=== PATIENT | male | born 1945 | race Caucasian/White ===

== ENCOUNTER 2023-07-22 11:58 | Inpatient (IN) | payer MEDICARE, OTHER, SELFPAY ==
[2023-07-22] VITALS (21 sets, daily range): BP systolic 99–136; BP diastolic 52–75; PULSE 57–118; RESP 18–38; TEMP 36.8–37.8; O2SAT 83–100; BMI 24.8
--- NOTE | ~2023-07-22 | CT_ITS ---
EXAMINATION:CT diagnostic chest wo con DATE: 07/29/2023 18:09 INDICATION: Hemoptysis. TECHNIQUE: Computed tomography (CT) of the chest was performed without intravenous contrast. Automate d exposure control and iterative reconstruction technique were employed. The dose-length product (DLP ) was 237.56 mGy-cm. COMPARISON: Chest CT 07/22/2023 FINDINGS: There is mild emphysema. There is mild atelectasis bilaterally. There are airspace and grou ndglass opacities in right lower lobe, consistent with pneumonia. There is a small right pleural effu randy. Cardiomegaly is noted. There are coronary artery calcifications. No pericardial effusion. There are likely changes of graft replacement of ascending aorta. There is a 5.7 cm fusiform aneurysm of a scending aorta distal to the graft. There is a stent graft in descending thoracic aorta, which measur es 4.7 cm. There are gallstones in the gallbladder, which is contracted. Partially visualized is a 7. 0 cm cyst in right kidney. There are old healed rib fractures. There is mild thoracic spondylosis. IMPRESSION: 1. Persistent right lower lobe pneumonia. 2. Worsened small right pleural effusion. 3. Mild emphysema. 4. 5.7 cm fusiform aneurysm of ascending aorta distal to the graft. Stent graft of descending thoraci c aorta. Reviewed, dictated and finalized at location E. RITY PUBLIC SAFETY OFFICER IMPRESSION: 1. Persistent right lower lobe pneumonia. 2. Worsened small right pleural effusion. 3. Mild emphysema. 4. 5.7 cm fusiform aneurysm of ascending aorta distal to the graft. Stent graft of descending thoracic aorta.
--- NOTE | ~2023-07-22 | XR_ITS ---
Portable chest x-ray Comparison: 07/27/2023 Clinical History: Pneumonia Findings: There is probable mild bibasilar pulmonary edema pattern. Questionable minimal pleural eff usions. Cardiomediastinal silhouette is stable correlate with descending thoracic aortic stent graft . Bones and soft tissues are unremarkable. Impression: Mild bibasilar pulmonary edema and questionable minimal pleural effusions. Descending thoracic aortic stent graft is unchanged. Reviewed, dictated and finalized at location . NG UP SUPERVISOR Impression: Mild bibasilar pulmonary edema and questionable minimal pleural effusions. Descending thoracic aortic stent graft is unchanged.
--- NOTE | ~2023-07-22 | US_ITS ---
EXAMINATION: US renal BI DATE: 07/24/2023 11:49 INDICATION: Hematuria. TECHNIQUE: Multiple ultrasound grayscale images of the kidneys were obtained. COMPARISON: CT abdomen and pelvis 07/22/2023 FINDINGS: The right kidney measures 12.0 x 6.3 x 5.2 cm. The left kidney measures 10.7 x 5.5 x 4.7 cm. The kidn eys demonstrate normal parenchymal echogenicity. There is cortical thinning of the kidneys. There are cysts in the kidneys measuring up to 6.0 cm on the right. There is no hydronephrosis. The bladder is normal. IMPRESSION: 1. Mild atrophy of the kidneys. No hydronephrosis. Reviewed, dictated and finalized at location E. TENDER
--- NOTE | ~2023-07-22 | CT_ITS ---
EXAMINATION: CTA chest PE abdomen pel DATE: 07/22/2023 13:12 INDICATION: Hemoptysis. History of aortic graft. Left upper quadrant abdominal pain. TECHNIQUE: Computed tomography angiography (CTA) of the chest, abdomen and pelvis was performed with 100 mL Omnipaque-350 intravenous contrast timed to evaluate the pulmonary arteries. Coronal maximum i ntensity projection 3D-reconstructions were created by the technologist. Automated exposure control a nd iterative reconstruction technique were employed. Exam dose: 788.76 mGy-cm total exam DLP. COMPARISON: 07/22/2023 2 view chest 08/04/2012 CTA chest abdomen FINDINGS: Status post sternotomy. There is a thoracic aortic graft stent extending from the posterior thoracic aortic arch into the dis cheli descending thoracic aorta. Stable aneurysm of the distal ascending aorta and aortic arch, measuring up to 5.6 cm diameter, uncha nged since 08/04/2012. There is diagnostic contrast enhancement of the pulmonary arteries and no evidence of pulmonary embol ism. Mild prominence of right hilar and mediastinal lymph nodes, likely reactive. There is patchy groundglass infiltrate in the right upper lobe and superior segment right lower lobe, with prominent consolidating infiltrate with air bronchograms in the dependent basilar right lower l obe, suggesting pneumonia or aspiration pneumonitis. There is mild discoid atelectasis in the left lower lung but no left pulmonary consolidation. No pleural effusion. Cardiomegaly. No pericardial effusion. There are multiple stones in the dependent aspect of the gallbladder. No gallbladder wall thickening or pericholecystic fluid or fat stranding. No bile duct dilatation. Approximately 1.8 x 3 cm hypoattenuating lesion of the anterior aspect of the lateral segment of the left hepatic lobe with some peripheral puddling of contrast material, possibly a hemangioma. Indeterminate approximately 8.8 x 14 mm hypoattenuating lesion of the right hepatic lobe (series 5 im age 28) Up to approximately 2.5 x 4.1 cm cystic lesion of the pancreatic tail. There are numerous pancreatic calcifications consistent with chronic pancreatitis. No pancreatic duct dilatation. Splenic size is within normal range. Normal morphology of the adrenal glands. Bilateral chronic pyelonephritis with volume loss of the left kidney compared to the right. There are multiple bilateral renal cysts., Measuring up to 2.1 cm on the left, 7.4 cm on the right. 5.7 mm lower pole nonobstructing right renal calculus. Pinpoint nonobstructing mid right renal calcul us. Pinpoint and up to 7.8 mm nonobstructing lower pole left renal calculi. No ureteral calculus or hydroureteronephrosis of either kidney. There is moderately prominent prostatomegaly and mild prostate calcification. There is moderate diffu se thickening of bladder wall likely due to urinary bladder outlet obstruction as result of prostate enlargement. Normal appendix. There are innumerable diverticula of the sigmoid and descending colon and a solitary diverticulum of the ascending colon. No CT evidence of diverticulitis. No bowel obstruction, pneumatosis, portal veno us gas or intraperitoneal free air. There is a stent at the proximal celiac artery with diminished kinking since 08/04/2012. The suprarenal abdominal aortic aneurysm, measuring up to 5 cm diameter. There is extensive calcifica tion of the abdominal aorta, iliac and femoral arteries. No intraperitoneal or retroperitoneal or pelvic mass lesion or adenopathy or ascites is noted. Approximately 1.8 x 2.7 cm fat-containing umbilical hernia. Bilateral small fat-containing inguinal hernias. Degenerative changes of the thoracic and lumbar spine, including moderate degenerative disc disease a nd grade 1 anterolisthesis at L5-S1 due to degenerative change at the apophyseal joints No suspicious osteolytic or osteoblastic lesions are noted. IMPRESSION: Prominent consolidating depen
--- NOTE | ~2023-07-22 | XR_ITS ---
Portable chest x-ray Comparison: 07/25/2023 Clinical History: Pneumonia Findings: Lungs are clear, without focal consolidation or pleural effusion. Cardiomediastinal silho uette is stable, with descending thoracic aortic stent graft present. Bones and soft tissues are unre markable. Impression: Clear lungs. Stable descending thoracic aortic stent graft. Reviewed, dictated and finalized at [facility]. N SERVICE COORDINATOR Impression: Clear lungs. Stable descending thoracic aortic stent graft.
--- NOTE | ~2023-07-22 | XR_ITS ---
EXAMINATION: XR chest 1V DATE: 07/22/2023 13:12 INDICATION: Cough and hemoptysis TECHNIQUE: frontal view of the chest was obtained. COMPARISON: Chest radiograph dated 07/22/2023 FINDINGS: Again seen are airspace opacities in the bilateral lower lungs and in the inferior right upper lobe. No pulmonary edema, pleural effusion or pneumothorax. Cardiomegaly with prominent left paracardial fa t pad. Endoluminal stenting of the aneurysmal descending thoracic aorta. IMPRESSION: 1. Opacities in the right upper lobe and bilateral lower lung zones which could represent atelectasis and/or pneumonia. 2. Cardiomegaly. 3. Stented aneurysmal descending thoracic aorta. Reviewed, dictated and finalized at location A. ROCK DRILL OPERATOR
--- NOTE | ~2023-07-22 | CT_ITS ---
EXAMINATION: CT brain wo con DATE: 07/25/2023 10:49 INDICATION: Frontal headache, right greater than left TECHNIQUE: Computed tomography (CT) of the head was performed without intravenous contrast. The mA wa s adjusted according to patient size. Iterative reconstruction technique was employed. Exam dose: 60 5.33 mGy-cm total exam DLP. COMPARISON: None FINDINGS: Old left temporal occipital infarct, left middle cerebral artery territory. Small posterior left cerebellar hemispheric chronic infarct. Prominent bilateral carotid siphon internal carotid artery calcifications and bilateral vertebral art pascale and basilar artery calcification. There is nonspecific diminished attenuation of the cerebral whi te matter, likely due to chronic small vessel ischemic changes. There has been a prominent bilateral cerebral cortical atrophy. No intracranial mass lesion or hemorrhage, midline shift or mass effect is noted. No subdural or epid ural hematoma. Mild mucoperiosteal thickening of the right maxillary sinus. The paranasal sinuses are otherwise unre markable. Normal development and aeration of the left mastoid air cells. There is limited development of the right mastoid air cells. No skull fracture or bone destruction. IMPRESSION: Old left temporal occipital and posterior left cerebellar hemispheric infarcts Cerebral atherosclerosis and chronic small vessel ischemic changes of the cerebral white matter No acute intracranial finding Reviewed, dictated and finalized at Location A. Reviewed, dictated and finalized at location A. IT COLLECTIONS REP IMPRESSION: Old left temporal occipital and posterior left cerebellar hemisphe layo infarcts Cerebral atherosclerosis and chronic small vessel ischemic changes of the cereb ral white matter No acute intracranial finding
--- NOTE | ~2023-07-22 | XR_ITS ---
EXAMINATION: XR chest 1V portable DATE: 07/24/2023 11:08 INDICATION: Pneumonia. TECHNIQUE: A single frontal view of the chest was obtained. COMPARISON: Chest CT 07/22/2023, chest single view 07/22/2023 FINDINGS: There are airspace and interstitial opacities in the mid and lower lung zones. There is a s mall right pleural effusion. No pneumothorax. Cardiomegaly is noted. Median sternotomy wires are note d. There is a stent graft in descending thoracic aorta. IMPRESSION: 1. Worsened airspace and interstitial opacities in the mid and lower lung zones, likely a combination of pneumonia and pulmonary edema. 2. Small right pleural effusion. 3. Cardiomegaly. Reviewed, dictated and finalized at location E. EAR INSTRUCTOR IMPRESSION: 1. Worsened airspace and interstitial opacities in the mid and lower lung zones , likely a combination of pneumonia and pulmonary edema. 2. Small right pleural effusion. 3. Cardiomegaly.
--- NOTE | ~2023-07-22 | XR_ITS ---
XR chest 1V portable DATE: 07/25/2023 04:29 INDICATION: Pneumonia TECHNIQUE: Portable AP chest on 07/25/2023 at 0425 hours COMPARISON: 07/24/2023 portable AP chest at 1102 hours FINDINGS: Cardiomegaly. Thoracic aortic endovascular stent centimeter from the arch into the descendi ng thoracic aorta. Status post sternotomy. Bilateral predominantly mid and lower lung zone infiltrates, right greater than left, which may be du e to pulmonary edema. Pneumonia is not excluded. Slight right pleural effusion is suggested. IMPRESSION: Persistent bilateral pulmonary infiltrates suggesting pulmonary edema; pneumonia is not e xcluded Reviewed, dictated and finalized at location A. OR PROGRAM ANALYST IMPRESSION: Persistent bilateral pulmonary infiltrates suggesting pulmonary aguilar ma; pneumonia is not excluded
--- NOTE | 2023-07-22 12:08 | ECG_ITS ---
Measurements Intervals [place] Rate: 116 P: AK: 0 QRS: 18 QRSD: 95 T: 31 QT: 300 QTc: 417 Interpretive Statements ATRIAL FIBRILLATION WITH RAPID VENTRICULAR RESPONSE LOW QRS VOLTAGE IN LIMB LEADS CONSIDER ANTEROSEPTAL INFARCT, AGE INDETERMINATE BASELINE ARTIFACT- I, II, III, AVR, AVL, AVF ABNORMAL ECG NO PREVIOUS ECG AVAILABLE FOR COMPARISON Electronically Signed On 07-22-2023 12:22:23 TOOLER by Vega Taylor D.O.
[2023-07-22 12:31] LABS: Hemoglobin 11.7 g/dL (14.0-18.0); Mean Corpuscular HGB Conc 30.8 g/dl (32-36); Mean Corpuscular Hemoglobin 29.3 pg (26-34); Mean Platelet Volume 9.9 fl (7.4-10.4); Platelet Count Result 158 k/mm3 (150-375); Red Cell Distribution Width 15.2 % (11.5-14.5); White Blood Count 9.9 K/mm3 (4.5-10.0)
[2023-07-22] MEDS: SODIUM CHLORIDE 0.9% IV 1,000 ML 999 ML IV CONT ×2 (12:41→13:18)
[2023-07-22 12:43] LABS: Lactic Acid Reflex 3.4 mmol/L (0.7-2.0)
--- NOTE | 2023-07-22 12:46 | ED.SOB ---
HPI - SOB/Dyspnea General Chief Complaint: Shortness of Breath/Dyspnea Stated Complaint: cough, chills, fever, SOB Time Seen by Provider: 07/22/23 12:11 History of Present Illness HPI Narrative: patient is a 78-year-old male with a history of AFib on Xarelto, diabetes, hypertension, hyperlipidemia presenting with cough and fatigue. Patient's family is at bedside and helps with the history. He has been sick for the last 5 days. His main complaints are body aches and severe fatigue. He has also had a productive cough with blood-tinged sputum for the last day or 2. He went to his PCP today who advised that he come to the ER as he was hypoxic. He complains of chronic left upper quadrant pain but otherwise denies any chest or abdominal pain. Family states he has had a very poor appetite and is not drinking enough fluids. No numbness or weakness, dysuria, leg swelling, back or flank pain. Related Data Home Medications Medication Instructions Recorded Confirmed mecobalamin (vitamin B12) 1,000 1,000 mcg sublingual DAILY 01/12/23 07/22/23 mcg disintegrating tablet,sublingual acetaminophen 650 mg 650 mg PO Q8H PRN pain or sleep 07/22/23 07/22/23 tablet,extended release lisinopril 5 mg tablet 5 mg PO QPM 07/22/23 07/22/23 pantoprazole 40 mg tablet,delayed 40 mg PO DAILY 07/22/23 07/22/23 release rivaroxaban 20 mg tablet (Xarelto) 20 mg PO QPM 07/22/23 07/22/23 Allergies Allergy/AdvReac Type Severity Reaction Status Date / Time clindamycin AdvReac GI upset Verified 07/22/23 10:34 Review of Systems Review of Systems: All systems reviewed & are unremarkable except as noted in HPI and below PMFSH Past Medical History Medical History Cancer screening Diverticulosis large intestine w/o perforation or abscess w/bleeding Dyspnea Emphysema, unspecified Gout Other fpc (current) drug therapy Persistent atrial fibrillation Personal history of other diseases of the circulatory system Positive colorectal cancer screening using Cologuard test Psychosexual dysfunction with inhibited sexual excitement Stroke 2020 Thoracic aortic aneurysm, without rupture Surgical History Surgical History Aneurysm 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 [phone] with surgical repair of the aortic root 2003 and thoracic aneurysm graft/repair around 2009 History of blood clot in brain 03/2021 History of repair of thoracic aortic aneurysm S/P ear surgery 8- at [facility] Family History Family History Mother Diabetes mellitus Depression Cerebrovascular accident Father Hypertension Family history of elevated blood lipids Family history of lung cancer Social History Social History Smoking status: Former smoker Second hand tobacco smoke exposure: No Alcohol intake: current Substance use: never Substance use type: does not use Do You Feel Safe in your Home?: Yes Lack of Transportation: YES Lack of Food: Never True Current Housing: I Have Housing Concerned About Future Housing: No Difficulty Paying Gas/Electric Bills: No Difficulty Paying for Meds: No Currently Unemployed: No Education: Decline to Answer Difficulty w/ Childcare or Family Care: No Living arrangements: with family Occupation/Education: retired Gender identity (if verbalized by the patient): Male Sexual Orientation (if Verbalized by the Patient): Straight or Heterosexual Spiritual care concerns: No Exam Narrative: GENERAL: Ill-appearing, in no acute distress, pleasant cooperative HEAD: Normocephalic, atraumatic. EYES: PERRLA and EOMI. ENT: Mucous membranes tacky NECK: Supple. CHEST: coarse breath sounds in bases, no wheezing, saturating well on 2L NC HEART: tachycardic
[2023-07-22 12:51] LABS: Band Neutrophils Percent 7 % (0-6); Lymphocytes Absolute Manual 0.19 K/mm3 (1.1-4.5); Monocytes Absolute Manual 0.09 K/mm3 (0.1-0.90); Monocytes Percent Manual 1 % (3-9); Neutrophils Percent Manual 90 % (46-73); Platelet Estimate Adequate (Adequate); Total Cells Counted 100
[2023-07-22 12:52] LABS: Schistocytes None Seen (NORMAL)
[2023-07-22 12:53] LABS: Alanine Aminotransferase 34 U/L (6-50); Albumin Level 3.6 g/dL (3.5-5.1); Alkaline Phosphatase 191 U/L (38-126); Anion Gap 11 mmol/L (8-16); Aspartate Amino Transferase 32 U/L (17-59); Bilirubin,Total 1.5 mg/dL (0.2-1.3); Blood Urea Nitrogen 27 mg/dL (9-20); Calcium 9.6 mg/dL (8.4-10.2); Carbon Dioxide 24 mmol/L (22-30); Chloride 101 mmol/L (98-107); Estimated CRCL calculation 48 ml/min; Estimated Glomerular Filt Rate > 60; Glucose 135 mg/dL (65-110); Potassium 4.5 mmol/L (3.4-5.0); Sodium 136 mmol/L (137-145)
[2023-07-22 12:58] LABS: Lipase 55 U/L (23-300)
--- NOTE | 2023-07-22 13:12 | PC.NURSE ---
Pt returned from radiology
[2023-07-22 13:16] LABS: Influenza A QL RT-PCR Negative (Negative); Influenza B QL RT-PCR Negative (Negative); RSV RNA, RT-PCR Negative (Negative); SARS-CoV-2 RNA PCR Negative (Negative)
[2023-07-22 13:16] LABS: NT Pro B Type Natriuretic Pept 5430 pg/mL (19.9-100); Troponin I 0.063 ng/mL (0.000-0.034)
[2023-07-22 13:32] LABS: INR 2.5; Partial Thromboplastin Time 42.3 SECONDS (22.3-36.8); Prothrombin Time 28.6 Seconds (11.1-14.7)
[2023-07-22] MEDS: PIPERACILLN/TAZ 3.375GM/NS50ML 3.375 GM/50 ML BAG IVPB (14:21)
[2023-07-22 14:54] LABS: Appearance Urine Clear (Clear); Bacteria Urine None Seen /hpf; Bilirubin Urine 1+ (Negative); Blood Urine Negative (Negative); Color Urine Dark Yellow (Yellow); Glucose Urine UA Negative (Negative); Hyaline Casts Urine Present /lpf; Ketones Urine Negative (Negative); Leukocyte Esterase Ur Trace LEU/UL (Negative); Nitrate Urine Negative (Negative); Non Pathogenic Casts 0-2; Protein Urine 1+ mg/dL (Negative); Squamous Epithelial Cell Urine None seen /hpf (Few)
[2023-07-22 14:56] LABS: Specific Grav Ur 1.078 (1.001-1.035)
[2023-07-22 14:57] LABS: Add Urine Microscopic? YES
[2023-07-22 15:26] LABS: Reflex Lactic Acid Yes or No Add Lactic
--- NOTE | 2023-07-22 15:39 | PC.NURSE ---
This patient, Ambrose Leonardo, was admitted to IMU status, and placed in Intensive Care Unit-8. Patient/family oriented to hospital policies and general routines including ID bracelet, bed and alarms, visiting hours, pain management, procedures, bathroom and other care routines, personal items, smoking policy, room service/diet, and visiting hours. Valuables list has been completed. Information on how to activate the Rapid Response Team has been discussed. Patient/Family are encouraged to report perceived risks to care and to ask questions if they do not understand what they are told or what they should do.
[2023-07-22] MEDS: VANCOMYCIN 2,000 MG/NS 500 ML 2,000 MG/500 ML BAG 250 MG IVPB (15:40)
[2023-07-22 15:55] LABS: Glucose Point of Care 98 mg/dl (65-105)
--- NOTE | 2023-07-22 15:59 | PM.IMHP ---
H&P: HPI History of Present Illness Date/Time: 07/22/23 15:59 Chief Complaint: SOB, Cough Narrative: 78 y/o M presents here with SOB, cough and body aches with PMH of emphysema, gout, persistent AFib, CVA, and thoracic aortic aneurysm s/p graft and repair. Patient presented here from his PCP office, [facility], for evaluation. Patient reports SOB and body aches that started on Sat (07/18). Developed productive cough on Thu/ that was blood streaked and noted blood streaks when he would blow his nose. Currently experiencing body aches that have primarily effected his hips and knees. Reports reduced appetite and reduced PO intake. Tried OTC aspirin and a nasal decongestant at home with minimal relief. States his neighbor had similar symptoms 3 days before onset of his own symptoms. During evaluation at his PCP, found to have adventitious lung sounds and tachypneic with O2 sat at 92% on RA. He was promptly sent to the ED where ED workup revealed a normal WBC, stable anemia with hgb at 11.7, BS of 135, lactic acid 1.1, and an elevated BNP at 5430. UA suggestive of UTI. CTA had multiple findings with most prominent being a RLL infiltrate and patchy groundglass infiltrates of the RUL and super segment of the RLL. Currently denying any urinary frequency, burning with urination, or hematuria. No chest pain or palpitations. Denies any current chills or fever, however endorsed fever previously to PCP and has current temp of 100F. Review of Systems Review of Systems: All systems reviewed & are unremarkable except as noted in HPI and below [facility] Past Medical History Medical History (Updated 07/22/23 @ 16:59 by Tammie Thao APRN) Cancer screening Diverticulosis large intestine w/o perforation or abscess w/bleeding Dyspnea Emphysema, unspecified Gout Other long-term (current) drug therapy Persistent atrial fibrillation Personal history of other diseases of the circulatory system Positive colorectal cancer screening using Cologuard test Psychosexual dysfunction with inhibited sexual excitement Stroke 2020 Thoracic aortic aneurysm, without rupture Surgical History Surgical History Aneurysm 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 [phone] with surgical repair of the aortic root 2003 and thoracic aneurysm graft/repair around 2009 History of blood clot in brain 03/2021 History of repair of thoracic aortic aneurysm S/P ear surgery 8-21 at [facility] Family History Family History Mother Diabetes mellitus Depression Cerebrovascular accident Father Hypertension Family history of elevated blood lipids Family history of lung cancer Social History Social History Smoking status: Former smoker Second hand tobacco smoke exposure: No Alcohol intake: current Substance use: never Substance use type: does not use Do You Feel Safe in your Home?: Yes Lack of Transportation: YES Lack of Food: Never True Current Housing: I Have Housing Concerned About Future Housing: No Difficulty Paying Gas/Electric Bills: No Difficulty Paying for Meds: No Currently Unemployed: No Education: Decline to Answer Difficulty w/ Childcare or Family Care: No Living arrangements: with family Occupation/Education: retired Gender identity (if verbalized by the patient): Male Sexual Orientation (if Verbalized by the Patient): Straight or Heterosexual Spiritual care concerns: No Meds Home Medications and Allergies Home Medications Medication Instructions Recorded Confirmed Type blood-glucose meter #1 ea 05/13/21 07/22/23 Rx blood sugar diagnostic (Blood #50 ea 02/24/22 07/22/23 Rx Glucose Test strips) lancets 30 gauge and blood glucose #60 kiara 02/24/22 07/22/23 Rx strips combo pack blood sugar diagn
[2023-07-22 16:00] LABS: MRSA (PCR) NOT DETECTED (NOT DETECTE)
--- NOTE | 2023-07-22 16:01 | ECG_ITS ---
Measurements Intervals [place] Rate: 100 P: TN: 0 QRS: 74 QRSD: 100 T: 29 QT: 344 QTc: 445 Interpretive Statements ATRIAL FIBRILLATION WITH RAPID VENTRICULAR RESPONSE LOW QRS VOLTAGE IN LIMB LEADS CANNOT RULE OUT SEPTAL INFARCT, AGE INDETERMINATE BASELINE ARTIFACT- AVL ABNORMAL ECG COMPARED TO ECG 07/22/2023 12:12:40 HEART RATE HAS DECREASED Electronically Signed On 07-22-2023 16:12:30 SURVEY TECHNICIAN by Vega Taylor D.O.
[2023-07-22 16:09] LABS: Lactic Acid 1.1 mmol/L (0.7-2.0)
[2023-07-22 16:30] LABS: Troponin I 0.084 ng/mL (0.000-0.034)
[2023-07-22] MEDS: ALBUTEROL SULFATE NEB 2.5 MG/3 ML INH INHALATION (16:45)
[2023-07-22] MEDS: IPRATROPIUM BR 0.02% INH SOLN 0.5 MG/2.5 ML VIAL INHALATION (16:51)
[2023-07-22] MEDS: dilTIAZem HCL 30 MG TABLET PO (17:25)
[2023-07-22] MEDS: RIVAROXABAN 20 MG TABLET PO (17:25)
--- NOTE | 2023-07-22 18:20 | ECG_ITS ---
Measurements Intervals [place] Rate: 89 P: AK: 0 QRS: 66 QRSD: 94 T: 29 QT: 344 QTc: 420 Interpretive Statements ATRIAL FIBRILLATION LOW QRS VOLTAGE IN LIMB LEADS CANNOT RULE OUT SEPTAL INFARCT, AGE INDETERMINATE BASELINE ARTIFACT- I, II, III, AVR, AVL ABNORMAL ECG COMPARED TO ECG 07/22/2023 16:07:28 HEART RATE HAS DECREASED Electronically Signed On 07-22-2023 19:10:58 CASE COORDINATOR by Vega Taylor D.O.
[2023-07-22 19:29] LABS: Troponin I 0.077 ng/mL (0.000-0.034)
[2023-07-22 20:05] LABS: Glucose Point of Care 151 mg/dl (65-105)
[2023-07-23] VITALS (18 sets, daily range): BP systolic 98–159; BP diastolic 46–77; PULSE 72–106; RESP 23–32; TEMP 36.3–36.9; O2SAT 96–100
--- NOTE | 2023-07-23 | ECHO_ITS ---
Patient Info Name: Ambrose Leonardo Age: 78 years : 1945 Gender: Male Ht: 68 in Wt: 163 lbs BSA: 1.89 m2 HR: 78 bpm BP: 98 / 56 mmHg Heart Rhythm: Sinus Rhythm Technical Quality: Good Exam Date: 07/23/2023 9:51 AM Exam Location: Echo Lab Patient Status: Inpatient Admit Date: 07/22/2023 Staff Ordering Physician: Tammie Thao APRN Retort Furnace Helper: Kirby Thorne RDCS Attending Provider: Kenneth Kaye MD Referring Physician: Master MCNEIL; Exam Type: CA echo doppler color flow Study Info Indications - elevated BNP, dyspnea Complete two-dimensional, color flow and Doppler transthoracic echocardiogram is performed. Summary 1. Complete two-dimensional, color flow and Doppler transthoracic echocardiogram is performed. 2. Normal left ventricular size with moderate concentric hypertrophy and some sigmoid hypertrophy. Good systolic function of all segments, ejection fraction 60-65%. Grade 2 diastolic dysfunction is present. 3. Left atrial chamber dimension is mildly enlarged. 4. The aortic valve is possibly bicuspid. There is mild aortic insufficiency present. 5. There is mild mitral valve regurgitation. 6. There is mild tricuspid valve regurgitation. 7. Mild pulmonary hypertension, estimated pulmonary arterial systolic pressure is 38 mmHg. 8. The aortic root size at the sinus of Valsalva is mildly dilated, at 4.3 cm. 9. The underlying rhythm appears to be atrial fibrillation. Left Ventricle Left ventricular chamber dimension is normal. Left ventricular systolic function is normal, estimated at 60-65%. There is moderately increased left ventricular wall thickness. Left ventricular septal wall motion is normal. The left ventricular diastolic function is grade II diastolic dysfunction. Right Ventricle Right ventricular chamber dimension is normal. Right ventricular systolic function is normal. Left Atria Left atrial chamber dimension is mildly enlarged. Right Atria Right atrial chamber dimension is normal. Aortic Valve The aortic valve is possibly bicuspid. There is mild aortic insufficiency present. There is no aortic valve sclerosis. There is no aortic valve stenosis. There is mild aortic valve regurgitation. Pulmonic Valve The pulmonic valve is normal. There is no pulmonic valve stenosis. There is no pulmonic regurgitation. Mitral Valve The mitral valve has normal leaflets. There is no mitral valve stenosis. There is mild mitral valve regurgitation. Tricuspid Valve The tricuspid valve leaflets are normal. There is no significant tricuspid valve stenosis. There is mild tricuspid valve regurgitation. Mild pulmonary hypertension, estimated pulmonary arterial systolic pressure is 38 mmHg. Pericardium/Pleural The pericardium appears normal. There is no pericardial effusion. Inferior Vena Cava Normal inferior vena cava with >50% collapse upon inspiration consistent with Empty right atrial pressure, 10 mmHg. Aorta The aortic root size at the sinus of Valsalva is mildly dilated, at 4.3 cm. The prox ascending aorta size is normal. Left Ventricular Outflow Tract Name Value Normal LVOT 2D LVOT Diameter 2.1 cm LVOT Doppler LVOT Peak Gradient 4 mmHg
[2023-07-23] MEDS: dilTIAZem HCL 30 MG TABLET PO ×4 (00:05→18:40)
[2023-07-23] MEDS: ACETAMINOPHEN 325 MG TABLET 650 MG PO ×2 (00:05→20:39)
[2023-07-23] MEDS: PIPERACILLN/TAZ 3.375GM/NS50ML 3.375 GM/50 ML BAG IVPB ×4 (00:06→18:41)
[2023-07-23 04:15] LABS: Hematocrit 31.8 % (42.0-52.0); Hemoglobin 9.8 g/dL (14.0-18.0); Mean Corpuscular HGB Conc 30.8 g/dl (32-36); Mean Corpuscular Hemoglobin 29.6 pg (26-34); Mean Corpuscular Volume 96.1 fl (80-100); Mean Platelet Volume 10.3 fl (7.4-10.4); Platelet Count Result 131 k/mm3 (150-375); Red Blood Count 3.31 M/mm3 (4.6-6.20); Red Cell Distribution Width 15.5 % (11.5-14.5); White Blood Count 8.7 K/mm3 (4.5-10.0)
[2023-07-23 04:50] LABS: Band Neutrophils Percent 7 % (0-6); Eosinophils Absolute Manual 0.08 K/mm3 (0.02-0.5); Eosinophils Percent Manual 1 % (0-4); Monocytes Absolute Manual 0.17 K/mm3 (0.1-0.90); Monocytes Percent Manual 2 % (3-9); Neutrophils Absolute Manual 7.83 K/mm3 (1.3-6.7); Neutrophils Percent Manual 83 % (46-73); Total Cells Counted 100
[2023-07-23 04:51] LABS: Platelet Estimate Adequate (Adequate); Schistocytes None Seen (NORMAL)
[2023-07-23 04:52] LABS: Acanthocytes 1+ (NORMAL); Ovalocytes 1+ (NORMAL)
[2023-07-23 05:32] LABS: Hemoglobin A1C 6.3 % (<5.7)
--- NOTE | 2023-07-23 06:25 | PC.NURSE ---
Pt's daughter, Jane ([phone]) called for pt update. Pt states Jane can receive information. Updated to current condition.
[2023-07-23 07:34] LABS: Alanine Aminotransferase 33 U/L (6-50); Albumin Level 3.2 g/dL (3.5-5.1); Alkaline Phosphatase 199 U/L (38-126); Anion Gap 8 mmol/L (8-16); Aspartate Amino Transferase 29 U/L (17-59); Bilirubin,Total 1.2 mg/dL (0.2-1.3); Blood Urea Nitrogen 18 mg/dL (9-20); Calcium 9.1 mg/dL (8.4-10.2); Carbon Dioxide 21 mmol/L (22-30); Chloride 105 mmol/L (98-107); Estimated CRCL calculation 48 ml/min; Estimated Glomerular Filt Rate > 60; Glucose 129 mg/dL (65-110); Magnesium 2.2 mg/dL (1.6-2.3); Sodium 134 mmol/L (137-145)
[2023-07-23 08:03] LABS: Glucose Point of Care 109 mg/dl (65-105)
[2023-07-23] MEDS: CYANOCOBALAMIN 1,000 MCG TABLET 1000 MCG PO (08:51)
[2023-07-23] MEDS: PANTOPRAZOLE 40 MG TABLET PO (08:51)
--- NOTE | 2023-07-23 10:38 | PM.IMPN ---
Progress Note: A&P Assessment and Plan (1) Persistent atrial fibrillation: Code(s): I48.19 - Other persistent atrial fibrillation Status: Acute (2) Elevated troponin: Code(s): R79.89 - Other specified abnormal findings of blood chemistry Status: Acute (3) Sepsis: Qualifiers: Acute respiratory failure type: with hypoxia Sepsis acute organ dysfunction status: with acute organ dysfunction Sepsis type: sepsis due to unspecified organism Severe sepsis shock status: without septic shock Code(s): A41.9 - Sepsis, unspecified organism Status: Acute (4) Pneumonia: Qualifiers: Laterality: right Lung location: lower lobe of lung Pneumonia type: due to unspecified organism Qualified Code(s): J18.9 - Pneumonia, unspecified organism Code(s): J18.9 - Pneumonia, unspecified organism Status: Acute (5) Chronic atrial fibrillation: Code(s): I48.20 - Chronic atrial fibrillation, unspecified Status: Acute (6) Thoracic aortic aneurysm, without rupture: Code(s): I71.2 - Thoracic aortic aneurysm, without rupture Status: Acute Plan 78 y/o M presents here with SOB, cough and body aches with PMH of emphysema, gout, persistent AFib, CVA, and thoracic aortic aneurysm s/p graft and repair. Patient presented here from his PCP office, [facility], for evaluation. Patient reports SOB and body aches that started on? Sat (07/18). Developed productive cough on Mon/Tues that was blood streaked and noted blood streaks when he would blow his nose. Currently experiencing body aches that have primarily effected his hips and knees. Reports reduced appetite and reduced PO intake. Tried OTC aspirin and a nasal decongestant at home with minimal relief. . During evaluation at his PCP, found to have adventitious lung sounds and tachypneic with O2 sat at 92% on RA. He was promptly sent to the ED where ED workup revealed a normal WBC, stable anemia with hgb at 11.7,? BS of 135, lactic acid 1.1, and an elevated BNP at 5430. UA suggestive of UTI. CTA had multiple findings with most prominent being a RLL infiltrate and patchy groundglass infiltrates of the RUL and super segment of the RLL.? (1) Sepsis: ?Qualifiers: ?Acute respiratory failure type:?with hypoxia??Sepsis acute organ dysfunction status:?with acute organ dysfunction??Sepsis type:?sepsis due to unspecified organism??Severe sepsis shock status:?without septic shock ?Code(s): A41.9 - Sepsis, unspecified organism ?Status:?Acute ?Assessment and Plan: Meets SIRS criteria: HR >100, RR >20. Lactic acid 3.4. No fever, elevated WBC, or lactic acidosis (1.1). Borderline hypotension and elevated troponins. Started on 30 mL/kg with 2L bolus of NS. Suspected source: right lower lobe and right upper lobe pna. Possible UTI. Repeat lactic post-fluids was 1.1. Blood cultures, UC, and MRSA ordered/pending. Adding sputum culture. Started on Vanc and Zosyn on 07/22/22. (2) Pneumonia and hemoptysis ?Laterality:?right??Lung location:?lower lobe of lung??Pneumonia type:?due to unspecified organism? Qualified Code(s):?J18.9 - Pneumonia, unspecified organism ?Code(s): J18.9 - Pneumonia, unspecified organism ?Status:?Acute ?Assessment and Plan: CTA of chest/abdomen/pelvis: Prominent consolidating dependent right lower lobe infiltrate,, patchy groundglass infiltrates of right upper lobe and super segment of right lower lobe, suggesting pneumonia CXR: 1. Opacities in the right upper lobe and bilateral lower lung zones which could represent atelectasis and/or pneumonia. 2. Cardiomegaly. 3. Stented aneurysmal descending thoracic aorta. started on vanc and Zosyn on 07/22. MRSA PCR and sputum culture ordered. Requiring 2L to maintain a saturation greater than 92%. Albuterol/Atrovent nebs Q6H prn ordered. consider steroids if lung exam does not improve. Patient still has active bleeding with the cough with
[2023-07-23 11:46] LABS: Glucose Point of Care 147 mg/dl (65-105)
[2023-07-23] MEDS: ALBUTEROL SULFATE NEB 2.5 MG/3 ML INH INHALATION ×2 (12:39→20:08)
[2023-07-23] MEDS: IPRATROPIUM BR 0.02% INH SOLN 0.5 MG/2.5 ML VIAL INHALATION ×2 (12:39→20:08)
[2023-07-23] MEDS: VANCOMYCIN 1,500 MG/NS 500 ML 1,500 MG/500 ML BAG 250 MG IVPB (14:49)
--- NOTE | 2023-07-23 14:57 | PM.CNPUL ---
Assessment and Plan Assessment and plan (1) Pneumonia: Qualifiers: Pneumonia type: due to unspecified organism Laterality: right Lung location: lower lobe of lung Qualified Code(s): J18.9 - Pneumonia, unspecified organism Code(s): J18.9 - Pneumonia, unspecified organism Status: Acute Assessment and Plan: A 78-year-old gentleman presented with symptoms of cough, malaise, and yellow-colored sputum production, which subsequently turned bloody; these symptoms are associated with right lower lobe pneumonia as indicated by a chest CT scan. The patient is currently on a suitable antibiotic regimen for community-acquired pneumonia. He continues to have bloody sputum, likely due to both the pneumonia and the anticoagulant medication he is taking. The patient and his expressed concerns about the risk of stroke if Xarelto is discontinued. Given his prolonged PT and PTT, it may be safe to temporarily discontinue the anticoagulant as his blood will remain thin due to the prolonged PT, minimizing the risk of stroke if he is off Xarelto for a short period. There is also a potential scenario where the patient's alveolar hemorrhage, possibly linked to Xarelto use, could deteriorate, necessitating endotracheal intubation and mechanical ventilation. This possibility was thoroughly discussed with both the patient and his spouse. Plan: Maintain the current antibiotic regimen for community-acquired pneumonia. Await the results of the sputum culture. Monitor PT and INR daily. Temporarily discontinue Xarelto. (2) Chronic atrial fibrillation: Code(s): I48.20 - Chronic atrial fibrillation, unspecified Status: Acute (3) Diabetes mellitus: Code(s): E11.9 - Type 2 diabetes mellitus without complications Status: Acute History of Present Illness History of Present Illness Consult date: 07/23/23 Chief complaint: pneumonia Narrative: A 78-year-old male with a past medical history of emphysema, gout, persistent atrial fibrillation, cerebrovascular accident, and thoracic aortic aneurysm post graft and repair, has been admitted with symptoms of shortness of breath, cough, and body aches. These symptoms began on Thursday (07/18), accompanied by a productive, yellow-colored cough. Approximately two days prior to admission, the patient started noticing bloody sputum and blood streaks when blowing his nose. Upon emergency room evaluation, a chest CT scan revealed consolidation in the right lower lobe with an air bronchogram, suggestive of pneumonia, and a ground-glass opacity in the right lung. The patient is currently being treated with antibiotics for community-acquired pneumonia in the intensive care unit, with sputum culture results pending. On admission, his prothrombin time (PT) and partial thromboplastin time (PTT) were prolonged. The patient continues to take oral Xarelto due to his history of atrial fibrillation and continues to have bloody sputum. He reports feeling slightly better in terms of reduced fatigue and improved mobility, being able to move from the bed to the chair. The patient expresses concerns about the risk of a potential stroke if Xarelto is discontinued. He denies experiencing shortness of breath, wheezing, chest pain, palpitations, or fever. Review of Systems Review of Systems: All systems reviewed & are unremarkable except as noted in HPI and below (HPI and below.) [facility] Past Medical History Medical History (Updated 07/22/23 @ 16:59 by Tammie Thao, STORE MANAGEMENT TRAINEE) Cancer screening Diverticulosis large intestine w/o perforation or abscess w/bleeding Dyspnea Emphysema, unspecified Gout Other halfway (current) drug therapy Persistent atrial fibrillation Personal history of other diseases of the circulatory system Positive colorectal cancer screening using Cologuard test Psychosexual dysfunction with inhibited sexual excitement Stroke 2020 Thoracic aortic aneurysm, without rupture Surgical Hi
[2023-07-23 15:54] LABS: Glucose Point of Care 194 mg/dl (65-105)
[2023-07-23] MEDS: RIVAROXABAN 20 MG TABLET PO (18:40)
--- NOTE | 2023-07-23 18:59 | PC.NURSE ---
when China Sher was here today he dc'd pt's xeralto, called him and told him thaat the family did not want it dc'd, he said to talk lk to Dr. Mathew about it, called him and got the order resumed, pt coughs up a scant amount of blood with his mucous
[2023-07-23 20:39] LABS: Glucose Point of Care 194 mg/dl (65-105)
[2023-07-24] VITALS (13 sets, daily range): BP systolic 115–147; BP diastolic 55–78; PULSE 70–94; RESP 13–34; TEMP 36.4–36.8; O2SAT 94–99
[2023-07-24] MEDS: dilTIAZem HCL 30 MG TABLET PO ×4 (00:14→18:02)
[2023-07-24] MEDS: PIPERACILLN/TAZ 3.375GM/NS50ML 3.375 GM/50 ML BAG IVPB ×2 (00:14→06:24)
[2023-07-24 07:14] LABS: Estimated CRCL calculation 52 ml/min; Estimated Glomerular Filt Rate > 60
[2023-07-24 08:00] LABS: INR 2.9; Prothrombin Time 32.4 Seconds (11.1-14.7)
[2023-07-24 08:02] LABS: Glucose Point of Care 127 mg/dl (65-105)
[2023-07-24] MEDS: PANTOPRAZOLE 40 MG TABLET PO (08:59)
[2023-07-24] MEDS: AZITHROMYCIN 250 MG TABLET 500 MG PO (08:59)
[2023-07-24] MEDS: CYANOCOBALAMIN 1,000 MCG TABLET 1000 MCG PO (08:59)
[2023-07-24] MEDS: AMPICILLIN SULB 3 GM/NS 100 ML 3 GM/100 ML VIAL IVPB ×3 (10:00→20:05)
[2023-07-24 11:23] LABS: Glucose Point of Care 174 mg/dl (65-105)
[2023-07-24 12:15] LABS: Glucose Point of Care 138 mg/dl (65-105)
[2023-07-24] MEDS: FUROSEMIDE INJ 40 MG/4 ML VIAL 20 MG IV PUSH (12:20)
--- NOTE | 2023-07-24 13:03 | WPDNEURCNPN ---
Assessment and Plan Assessment and plan (1) Pneumonia: Qualifiers: Pneumonia type: due to unspecified organism Laterality: right Lung location: lower lobe of lung Qualified Code(s): J18.9 - Pneumonia, unspecified organism Code(s): J18.9 - Pneumonia, unspecified organism Status: Acute (2) Persistent atrial fibrillation: Code(s): I48.19 - Other persistent atrial fibrillation Status: Acute (3) Stroke: Code(s): I63.9 - Cerebral infarction, unspecified Status: Acute (4) Bleeding: Code(s): R58 - Hemorrhage, not elsewhere classified Status: Acute Plan Mr. Leonardo is a 78 year old male with a history of atrial fibrillation and prior stroke presenting due to hypoxia in the setting of pneumonia, complicated by bleeding. Noted to have bloody sputum, epistaxis, and possibly blood in the urine as well. It was recommended that the anticoagulation be held given risk for major hemorrhage, espeically into the airway, but patient and his family were initially hesitant since he has previously had a stroke while temporarily coming of the Xarelto in preparation for surgery. However, by the time of my evaluation, patient was agreeable to hold the Xarelto temporarily, which I am in agreement with as well. We did discuss that patient is at risk for stroke being off anticoagulation even temporarily, but his current bleeding is more of a pressing concern that needs to be addressed. Patient and family verbalized understanding of plan. Consult date: 07/24/23 Reason for consult: Bleeding with anticoagulation HPI: Ambrose Leonardo is a 78 year old male with a history of atrial fibrillation, on Xarelto who initially presented with cough and fatigue for the past week. He was having body aches, fatigue, cough, and blood tinged sputum for about two days prior to admission. HE first went to his PCP who noted that he was tachypneic with oxygen saturations at 92% on RA. He was recommended to go to the ED. Patient then presented to [place] ED where he had a temperature of 100.0. His blood pressure was in the 90-110s systolic. Hgb on presentation was 11.7. His BNP was elevated. UA was concerning for UTI. CTA of best showed findings concerning for pneumonia. HE was started on antibiotics and admitted. Patient has been having bloody sputum, nose bleeds, and blood in his urine. He denies any recent dark or blood stools, although daughter reports that about a month ago his Cologuard was positive for blood, but patient also has a history of hemorrhoids. Patient has not had a colonoscopy since then due to his concern about coming off the anticoagulation for that. During the admission it was recommended by the cow washer and hospitalist to hold Xarelto given the active bleeding. However, patient and family initially were hesitant to hold it due to patient's risk of stroke while being off of it. In 2020, he did sustain a stroke while being off Xarelto in preparation for ear surgery. However, during my conversation with patient and family this morning, they are agreeable to hold the Xarelto temporarily. Patient had some slurring of the speech with the stroke in 2020, but denies any residual deficits. Review of Systems Review of Systems: All systems reviewed & are unremarkable except as noted in HPI and below PMFSH Past Medical History Medical History Cancer screening Diverticulosis large intestine w/o perforation or abscess w/bleeding Dyspnea Emphysema, unspecified Gout Other medical sales representative (current) drug therapy Persistent atrial fibrillation Personal history of other diseases of the circulatory system Positive colorectal cancer screening using Cologuard test Psychosexual dysfunction with inhibited sexual excitement Stroke 2020 Thoracic aortic aneurysm, without rupture Surgical History Surgical History Aneurysm Thor
--- NOTE | 2023-07-24 13:34 | PM.PNPUL ---
Progress Note: A&P Assessment and Plan (1) Pneumonia: Qualifiers: Laterality: right Lung location: lower lobe of lung Pneumonia type: due to unspecified organism Qualified Code(s): J18.9 - Pneumonia, unspecified organism Code(s): J18.9 - Pneumonia, unspecified organism Status: Acute Assessment and Plan: A 78-year-old man came in with symptoms of cough, malaise, and yellow sputum production, which eventually turned bloody. These symptoms are consistent with right lower lobe pneumonia, as shown by a chest CT scan. He continues to produce bloody sputum, likely due to both his pneumonia and the anticoagulant medication he is on. The patient and his are worried about the potential risk of stroke if Xarelto is stopped. Considering his extended PT and PTT, it might be safe to temporarily halt the anticoagulant, as his blood will remain thin due to the extended PT, reducing the risk of stroke if Xarelto is stopped for a brief period. There's also a chance that the patient's alveolar hemorrhage, potentially related to Xarelto usage, could worsen, necessitating endotracheal intubation and mechanical ventilation. This potential scenario was fully explained to both the patient and his . I stopped Xarelto yesterday, but at the request of the patient and his , Xarelto has been resumed. Earlier today, I had an extensive conversation with the patient about the risk of intracranial bleeding related to coagulopathy. PT/INR are more extended today and are likely due to Xarelto, as the patient has no signs of liver failure or any other condition that would extend the PT. A chest x-ray today showed increasing bilateral infiltrates, which could suggest possible congestive heart failure or bilateral alveolar hemorrhage. His hemoglobin is lower today. He shows no signs of an uncontrolled lower respiratory tract infection, as his white cell count is back to normal and he is feeling better clinically. His MRSA screen was negative. In collaboration with our Infectious Disease pharmacist, we switched him to a different antibiotic to cover both pneumonia and urinary tract infection. Lasix 20 mg was administered once. Xarelto has now been stopped. Plan: Continue to monitor respiratory status now that the patient is off Xarelto. Antifactor Xa activity sent out. Repeat chest x-ray in the morning and repeat PT INR. (2) Hemoptysis: Code(s): R04.2 - Hemoptysis Status: Acute (3) Dyspnea: Code(s): R06.00 - Dyspnea, unspecified Status: Acute (4) Thoracic aortic aneurysm, without rupture: Code(s): I71.2 - Thoracic aortic aneurysm, without rupture Status: Acute (5) Chronic atrial fibrillation: Code(s): I48.20 - Chronic atrial fibrillation, unspecified Status: Acute (6) Diabetes mellitus: Code(s): E11.9 - Type 2 diabetes mellitus without complications Status: Acute Subjective Date/time seen: 07/24/23 13:34 Interval history: Patient stated he is doing better. He has no new respiratory symptoms although he continues to have a bloody sputum epistaxis. According to the patient's RN there is new urethral bleeding. He remains on low-flow oxygen. He is afebrile. I discontinued Xarelto last p.m. because of prolonged PT INR and bleeding from 2 sites. The patient is still on Xarelto this a.m.. Review of Systems Review of Systems: All systems reviewed & are unremarkable except as noted in HPI and below (HPI and below) Exam Narrative: GENERAL APPEARANCE: Well developed, well nourished, alert and cooperative, and appears to be in no acute distress while on supplemental oxygen SKIN: Inspection of the skin reveals no rashes, ulcerations or petechiae. HEENT: Sclerae anicteric and conjunctivae pink and moist. Extraocular movements were intact and pupils were equal, round. Moist oral mucosa NECK: Supple. There was no thyroid enlargement, and no tenderness, or masses were felt. CHEST: No
--- NOTE | 2023-07-24 15:16 | PM.IMPN ---
Progress Note: A&P Assessment and Plan (1) Persistent atrial fibrillation: Code(s): I48.19 - Other persistent atrial fibrillation Status: Acute (2) Elevated troponin: Code(s): R79.89 - Other specified abnormal findings of blood chemistry Status: Acute (3) Sepsis: Qualifiers: Sepsis type: sepsis due to unspecified organism Sepsis acute organ dysfunction status: with acute organ dysfunction Acute respiratory failure type: with hypoxia Severe sepsis shock status: without septic shock Code(s): A41.9 - Sepsis, unspecified organism Status: Acute (4) Pneumonia: Qualifiers: Pneumonia type: due to unspecified organism Laterality: right Lung location: lower lobe of lung Qualified Code(s): J18.9 - Pneumonia, unspecified organism Code(s): J18.9 - Pneumonia, unspecified organism Status: Acute (5) Chronic atrial fibrillation: Code(s): I48.20 - Chronic atrial fibrillation, unspecified Status: Acute (6) Thoracic aortic aneurysm, without rupture: Code(s): I71.2 - Thoracic aortic aneurysm, without rupture Status: Acute Plan 78 y/o M presents here with SOB, cough and body aches with PMH of emphysema, gout, persistent AFib, CVA, and thoracic aortic aneurysm s/p graft and repair. Patient presented here from his PCP office, [facility], for evaluation. Patient reports SOB and body aches that started on? Sat (07/18). Developed productive cough on Mon/Tues that was blood streaked and noted blood streaks when he would blow his nose. Currently experiencing body aches that have primarily effected his hips and knees. Reports reduced appetite and reduced PO intake. Tried OTC aspirin and a nasal decongestant at home with minimal relief. . During evaluation at his PCP, found to have adventitious lung sounds and tachypneic with O2 sat at 92% on RA. He was promptly sent to the ED where ED workup revealed a normal WBC, stable anemia with hgb at 11.7,? BS of 135, lactic acid 1.1, and an elevated BNP at 5430. UA suggestive of UTI. CTA had multiple findings with most prominent being a RLL infiltrate and patchy groundglass infiltrates of the RUL and super segment of the RLL.? (1) Sepsis: ?Qualifiers: ?Acute respiratory failure type:?with hypoxia??Sepsis acute organ dysfunction status:?with acute organ dysfunction??Sepsis type:?sepsis due to unspecified organism??Severe sepsis shock status:?without septic shock ?Code(s): A41.9 - Sepsis, unspecified organism ?Status:?Acute ?Assessment and Plan: Meets SIRS criteria: HR >100, RR >20. Lactic acid 3.4. No fever, elevated WBC, or lactic acidosis (1.1). Borderline hypotension and elevated troponins. Started on 30 mL/kg with 2L bolus of NS. Suspected source: right lower lobe and right upper lobe pna. Possible UTI. Repeat lactic post-fluids was 1.1. Blood cultures, UC, and MRSA ordered/pending. Adding sputum culture. Started on Vanc and Zosyn on 07/22/22. 07/24 change to azithromycin and Unasyn per computer systems hardware analyst (2) Pneumonia and hemoptysis ?Laterality:?right??Lung location:?lower lobe of lung??Pneumonia type:?due to unspecified organism? Qualified Code(s):?J18.9 - Pneumonia, unspecified organism ?Code(s): J18.9 - Pneumonia, unspecified organism ?Status:?Acute ?Assessment and Plan: CTA of chest/abdomen/pelvis: Prominent consolidating dependent right lower lobe infiltrate,, patchy groundglass infiltrates of right upper lobe and super segment of right lower lobe, suggesting pneumonia CXR: 1. Opacities in the right upper lobe and bilateral lower lung zones which could represent atelectasis and/or pneumonia. 2. Cardiomegaly. 3. Stented aneurysmal descending thoracic aorta. started on vanc and Zosyn on 07/22. MRSA PCR and sputum culture ordered. Requiring 2L to maintain a saturation greater than 92%. Albuterol/Atrovent nebs Q6H prn ordered. consider steroids if lung exam does not impro
[2023-07-24 16:32] LABS: Glucose Point of Care 104 mg/dl (65-105)
--- NOTE | 2023-07-24 17:16 | PDONCCN ---
HPI - Date of Consult Date/Time: 07/24/23 17:16 Requesting Physician: Kenneth Kaye MD Primary Care Provider: Jane Underwood PA-C - Consult Narrative Reason for consult: Anemia and bleeding Narrative: Ambrose Leonardo is a 78 year old male with history of atrial fibrillation, CVA, COPD came into the hospital with shortness of breath and body aches started on July 18 along with productive cough with streaks of blood. He was also having some nose bleed with secretions when he blows his nose. 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 His labs showed platelet count of [id number] and hemoglobin now dropped to 9.8. According to the he was having some nosebleed as well as penile bleeding. Xarelto was put on hold. Since then he denies any further bleeding. Renal ultrasound was performed that showed no hydronephrosis but mild atrophy of the kidneys without any kidney masses. Patient was started treatment for pneumonia and sepsis. He denies any previous history of bleeding disorder. Review of Systems - Review of Systems All systems reviewed & are unremarkable except as noted in HPI and [facility] Medical History: Medical History (Last Reviewed 07/24/23 @ 13:11 by Almita Reece MD) Cancer screening Diverticulosis large intestine w/o perforation or abscess w/bleeding Dyspnea Emphysema, unspecified Gout Other care home (current) drug therapy Persistent atrial fibrillation Personal history of other diseases of the circulatory system Positive colorectal cancer screening using Cologuard test Psychosexual dysfunction with inhibited sexual excitement Stroke 2020 Thoracic aortic aneurysm, without rupture Surgical History: Surgical History (Last Reviewed 07/24/23 @ 13:11 by Almita Reece MD) Aneurysm 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 [phone] [id number] with surgical repair of the aortic root 2003 and thoracic aneurysm graft/repair around 2009 History of blood clot in brain 03/2021 History of repair of thoracic aortic aneurysm S/P ear surgery - at [facility] Family History: Family History (Last Reviewed 07/24/23 @ 13:11 by Almita Reece MD) Mother Diabetes mellitus Depression Cerebrovascular accident Father Hypertension Family history of elevated blood lipids Family history of lung cancer - Social History Social History: Social History (Last Reviewed 07/22/23 @ 16:21 by Tammie Thao APRN) Gender Identity: Gender identity (if verbalized by the patient): Male Sexual Orientation: Sexual Orientation (if Verbalized by the Patient): Straight or Heterosexual Alcohol Use: Alcohol intake: current Substance Use: Substance use: never Substance use type: does not use Others: Spiritual care concerns: No Living Arrangements: Living arrangements: with family Oppucation/Education: Occupation/Education: retired Smoking Status: Smoking status: Former smoker Second hand tobacco smoke exposure: No Social Determinants of Health: Do You Feel Safe in your Home?: Yes Has the Lack of Transportation Kept You From Medical Appointments or From Getting Medications?: Yes Within the Past 12 Months, Were You Worried Whether Your Food Would Run Out Before You Got Money to Buy More?: Never True What is Your Housing Situation Today?: I Have Housing Are You Worried That in the Next 2 Months, You May Not Have Your Own Housing to Live In?: No Do You Have Trouble Paying Your Heating Or Electricity Bill?: No Do You Have Trouble Paying For Medicines?: No Are You Currently Unemployed and Looking for Work?: No Highest Level of Education Completed: Decline to Answer Do You Have Trouble With Childcare or
--- NOTE | 2023-07-24 17:33 | PC.NURSE ---
This patient, Ambrose Leonardo, was transferred to [facility] on 07/24/23 at 1635. Personal belongings sent with patient. Report given to accepting RN. Appropriate documentation sent with patient.
[2023-07-24 18:09] LABS: Appearance Urine Clear (Clear); Bacteria Urine None Seen /hpf; Bilirubin Urine Negative (Negative); Blood Urine 2+ (Negative); Color Urine Yellow (Yellow); Glucose Urine UA Negative (Negative); Ketones Urine Negative (Negative); Leukocyte Esterase Ur Negative LEU/UL (NEGATIVE); Nitrate Urine Negative (Negative); Non Pathogenic Casts 0-2; Protein Urine Negative (Negative); Squamous Epithelial Cell Urine None seen /hpf (Few); Urobilinogen Urine 0.2 mg/dL (<2.0); WBC Urine 0-5 /hpf (0-3); pH Urine 5.5 (5.0-9.0)
[2023-07-24 18:10] LABS: Add Urine Microscopic? YES
[2023-07-24 18:56] LABS: Iron 30 ug/dL (49-181)
[2023-07-24 19:05] LABS: Percent Iron Saturation 16 % (20-50)
[2023-07-24 20:15] LABS: Folic Acid > 20.0 ng/mL (2.76->20); Vitamin B12 > 1000.0 pg/mL (239-931)
[2023-07-24 20:16] LABS: Glucose Point of Care 161 mg/dl (65-105)
[2023-07-25] VITALS (15 sets, daily range): BP systolic 109–146; BP diastolic 62–96; PULSE 71–90; RESP 16–28; TEMP 36.5–37.1; O2SAT 92–100
[2023-07-25] MEDS: dilTIAZem HCL 30 MG TABLET PO ×2 (00:29→05:23)
[2023-07-25] MEDS: AMPICILLIN SULB 3 GM/NS 100 ML 3 GM/100 ML VIAL IVPB ×4 (03:02→20:31)
[2023-07-25 05:43] LABS: INR 1.7; Prothrombin Time 20.8 Seconds (11.1-14.7)
[2023-07-25 08:05] LABS: Glucose Point of Care 116 mg/dl (65-105)
[2023-07-25] MEDS: CYANOCOBALAMIN 1,000 MCG TABLET 1000 MCG PO (08:25)
[2023-07-25] MEDS: PANTOPRAZOLE 40 MG TABLET PO (08:25)
[2023-07-25] MEDS: AZITHROMYCIN 250 MG TABLET 500 MG PO (08:25)
--- NOTE | 2023-07-25 09:19 | PM.IMPN ---
Progress Note: A&P Assessment and Plan (1) Persistent atrial fibrillation: Code(s): I48.19 - Other persistent atrial fibrillation Status: Acute (2) Elevated troponin: Code(s): R79.89 - Other specified abnormal findings of blood chemistry Status: Acute (3) Sepsis: Qualifiers: Acute respiratory failure type: with hypoxia Sepsis acute organ dysfunction status: with acute organ dysfunction Sepsis type: sepsis due to unspecified organism Severe sepsis shock status: without septic shock Code(s): A41.9 - Sepsis, unspecified organism Status: Acute (4) Pneumonia: Qualifiers: Laterality: right Lung location: lower lobe of lung Pneumonia type: due to unspecified organism Qualified Code(s): J18.9 - Pneumonia, unspecified organism Code(s): J18.9 - Pneumonia, unspecified organism Status: Acute (5) Chronic atrial fibrillation: Code(s): I48.20 - Chronic atrial fibrillation, unspecified Status: Acute (6) Thoracic aortic aneurysm, without rupture: Code(s): I71.2 - Thoracic aortic aneurysm, without rupture Status: Acute (7) Abnormal finding on CT scan: Code(s): R93.89 - Abnormal findings on diagnostic imaging of other specified body structures Status: Acute Plan 78 y/o M presents here with SOB, cough and body aches with PMH of emphysema, gout, persistent AFib, CVA, and thoracic aortic aneurysm s/p graft and repair. Patient presented here from his PCP office, [facility], for evaluation. Patient reports SOB and body aches that started on? Sat (07/18). Developed productive cough on Mon/Tu that was blood streaked and noted blood streaks when he would blow his nose. Currently experiencing body aches that have primarily effected his hips and knees. Reports reduced appetite and reduced PO intake. Tried OTC aspirin and a nasal decongestant at home with minimal relief. . During evaluation at his PCP, found to have adventitious lung sounds and tachypneic with O2 sat at 92% on RA. He was promptly sent to the ED where ED workup revealed a normal WBC, stable anemia with hgb at 11.7,? BS of 135, lactic acid 1.1, and an elevated BNP at 5430. UA suggestive of UTI. CTA had multiple findings with most prominent being a RLL infiltrate and patchy groundglass infiltrates of the RUL and super segment of the RLL.? (1) Sepsis: ?Qualifiers: ?Acute respiratory failure type:?with hypoxia??Sepsis acute organ dysfunction status:?with acute organ dysfunction??Sepsis type:?sepsis due to unspecified organism??Severe sepsis shock status:?without septic shock ?Code(s): A41.9 - Sepsis, unspecified organism ?Status:?Acute ?Assessment and Plan: Meets SIRS criteria: HR >100, RR >20. Lactic acid 3.4. No fever, elevated WBC, or lactic acidosis (1.1). Borderline hypotension and elevated troponins. Started on 30 mL/kg with 2L bolus of NS. Suspected source: right lower lobe and right upper lobe pna. Possible UTI. Repeat lactic post-fluids was 1.1. Blood cultures, UC, and MRSA ordered/pending. Adding sputum culture. Started on Vanc and Zosyn on 07/22/22. 07/24 change to azithromycin and Unasyn per hogshead press operator (2) Pneumonia and hemoptysis ?Laterality:?right??Lung location:?lower lobe of lung??Pneumonia type:?due to unspecified organism? Qualified Code(s):?J18.9 - Pneumonia, unspecified organism ?Code(s): J18.9 - Pneumonia, unspecified organism ?Status:?Acute ?Assessment and Plan: CTA of chest/abdomen/pelvis: Prominent consolidating dependent right lower lobe infiltrate,, patchy groundglass infiltrates of right upper lobe and super segment of right lower lobe, suggesting pneumonia CXR: 1. Opacities in the right upper lobe and bilateral lower lung zones which could represent atelectasis and/or pneumonia. 2. Cardiomegaly. 3. Stented aneurysmal descending thoracic aorta. started on vanc and Zosyn on 07/22. MRSA PCR and sputum cult
[2023-07-25 09:27] LABS: Basophils Percent Auto 0.2 % (0.2-1.2); Eosinophils Absolute Auto 0.1 K/mm3 (0-0.3); Eosinophils Percent Auto 1.1 % (0-4.4); Hematocrit 31.2 % (42.0-52.0); Hemoglobin 9.7 g/dL (14.0-18.0); Immature Granulocyte Absolute 0.05 K/mm3 (0.00-0.031); Immature Granulocyte Percent A 0.6 % (0-0.5); Lymphocytes Absolute Auto 0.62 K/mm3 (0.9-3.2); Lymphocytes Percent Auto 7.6 % (18.3-44.2); Mean Corpuscular HGB Conc 31.1 g/dl (32-36); Mean Corpuscular Hemoglobin 29.7 pg (26-34); Mean Corpuscular Volume 95.4 fl (80-100); Mean Platelet Volume 10.2 fl (7.4-10.4); Monocytes Absolute Auto 0.6 K/mm3 (0.1-0.6); Monocytes Percent Auto 7.3 % (2.6-8.5); Neutrophils Absolute Auto 6.8 K/mm3 (1.3-6.7); Neutrophils Percent Auto 83.2 % (45.5-73.1); Platelet Count Result 180 k/mm3 (150-375); Red Blood Count 3.27 M/mm3 (4.6-6.20); Red Cell Distribution Width 15.1 % (11.5-14.5); White Blood Count 8.1 K/mm3 (4.5-10.0)
[2023-07-25 09:33] LABS: Anion Gap 5 mmol/L (8-16); Blood Urea Nitrogen 15 mg/dL (9-20); Calcium 9.2 mg/dL (8.4-10.2); Carbon Dioxide 30 mmol/L (22-30); Chloride 102 mmol/L (98-107); Estimated CRCL calculation 57 ml/min; Estimated Glomerular Filt Rate > 60; Glucose 119 mg/dL (65-110); Potassium 4.3 mmol/L (3.4-5.0); Sodium 137 mmol/L (137-145)
--- NOTE | 2023-07-25 09:38 | WPDNEUROPN ---
Progress Note: A&P Assessment and Plan (1) Bleeding: Code(s): R58 - Hemorrhage, not elsewhere classified Status: Acute (2) Persistent atrial fibrillation: Code(s): I48.19 - Other persistent atrial fibrillation Status: Acute (3) Hemoptysis: Code(s): R04.2 - Hemoptysis Status: Acute (4) Chronic atrial fibrillation: Code(s): I48.20 - Chronic atrial fibrillation, unspecified Status: Acute (5) Stroke: Code(s): I63.9 - Cerebral infarction, unspecified Status: Acute Plan Mr. Leonardo is a 78 year old male with a history of atrial fibrillation and prior stroke presenting due to hypoxia in the setting of pneumonia, complicated by bleeding. Noted to have bloody sputum, epistaxis, and possibly blood in the urine as well. It was recommended that the anticoagulation be held given risk for major hemorrhage, especially into the airway, but patient and his family were initially hesitant since he has previously had a stroke while temporarily coming of the Xarelto in preparation for surgery. However, by the time of my evaluation, patient was agreeable to hold the Xarelto temporarily, which I am in agreement with as well. We did discuss that patient is at risk for stroke being off anticoagulation even temporarily, but his current bleeding is more of a pressing concern that needs to be addressed. Patient and family verbalized understanding of plan. Xarelto currently being held. Patient denies any active bleeding today. Hgb is stable compared to yesterday. Patient complaining of headache. Stat CT head obtained today which was negative for bleed. Subjective Date/time seen: 07/25/23 09:38 Interval history: Ambrose Leonardo is a 78 year old male with a history of atrial fibrillation, on Xarelto who initially presented with cough and fatigue for the past week. He was having body aches, fatigue, cough, and blood tinged sputum for about two days prior to admission. HE first went to his PCP who noted that he was tachypneic with oxygen saturations at 92% on RA. He was recommended to go to the ED. Patient then presented to [facility] where he had a temperature of 100.0. His blood pressure was in the 90-110s systolic. Hgb on presentation was 11.7. His BNP was elevated. UA was concerning for UTI. CTA of best showed findings concerning for pneumonia. HE was started on antibiotics and admitted. Patient has been having bloody sputum, nose bleeds, and blood in his urine. He denies any recent dark or blood stools, although daughter reports that about a month ago his Cologuard was positive for blood, but patient also has a history of hemorrhoids. Patient has not had a colonoscopy since then due to his concern about coming off the anticoagulation for that. During the admission it was recommended by the culinary art teacher and hospitalist to hold Xarelto given the active bleeding. However, patient and family initially were hesitant to hold it due to patient's risk of stroke while being off of it. In 2020, he did sustain a stroke while being off Xarelto in preparation for ear surgery. However, during my conversation with patient and family this morning, they are agreeable to hold the Xarelto temporarily. Patient had some slurring of the speech with the stroke in 2020, but denies any residual deficits. Xarelto being held since yesterday. Hematology consulted -- agree with holding Xarelto for 48 hours, and then resuming at lower dose of 10mg once bleeding stops. Hgb is 9.7 today, stable from yesterday. He denies any bleeding today. Patient complaining of headache this morning. Stat CT head ordered which was negative for bleed. Review of Systems Review of Systems: All systems reviewed & are unremarkable except as noted in HPI and below Exam Const: General: comfortable HENMT: Mouth: Yes moist mucous membranes Eyes: Pupils: Equal, round and reactive pupils present EOM: EOMs intact bilaterally Resp: Effort & Inspection:
--- NOTE | 2023-07-25 10:28 | PC.NURSE ---
Spouse to desk stated patient c/o right sided headache. Dr. Reece notified, Stat CT Head ordered.
--- NOTE | 2023-07-25 10:40 | PC.NURSE ---
Off floor to CT via wheelchair.
[2023-07-25] MEDS: ACETAMINOPHEN 325 MG TABLET 650 MG PO (10:54)
--- NOTE | 2023-07-25 11:07 | PM.PNPUL ---
Progress Note: A&P Assessment and Plan (1) Pneumonia: Qualifiers: Pneumonia type: due to unspecified organism Laterality: right Lung location: lower lobe of lung Qualified Code(s): J18.9 - Pneumonia, unspecified organism Code(s): J18.9 - Pneumonia, unspecified organism Status: Acute Assessment and Plan: A 78-year-old man came in with symptoms of cough, malaise, and yellow sputum production, which eventually turned bloody. These symptoms are consistent with right lower lobe pneumonia, as shown by a chest CT scan. He continues to produce bloody sputum, likely due to both his pneumonia and the anticoagulant medication he is on. The patient and his are worried about the potential risk of stroke if Xarelto is stopped. Considering his extended PT and PTT, it might be safe to temporarily halt the anticoagulant, as his blood will remain thin due to the extended PT, reducing the risk of stroke if Xarelto is stopped for a brief period. There's also a chance that the patient's alveolar hemorrhage, potentially related to Xarelto usage, could worsen, necessitating endotracheal intubation and mechanical ventilation. This potential scenario was fully explained to both the patient and his . I stopped Xarelto yesterday, but at the request of the patient and his , Xarelto has been resumed. Earlier today, I had an extensive conversation with the patient about the risk of intracranial bleeding related to coagulopathy. PT/INR are more extended today and are likely due to Xarelto, as the patient has no signs of liver failure or any other condition that would extend the PT. A chest x-ray today showed increasing bilateral infiltrates, which could suggest possible congestive heart failure or bilateral alveolar hemorrhage. His hemoglobin is lower today. He shows no signs of an uncontrolled lower respiratory tract infection, as his white cell count is back to normal and he is feeling better clinically. His MRSA screen was negative. In collaboration with our Infectious Disease pharmacist, we switched him to a different antibiotic to cover both pneumonia and urinary tract infection. Lasix 20 mg was administered once. Xarelto has now been stopped. Chest x-ray done earlier today showed partial clearing of bilateral lower lobe infiltrates. Patient currently on room air. Good urinary output following administration of Lasix. PT INR lower today. Plan: Continue to monitor respiratory status now that the patient is off Xarelto. Continue with same antibiotic. (2) Hemoptysis: Code(s): R04.2 - Hemoptysis Status: Acute (3) Dyspnea: Code(s): R06.00 - Dyspnea, unspecified Status: Acute (4) Thoracic aortic aneurysm, without rupture: Code(s): I71.2 - Thoracic aortic aneurysm, without rupture Status: Acute (5) Chronic atrial fibrillation: Code(s): I48.20 - Chronic atrial fibrillation, unspecified Status: Acute (6) Diabetes mellitus: Code(s): E11.9 - Type 2 diabetes mellitus without complications Status: Acute Subjective Date/time seen: 07/25/23 11:07 Interval history: Patient has had no new respiratory symptoms. Hemoptysis has significantly improved over the last 24 hours. Direct anticoagulant was discontinued yesterday. Patient currently on room air. He reports no shortness of breath. He has no fever or chills; on antibiotics for community-acquired pneumonia Review of Systems Review of Systems: All systems reviewed & are unremarkable except as noted in HPI and below (HPI and below) Exam Narrative: GENERAL APPEARANCE: Well developed, well nourished, alert and cooperative, and appears to be in no acute distress while on supplemental oxygen SKIN: Inspection of the skin reveals no rashes, ulcerations or petechiae. HEENT: Sclerae anicteric and conjunctivae pink and moist. Extraocular movements were intact and pupils were equal, round. Moist oral mucosa NECK: Supple. There
[2023-07-25 12:08] LABS: Glucose Point of Care 138 mg/dl (65-105)
[2023-07-25] MEDS: FUROSEMIDE INJ 40 MG/4 ML VIAL 20 MG IV PUSH (15:15)
[2023-07-25 15:56] LABS: Glucose Point of Care 166 mg/dl (65-105)
--- NOTE | 2023-07-25 17:53 | PC.NURSE ---
This patient, Ambrose Leonardo, was received from ICU8 on 07/25/23 at 1753. Patient/family oriented to unit policies and routines
--- NOTE | 2023-07-25 19:16 | PC.NURSE ---
This patient, Ambrose Leonardo, was transferred to [facility] via wheelchair without issue on 07/25/23 at 1752. Personal belongings sent with patient. Report given to VICENTE Leung. Appropriate documentation sent with patient.
[2023-07-25 21:03] LABS: Glucose Point of Care 177 mg/dl (65-105)
[2023-07-26] VITALS (14 sets, daily range): BP systolic 125–147; BP diastolic 60–74; PULSE 63–91; RESP 16–32; TEMP 36.3–37.1; O2SAT 92–98
[2023-07-26] MEDS: AMPICILLIN SULB 3 GM/NS 100 ML 3 GM/100 ML VIAL IVPB ×4 (02:53→23:04)
[2023-07-26 04:46] LABS: Basophils Percent Auto 0.3 % (0.2-1.2); Eosinophils Absolute Auto 0.1 K/mm3 (0-0.3); Eosinophils Percent Auto 1.6 % (0-4.4); Hemoglobin 9.7 g/dL (14.0-18.0); Immature Granulocyte Absolute 0.07 K/mm3 (0.00-0.031); Immature Granulocyte Percent A 0.9 % (0-0.5); Lymphocytes Absolute Auto 0.73 K/mm3 (0.9-3.2); Lymphocytes Percent Auto 9.8 % (18.3-44.2); Mean Corpuscular HGB Conc 31.3 g/dl (32-36); Mean Corpuscular Hemoglobin 29.7 pg (26-34); Mean Corpuscular Volume 94.8 fl (80-100); Mean Platelet Volume 10.1 fl (7.4-10.4); Monocytes Absolute Auto 0.6 K/mm3 (0.1-0.6); Monocytes Percent Auto 8.2 % (2.6-8.5); Neutrophils Absolute Auto 5.9 K/mm3 (1.3-6.7); Neutrophils Percent Auto 79.2 % (45.5-73.1); Platelet Count Result 179 k/mm3 (150-375); Red Blood Count 3.27 M/mm3 (4.6-6.20); Red Cell Distribution Width 14.8 % (11.5-14.5); White Blood Count 7.5 K/mm3 (4.5-10.0)
[2023-07-26 05:03] LABS: Anion Gap 6 mmol/L (8-16); Blood Urea Nitrogen 17 mg/dL (9-20); Calcium 9.1 mg/dL (8.4-10.2); Carbon Dioxide 31 mmol/L (22-30); Chloride 102 mmol/L (98-107); Estimated CRCL calculation 57 ml/min; Estimated Glomerular Filt Rate > 60; Glucose 145 mg/dL (65-110); Sodium 139 mmol/L (137-145)
[2023-07-26 09:41] LABS: Glucose Point of Care 189 mg/dl (65-105)
--- NOTE | 2023-07-26 09:42 | PM.IMPN ---
Progress Note: A&P Assessment and Plan (1) Persistent atrial fibrillation: Code(s): I48.19 - Other persistent atrial fibrillation Status: Acute (2) Elevated troponin: Code(s): R79.89 - Other specified abnormal findings of blood chemistry Status: Acute (3) Sepsis: Qualifiers: Acute respiratory failure type: with hypoxia Sepsis acute organ dysfunction status: with acute organ dysfunction Sepsis type: sepsis due to unspecified organism Severe sepsis shock status: without septic shock Code(s): A41.9 - Sepsis, unspecified organism Status: Acute (4) Pneumonia: Qualifiers: Laterality: right Lung location: lower lobe of lung Pneumonia type: due to unspecified organism Qualified Code(s): J18.9 - Pneumonia, unspecified organism Code(s): J18.9 - Pneumonia, unspecified organism Status: Acute (5) Chronic atrial fibrillation: Code(s): I48.20 - Chronic atrial fibrillation, unspecified Status: Acute (6) Thoracic aortic aneurysm, without rupture: Code(s): I71.2 - Thoracic aortic aneurysm, without rupture Status: Acute (7) Abnormal finding on CT scan: Code(s): R93.89 - Abnormal findings on diagnostic imaging of other specified body structures Status: Acute Plan 78 y/o M presents here with SOB, cough and body aches with PMH of emphysema, gout, persistent AFib, CVA, and thoracic aortic aneurysm s/p graft and repair. Patient presented here from his PCP office, [facility], for evaluation. Patient reports SOB and body aches that started on? Sat (07/18). Developed productive cough on Mon/Tu that was blood streaked and noted blood streaks when he would blow his nose. Currently experiencing body aches that have primarily effected his hips and knees. Reports reduced appetite and reduced PO intake. Tried OTC aspirin and a nasal decongestant at home with minimal relief. . During evaluation at his PCP, found to have adventitious lung sounds and tachypneic with O2 sat at 92% on RA. He was promptly sent to the ED where ED workup revealed a normal WBC, stable anemia with hgb at 11.7,? BS of 135, lactic acid 1.1, and an elevated BNP at 5430. UA suggestive of UTI. CTA had multiple findings with most prominent being a RLL infiltrate and patchy groundglass infiltrates of the RUL and super segment of the RLL.? (1) Sepsis: ?Qualifiers: ?Acute respiratory failure type:?with hypoxia??Sepsis acute organ dysfunction status:?with acute organ dysfunction??Sepsis type:?sepsis due to unspecified organism??Severe sepsis shock status:?without septic shock ?Code(s): A41.9 - Sepsis, unspecified organism ?Status:?Acute ?Assessment and Plan: Meets SIRS criteria: HR >100, RR >20. Lactic acid 3.4. No fever, elevated WBC, or lactic acidosis (1.1). Borderline hypotension and elevated troponins. Started on 30 mL/kg with 2L bolus of NS. Suspected source: right lower lobe and right upper lobe pna. Possible UTI. Repeat lactic post-fluids was 1.1. Blood cultures, UC, and MRSA ordered/pending. Adding sputum culture. Started on Vanc and Zosyn on 07/22/22. 07/24 change to azithromycin and Unasyn per long filler cigar roller machine 07/26: pt is afeb. White blood cell within normal limit, urine culture grows enterococci, susceptible to ampicillin, blood culture has no growth so far, sputum culture: Growth normal oropharyngeal cain (2) Pneumonia and hemoptysis ?Laterality:?right??Lung location:?lower lobe of lung??Pneumonia type:?due to unspecified organism? Qualified Code(s):?J18.9 - Pneumonia, unspecified organism ?Code(s): J18.9 - Pneumonia, unspecified organism ?Status:?Acute ?Assessment and Plan: CTA of chest/abdomen/pelvis: Prominent consolidating dependent right lower lobe infiltrate,, patchy groundglass infiltrates of right upper lobe and super segment of right lower lobe, suggesting pneumonia CXR: 1. Opacities in the right upper lobe and bi
--- NOTE | 2023-07-26 09:46 | WPDNEUROPN ---
Progress Note: A&P Assessment and Plan (1) Bleeding: Code(s): R58 - Hemorrhage, not elsewhere classified Status: Acute (2) Persistent atrial fibrillation: Code(s): I48.19 - Other persistent atrial fibrillation Status: Acute (3) Hemoptysis: Code(s): R04.2 - Hemoptysis Status: Acute (4) Chronic atrial fibrillation: Code(s): I48.20 - Chronic atrial fibrillation, unspecified Status: Acute (5) Stroke: Code(s): I63.9 - Cerebral infarction, unspecified Status: Acute Plan Mr. Leonardo is a 78 year old male with a history of atrial fibrillation and prior stroke presenting due to hypoxia in the setting of pneumonia, complicated by bleeding. Noted to have bloody sputum, epistaxis, and possibly blood in the urine as well. It was recommended that the anticoagulation be held given risk for major hemorrhage, especially into the airway, but patient and his family were initially hesitant since he has previously had a stroke while temporarily coming of the Xarelto in preparation for surgery. However, by the time of my evaluation, patient was agreeable to hold the Xarelto temporarily, which I am in agreement with as well. We did discuss that patient is at risk for stroke being off anticoagulation even temporarily, but his current bleeding is more of a pressing concern that needs to be addressed. Patient and family verbalized understanding of plan. Xarelto currently being held. Patient denies any active bleeding today. Hgb is stable compared to yesterday. Recommend resuming anticoagulation once deemed stable from primary service and pulmonology. Subjective Date/time seen: 07/26/23 09:46 Interval history: Ambrose Leonardo is a 78 year old male with a history of atrial fibrillation, on Xarelto who initially presented with cough and fatigue for the past week. He was having body aches, fatigue, cough, and blood tinged sputum for about two days prior to admission. HE first went to his PCP who noted that he was tachypneic with oxygen saturations at 92% on RA. He was recommended to go to the ED. Patient then presented to [facility] where he had a temperature of 100.0. His blood pressure was in the 90-110s systolic. Hgb on presentation was 11.7. His BNP was elevated. UA was concerning for UTI. CTA of best showed findings concerning for pneumonia. HE was started on antibiotics and admitted. Patient has been having bloody sputum, nose bleeds, and blood in his urine. He denies any recent dark or blood stools, although daughter reports that about a month ago his Cologuard was positive for blood, but patient also has a history of hemorrhoids. Patient has not had a colonoscopy since then due to his concern about coming off the anticoagulation for that. During the admission it was recommended by the tie up worker and hospitalist to hold Xarelto given the active bleeding. However, patient and family initially were hesitant to hold it due to patient's risk of stroke while being off of it. In 2020, he did sustain a stroke while being off Xarelto in preparation for ear surgery. However, during my conversation with patient and family this morning, they are agreeable to hold the Xarelto temporarily. Patient had some slurring of the speech with the stroke in 2020, but denies any residual deficits. Xarelto being held. Hematology consulted -- agree with holding Xarelto for 48 hours, and then resuming at lower dose of 10mg once bleeding stops. Hgb is 9.7 today, stable from yesterday. Patient complaining of headache on 07/25. Stat CT head ordered which was negative for bleed. Review of Systems Review of Systems: All systems reviewed & are unremarkable except as noted in HPI and below Exam Const: General: comfortable HENMT: Mouth: Yes moist mucous membranes Eyes: Pupils: Equal, round and reactive pupils present EOM: EOMs intact bilaterally Resp: Effort & Inspection: normal respiratory effort Skin: General skin exa
[2023-07-26] MEDS: METOPROLOL TARTRATE 25 MG TABLET PO ×2 (10:24→20:37)
[2023-07-26] MEDS: PANTOPRAZOLE 40 MG TABLET PO (10:27)
[2023-07-26] MEDS: AZITHROMYCIN 250 MG TABLET 500 MG PO (10:27)
--- NOTE | 2023-07-26 10:50 | PM.PNPUL ---
Progress Note: A&P Assessment and Plan (1) Pneumonia: Qualifiers: Pneumonia type: due to unspecified organism Laterality: right Lung location: lower lobe of lung Qualified Code(s): J18.9 - Pneumonia, unspecified organism Code(s): J18.9 - Pneumonia, unspecified organism Status: Acute Assessment and Plan: A 78-year-old man came in with symptoms of cough, malaise, and yellow sputum production, which eventually turned bloody. These symptoms are consistent with right lower lobe pneumonia, as shown by a chest CT scan. He continued to produce bloody sputum, likely due to both his pneumonia and the anticoagulant medication he was on. Eventually his direct anticoagulant was discontinued. The patient has had no hemoptysis over the last 2 days. Physical exam he continues to have some crackles at bases and decreased breath sounds especially right base posteriorly. He remains on room air. WBC back into the normal range. PT INR pending. The patient has been on antibiotics for community-acquired pneumonia and also urinary tract infection. Plan: Continue to monitor respiratory status now that the patient is off Xarelto. Continue with same antibiotics. Repeat chest x-ray in a.m. (2) Hemoptysis: Code(s): R04.2 - Hemoptysis Status: Acute (3) Dyspnea: Code(s): R06.00 - Dyspnea, unspecified Status: Acute (4) Thoracic aortic aneurysm, without rupture: Code(s): I71.2 - Thoracic aortic aneurysm, without rupture Status: Acute (5) Chronic atrial fibrillation: Code(s): I48.20 - Chronic atrial fibrillation, unspecified Status: Acute (6) Diabetes mellitus: Code(s): E11.9 - Type 2 diabetes mellitus without complications Status: Acute Subjective Date/time seen: 07/26/23 10:50 Interval history: Patient reports no hemoptysis. Has no new respiratory symptoms. Remains on room air, afebrile. No shortness of breath at rest. Review of Systems Review of Systems: All systems reviewed & are unremarkable except as noted in HPI and below Exam Narrative: GENERAL APPEARANCE: Well developed, well nourished, alert and cooperative, and appears to be in no acute distress while on supplemental oxygen SKIN: Inspection of the skin reveals no rashes, ulcerations or petechiae. HEENT: Sclerae anicteric and conjunctivae pink and moist. Extraocular movements were intact and pupils were equal, round. Moist oral mucosa NECK: Supple. There was no thyroid enlargement, and no tenderness, or masses were felt. CHEST: Normal AP diameter and normal contour without any kyphoscoliosis. LUNGS: Decreased breath sounds right base posteriorly clear lungs anteriorly no wheezing CARDIAC: There was an irregular rate and rhythm without any murmurs. ABDOMEN: Soft and nontender with normal bowel sounds. There was no organomegaly. LYMPH NODES: No lymphadenopathy was appreciated in the neck. EXTREMITIES: No cyanosis, clubbing or edema. NEUROLOGIC: Alert and oriented x 3. Normal affect. Objective Data Vital Signs Vital Signs: Vital Signs - 24 hr 07/25/23 12:00 07/25/23 12:00 07/25/23 12:00 Temperature 36.7 C Pulse Rate 85 78 Respiratory Rate 19 Blood Pressure 129/63 Pulse Oximetry 97 98 Oxygen Delivery Room Air 07/25/23 14:00 07/25/23 16:00 07/25/23 16:00 Temperature 36.6 C Pulse Rate 78 83 Respiratory Rate 20 Blood Pressure 119/79 Pulse Oximetry 98 97 Oxygen Delivery Room Air 07/25/23 16:00 07/25/23 18:03 07/25/23 18:00 Temperature 37.1 C Pulse Rate 85 85 89 Respiratory Rate 20 Blood Pressure 133/96 H Pulse Oximetry 93 Oxygen Delivery 07/25/23 20:00 07/25/23 23:54 07/25/23 20:00 Temperature 36.8 C 36.6 C Pulse Rate 82 86 85 Respiratory Rate 18 16 Blood Pressure 126/63 133/62 Pulse Oximetry 96 92 Oxygen Delivery 07/25/23 22:00 07/26/23 00:00 07/26/23 01:30 Temperature Pulse Rate 77 79 81 Respiratory Rate
[2023-07-26 10:52] LABS: INR 1.2; Prothrombin Time 15.2 Seconds (11.1-14.7)
[2023-07-26] MEDS: ACETAMINOPHEN 325 MG TABLET 650 MG PO ×2 (11:15→20:41)
--- NOTE | 2023-07-26 11:51 | PM.CNCAR ---
Assessment and Plan Assessment and plan (1) Persistent atrial fibrillation: Code(s): I48.19 - Other persistent atrial fibrillation Status: Acute Plan This is a 78-year-old man with a history of repair of thoracic aortic aneurysm previously he is known not to have any coronary artery disease by virtue of negative angiograms at the time of his aortic repair. He as stated above was in chronic atrial fibrillation and has AV node dysfunction to the point where he does not require rate control medication. Xarelto is appropriately been placed on hold because of the bleeding issues as described above. At this point there are no specific cardiac recommendations to make other than we should attempt to resume anticoagulation when his illness is resolved. Had a conversation with the patient in the today about the alternative option of left atrial appendage occlusion procedure. He and I had discussed in the past in previous office appointments as well. Ambrose Mccollum MD [facility] History of Present Illness History of Present Illness Consult date/time: 07/26/23 11:51 Reason For Visit: pneumonia Narrative: This is a 78-year-old man I am seeing at the request of the hospitalist, actually at his request because of a history of atrial fibrillation and recent bleeding necessitated holding his anticoagulation regimen. The patient is known to me for a number of years and has been followed in my office primarily with the history of thoracic aortic aneurysm. He has had a couple of procedures to repair thoracic aortic aneurysms in the past at [facility] [address] and was referred by our practice there for these procedures. He is not known to have coronary artery disease. He does have a history of atrial fibrillation which was initially intermittent and asymptomatic but it over the last several years has become chronic and remains asymptomatic. He does have AV node dysfunction and does not require any medication for heart rate control. In this setting I have represcribed systemic anticoagulation with Xarelto. He came into the hospital on Thursday of this past week after he was seen by his PCP was feeling unwell. He had generalized myalgias and a temperature of a 101? and was found to have a right lower lobe pneumonia. Along with that he was having some hemoptysis and also some penile bleeding which resulted in the appropriate decision to hold/discontinue his anticoagulation. His bleeding has improved he still has some blood tinged sputum. He is being managed by the hospitalist and the a pulmonology consultants for this. The patient states that he was concerned about the discontinuance of his anticoagulation and wanted to see me for consultation about this. He is enjoying his lunch and visiting his family when I entered the room to see him he does not have any cardiovascular complaints at this time. He has been on telemetry since he has been in the hospital as expected he has atrial fibrillation with controlled ventricular response. Review of Systems Constitutional: Constitutional: Reports body ache(s) and Reports fatigue Eyes: Eyes: Reports no additional eye complaints ENT: Reports system reviewed and no additional complaints, except as documented Cardiovascular: Cardiovascular: Reports no additional cardiovascular complaints Respiratory: Respiratory: Reports hemoptysis Gastrointestinal: Gastrointestinal: Reports no additional gastrointestinal complaints Genitourinary: Genitourinary: Reports no additional male genitourinary complaints Musculoskeletal: Musculoskeletal: Reports myalgias Integumentary/Breasts: Skin/Breast: Reports system reviewed and no additional complaints, except as docu Neurologic: Reports system reviewed and no additional complaints, except as documented Endocrine: Endocrine: Reports no additional endocrine complaints Hematologic/Lymphatic: Hematologic/Lymphatic: Reports no additional hematologic/lymphatic complaints A
--- NOTE | 2023-07-26 13:08 | PC.NURSE ---
B12 level >1000. Discussed with Dr. Mathew. Advised to d/c daily po B12.
[2023-07-26 13:25] LABS: Glucose Point of Care 170 mg/dl (65-105)
--- NOTE | 2023-07-26 13:27 | WPDGICN ---
Assessment and Plan Assessment and plan (1) Cyst of pancreas: Code(s): K86.2 - Cyst of pancreas Status: Acute Assessment and Plan: at this point he is not interested on further work up or referral to get EUS of cyst I recommend to repeat MRI or CT pancreatic protocol in 12 months call if more questions (2) Pneumonia: Qualifiers: Pneumonia type: due to unspecified organism Laterality: right Lung location: lower lobe of lung Qualified Code(s): J18.9 - Pneumonia, unspecified organism Code(s): J18.9 - Pneumonia, unspecified organism Status: Acute Assessment and Plan: treated with antibiotics (3) Abnormal finding on CT scan: Code(s): R93.89 - Abnormal findings on diagnostic imaging of other specified body structures Status: Acute Assessment and Plan: noted pancreatic cyst (4) Hemoptysis: Code(s): R04.2 - Hemoptysis Status: Acute Assessment and Plan: pulmonary on board patient does not want colonoscopy (5) Aneurysm: Code(s): I72.9 - Aneurysm of unspecified site Status: Acute Assessment and Plan: treated in the past (6) Chronic atrial fibrillation: Code(s): I48.20 - Chronic atrial fibrillation, unspecified Status: Acute Assessment and Plan: on hold for now in setting of hemoptysis (7) Diabetes mellitus: Code(s): E11.9 - Type 2 diabetes mellitus without complications Status: Acute GI Consult Note Consult date/time: 07/26/23 13:27 Reason for consult: pancreatic cyst HPI: Ambrose Leonardo is a 78 year old male with history of atrial fibrillation on xarelto, CVA, repair of thoracic aortic aneurysm,?COPD admitted to the hospital about 4 days ago with shortness of breath and body aches with productive cough with streaks of blood, diagnosed witi SIRS and pneumonia, started on abx. CT scan chest reviewed showed right lower lobe infiltrate consistent with pneumonia along with pancreatic tail cystic mass and probable hemangioma of the left hepatic segment and 8.8 x 14 mm right hepatic lobe lesion possibly focal fatty infiltration.? His labs showed platelet count of [id number] and hemoglobin now dropped to 9.8.?He has several specialist on board (hematology, pulmonary, cardiology). Patient is aware about pancreatic cyst and says that does not want to have any invasive procedure, this includes also colonoscopy- never had one. He has been feeling better from pneumonia. is at bedside and for now they are not interested on GI work up. Review of Systems Constitutional: Constitutional: Reports chills Eyes: Eyes: Denies blurry vision ENT: Comments: uses hearing aids Cardiovascular: Cardiovascular: Denies chest pain Respiratory: Respiratory: Reports chest congestion and Reports cough Gastrointestinal: Gastrointestinal: Denies abdominal pain Genitourinary: Genitourinary: Denies urinary frequency Musculoskeletal: Musculoskeletal: Reports myalgias Integumentary/Breasts: Skin/Breast: Denies dry skin Neurologic: Denies Abnormal speech present Psychiatric: Psychiatric: Denies behavioral changes [facility] Past Medical History Medical History Cancer screening Diverticulosis large intestine w/o perforation or abscess w/bleeding Dyspnea Emphysema, unspecified Gout Other long term care phlebotomist (current) drug therapy Persistent atrial fibrillation Personal history of other diseases of the circulatory system Positive colorectal cancer screening using Cologuard test Psychosexual dysfunction with inhibited sexual excitement Stroke 2020 Thoracic aortic aneurysm, without rupture Surgical History Surgical History Aneurysm 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
[2023-07-26 15:55] LABS: Glucose Point of Care 123 mg/dl (65-105)
[2023-07-26 18:24] LABS: Glucose Point of Care 256 mg/dl (65-105)
--- NOTE | 2023-07-26 18:44 | PC.NURSE ---
This patient, Ambrose Leonardo, was transferred to [facility] on 07/26/23 at 1844. Personal belongings sent with patient. Report given to 348. Appropriate documentation sent with patient.
--- NOTE | 2023-07-26 19:01 | PC.NURSE ---
Disregard 1800 BG of 256 - wrong pt.
[2023-07-26 20:56] LABS: Glucose Point of Care 195 mg/dl (65-105)
[2023-07-27] VITALS (11 sets, daily range): BP systolic 104–140; BP diastolic 59–65; PULSE 67–84; RESP 16–18; TEMP 36.4–37.1; O2SAT 95–98
[2023-07-27] MEDS: AMPICILLIN SULB 3 GM/NS 100 ML 3 GM/100 ML VIAL IVPB ×4 (05:14→23:32)
[2023-07-27] MEDS: PANTOPRAZOLE 40 MG TABLET PO (08:49)
[2023-07-27] MEDS: METOPROLOL TARTRATE 25 MG TABLET PO ×2 (08:49→20:25)
[2023-07-27] MEDS: AZITHROMYCIN 250 MG TABLET 500 MG PO (08:49)
--- NOTE | 2023-07-27 09:00 | P.PNIM_ITS ---
Progress Note: A&P Assessment and Plan (1) Persistent atrial fibrillation: Code(s): I48.19 - Other persistent atrial fibrillation Status: Acute (2) Elevated troponin: Code(s): R79.89 - Other specified abnormal findings of blood chemistry Status: Acute (3) Sepsis: Qualifiers: Acute respiratory failure type: with hypoxia Sepsis acute organ dysfunction status: with acute organ dysfunction Sepsis type: sepsis due to unspecified organism Severe sepsis shock status: without septic shock Code(s): A41.9 - Sepsis, unspecified organism Status: Acute (4) Pneumonia: Qualifiers: Laterality: right Lung location: lower lobe of lung Pneumonia type: due to unspecified organism Qualified Code(s): J18.9 - Pneumonia, unspecified organism Code(s): J18.9 - Pneumonia, unspecified organism Status: Acute (5) Chronic atrial fibrillation: Code(s): I48.20 - Chronic atrial fibrillation, unspecified Status: Acute (6) Thoracic aortic aneurysm, without rupture: Code(s): I71.2 - Thoracic aortic aneurysm, without rupture Status: Acute (7) Abnormal finding on CT scan: Code(s): R93.89 - Abnormal findings on diagnostic imaging of other specified body structures Status: Acute Plan 78 y/o M presents here with SOB, cough and body aches with PMH of emphysema, gout, persistent AFib, CVA, and thoracic aortic aneurysm s/p graft and repair. Patient presented here from his PCP office, [facility], for evaluation. Patient reports SOB and body aches that started on? Sat (07/18). Developed productive cough on Mon/Tu that was blood streaked and noted blood streaks when he would blow his nose. Currently experiencing body aches that have primarily effected his hips and knees. Reports reduced appetite and reduced PO intake. Tried OTC aspirin and a nasal decongestant at home with minimal relief. . During evaluation at his PCP, found to have adventitious lung sounds and tachypneic with O2 sat at 92% on RA. He was promptly sent to the ED where ED workup revealed a normal WBC, stable anemia with hgb at 11.7,? BS of 135, lactic acid 1.1, and an elevated BNP at 5430. UA suggestive of UTI. CTA had multiple findings with most prominent being a RLL infiltrate and patchy groundglass infiltrates of the RUL and super segment of the RLL.? (1) Sepsis: ?Qualifiers: ?Acute respiratory failure type:?with hypoxia??Sepsis acute organ dysfunction status:?with acute organ dysfunction??Sepsis type:?sepsis due to unspecified organism??Severe sepsis shock status:?without septic shock ?Code(s): A41.9 - Sepsis, unspecified organism ?Status:?Acute ?Assessment and Plan: Meets SIRS criteria: HR >100, RR >20. Lactic acid 3.4. No fever, elevated WBC, or lactic acidosis (1.1). Borderline hypotension and elevated troponins. Started on 30 mL/kg with 2L bolus of NS. Suspected source: right lower lobe and right upper lobe pna. Possible UTI. Repeat lactic post-fluids was 1.1. Blood cultures, UC, and MRSA ordered/pending. Adding sputum culture. Started on Vanc and Zosyn on 07/22/22. 07/24 change to azithromycin and Unasyn per oil pipe inspector 07/26: pt is afeb. White blood cell within normal limit, urine culture grows enterococci, susceptible to ampicillin, blood culture has no growth so far, sputum culture: Growth normal oropharyngeal cain (2) Pneumonia and hemoptysis ?Laterality:?right??Lung location:?lower lobe of lung??Pneumonia type:? due to unspecified organism? Qualified Code(s):?J18.9 - Pneumonia, unspecified organism ?Code(s): J18.9 - Pneumonia, un
[2023-07-27 09:09] LABS: Glucose Point of Care 107 mg/dl (65-105)
[2023-07-27 09:58] LABS: Basophils Percent Auto 0.4 % (0.2-1.2); Eosinophils Absolute Auto 0.1 K/mm3 (0-0.3); Eosinophils Percent Auto 1.3 % (0-4.4); Hematocrit 33.5 % (42.0-52.0); Hemoglobin 10.4 g/dL (14.0-18.0); Immature Granulocyte Absolute 0.06 K/mm3 (0.00-0.031); Immature Granulocyte Percent A 0.8 % (0-0.5); Lymphocytes Absolute Auto 0.59 K/mm3 (0.9-3.2); Lymphocytes Percent Auto 8.3 % (18.3-44.2); Mean Corpuscular Hemoglobin 30.1 pg (26-34); Mean Corpuscular Volume 97.1 fl (80-100); Monocytes Absolute Auto 0.5 K/mm3 (0.1-0.6); Monocytes Percent Auto 7.6 % (2.6-8.5); Neutrophils Absolute Auto 5.8 K/mm3 (1.3-6.7); Neutrophils Percent Auto 81.6 % (45.5-73.1); Platelet Count Result 195 k/mm3 (150-375); Red Blood Count 3.45 M/mm3 (4.6-6.20); Red Cell Distribution Width 14.7 % (11.5-14.5); White Blood Count 7.1 K/mm3 (4.5-10.0)
--- NOTE | 2023-07-27 10:00 | PC.NURSE ---
Patient off of unit to dialysis
--- NOTE | 2023-07-27 10:00 | PM.PNCARD ---
Progress Note: A&P Assessment and Plan (1) Persistent atrial fibrillation: Code(s): I48.19 - Other persistent atrial fibrillation Status: Acute Assessment and Plan: Recommend restarting Xarelto when okay with other services. Outpatient evaluation for left atrial appendage occluded device is recommended. Patient has a history of AV sisi dysfunction. Previously not on any rate controlling medications. I do not think that he needs diltiazem and metoprolol. Will discontinue the diltiazem for now and continue to monitor his heart rate (2) Hemoptysis: Code(s): R04.2 - Hemoptysis Status: Acute Assessment and Plan: Resolved. Resume anticoagulation when okay with other services (3) Aneurysm: Code(s): I72.9 - Aneurysm of unspecified site Status: Acute Assessment and Plan: Status post thoracic aortic aneurysm repair. Followed by Dr. Mccollum (4) intermediate (current) use of anticoagulants: Code(s): Z79.01 - intermodal truck driver (current) use of anticoagulants Status: Acute Assessment and Plan: Anticoagulation currently on hold but recommend resuming [email or web address] Subjective Date/time seen: 07/27/23 10:00 Interval history: This is a 78-year-old man I am seeing at the request of the hospitalist, actually at his request because of a history of atrial fibrillation and recent bleeding necessitated holding his anticoagulation regimen Date of service 07/27/2023: Bleeding has stopped. No chest pain. No shortness of breath. Review of Systems Constitutional: Constitutional: Reports body ache(s) and Reports fatigue Eyes: Eyes: Reports no additional eye complaints ENT: Reports system reviewed and no additional complaints, except as documented Cardiovascular: Cardiovascular: Reports no additional cardiovascular complaints Respiratory: Respiratory: Reports hemoptysis Gastrointestinal: Gastrointestinal: Reports no additional gastrointestinal complaints Genitourinary: Genitourinary: Reports no additional male genitourinary complaints Musculoskeletal: Musculoskeletal: Reports myalgias Integumentary/Breasts: Skin/Breast: Reports system reviewed and no additional complaints, except as docu Neurologic: Reports system reviewed and no additional complaints, except as documented Endocrine: Endocrine: Reports no additional endocrine complaints and Reports fatigue Hematologic/Lymphatic: Hematologic/Lymphatic: Reports no additional hematologic/lymphatic complaints Allergic/Immunologic: Allergic/Immunologic: Reports no additional allergic/immunologic complaints Exam Const: General: comfortable and no acute distress Other: Pleasant elderly white male appearing his stated age he is comfortable in no distress he is visiting his family and eating his lunch when I came in the room to see him HENMT: Mouth: Yes moist mucous membranes Eyes: Sclera: sclerae normal Neck: Neck: supple and no JVD Other: A normal carotid pulses bilaterally Resp: Effort & Inspection: normal respiratory effort Other: Right basilar rales are noted Cardio: Rate: regular rate Rhythm: abnormal rhythm irregularly irregular GI: Auscultation: normal bowel sounds Skin: General skin exam: normal color Neuro: Other: Alert and oriented x3 Extrem: Other: Good perfusion, no edema Objective Data Vital Signs Vital Signs: Vital Signs - 24 hr 07/26/23 10:24 07/26/23 12:00 07/26/23 16:00 Temperature 36.4 C 36.5 C Pulse Rate 91 73 77 Respiratory Rate 24 H 32 H Blood Pressure 125/62 147/65 H Pulse Oximetry 96 97 Oxygen Delivery 07/26/23 12:00 07/26/23 14:00 07/26/23 16:00 Temperature Pulse Rate 63 71 84 Respiratory Rate Blood Pressure Pulse Oximetry Oxygen Delivery 07/26/23 20:37 07/26/23 20:48 07/26/23 20:00 Temperature 36.8 C Pulse Rate 74 76 73 Respiratory Rate 18 Blood Pressure 136/60 Pulse Oximetry 98 Oxygen Deliver
[2023-07-27 10:08] LABS: Anion Gap 6 mmol/L (8-16); Blood Urea Nitrogen 14 mg/dL (9-20); Calcium 9.5 mg/dL (8.4-10.2); Carbon Dioxide 29 mmol/L (22-30); Chloride 103 mmol/L (98-107); Estimated CRCL calculation 57 ml/min; Estimated Glomerular Filt Rate > 60; Glucose 203 mg/dL (65-110); Potassium 4.4 mmol/L (3.4-5.0); Sodium 138 mmol/L (137-145)
[2023-07-27 10:09] LABS: INR 1.1
[2023-07-27 12:26] LABS: Glucose Point of Care 165 mg/dl (65-105)
--- NOTE | 2023-07-27 12:42 | PM.PNPUL ---
Progress Note: A&P Assessment and Plan (1) Pneumonia: Qualifiers: Pneumonia type: due to unspecified organism Laterality: right Lung location: lower lobe of lung Qualified Code(s): J18.9 - Pneumonia, unspecified organism Code(s): J18.9 - Pneumonia, unspecified organism Status: Acute Assessment and Plan: A 78-year-old man came in with symptoms of cough, malaise, and yellow sputum production, which eventually turned bloody. These symptoms are consistent with right lower lobe pneumonia, as shown by a chest CT scan. He continued to produce bloody sputum, likely due to both his pneumonia and the anticoagulant medication he was on. Eventually his direct anticoagulant was discontinued. The patient has had no hemoptysis over the last 2 days. Physical exam he continues to have some crackles at bases and decreased breath sounds especially right base posteriorly. He remains on room air. WBC back into the normal range. PT INR pending. The patient has been on antibiotics for community-acquired pneumonia and also urinary tract infection. 07/26/23: Plan: Continue to monitor respiratory status now that the patient is off Xarelto. Continue with same antibiotics. Repeat chest x-ray in a.m. 07/27/23: Patient states he is breathing normal. He tells me he has brown phlegm. When I am asked him to expectorate he did have clear phlegm with areas of bright red blood and dark brown red blood. He is on room air with saturations 97%. He is afebrile. chest x-ray today with clear lungs and improved bibasilar infiltrates since 07/25/2023. Last dose of Xarelto was 07/23/2023 at 6:40 p.m.. Sputum with growth of normal cain. Plan: Overall patient states he is clinically improved. He received vanc and Zosyn on 07/22 and has been on azithromycin and Unasyn since 07/24 (day 4) and a total of day 6 antibiotics. He remains with some hemoptysis and a chest x-ray that is improving. He is on room air. Plan will continue azithromycin and Unasyn at this time. Continue to hold Xarelto. Discussed with Dr. Mathew, will follow with you. Subjective Date/time seen: 07/27/23 12:42 Interval history: New Consult date: 07/23/23 Chief complaint: pneumonia Narrative: A 78-year-old male with a past medical history of emphysema, gout, persistent atrial fibrillation, cerebrovascular accident, and thoracic aortic aneurysm post graft and repair, has been admitted with symptoms of shortness of breath, cough, and body aches. These symptoms began on Thursday (07/18), accompanied by a productive, yellow-colored cough. Approximately two days prior to admission, the patient started noticing bloody sputum and blood streaks when blowing his nose. Upon emergency room evaluation, a chest CT scan revealed consolidation in the right lower lobe with an air bronchogram, suggestive of pneumonia, and a ground-glass opacity in the right lung. The patient is currently being treated with antibiotics for community-acquired pneumonia in the intensive care unit, with sputum culture results pending. On admission, his prothrombin time (PT) and partial thromboplastin time (PTT) were prolonged. The patient continues to take oral Xarelto due to his history of atrial fibrillation and continues to have bloody sputum. He reports feeling slightly better in terms of reduced fatigue and improved mobility, being able to move from the bed to the chair. The patient expresses concerns about the risk of a potential stroke if Xarelto is discontinued. He denies experiencing shortness of breath, wheezing, chest pain, palpitations, or fever. 07/26/23? 10:50 Interval history: Patient reports no hemoptysis.? Has no new respiratory symptoms.? Remains on room air, afebrile.? No shortness of breath at rest. 07/27/23: Patient states he is breathing normal. He tells me he has brown phlegm. When I am asked him to expectorate he did have clear phlegm with areas of bright red blood and dark brown red blood. He is
[2023-07-27 17:39] LABS: Glucose Point of Care 103 mg/dl (65-105)
[2023-07-27] MEDS: ACETAMINOPHEN 325 MG TABLET 650 MG PO (20:25)
[2023-07-28] VITALS (13 sets, daily range): BP systolic 111–132; BP diastolic 47–65; PULSE 64–88; RESP 14–18; TEMP 36.3–36.9; O2SAT 93–98
[2023-07-28] MEDS: AMPICILLIN SULB 3 GM/NS 100 ML 3 GM/100 ML VIAL IVPB ×4 (05:25→23:34)
[2023-07-28 05:48] LABS: Basophils Percent Auto 0.4 % (0.2-1.2); Eosinophils Absolute Auto 0.1 K/mm3 (0-0.3); Eosinophils Percent Auto 1.6 % (0-4.4); Hematocrit 32.4 % (42.0-52.0); Hemoglobin 9.8 g/dL (14.0-18.0); Immature Granulocyte Absolute 0.05 K/mm3 (0.00-0.031); Lymphocytes Percent Auto 12.4 % (18.3-44.2); Mean Corpuscular HGB Conc 30.2 g/dl (32-36); Mean Corpuscular Hemoglobin 29.5 pg (26-34); Mean Corpuscular Volume 97.6 fl (80-100); Monocytes Absolute Auto 0.6 K/mm3 (0.1-0.6); Monocytes Percent Auto 12.2 % (2.6-8.5); Neutrophils Absolute Auto 3.5 K/mm3 (1.3-6.7); Neutrophils Percent Auto 72.4 % (45.5-73.1); Platelet Count Result 191 k/mm3 (150-375); Red Blood Count 3.32 M/mm3 (4.6-6.20); Red Cell Distribution Width 14.7 % (11.5-14.5); White Blood Count 4.9 K/mm3 (4.5-10.0)
[2023-07-28 05:59] LABS: Anion Gap 8 mmol/L (8-16); Blood Urea Nitrogen 14 mg/dL (9-20); Calcium 9.1 mg/dL (8.4-10.2); Carbon Dioxide 27 mmol/L (22-30); Chloride 102 mmol/L (98-107); Estimated CRCL calculation 64 ml/min; Estimated Glomerular Filt Rate > 60; Glucose 125 mg/dL (65-110); Potassium 4.3 mmol/L (3.4-5.0); Sodium 137 mmol/L (137-145)
[2023-07-28 06:37] LABS: Glucose Point of Care 151 mg/dl (65-105)
[2023-07-28 07:40] LABS: Glucose Point of Care 123 mg/dl (65-105)
[2023-07-28] MEDS: AZITHROMYCIN 250 MG TABLET 500 MG PO (08:21)
[2023-07-28] MEDS: PANTOPRAZOLE 40 MG TABLET PO (08:21)
[2023-07-28] MEDS: ENOXAPARIN 80 MG/0.8 ML SYRINGE 75 MG SUB-Q ×2 (08:21→20:48)
[2023-07-28] MEDS: METOPROLOL TARTRATE 25 MG TABLET PO ×2 (08:21→20:48)
--- NOTE | 2023-07-28 08:59 | PM.PNPUL ---
Progress Note: A&P Assessment and Plan (1) Pneumonia: Qualifiers: Pneumonia type: due to unspecified organism Laterality: right Lung location: lower lobe of lung Qualified Code(s): J18.9 - Pneumonia, unspecified organism Code(s): J18.9 - Pneumonia, unspecified organism Status: Acute Assessment and Plan: A 78-year-old man came in with symptoms of cough, malaise, and yellow sputum production, which eventually turned bloody. These symptoms are consistent with right lower lobe pneumonia, as shown by a chest CT scan. He continued to produce bloody sputum, likely due to both his pneumonia and the anticoagulant medication he was on. Eventually his direct anticoagulant was discontinued. The patient has had no hemoptysis over the last 2 days. Physical exam he continues to have some crackles at bases and decreased breath sounds especially right base posteriorly. He remains on room air. WBC back into the normal range. PT INR pending. The patient has been on antibiotics for community-acquired pneumonia and also urinary tract infection. 07/26/23: Plan: Continue to monitor respiratory status now that the patient is off Xarelto. Continue with same antibiotics. Repeat chest x-ray in a.m. 07/27/23: Patient states he is breathing normal. He tells me he has brown phlegm. When I am asked him to expectorate he did have clear phlegm with areas of bright red blood and dark brown red blood. He is on room air with saturations 97%. He is afebrile. chest x-ray today with clear lungs and improved bibasilar infiltrates since 07/25/2023. Last dose of Xarelto was 07/23/2023 at 6:40 p.m.. Sputum with growth of normal cain. Plan: Overall patient states he is clinically improved. He received vanc and Zosyn on 07/22 and has been on azithromycin and Unasyn since 07/24 (day 4) and a total of day 6 antibiotics. He remains with some hemoptysis and a chest x-ray that is improving. He is on room air. Plan will continue azithromycin and Unasyn at this time. Continue to hold Xarelto. 07/28/23: Patient says he is breathing normally, he has been walking in the room. He denies any cough. Says he had no hemoptysis yesterday. The day nurse told me the shift engineer said he had 1 expectoration with blood-tinged sputum. He had 1 clear mucus with a streak of dark red blood at the bedside from earlier this morning and I asked him to expectorate and he again had clear mucus with a small amount of dark red blood. There was no bright red blood. White blood cell count 4.9, creatinine 0.8. Plan: Patient continues to improve on antibiotics total day 7, Unasyn and azithromycin day 5. Clinically improved, chest x-ray improved oxygenation has improved. He still has some dark red blood that may be old blood in his sputum but there appears to be no bright red blood. I will initiate Lovenox 1 milligram/kilos b.i.d. for his atrial fibrillation and follow him clinically overnight. I will check a chest x-ray in the morning. If he remains clinically stable will consider discharge on 07/29/2023 Will follow with you. Subjective Date/time seen: 07/28/23 08:59 Interval history: New Consult date: 07/23/23 Chief complaint: pneumonia Narrative: A 78-year-old male with a past medical history of emphysema, gout, persistent atrial fibrillation, cerebrovascular accident, and thoracic aortic aneurysm post graft and repair, has been admitted with symptoms of shortness of breath, cough, and body aches. These symptoms began on Thursday (07/18), accompanied by a productive, yellow-colored cough. Approximately two days prior to admission, the patient started noticing bloody sputum and blood streaks when blowing his nose. Upon emergency room evaluation, a chest CT scan revealed consolidation in the right lower lobe with an air bronchogram, suggestive of pneumonia, and a ground-glass opacity in the right lung. The patient is currently being treated with antibiotics for community-
--- NOTE | 2023-07-28 11:02 | PM.PNCARD ---
Progress Note: A&P Assessment and Plan (1) Persistent atrial fibrillation: Code(s): I48.19 - Other persistent atrial fibrillation Status: Acute Assessment and Plan: Recommend restarting Xarelto when okay with other services. Outpatient evaluation for left atrial appendage occluded device is recommended. Patient has a history of AV sisi dysfunction. Previously not on any rate controlling medications. I do not think that he needs both diltiazem and metoprolol. Discontinued the diltiazem. Tolerating the Metoprolol well thus far, can continue with low dose Metoprolol. Outpatient follow up with Dr. Nathan. (2) Hemoptysis: Code(s): R04.2 - Hemoptysis Status: Acute Assessment and Plan: Resolved. Resume anticoagulation when okay with other services (3) Aneurysm: Code(s): I72.9 - Aneurysm of unspecified site Status: Acute Assessment and Plan: Status post thoracic aortic aneurysm repair. Followed by Dr. 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 Plan Cardiology will follow as needed. Subjective Date/time seen: 07/28/23 11:02 Interval history: This is a 78-year-old man I am seeing at the request of the hospitalist, actually at his request because of a history of atrial fibrillation and recent bleeding necessitated holding his anticoagulation regimen Date of service 07/27/2023: Bleeding has stopped. No chest pain. No shortness of breath. Date of service 07/28: Doing well. Remains in rate controlled AFIB. Review of Systems Review of Systems: All systems reviewed & are unremarkable except as noted in HPI and below (HPI) Exam Const: General: comfortable and no acute distress HENMT: Mouth: Yes moist mucous membranes Eyes: General: appearance normal, both eyes and all related structures Sclera: sclerae normal Resp: Effort & Inspection: normal respiratory effort Cardio: Rhythm: abnormal rhythm irregularly irregular Skin: General skin exam: normal color Neuro: Speech: normal speech Psych: Mental Status: mental status grossly normal Affect: normal affect Objective Data Vital Signs Vital Signs: Vital Signs - 24 hr 07/27/23 12:00 07/27/23 14:55 07/27/23 16:00 Temperature 37.1 C Pulse Rate 67 72 71 Respiratory Rate 16 Blood Pressure 104/60 Pulse Oximetry 98 Oxygen Delivery 07/27/23 20:25 07/27/23 20:00 07/27/23 20:00 Temperature Pulse Rate 83 74 83 Respiratory Rate 16 Blood Pressure Pulse Oximetry 98 Oxygen Delivery Room Air 07/27/23 22:13 07/28/23 00:00 07/28/23 02:52 Temperature 36.4 C Pulse Rate 80 64 64 Respiratory Rate 18 18 Blood Pressure 135/65 Pulse Oximetry 95 95 Oxygen Delivery Room Air 07/28/23 04:00 07/28/23 06:00 07/28/23 08:21 Temperature 36.3 C L Pulse Rate 80 81 78 Respiratory Rate 18 Blood Pressure 111/64 Pulse Oximetry 96 Oxygen Delivery 07/28/23 08:19 Temperature 36.6 C Pulse Rate 75 Respiratory Rate 17 Blood Pressure 121/61 Pulse Oximetry 93 Oxygen Delivery Intake/Output Intake/Output: Intake & Output 07/25/23 07/26/23 07/27/23 07/28/23 23:59 23:59 23:59 23:59 Intake Total 1790 1330 2020 440 Output Total 1726 1250 2626 1350 Balance 64 61 -136 910 Meds/Results Medications: Active Medications Generic Name Dose Route Start Last Admin Trade Name Freq PRN Reason Stop Dose Admin Acetaminophen 650 mg 07/22/23 21:02 07/27/23 20:25 Acetaminophen 325 Mg Tablet PO 650 mg Q8H PRN Administration pain or sleep Albuterol 2.5 mg 07/22/23 16:32 07/23/23 20:08 Albuterol Sulfate Neb 2.5 Mg/3 Ml Inh INHALATION 2.5 mg Q6HRT PRN Administration Shortness Of Breath Dextrose 12.5 gm 07/22/23 16:56 Dextrose 50% 25 Gm/50 Ml Syringe IV PUSH PRN PRN
[2023-07-28 11:35] LABS: Glucose Point of Care 195 mg/dl (65-105)
--- NOTE | 2023-07-28 13:37 | PM.IMPN ---
Progress Note: A&P Assessment and Plan (1) Persistent atrial fibrillation: Code(s): I48.19 - Other persistent atrial fibrillation Status: Acute (2) Elevated troponin: Code(s): R79.89 - Other specified abnormal findings of blood chemistry Status: Acute (3) Sepsis: Qualifiers: Sepsis type: sepsis due to unspecified organism Sepsis acute organ dysfunction status: with acute organ dysfunction Acute respiratory failure type: with hypoxia Severe sepsis shock status: without septic shock Code(s): A41.9 - Sepsis, unspecified organism Status: Acute (4) Pneumonia: Qualifiers: Pneumonia type: due to unspecified organism Laterality: right Lung location: lower lobe of lung Qualified Code(s): J18.9 - Pneumonia, unspecified organism Code(s): J18.9 - Pneumonia, unspecified organism Status: Acute (5) Chronic atrial fibrillation: Code(s): I48.20 - Chronic atrial fibrillation, unspecified Status: Acute (6) Thoracic aortic aneurysm, without rupture: Code(s): I71.2 - Thoracic aortic aneurysm, without rupture Status: Acute (7) Abnormal finding on CT scan: Code(s): R93.89 - Abnormal findings on diagnostic imaging of other specified body structures Status: Acute Plan 78 y/o M presents here with SOB, cough and body aches with PMH of emphysema, gout, persistent AFib, CVA, and thoracic aortic aneurysm s/p graft and repair. Patient presented here from his PCP office, [facility], for evaluation. Patient reports SOB and body aches that started on? Sat (07/18). Developed productive cough on Mon/Tu that was blood streaked and noted blood streaks when he would blow his nose. Currently experiencing body aches that have primarily effected his hips and knees. Reports reduced appetite and reduced PO intake. Tried OTC aspirin and a nasal decongestant at home with minimal relief. . During evaluation at his PCP, found to have adventitious lung sounds and tachypneic with O2 sat at 92% on RA. He was promptly sent to the ED where ED workup revealed a normal WBC, stable anemia with hgb at 11.7,? BS of 135, lactic acid 1.1, and an elevated BNP at 5430. UA suggestive of UTI. CTA had multiple findings with most prominent being a RLL infiltrate and patchy groundglass infiltrates of the RUL and super segment of the RLL.? (1) Sepsis: ?Qualifiers: ?Acute respiratory failure type:?with hypoxia??Sepsis acute organ dysfunction status:?with acute organ dysfunction??Sepsis type:?sepsis due to unspecified organism??Severe sepsis shock status:?without septic shock ?Code(s): A41.9 - Sepsis, unspecified organism ?Status:?Acute ?Assessment and Plan: Meets SIRS criteria: HR >100, RR >20. Lactic acid 3.4. No fever, elevated WBC, or lactic acidosis (1.1). Borderline hypotension and elevated troponins. Started on 30 mL/kg with 2L bolus of NS. Suspected source: right lower lobe and right upper lobe pna. Possible UTI. Repeat lactic post-fluids was 1.1. Blood cultures, UC, and MRSA ordered/pending. Adding sputum culture. Started on Vanc and Zosyn on 07/22/22. 07/24 change to azithromycin and Unasyn per roof tiler 07/26: pt is afeb. White blood cell within normal limit, urine culture grows enterococci, susceptible to ampicillin, blood culture has no growth so far, sputum culture: Growth normal oropharyngeal cain 07/28: continue IV unasyn (2) Pneumonia and hemoptysis ?Laterality:?right??Lung location:?lower lobe of lung??Pneumonia type:?due to unspecified organism? Qualified Code(s):?J18.9 - Pneumonia, unspecified organism ?Code(s): J18.9 - Pneumonia, unspecified organism ?Status:?Acute ?Assessment and Plan: CTA of chest/abdomen/pelvis: Prominent consolidating dependent right lower lobe infiltrate,, patchy groundglass infiltrates of right upper lobe and super segment of right lower lobe, suggesting pneumonia CXR: 1. Opacities in
[2023-07-28 16:32] LABS: Glucose Point of Care 150 mg/dl (65-105)
[2023-07-28 22:05] LABS: Glucose Point of Care 184 mg/dl (65-105)
[2023-07-29] VITALS (10 sets, daily range): BP systolic 106–133; BP diastolic 48–72; PULSE 67–86; RESP 16–18; TEMP 36.6–37; O2SAT 97–99
[2023-07-29] MEDS: AMPICILLIN SULB 3 GM/NS 100 ML 3 GM/100 ML VIAL IVPB ×4 (05:42→23:52)
[2023-07-29 05:45] LABS: Hematocrit 30.8 % (42.0-52.0); Hemoglobin 9.5 g/dL (14.0-18.0); Mean Corpuscular HGB Conc 30.8 g/dl (32-36); Mean Corpuscular Hemoglobin 29.6 pg (26-34); Mean Platelet Volume 9.9 fl (7.4-10.4); Platelet Count Result 191 k/mm3 (150-375); Red Blood Count 3.21 M/mm3 (4.6-6.20); Red Cell Distribution Width 14.6 % (11.5-14.5); White Blood Count 5.6 K/mm3 (4.5-10.0)
[2023-07-29 06:03] LABS: Anion Gap 5 mmol/L (8-16); Blood Urea Nitrogen 14 mg/dL (9-20); Carbon Dioxide 28 mmol/L (22-30); Chloride 103 mmol/L (98-107); Estimated CRCL calculation 64 ml/min; Estimated Glomerular Filt Rate > 60; Glucose 134 mg/dL (65-110); Potassium 4.2 mmol/L (3.4-5.0); Sodium 136 mmol/L (137-145)
[2023-07-29 08:28] LABS: Glucose Point of Care 139 mg/dl (65-105)
--- NOTE | 2023-07-29 08:29 | PM.PNPUL ---
Progress Note: A&P Assessment and Plan (1) Pneumonia: Qualifiers: Pneumonia type: due to unspecified organism Laterality: right Lung location: lower lobe of lung Qualified Code(s): J18.9 - Pneumonia, unspecified organism Code(s): J18.9 - Pneumonia, unspecified organism Status: Acute Assessment and Plan: A 78-year-old man came in with symptoms of cough, malaise, and yellow sputum production, which eventually turned bloody. These symptoms are consistent with right lower lobe pneumonia, as shown by a chest CT scan. He continued to produce bloody sputum, likely due to both his pneumonia and the anticoagulant medication he was on. Eventually his direct anticoagulant was discontinued. The patient has had no hemoptysis over the last 2 days. Physical exam he continues to have some crackles at bases and decreased breath sounds especially right base posteriorly. He remains on room air. WBC back into the normal range. PT INR pending. The patient has been on antibiotics for community-acquired pneumonia and also urinary tract infection. 07/26/23: Plan: Continue to monitor respiratory status now that the patient is off Xarelto. Continue with same antibiotics. Repeat chest x-ray in a.m. 07/27/23: Patient states he is breathing normal. He tells me he has brown phlegm. When I am asked him to expectorate he did have clear phlegm with areas of bright red blood and dark brown red blood. He is on room air with saturations 97%. He is afebrile. chest x-ray today with clear lungs and improved bibasilar infiltrates since 07/25/2023. Last dose of Xarelto was 07/23/2023 at 6:40 p.m.. Sputum with growth of normal cain. Plan: Overall patient states he is clinically improved. He received vanc and Zosyn on 07/22 and has been on azithromycin and Unasyn since 07/24 (day 4) and a total of day 6 antibiotics. He remains with some hemoptysis and a chest x-ray that is improving. He is on room air. Plan will continue azithromycin and Unasyn at this time. Continue to hold Xarelto. 07/28/23: Patient says he is breathing normally, he has been walking in the room. He denies any cough. Says he had no hemoptysis yesterday. The day nurse told me the fishing instructor said he had 1 expectoration with blood-tinged sputum. He had 1 clear mucus with a streak of dark red blood at the bedside from earlier this morning and I asked him to expectorate and he again had clear mucus with a small amount of dark red blood. There was no bright red blood. White blood cell count 4.9, creatinine 0.8. Plan: Patient continues to improve on antibiotics total day 7, Unasyn and azithromycin day 5. Clinically improved, chest x-ray improved oxygenation has improved. He still has some dark red blood that may be old blood in his sputum but there appears to be no bright red blood. I will initiate Lovenox 1 milligram/kilos b.i.d. for his atrial fibrillation and follow him clinically overnight. I will check a chest x-ray in the morning. If he remains clinically stable will consider discharge on 07/29/2023 07/29/23: Patient states he is breathing normally. He has been out of bed and walking. Remains on room air with saturations 99%. Patient has had no further hemoptysis since yesterday morning while on full-dose Lovenox. Plan: Patient is ready to be discharged from a pulmonary perspective on these pulmonary medications Augmentin 875-125 at 1 tablet p.o. b.i.d. through 08/02/23. Resume anticoagulation for AFib per hospitalist and Cardiology teams. Follow-up with PCP. Consider repeat chest x-ray in 4-6 weeks to assess for resolution of infiltrates. No specific pulmonary clinic follow-up is required. Discussed with Dr. Reid, call with questions Subjective Date/time seen: 07/29/23 08:29 Interval history: New Consult date: 07/23/23 Chief complaint: pneumonia Narrative: A 78-year-old male with a past medical history of emphysema, gout, persistent atrial fibrillation
[2023-07-29] MEDS: ENOXAPARIN 80 MG/0.8 ML SYRINGE 75 MG SUB-Q (08:45)
[2023-07-29] MEDS: PANTOPRAZOLE 40 MG TABLET PO (08:45)
--- NOTE | 2023-07-29 10:51 | PM.PNCARD ---
Progress Note: A&P Assessment and Plan (1) Persistent atrial fibrillation: Code(s): I48.19 - Other persistent atrial fibrillation Status: Acute Assessment and Plan: Recommend restarting Xarelto when okay with other services. Outpatient evaluation for left atrial appendage occluded device is recommended. He is now receiving full-dose enoxaparin. Transition to Xarelto when okay with pulmonology. Patient has a history of AV sisi dysfunction. He is a little hypotensive today. Will reduce his metoprolol to 12.5 mg p.o. b.i.d.. Heart rate will remain controlled with this dose Outpatient follow up with Dr. Nathan. (2) Hemoptysis: Code(s): R04.2 - Hemoptysis Status: Acute Assessment and Plan: Resolved. Resume anticoagulation when okay with other services (3) Aneurysm: Code(s): I72.9 - Aneurysm of unspecified site Status: Acute Assessment and Plan: Status post thoracic aortic aneurysm repair. Followed by Dr. Mccollum (4) residential (current) use of anticoagulants: Code(s): Z79.01 - emt intermediate (current) use of anticoagulants Status: Acute Assessment and Plan: Resume anticoagulation. Subjective Date/time seen: 07/29/23 10:51 Interval history: This is a 78-year-old man I am seeing at the request of the hospitalist, actually at his request because of a history of atrial fibrillation and recent bleeding necessitated holding his anticoagulation regimen Date of service 07/27/2023: Bleeding has stopped. No chest pain. No shortness of breath. Date of service 07/28: Doing well. Remains in rate controlled AFIB. Date of service 07/29/2023: BP a bit low today. Metoprolol was held. No chest pain, shortness of breath Review of Systems Review of Systems: All systems reviewed & are unremarkable except as noted in HPI and below (HPI) Constitutional: Constitutional: Reports body ache(s) and Reports fatigue Eyes: Eyes: Reports no additional eye complaints ENT: Reports system reviewed and no additional complaints, except as documented Cardiovascular: Cardiovascular: Reports no additional cardiovascular complaints Respiratory: Respiratory: Reports hemoptysis Gastrointestinal: Gastrointestinal: Reports no additional gastrointestinal complaints Genitourinary: Genitourinary: Reports no additional male genitourinary complaints Musculoskeletal: Musculoskeletal: Reports myalgias Integumentary/Breasts: Skin/Breast: Reports system reviewed and no additional complaints, except as docu Neurologic: Reports system reviewed and no additional complaints, except as documented Endocrine: Endocrine: Reports no additional endocrine complaints and Reports fatigue Hematologic/Lymphatic: Hematologic/Lymphatic: Reports no additional hematologic/lymphatic complaints Allergic/Immunologic: Allergic/Immunologic: Reports no additional allergic/immunologic complaints Exam Const: General: comfortable and no acute distress HENMT: Face/Nose/Sinus: Normal nares present Mouth: Yes moist mucous membranes Eyes: General: appearance normal, both eyes and all related structures Sclera: sclerae normal Neck: Neck: supple and no JVD Other: A normal carotid pulses bilaterally Resp: Effort & Inspection: normal respiratory effort Other: Right basilar rales are noted Cardio: Rate: regular rate Rhythm: abnormal rhythm irregularly irregular GI: Auscultation: normal bowel sounds Skin: General skin exam: normal color Neuro: Speech: normal speech Other: Alert and oriented x3 Extrem: Other: Good perfusion, no edema Psych: Mental Status: mental status grossly normal Affect: normal affect Objective Data Vital Signs Vital Signs: Vital Signs - 24 hr 07/28/23 14:50 07/28/23 12:00 07/28/23 16:00 Temperature 36.9 C Pulse Rate 85 68 73 Respiratory Rate 14 Blood Pressure 116/47 L Pulse Oximetry 98 Oxygen Delivery 07/07
[2023-07-29 12:32] LABS: Glucose Point of Care 179 mg/dl (65-105)
--- NOTE | 2023-07-29 14:54 | PM.IMPN ---
Progress Note: A&P Assessment and Plan (1) Persistent atrial fibrillation: Code(s): I48.19 - Other persistent atrial fibrillation Status: Acute (2) Elevated troponin: Code(s): R79.89 - Other specified abnormal findings of blood chemistry Status: Acute (3) Sepsis: Qualifiers: Sepsis type: sepsis due to unspecified organism Sepsis acute organ dysfunction status: with acute organ dysfunction Acute respiratory failure type: with hypoxia Severe sepsis shock status: without septic shock Code(s): A41.9 - Sepsis, unspecified organism Status: Acute (4) Pneumonia: Qualifiers: Pneumonia type: due to unspecified organism Laterality: right Lung location: lower lobe of lung Qualified Code(s): J18.9 - Pneumonia, unspecified organism Code(s): J18.9 - Pneumonia, unspecified organism Status: Acute (5) Chronic atrial fibrillation: Code(s): I48.20 - Chronic atrial fibrillation, unspecified Status: Acute (6) Thoracic aortic aneurysm, without rupture: Code(s): I71.2 - Thoracic aortic aneurysm, without rupture Status: Acute (7) Abnormal finding on CT scan: Code(s): R93.89 - Abnormal findings on diagnostic imaging of other specified body structures Status: Acute Plan 78 y/o M presents here with SOB, cough and body aches with PMH of emphysema, gout, persistent AFib, CVA, and thoracic aortic aneurysm s/p graft and repair. Patient presented here from his PCP office, [facility], for evaluation. Patient reports SOB and body aches that started on? Sat (07/18). Developed productive cough on Mon/Tu that was blood streaked and noted blood streaks when he would blow his nose. Currently experiencing body aches that have primarily effected his hips and knees. Reports reduced appetite and reduced PO intake. Tried OTC aspirin and a nasal decongestant at home with minimal relief. . During evaluation at his PCP, found to have adventitious lung sounds and tachypneic with O2 sat at 92% on RA. He was promptly sent to the ED where ED workup revealed a normal WBC, stable anemia with hgb at 11.7,? BS of 135, lactic acid 1.1, and an elevated BNP at 5430. UA suggestive of UTI. CTA had multiple findings with most prominent being a RLL infiltrate and patchy groundglass infiltrates of the RUL and super segment of the RLL.? (1) Sepsis: ?Qualifiers: ?Acute respiratory failure type:?with hypoxia??Sepsis acute organ dysfunction status:?with acute organ dysfunction??Sepsis type:?sepsis due to unspecified organism??Severe sepsis shock status:?without septic shock ?Code(s): A41.9 - Sepsis, unspecified organism ?Status:?Acute ?Assessment and Plan: Meets SIRS criteria: HR >100, RR >20. Lactic acid 3.4. No fever, elevated WBC, or lactic acidosis (1.1). Borderline hypotension and elevated troponins. Started on 30 mL/kg with 2L bolus of NS. Suspected source: right lower lobe and right upper lobe pna. Possible UTI. Repeat lactic post-fluids was 1.1. Blood cultures, UC, and MRSA ordered/pending. Adding sputum culture. Started on Vanc and Zosyn on 07/22/22. 07/24 change to azithromycin and Unasyn per prototype machinist 07/26: pt is afeb. White blood cell within normal limit, urine culture grows enterococci, susceptible to ampicillin, blood culture has no growth so far, sputum culture: Growth normal oropharyngeal cain 07/28: continue IV unasyn 07/29: continue iv unasyn and xarelto oral dc miguel am (2) Pneumonia and hemoptysis ?Laterality:?right??Lung location:?lower lobe of lung??Pneumonia type:?due to unspecified organism? Qualified Code(s):?J18.9 - Pneumonia, unspecified organism ?Code(s): J18.9 - Pneumonia, unspecified organism ?Status:?Acute ?Assessment and Plan: CTA of chest/abdomen/pelvis: Prominent consolidating dependent right lower lobe infiltrate,, patchy groundglass infiltrates of right upper lobe and super segment of right l
[2023-07-29 17:41] LABS: Glucose Point of Care 132 mg/dl (65-105)
[2023-07-29] MEDS: RIVAROXABAN 20 MG TABLET PO (17:59)
[2023-07-29] MEDS: INSULIN ASPART (*BKC) 100 UNITS/ML SUB-Q (20:17)
[2023-07-29] MEDS: METOPROLOL TARTRATE 12.5 MG TABLET PO (20:18)
[2023-07-29 21:17] LABS: Glucose Point of Care 213 mg/dl (65-105)
[2023-07-30 04:14] VITALS: BP 103/46; PULSE 89; RESP 18; TEMP 36.4; O2SAT 96
[2023-07-30] MEDS: AMPICILLIN SULB 3 GM/NS 100 ML 3 GM/100 ML VIAL IVPB (05:08)
[2023-07-30 08:28] VITALS: PULSE 92
[2023-07-30] MEDS: PANTOPRAZOLE 40 MG TABLET PO (08:28)
[2023-07-30] MEDS: METOPROLOL TARTRATE 12.5 MG TABLET PO (08:28)
[2023-07-30 08:49] LABS: Glucose Point of Care 107 mg/dl (65-105)
[2023-07-30 08:55] VITALS: O2SAT 95
--- NOTE | 2023-07-30 08:56 | PM.PNPUL ---
Progress Note: A&P Assessment and Plan (1) Pneumonia: Qualifiers: Pneumonia type: due to unspecified organism Laterality: right Lung location: lower lobe of lung Qualified Code(s): J18.9 - Pneumonia, unspecified organism Code(s): J18.9 - Pneumonia, unspecified organism Status: Acute Assessment and Plan: A 78-year-old man came in with symptoms of cough, malaise, and yellow sputum production, which eventually turned bloody. These symptoms are consistent with right lower lobe pneumonia, as shown by a chest CT scan. He continued to produce bloody sputum, likely due to both his pneumonia and the anticoagulant medication he was on. Eventually his direct anticoagulant was discontinued. The patient has had no hemoptysis over the last 2 days. Physical exam he continues to have some crackles at bases and decreased breath sounds especially right base posteriorly. He remains on room air. WBC back into the normal range. PT INR pending. The patient has been on antibiotics for community-acquired pneumonia and also urinary tract infection. 07/26/23: Plan: Continue to monitor respiratory status now that the patient is off Xarelto. Continue with same antibiotics. Repeat chest x-ray in a.m. 07/27/23: Patient states he is breathing normal. He tells me he has brown phlegm. When I am asked him to expectorate he did have clear phlegm with areas of bright red blood and dark brown red blood. He is on room air with saturations 97%. He is afebrile. chest x-ray today with clear lungs and improved bibasilar infiltrates since 07/25/2023. Last dose of Xarelto was 07/23/2023 at 6:40 p.m.. Sputum with growth of normal cain. Plan: Overall patient states he is clinically improved. He received vanc and Zosyn on 07/22 and has been on azithromycin and Unasyn since 07/24 (day 4) and a total of day 6 antibiotics. He remains with some hemoptysis and a chest x-ray that is improving. He is on room air. Plan will continue azithromycin and Unasyn at this time. Continue to hold Xarelto. 07/28/23: Patient says he is breathing normally, he has been walking in the room. He denies any cough. Says he had no hemoptysis yesterday. 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 He had 1 clear mucus with a streak of dark red blood at the bedside from earlier this morning and I asked him to expectorate and he again had clear mucus with a small amount of dark red blood. There was no bright red blood. White blood cell count 4.9, creatinine 0.8. Plan: Patient continues to improve on antibiotics total day 7, Unasyn and azithromycin day 5. Clinically improved, chest x-ray improved oxygenation has improved. He still has some dark red blood that may be old blood in his sputum but there appears to be no bright red blood. I will initiate Lovenox 1 milligram/kilos b.i.d. for his atrial fibrillation and follow him clinically overnight. I will check a chest x-ray in the morning. If he remains clinically stable will consider discharge on 07/29/2023 07/29/23: Patient states he is breathing normally. He has been out of bed and walking. Remains on room air with saturations 99%. Patient has had no further hemoptysis since yesterday morning while on full-dose Lovenox. Later in the day had blood streaks phlegm. CT scan of the chest compared with 07/22/2023 showed mild apical predominant centrilobular and paraseptal emphysema, right upper lobe infiltrate 95% right lower lobe infiltrate with consolidation and air bronchograms about 20% improved small right pleural effusion. No evidence of cavitation, no evidence of lobar collapse. 07/30/2023: Patient continued with some blood streaked phlegm overnight. This was intermittently. When I asked him to expectorate this morning he had clear phlegm with no blood. Patient states he is breathing normal. Room air saturations are 100%. Patient continues to improve in his CT scan jameson
--- NOTE | 2023-07-30 09:26 | PCNWS ---
Weekly nutritional screen. Patient is tolerating current diabetic diet with Glucerna shakes, with adequate intake at 100% most meals. No weight loss reported. No nutritional needs at this time.
--- NOTE | 2023-07-30 09:41 | PM.DS ---
DS: Admitting Diagnosis Discharge Date 07/30/2023 Admitting Diagnosis SOB, Cough DS: Discharge Diagnosis Discharge Diagnosis (1) Persistent atrial fibrillation: Code(s): I48.19 - Other persistent atrial fibrillation Status: Acute (2) Elevated troponin: Code(s): R79.89 - Other specified abnormal findings of blood chemistry Status: Acute (3) Sepsis: Qualifiers: Acute respiratory failure type: with hypoxia Sepsis acute organ dysfunction status: with acute organ dysfunction Sepsis type: sepsis due to unspecified organism Severe sepsis shock status: without septic shock Code(s): A41.9 - Sepsis, unspecified organism Status: Acute (4) Pneumonia: Qualifiers: Laterality: right Lung location: lower lobe of lung Pneumonia type: due to unspecified organism Qualified Code(s): J18.9 - Pneumonia, unspecified organism Code(s): J18.9 - Pneumonia, unspecified organism Status: Acute (5) Chronic atrial fibrillation: Code(s): I48.20 - Chronic atrial fibrillation, unspecified Status: Acute (6) Thoracic aortic aneurysm, without rupture: Code(s): I71.2 - Thoracic aortic aneurysm, without rupture Status: Acute (7) Abnormal finding on CT scan: Code(s): R93.89 - Abnormal findings on diagnostic imaging of other specified body structures Status: Acute Plan 78 y/o M presents here with SOB, cough and body aches with PMH of emphysema, gout, persistent AFib, CVA, and thoracic aortic aneurysm s/p graft and repair. Patient presented here from his PCP office, [facility], for evaluation. Patient reports SOB and body aches that started on? Sat (07/18). Developed productive cough on Mon/Tu that was blood streaked and noted blood streaks when he would blow his nose. Currently experiencing body aches that have primarily effected his hips and knees. Reports reduced appetite and reduced PO intake. Tried OTC aspirin and a nasal decongestant at home with minimal relief. . During evaluation at his PCP, found to have adventitious lung sounds and tachypneic with O2 sat at 92% on RA. He was promptly sent to the ED where ED workup revealed a normal WBC, stable anemia with hgb at 11.7,? BS of 135, lactic acid 1.1, and an elevated BNP at 5430. UA suggestive of UTI. CTA had multiple findings with most prominent being a RLL infiltrate and patchy groundglass infiltrates of the RUL and super segment of the RLL.? (1) Sepsis: ?Qualifiers: ?Acute respiratory failure type:?with hypoxia??Sepsis acute organ dysfunction status:?with acute organ dysfunction??Sepsis type:?sepsis due to unspecified organism??Severe sepsis shock status:?without septic shock ?Code(s): A41.9 - Sepsis, unspecified organism ?Status:?Acute ?Assessment and Plan: Meets SIRS criteria: HR >100, RR >20. Lactic acid 3.4. No fever, elevated WBC, or lactic acidosis (1.1). Borderline hypotension and elevated troponins. Started on 30 mL/kg with 2L bolus of NS. Suspected source: right lower lobe and right upper lobe pna. Possible UTI. Repeat lactic post-fluids was 1.1. Blood cultures, UC, and MRSA ordered/pending. Adding sputum culture. Started on Vanc and Zosyn on 07/22/22. 07/24 change to azithromycin and Unasyn per escalator attendant 07/26: pt is afeb. White blood cell within normal limit, urine culture grows enterococci, susceptible to ampicillin, blood culture has no growth so far, sputum culture: Growth normal oropharyngeal cain 07/28: continue IV unasyn 07/29: continue iv unasyn and xarelto oral dc miguel am 07/30: D/W pulmology ok to dc on xarelto and augmentin with follow up in 1-2 weeks time (2) Pneumonia and hemoptysis ?Laterality:?right??Lung location:?lower lobe of lung??Pneumonia type:?due to unspecified organism? Qualified Code(s):?J18.9 - Pneumonia, unspecified organism ?Code(s): J18.9 - Pneumonia, unspecified organism ?Status:?Acute ?Assessment and
--- NOTE | 2023-07-30 10:36 | PM.PNCARD ---
Progress Note: A&P Assessment and Plan (1) Persistent atrial fibrillation: Code(s): I48.19 - Other persistent atrial fibrillation Status: Acute Assessment and Plan: Outpatient evaluation for left atrial appendage occluded device is recommended. Now on Xarelto. Okay for discharge from cardiology perspective. Outpatient follow up with Dr. Nathan. (2) Hemoptysis: Code(s): R04.2 - Hemoptysis Status: Acute Assessment and Plan: Back on anticoagulation (3) Aneurysm: Code(s): I72.9 - Aneurysm of unspecified site Status: Acute Assessment and Plan: Status post thoracic aortic aneurysm repair. Followed by Dr. Mccollum (4) parts counterman (current) use of anticoagulants: Code(s): Z79.01 - parts counterman (current) use of anticoagulants Status: Acute Subjective Date/time seen: 07/30/23 10:36 Interval history: This is a 78-year-old man I am seeing at the request of the hospitalist, actually at his request because of a history of atrial fibrillation and recent bleeding necessitated holding his anticoagulation regimen Date of service 07/27/2023: Bleeding has stopped. No chest pain. No shortness of breath. Date of service 07/28: Doing well. Remains in rate controlled AFIB. Date of service 07/29/2023: BP a bit low today. Metoprolol was held. No chest pain, shortness of breath Date of service 07/30/2023: Continue low-dose metoprolol. No significant hemoptysis. No other bleeding. No chest pain or shortness breath. Review of Systems Review of Systems: All systems reviewed & are unremarkable except as noted in HPI and below (HPI) Constitutional: Constitutional: Reports body ache(s) and Reports fatigue Eyes: Eyes: Reports no additional eye complaints ENT: Reports system reviewed and no additional complaints, except as documented Cardiovascular: Cardiovascular: Reports no additional cardiovascular complaints Respiratory: Respiratory: Reports hemoptysis Gastrointestinal: Gastrointestinal: Reports no additional gastrointestinal complaints Genitourinary: Genitourinary: Reports no additional male genitourinary complaints Musculoskeletal: Musculoskeletal: Reports myalgias Integumentary/Breasts: Skin/Breast: Reports system reviewed and no additional complaints, except as docu Neurologic: Reports system reviewed and no additional complaints, except as documented Endocrine: Endocrine: Reports no additional endocrine complaints and Reports fatigue Hematologic/Lymphatic: Hematologic/Lymphatic: Reports no additional hematologic/lymphatic complaints Allergic/Immunologic: Allergic/Immunologic: Reports no additional allergic/immunologic complaints Exam Const: General: comfortable and no acute distress Other: Pleasant elderly white male appearing his stated age he is comfortable in no distress he is visiting his family and eating his lunch when I came in the room to see him HENMT: Face/Nose/Sinus: Normal nares present Mouth: Yes moist mucous membranes Eyes: General: appearance normal, both eyes and all related structures Sclera: sclerae normal Neck: Neck: supple and no JVD Other: A normal carotid pulses bilaterally Resp: Effort & Inspection: normal respiratory effort Other: Right basilar rales are noted Cardio: Rate: regular rate Rhythm: abnormal rhythm irregularly irregular GI: Auscultation: normal bowel sounds Skin: General skin exam: normal color Neuro: Speech: normal speech Other: Alert and oriented x3 Extrem: Other: Good perfusion, no edema Psych: Mental Status: mental status grossly normal Affect: normal affect Objective Data Vital Signs Vital Signs: Vital Signs - 24 hr 07/29/23 12:00 07/29/23 17:57 07/29/23 19:16 Temperature 36.7 C 37.0 C Pulse Rate 76 73 86 Respiratory Rate 16 16 Blood Pressure 128/72 133/52 L Pulse Oximetry 97 99 Oxygen Delivery 07/29/23 20:18 07/29/23
[2023-08-03 15:12] LABS: Reference Lab Test Result 82%
== END 2023-07-30 11:16 | disposition home or self-care (01) | DRG 871 ==
LOC: ANHED 12:53 → ANHICU 15:10 → ANHIMU 07-25 17:45 → ANH3MED 07-26 19:06
PROVIDERS: Emergency Medicine; Hospitalist; Internal Medicine Hematology & Oncology; Internal Medicine Pulmonary Disease; Student in an Organized Health Care Education/Training Program; Admitting Provider Internal Medicine; Emergency Provider Emergency Medicine; PCP Physician Assistant Medical; Visit Provider Family Medicine
DX: A41.9 Sepsis, unspecified organism (principal); J18.9 Pneumonia, unspecified organism; I48.19 Other persistent atrial fibrillation; I24.89 Other forms of acute ischemic heart disease; R04.2 Hemoptysis; D62 Acute posthemorrhagic anemia; N39.0 Urinary tract infection, site not specified; K86.2 Cyst of pancreas; R04.0 Epistaxis; B95.2 Enterococcus as the cause of diseases classified elsewhere; R09.02 Hypoxemia; I71.20 Thoracic aortic aneurysm, without rupture, unspecified; I10 Essential (primary) hypertension; E11.9 Type 2 diabetes mellitus without complications; Z66 Do not resuscitate; K57.30 Diverticulosis of large intestine without perforation or abscess without bleeding; J43.9 Emphysema, unspecified; Z20.822 Contact with and (suspected) exposure to COVID-19; Z86.73 Personal history of transient ischemic attack (TIA), and cerebral infarction without residual deficits; Z87.891 Personal history of nicotine dependence; Z79.01 Long term (current) use of anticoagulants
CPT/HCPCS: 36415; 70450; 71045; 71250; 71275; 74177; 76775; 80048; 80053; 81001; 82565; 82607; 82728; 82746; 82948; 83036; 83540; 83550; 83605; 83690; 83735; 83880; 84443; 84484; 85025; 85027; 85260; 85610; 85730; 87040; 87070; 87077; 87086; 87088; 87186; 87205; 87637; 87641; 93005; 93306; 94640; 96360; 96361; 97161; 97165; 97530; 97535; 99285; A9270; J0295; J0696; J1650; J1815; J1940; J2543; J3370; J7030; Q9967

== ENCOUNTER 2024-08-04 14:29 | Inpatient (IN) | payer MEDICARE, OTHER, SELFPAY ==
[2024-08-04] VITALS (10 sets, daily range): BP systolic 100–141; BP diastolic 49–72; PULSE 74–94; RESP 6–37; TEMP 36.4–36.5; O2SAT 94–99; BMI 24.0
--- NOTE | ~2024-08-04 | XR_ITS ---
EXAMINATION: XR chest 1V portable Exam Date/Time: 08/04/2024 14:58 EVENT MARKETING REPRESENTATIVE HISTORY: weakness Comparison: 07/29/2023. RESULT: Lines, tubes, and devices: Aortic stent graft. Median sternotomy wires, the 2 superior wires are fra ctured but remain in stable position. Right upper quadrant suture wire, in stable position.. Lungs and pleura: Stable senescent change. Streaky bibasilar scar/atelectasis No focal consolidation , pleural effusion, or pneumothorax.. Cardiomediastinal silhouette: Stable. Other: No acute osseous or upper abdominal finding. IMPRESSION: No acute cardiopulmonary process. Reviewed, dictated and finalized at location K. T MARKETING REPRESENTATIVE
--- NOTE | ~2024-08-04 | CT_ITS ---
EXAMINATION: CT brain wo con DATE: 08/04/2024 18:10 INDICATION: AMS . TECHNIQUE: Computed tomography (CT) of the head was performed without intravenous contrast. The mA wa s adjusted according to patient size. Iterative reconstruction technique was employed. The dose-lengt h product was 605.33 mGy-cm. COMPARISON: 07/25/2023. FINDINGS: No acute intracranial hemorrhage or extra-axial fluid collection. No hydrocephalus, mass, or herniation. No acute ischemic infarct. Unremarkable dural venous sinus attenuation. No acute osseous abnormality. Trace right mastoid fluid, the remaining aerated spaces are clear. Moderate atrophy and chronic white matter change. Atherosclerotic intracranial calcification. Bilater al lens replacements. Left temporal encephalomalacia. 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 IMPRESSION: No acute intracranial process. Reviewed, dictated and finalized at location K. UET STEWARDESS
--- NOTE | 2024-08-04 14:38 | ECG_ITS ---
Test Date: 2024-08-04 14:41:45 Measurements Intervals Morton Rate: 83 P: 0 MI: 0 QRS: -43 QRSD: 133 T: 98 QT: 390 QTc: 459 Interpretive Statements ATRIAL FIBRILLATION MARKED LEFT AXIS DEVIATION [QRS AXIS < -30] INTRAVENTRICULAR CONDUCTION DELAY [130+ ms QRS DURATION] ST DEPRESSION, CONSIDER ISCHEMIA, LAT LEADS No previous ECG available for comparison Electronically Signed On 08-04-2024 14:49:19 [employer]OUNTAIN WORKER by Jose Miguel Harper M.D.
[2024-08-04 15:04] LABS: Eosinophils Percent Auto 1.3 % (0-4.4); Hematocrit 23.3 % (42.0-52.0); Hemoglobin 7.7 g/dL (14.0-18.0); Immature Granulocyte Absolute 0.01 K/mm3 (0.00-0.031); Immature Granulocyte Percent A 0.7 % (0-0.5); Immature Platelet Fraction Pct 3.7 % (0.9-11.2); Lymphocytes Absolute Auto 0.13 K/mm3 (0.9-3.2); Lymphocytes Percent Auto 8.6 % (18.3-44.2); Mean Corpuscular Hemoglobin 37.7 pg (26-34); Mean Corpuscular Volume 114.2 fl (80-100); Monocytes Absolute Auto 0.3 K/mm3 (0.1-0.6); Monocytes Percent Auto 19.7 % (2.6-8.5); Neutrophils Absolute Auto 1.1 K/mm3 (1.3-6.7); Neutrophils Percent Auto 69.7 % (45.5-73.1); Nucleated Red Blood Cells Perc 1.3 % (0.0-0.2); Red Blood Count 2.04 M/mm3 (4.6-6.20); Red Cell Distribution Width 17.2 % (11.5-14.5)
[2024-08-04 15:15] LABS: Alanine Aminotransferase 16 U/L (6-50); Albumin Level 3.2 g/dL (3.5-5.1); Alkaline Phosphatase 112 U/L (38-126); Anion Gap 7 mmol/L (4-12); Aspartate Amino Transferase 19 U/L (17-59); Bilirubin,Total 0.6 mg/dL (0.2-1.3); Blood Urea Nitrogen 18 mg/dL (9-20); Calcium 9.1 mg/dL (8.4-10.2); Carbon Dioxide 27 mmol/L (22-30); Chloride 97 mmol/L (98-107); Estimated CRCL calculation 50 ml/min; Estimated Glomerular Filt Rate > 60; Glucose 118 mg/dL (65-110); Potassium 4.4 mmol/L (3.4-5.0); Sodium 131 mmol/L (137-145)
[2024-08-04 15:25] LABS: Platelet Count Result 14 k/mm3 (150-375); White Blood Count 1.5 K/mm3 (4.5-10.0)
[2024-08-04 15:26] LABS: Anisocytosis 2+; Platelet Estimate Decreased (Adequate)
[2024-08-04 15:27] LABS: Macrocytosis 1+ (NORMAL); Ovalocytes 1+; Tear Drop Cells 1+
[2024-08-04 15:28] LABS: Schistocytes None Seen
--- OUTSIDE RECORDS SUMMARY | 2024-08-04 16:07 | XMS_ITS | Encounter Summary ---
Author Organization [facility] Address [address] [place] [address] Phone Care Team Providers Care Enamel Pulverizer Name Role Phone Jane Underwood Primary Care Provider + [phone] Isreal Simms MD Unavailable [phone] Encounter Details Date Type Department Care Team (Late st Contact Info) Description 08/02/2024 Telephone [facility] [address] [place] [address] Isreal Simms MD [address] [place] [phone] Social History Tobacco Use Types Packs/Day Years Used Date Smoking Tobacco: Former Cigarettes Smokeless Tobacco: Never Alcohol Use Standard Drinks/Week Comments Yes 5 (1 standard drink = 0.6 oz pur e alcohol) per month Sex and Gender Information Value Date Recorded Sex Assigned at Not on file Legal Sex Male 10:27 AM CDT Gender Identity Not on file Sexual Orientation Not on file documented as of this encounter Miscellaneous Notes * Telephone Encounter - Stephy Garcia - 08/02/2024 9:00 AM CST Rcvd call from spouse. She stated she wanted to cancel all future appts. Cornelio was seen and [place] and and Dr. Simms diagnosed him wrong and he is going to know about it. She then hung up. I canceled next appt on 08/04/24. LOADER documented in this encounter Plan of Treatment Not on file documented as of this encounter Visit Diagnoses Not on filedocumented in this encounter Care Teams Enamel Pulverizer Relationship Specialty Start Date End Date Jane Underwood I, FABY [address] [place] [id number] PCP - General Physician Charger Operator Helper 01/12/24 Isreal Simms MD [address] [place] [id number] Consulting Physician Oncology 01/12/24 documented as of this encounter
--- OUTSIDE RECORDS SUMMARY | 2024-08-04 16:07 | XMS_ITS | Clinical Summary ---
Author Organization [facility] Address [address] [place] [address] Care Team Providers Care Psychologist Industrial Organizational Name Role Phone Unavailable Primary Care Provider Unavailabl e Source Comments [facility],non-owned Affiliates and Associated Physician Practices is amultiple site organization consisting of ambulatory clinics and hospital sitesin [place], [place], [place] and [place]. This disclosure is being madepursuant to the Care Everywhere program and may not contain all information available regarding this patient. Last updated 18.[facility] Social History Tobacco Use Types Packs/Day Years Used Date Smoking Tobacco: Never Assessed Sex and Gender Information Value Date Recorded Sex Assigned at Not on file Gender Identity Not on file Sexual Orientation Not on file Plan of Treatment Health Maintenance Due Date Last Done Comments DTAP/TDAP/TD VACCINES (1 - Tdap) 01/16/1964 PNEUMOCOCCAL VACCINE 50+ (1 of 1 - PCV) 1995 ZOSTER VACCINE (1 of 2) 1995 Respiratory Syncytial Virus (RSV) Vaccine Pt: or over 60 yrs (1 - 1-dose 75+ series) 01/16/2020 COVID-19 VACCINE (2023-2 5 season) 2024 INFLUENZA VACCINE (#1) 2024 DEPRESSION SCREENING 07/06/2024 HEPATITIS B VACCINE Aged Out No longe r eligible based on patient's age to complete this topic HIB VACCINE Aged Out No longer eligi ble based on patient's age to complete this topic HPV VACCINE Aged Out No longer eligi ble based on patient's age to complete this topic MENINGOCOCCAL (Group B) VACCINE Aged Out No longer eligible based on patient's age to complete this topic MENINGOCOCCAL VACCINE Aged Out No dominic isis eligible based on patient's age to complete this topic
--- OUTSIDE RECORDS SUMMARY | 2024-08-04 16:07 | XMS_ITS ---
Author Organization [facility] Address [address] [place] [address] Phone Care Team Providers Care Special Forces Senior Sergeant Name Role Phone Jane Underwood I PAC Primary Care Provider [phone] Isreal Simms MD Unavailable [phone] Active Problems Problem Noted Date Diagnosed Date Waldenstrom macroglobulinemia 03/21/2024 Hypertension 01/05/2013 Current Treatment and Therapy Plans [facility]: Rituximab - Waldenstrom* Plan Start Date:06/01/2024 Plan Provider:Isreal Simms MD Linked Problems Waldenstrom macroglobulinemi a Treatment Medications riTUXimab (RITUXAN) infusionriTUXimab-ARRX (Riab ni) infusion Past Treatment and Therapy Plans ONCOLOGY TREATMENT Plan Name Start Date Discontinue Date Treatment Medications Discontinue Reason Plan Provider Cycles WALDENSTR OM'S - BENDAMUST INE/RITUX AN - [facility] 03/23/2024 06/01/2024 bendamustine chemo infusionriTUXima b-ARRX (Riabni) infusion Therapy Complete Isreal Simms MD 1 of 6 cycles started
--- OUTSIDE RECORDS SUMMARY | 2024-08-04 16:07 | XMS_ITS | Patient Health Summary ---
Author Organization [facility] Address [address] [place] [address] Care Team Providers Care Director Of Community Services Name Role Phone Unavailable Primary Care Provider Unavailabl e Note from [facility],non-owned Affiliates and Associated Physician Practices is amultiple site organization consisting of ambulatory clinics and hospital sitesin [place], [place], [place] and [place]. This disclosure is being madepursuant to the Care Everywhere program and may not contain all information available regarding this patient. Last updated 18.[facility] Social History Tobacco Use Types Packs/Day Years Used Date Smoking Tobacco: Never Assessed Sex and Gender Information Value Date Recorded Sex Assigned at Not on file Gender Identity Not on file Sexual Orientation Not on file Procedures * CT ANGIO CHEST(Performed 02/16/2012) * CT ANGIO ABDOMEN PELVIS(Performed 02/16/2012) * LAB MICROBIOLOGY - HPF HISTORICAL(Performed 03/29/2009) * GROSS + MICRO EXAM(Performed 06/07/2004) Results * CT ANGIO ABDOMEN PELVIS (02/16/2012 8:51 AM CDT) Anatomical Region Laterality Modality Abdomen, Pelvis Other Impressions 02/17/2012 6:56 AM CDT IMPRESSION: 1. Resolved type Ib endo leak with endovascular stent in the descending aorta. 2. Unchanged size of the thoracic and abdominal aortic aneurysm. 3. Mediastinal lymphadenopathy, unchanged. 4. Pancreatic pseudocyst, unchanged. 5.Nonobstructive nephrolithiasis, unchanged. Report dictated by Hector Martínez M.D. (radiology manager). I, Dr. Lam Euceda, have personally reviewed and interpreted this examination. Narrative 02/17/2012 6:56 AM CDT EXAMINATION: Computed tomography of the chest, abdomen, and pelvis with ??contrast HISTORY: Thoracoabdominal aortic aneurysm TECHNIQUE: Computed tomography of the chest, abdomen, and pelvis was performed following the uneventful administration of 100 mL Omnipaque 350 intravenous contrast according to standard protocol. FINDINGS: CT chest, abdomen, pelvis 08/25/2011 Vascular: A thoracoabdominal aortic stent extends from just distal to the left subclavian artery takeoff and ends just above the origin of the celiac artery from the aorta. The stent in the celiac artery is unchanged. The previously described small type I B endoleak extending from the inferior aspect of the stent is no longer visible and there is evidence of thrombosis in that region. The ascending portion of the aortic aneurysm measures 5.3 cm is unchanged (previously 5.3 cm). The retrocrural portion of the aortic aneurysm just below the stent measures 5.9 cm which is unchanged. The descending aorta remains tortuous. There is increased mural aortic thrombus just distal to the stent. Atherosclerotic calcifications are again seen in the descending aorta and the bilateral common iliac arteries. Chest: The 6 mm nodule in the right major fissure is unchanged since prior exam (image 96, series 5). The lungs are free of pneumonic consolidation, effusion, or pneumothorax. The heart size is normal without pericardial effusion. The remaining enhanced mediastinal vascular structures are normal. A 1.5 cm right hilar lymph node is unchanged. Scattered subcentimeter mediastinal lymph nodes are unchanged. Mediastinotomy wires are again seen. Abdomen and Pelvis: There is a 3.1 x 2.8 cm hypoattenuation focus with peripheral nodular enhancement in segment 2 liver which is unchanged, and is likely hemangioma. 1Otherwise, the liver is normal without biliary ductal dilation. There is a 4 mm hyperdensity in the neck of the gallbladder which represents a calculus and is unchanged. There is no gallbladder wall thickening or pericholecystic fluid. The spleen and ??adrenal glands appear normal. The pseudocyst and calcifications in the pancreatic tail are unchanged. Large right renal cysts are unchanged. Scarring and parenchymal thinning of the left kidney is unchanged. Bilateral renal calculi are unchanged. There is no hydronephrosis. The small and large bowel are normal in caliber without obstruction. Colonic diverticulosis is seen without evidence of diverticulitis. No free intraperitoneal air or free fluid is identified. No properitoneal lymphadenopathy is seen. The remaining enhanced abdominal vascular structures are normal. The bladder is distended with fluid. The prostate is enlarged. No free fluid is seen in the pelvis. Bone windows demonstrate no suspicious lytic or blastic lesions. Procedure Note Parkar, Lam, MD - 10/04/2017 EXAMINATION: Computed tomography of the chest, abdomen, and pelvis withcontrast HISTORY: Thoracoabdominal aortic aneurysm TECHNIQUE: Computed tomography of the chest, abdomen, and pelvis wasperformed following the uneventful administration of 100 mL Omnipaque 350intravenous contrast according to standard protocol. FINDINGS: CT chest, abdomen, pelvis 08/25/2011 Vascular: A thoracoabdominal aortic stent extends from just distal to the leftsubclavian artery takeoff and ends just above the origin of the celiacartery from the aorta. The stent in the celiac artery is unchanged. Thepreviously described small type I B endoleak extending from the inferior aspect of the stent is no longervisible and there is evidence of thrombosis in that region. The ascendingportion of the aortic aneurysm measures 5.3 cm is unchanged (previously5.3 cm). The retrocrural portion of the aortic aneurysm just below the stent measures 5.9 cm which isunchanged. The descending aorta remains tortuous. There is increased muralaortic thrombus just distal to the stent. Atherosclerotic calcificationsare again seen in the descending aorta and the bilateral common iliac arteries. Chest: The 6 mm nodule in the right major fissure is unchanged since prior exam(image 96, series 5). The lungs are free of pneumonic consolidation,effusion, or pneumothorax. The heart size is normal without pericardialeffusion. The remaining enhanced mediastinal vascular structures are normal. A 1.5 cm right hilar lymph node is unchanged. Scattered subcentimetermediastinal lymph nodes are unchanged. Mediastinotomy wires are again seen. Abdomen and Pelvis: There is a 3.1 x 2.8 cm hypoattenuation focus with peripheral nodularenhancement in segment 2 liver which is unchanged, and is likelyhemangioma. 1Otherwise, the liver is normal without biliary ductaldilation. There is a 4 mm hyperdensity in the neck of the gallbladder which represents a calculus and is unchanged. There isno gallbladder wall thickening or pericholecystic fluid. The spleen andadrenal glands appear normal. The pseudocyst and calcifications in thepancreatic tail are unchanged. Large right renal cysts are unchanged. Scarring and parenchymal thinning of theleft kidney is unchanged. Bilateral renal calculi are unchanged. There isno hydronephrosis. The small and large bowel are normal in caliber without obstruction.Colonic diverticulosis is seen without evidence of diverticulitis. No freeintraperitoneal air or free fluid is identified. No properitoneallymphadenopathy is seen. The remaining enhanced abdominal vascular structures are normal. The bladder isdistended with fluid. The prostate is enlarged. No free fluid is seen inthe pelvis. Bone windows demonstrate no suspicious lytic or blastic lesions. IMPRESSION IMPRESSION: 1. Resolved type Ib endo leak with endovascular stent in the descendingaorta. 2. Unchanged size of the thoracic and abdominal aortic aneurysm. 3. Mediastinal lymphadenopathy, unchanged. 4. Pancreatic pseudocyst, unchanged. 5.Nonobstructive nephrolithiasis, unchanged. Report dictated by Hector Martínez M.D. (radiology manager). I, Dr. Lam Euceda, have personally reviewed and interpreted thisexamination. Diane M Ishmael [facility] CT ORDERABLES * CT ANGIO CHEST (02/16/2012 8:51 AM CDT) Anatomical Region Laterality Modality Chest Other Impressions 02/17/2012 6:56 AM CDT IMPRESSION: 1. Resolved type Ib endo leak with endovascular stent in the descending aorta. 2. Unchanged size of the thoracic and abdominal aortic aneurysm. 3. Mediastinal lymphadenopathy, unchanged. 4. Pancreatic pseudocyst, unchanged. 5.Nonobstructive nephrolithiasis, unchanged. Report dictated by Hector Martínez M.D. (radiology manager). I, Dr. Lam Euceda, have personally reviewed and interpreted this examination. Narrative 02/17/2012 6:56 AM CDT EXAMINATION: Computed tomography of the chest, abdomen, and pelvis with ??contrast HISTORY: Thoracoabdominal aortic aneurysm TECHNIQUE: Computed tomography of the chest, abdomen, and pelvis was performed following the uneventful administration of 100 mL Omnipaque 350 intravenous contrast according to standard protocol. FINDINGS: CT chest, abdomen, pelvis 08/25/2011 Vascular: A thoracoabdominal aortic stent extends from just distal to the left subclavian artery takeoff and ends just above the origin of the celiac artery from the aorta. The stent in the celiac artery is unchanged. The previously described small type I B endoleak extending from the inferior aspect of the stent is no longer visible and there is evidence of thrombosis in that region. The ascending portion of the aortic aneurysm measures 5.3 cm is unchanged (previously 5.3 cm). The retrocrural portion of the aortic aneurysm just below the stent measures 5.9 cm which is unchanged. The descending aorta remains tortuous. There is increased mural aortic thrombus just distal to the stent. Atherosclerotic calcifications are again seen in the descending aorta and the bilateral common iliac arteries. Chest: The 6 mm nodule in the right major fissure is unchanged since prior exam (image 96, series 5). The lungs are free of pneumonic consolidation, effusion, or pneumothorax. The heart size is normal without pericardial effusion. The remaining enhanced mediastinal vascular structures are normal. A 1.5 cm right hilar lymph node is unchanged. Scattered subcentimeter mediastinal lymph nodes are unchanged. Mediastinotomy wires are again seen. Abdomen and Pelvis: There is a 3.1 x 2.8 cm hypoattenuation focus with peripheral nodular enhancement in segment 2 liver which is unchanged, and is likely hemangioma. 1Otherwise, the liver is normal without biliary ductal dilation. There is a 4 mm hyperdensity in the neck of the gallbladder which represents a calculus and is unchanged. There is no gallbladder wall thickening or pericholecystic fluid. The spleen and ??adrenal glands appear normal. The pseudocyst and calcifications in the pancreatic tail are unchanged. Large right renal cysts are unchanged. Scarring and parenchymal thinning of the left kidney is unchanged. Bilateral renal calculi are unchanged. There is no hydronephrosis. The small and large bowel are normal in caliber without obstruction. Colonic diverticulosis is seen without evidence of diverticulitis. No free intraperitoneal air or free fluid is identified. No properitoneal lymphadenopathy is seen. The remaining enhanced abdominal vascular structures are normal. The bladder is distended with fluid. The prostate is enlarged. No free fluid is seen in the pelvis. Bone windows demonstrate no suspicious lytic or blastic lesions. Procedure Note Lam Euceda MD - 10/04/2017 EXAMINATION: Computed tomography of the chest, abdomen, and pelvis withcontrast HISTORY: Thoracoabdominal aortic aneurysm TECHNIQUE: Computed tomography of the chest, abdomen, and pelvis wasperformed following the uneventful administration of 100 mL Omnipaque 350intravenous contrast according to standard protocol. FINDINGS: CT chest, abdomen, pelvis 08/25/2011 Vascular: A thoracoabdominal aortic stent extends from just distal to the leftsubclavian artery takeoff and ends just above the origin of the celiacartery from the aorta. The stent in the celiac artery is unchanged. Thepreviously described small type I B endoleak extending from the inferior aspect of the stent is no longervisible and there is evidence of thrombosis in that region. The ascendingportion of the aortic aneurysm measures 5.3 cm is unchanged (previously5.3 cm). The retrocrural portion of the aortic aneurysm just below the stent measures 5.9 cm which isunchanged. The descending aorta remains tortuous. There is increased muralaortic thrombus just distal to the stent. Atherosclerotic calcificationsare again seen in the descending aorta and the bilateral common iliac arteries. Chest: The 6 mm nodule in the right major fissure is unchanged since prior exam(image 96, series 5). The lungs are free of pneumonic consolidation,effusion, or pneumothorax. The heart size is normal without pericardialeffusion. The remaining enhanced mediastinal vascular structures are normal. A 1.5 cm right hilar lymph node is unchanged. Scattered subcentimetermediastinal lymph nodes are unchanged. Mediastinotomy wires are again seen. Abdomen and Pelvis: There is a 3.1 x 2.8 cm hypoattenuation focus with peripheral nodularenhancement in segment 2 liver which is unchanged, and is likelyhemangioma. 1Otherwise, the liver is normal without biliary ductaldilation. There is a 4 mm hyperdensity in the neck of the gallbladder which represents a calculus and is unchanged. There isno gallbladder wall thickening or pericholecystic fluid. The spleen andadrenal glands appear normal. The pseudocyst and calcifications in thepancreatic tail are unchanged. Large right renal cysts are unchanged. Scarring and parenchymal thinning of theleft kidney is unchanged. Bilateral renal calculi are unchanged. There isno hydronephrosis. The small and large bowel are normal in caliber without obstruction.Colonic diverticulosis is seen without evidence of diverticulitis. No freeintraperitoneal air or free fluid is identified. No properitoneallymphadenopathy is seen. The remaining enhanced abdominal vascular structures are normal. The bladder isdistended with fluid. The prostate is enlarged. No free fluid is seen inthe pelvis. Bone windows demonstrate no suspicious lytic or blastic lesions. IMPRESSION IMPRESSION: 1. Resolved type Ib endo leak with endovascular stent in the descendingaorta. 2. Unchanged size of the thoracic and abdominal aortic aneurysm. 3. Mediastinal lymphadenopathy, unchanged. 4. Pancreatic pseudocyst, unchanged. 5.Nonobstructive nephrolithiasis, unchanged. Report dictated by Hector Martínez M.D. (radiology manager). I, Dr. Lam Euceda, have personally reviewed and interpreted thisexamination. Diane Quiñones [employer] TECHNICAL ARCHITECT CT ORDERABLES * LAB MICROBIOLOGY - HPF HISTORICAL (03/29/2009 5:01 AM CDT) 03/29/2009 5:[address] [facility] - 03/29/2009 5:01 AM CDT Hector Jensen MD LAB - MICROBIOLOGY O RDERABLES [facility] * GROSS + MICRO EXAM (06/07/2004 2:45 PM LEAD INSPECTOR) Result CASE NUMBER [id number] Comment: ORDERING PHYSICIAN ??MINDY SULLIVAN SPECIMEN TYPE ?Tissue-ascending aorta Date ? 06/07/2004 Physician ?Risa Mccollum Gross Description ? The specimen is received in one Formalin filled container labeled with the patient's name, Ambrose Leonardo, and ascending aorta. ??It consists of two fragments of aorta that measure 6 cm in diameter x 4.5 cm in length for one fragment. ??The other fragment measures 7 x 3.5 x 3.0 cm. ??The external surface is pink garcia with maroon red blood clot. ??The inner surface is garcia white with multiple areas of yellow plaque. Relocation Services Specialist sections are submitted in one cassette. CF/zamarripa Microscopic Exam ? Microscopic examination reveals strips of aortic wall demonstrating within the media the approximate junction of the inner 2/3 and outer 1/3 of changes consistent with cystic medial necrosis. ??This consists of the accumulation of basophilic, amorphous material with the formation of several clefts within the area of involvement. ??In addition, there is evidence of dissection with separation of the inner 2/3 of the aortic wall from the outer 1/3. ??The adventitia shows patchy chronic inflammatory infiltrates. RT/bk Diagnosis ? I. 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 RT/bk Wrapper Counter ? bk Pathologist ?Stas Purvis M.D. [place]. ?06/10/2004 1421 <1> CPT code ? 48598 MISCELLANEOUS SAMPLES / Unknown 06/07/2004 2:45 PM LEAD INSPECTOR 06/07/2004 2:46 PM LEAD INSPECTOR Historical Provider LAB - PATHOLOGY/C YTOLOGY ORDERABLES
--- OUTSIDE RECORDS SUMMARY | 2024-08-04 16:07 | XMS_ITS | Clinical Summary ---
Author Organization [facility] Address [address], [facility] [address] [place] [address] Phone Care Team Providers Care Nematology Teacher Name Role Phone Jane Underwood Primary Care Provider [phone]- [phone] Isreal Simms MD Unavailable [phone] Allergies No known active allergies Medications lisinopril (PRINIVIL, ZESTRIL) 5 MG Tablet Take 5 mg by mouth daily. Active Xarelto 20 MG Tablet Active Multiple Vitamin (Multivitamins) Capsule Take 1 Capsule by mouth daily. Active pantoprazole (PROTONIX) 40 MG Tablet Delayed Response 40 MG TABLET ORALLY EVERY MORNING Active metFORMIN (GLUCOPHAGE-XR) 500 MG TABLET SR 24 HR Take 500 mg by mouth 2 times daily. 02/23/20 24 Active MAGNESIUM PO Take 500 mg by mouth. Active Cyanocobalamin (B-12 PO) Take 1,000 mg by mouth. Active Ferrous Sulfate (Iron) 325 (65 Fe) MG Tablet Take by mouth. Active metoprolol tartrate (LOPRESSOR) 25 MG Tablet Take 12.5 mg by mouth. 07/30/19 24 Active ondansetron (ZOFRAN) 4 MG TabletIndications:Wa ldenstrom macroglobulinemia Take 1 Tablet by mouth every 6 hours as needed for Nausea - 1st line. 40 Tablet 3 03/23/20 24 Active prochlorperazine (COMPAZINE) 10 MG TabletIndications:Wa ldenstrom macroglobulinemia Take 1 Tablet by mouth every 4 hours as needed for Nausea - 1st line. 40 Tablet 3 03/23/20 24 Active HYDROcodone-acetamin ophen (NORCO) 5-325 MG Tablet 06/27/20 24 Active traMADol (ULTRAM) 50 MG TabletIndications:Wa ldenstrom macroglobulinemia TAKE 1 TABLET BY MOUTH EVERY 6 HOURS NEEDED FOR MILD OR MORE SEVERE PAIN. 12 Tablet 07/07/19 25 Active traMADol (ULTRAM) 50 MG TabletIndications:Wa ldenstrom macroglobulinemia Take 1 Tablet by mouth every 6 hours as needed for Mild or more severe pain. 12 Tablet 06/30/20 24 2024 Discontinued Active Problems Problem Noted Date Diagnosed Date Waldenstrom macroglobulinemia 03/21/2024 Hypertension 01/05/2013 Encounters Date Type Department Care Team Description 08/02/2024 Telephone [facility] [address] [address] Isreal Simms MD 07/14/2024 Telephone [facility] [address] [address] Isreal Simms MD 07/12/2024 Telephone [facility] [address] [address] Isreal Simms MD 07/08/2024 Telephone [facility] [address] [address] Isreal Simms MD 07/07/2024 9:30 AM CHIEF CONCIERGE Lab [facility] [place] [address] [place] [phone] Nurse, Cc Zapata Waldenstrom macroglobulinemia (Primary Dx) 07/07/2024 8:00 AM CHIEF CONCIERGE Office Visit [facility] [address] [place] [phone] Krista Frank, STOCK ASSOCIATE, MACHINE SWEEPER BRUSH MAKER Waldenstrom macroglobulinemia (Primary Dx) 07/07/2024 Refill [facility] [address] [phone] Isreal Simms MD Medication Refill 07/07/2024 Refill [facility] [address] [address] Wolf Veras, DO Medication Refill 07/05/2024 10:00 AM CHIEF CONCIERGE Ancillary Procedure [facility] [address] [address] Wolf Veras, DO Waldenstrom macroglobulinemia 07/05/2024 Travel 07/05/2024 Telephone [facility] [address] [address] Isreal Simms MD 07/04/2024 Telephone [facility] [address] [address] Isreal Simms MD 07/01/2024 Telephone [facility] [address] [address] Isreal Simms MD 07/01/2024 Telephone [facility] [address] [address] Isreal Simms MD Right hip pain 06/30/2024 9:45 AM CHIEF CONCIERGE Office Visit [facility] [address] [address] Wolf Veras, DO Waldenstrom macroglobulinemia (Primary Dx) 06/30/2024 8:00 AM CHIEF CONCIERGE Clinical Support [facility] [address] [address] [facility], [facility] Waldenstrom macroglobulinemia (Primary Dx) 06/30/2024 Refill [facility] [address] [address] Isreal Simms MD Medication Refill 06/30/2024 Telephone [facility] [address] [address] Isreal Simms MD 06/30/2024 Travel 06/27/2024 Telephone [facility] [address] [address] Isreal Simms MD Canopy Call-steroid shot 06/23/2024 8:45 AM CHIEF CONCIERGE Clinical Support [facility] [address] [address] Waldenstrom macroglobulinemia (Primary Dx) 06/23/2024 8:30 AM CHIEF CONCIERGE Office Visit [facility] [address] [address] Isreal Simms MD Waldenstrom macroglobulinemia (Primary Dx) 06/23/2024 Travel 06/16/2024 9:45 AM CHIEF CONCIERGE Clinical Support [facility] [address] [facility] [address] [address] Waldenstrom macroglobulinemia (Primary Dx) 06/16/2024 9:30 AM CHIEF CONCIERGE Office Visit [facility] [address] [address] Isreal Simms MD Waldenstrom macroglobulinemia (Primary Dx) 06/16/2024 Travel 06/09/2024 10:00 AM CHIEF CONCIERGE Office Visit [facility] [address] [address] Isreal Simms MD Waldenstrom macroglobulinemia (Primary Dx) 06/09/2024 8:30 AM CHIEF CONCIERGE Clinical Support [facility] [address] [address] Waldenstrom macroglobulinemia (Primary Dx) 06/09/2024 Travel 06/06/2024 9:30 AM CHIEF CONCIERGE Care Management [facility] [address] [phone] Navigator, Cc Ofallon Nurse Care Management (EDUCATION PREP) 06/03/2024 Telephone [facility] [address] [phone] Isreal Simms MD 06/01/2024 Telephone [facility] [address] [address] Isreal Simms MD 05/30/2024 Telephone [facility] [address] [address] Isreal Simms MD Canopy Call / Lab and BMBX results 05/27/2024 Telephone [facility] [address] [address] Isreal Simms MD Canopy Call--biopsy results 05/26/2024 10:45 AM CHIEF CONCIERGE Lab [facility] [address] [phone] Nurse, Cc Zapata Waldenstrom macroglobulinemia (Primary Dx) 05/26/2024 9:45 AM CHIEF CONCIERGE Office Visit [facility] [address] [phone] Isreal Simms MD Waldenstrom macroglobulinemia (Primary Dx) 05/26/2024 Travel 05/24/2024 Refill [facility] [address] [phone] Isreal Simms MD Medication Refill 05/20/2024 9:50 AM CHIEF CONCIERGE Lab [facility] [address] [address] Lab, Cc Ofallon Waldenstrom macroglobulinemia 05/20/2024 8:45 AM CHIEF CONCIERGE Clinical Support [facility] [address] [address] Nurse, Cc Of[place]on Anemia, unspecified type (Primary Dx); Thrombocytopenia (HCC) 05/20/2024 8:45 AM CHIEF CONCIERGE Procedure Visit [facility] [address] [place] [phone] Isreal Simms MD Waldenstrom macroglobulinemia (Primary Dx) 05/20/2024 Travel 05/16/2024 Telephone [facility] [address] [place] [phone] Isreal Simms MD Canopy call / Watchman & CBC results 05/12/2024 11:15 AM CHIEF CONCIERGE Office Visit [facility] [address] [place] [phone] Isreal Simms MD Waldenstrom macroglobulinemia (Primary Dx) 05/12/2024 9:30 AM CHIEF CONCIERGE Lab [facility] [address] [place] [phone] Nurse, Cc Zapata Waldenstrom macroglobulinemia (Primary Dx) 05/12/2024 Travel 05/05/2024 10:30 AM CDT Lab [facility] [address] [place] [place] [phone] Nurse, Cc Zapata Waldenstrom macroglobulinemia (Primary Dx) 05/05/2024 9:30 AM CDT Office Visit [facility] [address] [place] [phone] Isreal Simms MD Waldenstrom macroglobulinemia (Primary Dx) 05/05/2024 Telephone [facility] [address] [place] [phone] Isreal Simms MD 05/05/2024 Travel from Last 3 Months Family History Medical History Relation Name Comments Cancer Father Stroke Mother Relation Name Status Comments Brother Alive Child 1 Alive Child 2 Alive Child 3 Alive Father Mother Sister Alive Social History Tobacco Use Types Packs/Day Years Used Date Smoking Tobacco: Former Cigarettes Smokeless Tobacco: Never Tobacco Cessation:Counseling Given: Not Answered Alcohol Use Standard Drinks/Week Comments Yes 5 (1 standard drink = 0.6 oz pur e alcohol) per month Sex and Gender Information Value Date Recorded Sex Assigned at Not on file Legal Sex Male 10:27 AM CDT Gender Identity Not on file Sexual Orientation Not on file Last Filed Vital Signs Vital Sign Reading Time Taken Comments Blood Pressure 150/78 07/07/2024 8:19 AM CHIEF CONCIERGE Pulse 61 07/07/2024 8:19 AM CHIEF CONCIERGE Temperature 36.7 ??C (98 ??F) 07/07/2024 8:19 AM CHIEF CONCIERGE Respiratory Rate 18 07/07/2024 8:19 AM CHIEF CONCIERGE Oxygen Saturation 100% 07/07/2024 8:19 AM CHIEF CONCIERGE Inhaled Oxygen Concentration - - Weight 78.7 kg (173 lb 9.6 oz) 07/07/2024 8:19 A M CHIEF CONCIERGE Height 172.7 cm (5' 8 ) 07/07/2024 8:19 AM CHIEF CONCIERGE Body Mass Index 26.4 07/07/2024 8:19 AM CHIEF CONCIERGE Plan of Treatment Health Maintenance Due Date Last Done Comments SARS-COV-2 Immunization (#1) 1950 Pneumococcal Immunization (5 0+ years) (1 of 2 - PCV) 01/16/1964 Zoster Immunization (1 of 2) 01/16/1964 Respiratory Syncytial Virus (RSV) Immunization (Adult) (1 - 1-dose 75+ series) 01/16/2020 Influenza Immunization (#1) 2024 05/10/2018 TdaP Immunization Completed 10/05/2023 Hepatitis C Virus (HCV) Screening Completed 07/20/2024, 03/21/2024 Hepatitis B Immunization Aged Out No longer eligible based on patient's age to complete this topic Meningococcal Immunization (ACWY) Aged Out No longer eligible b ased on patient's age to complete this topic Rotavirus Immunization Aged Out No lo nger eligible based on patient's age to complete this topic Procedures Procedure Name Priority Date/Time Associated Diagnosis Comments SERUM FREE LIGHT CHAINS, OH Routine 07/07/2024 9:00 AM CHIEF CONCIERGE COMPLETE BLOOD COUNT (CBC) WITH DIFF Routine 07/07/2024 9:00 AM CHIEF CONCIERGE Waldenstrom macroglobulinemia CMP (COMPREHENSIVE METABOLIC PANEL) Routine 07/07/2024 9:00 AM CHIEF CONCIERGE Waldenstrom macroglobulinemia LACTATE DEHYDROGENASE (LD) Routine 07/07/2024 9:00 AM CHIEF CONCIERGE Waldenstrom macroglobulinemia ELECTROPHORESIS W/ TOTAL PROTEIN SERUM Routine 07/07/2024 9:00 AM CHIEF CONCIERGE Waldenstrom macroglobulinemia IMMUNOFIXATION, SERUM [place] Routine 07/07/2024 9:00 AM CHIEF CONCIERGE Waldenstrom macroglobulinemia IMMUNOGLOBULIN IGA, IGG & IGM QUANT Routine 07/07/2024 9:00 AM CHIEF CONCIERGE Waldenstrom macroglobulinemia PET CT TUMOR IMAGING WHOLE BODY Routine 07/05/2024 12:11 PM CHIEF CONCIERGE Waldenstrom macroglobulinemia CBC WITH AUTO DIFF OH Routine 06/30/2024 8:13 AM CHIEF CONCIERGE Waldenstrom macroglobulinemia LACTATE DEHYDROGENASE (LD) Routine 06/30/2024 8:13 AM CHIEF CONCIERGE Waldenstrom macroglobulinemia CMP (COMPREHENSIVE METABOLIC PANEL) Routine 06/30/2024 8:13 AM CHIEF CONCIERGE Waldenstrom macroglobulinemia SERUM FREE LIGHT CHAINS, OH Routine 06/22/2024 3:58 PM CHIEF CONCIERGE COMPLETE BLOOD COUNT (CBC) WITH DIFF Routine 06/22/2024 3:58 PM CHIEF CONCIERGE Waldenstrom macroglobulinemia CMP (COMPREHENSIVE METABOLIC PANEL) Routine 06/22/2024 3:58 PM CHIEF CONCIERGE Waldenstrom macroglobulinemia ELECTROPHORESIS W/ TOTAL PROTEIN SERUM Routine 06/22/2024 3:58 PM CHIEF CONCIERGE Waldenstrom macroglobulinemia IMMUNOFIXATION, SERUM OH Routine 06/22/2024 3:58 PM CHIEF CONCIERGE Waldenstrom macroglobulinemia IMMUNOGLOBULIN IGA, IGG & IGM QUANT Routine 06/22/2024 3:58 PM CHIEF CONCIERGE Waldenstrom macroglobulinemia SERUM FREE LIGHT CHAINS, OH Routine 06/16/2024 10:35 AM CHIEF CONCIERGE LACTATE DEHYDROGENASE (LD) Routine 06/16/2024 10:35 AM CHIEF CONCIERGE Waldenstrom macroglobulinemia COMPLETE BLOOD COUNT (CBC) WITH DIFF Routine 06/16/2024 10:35 AM CHIEF CONCIERGE Waldenstrom macroglobulinemia CMP (COMPREHENSIVE METABOLIC PANEL) Routine 06/16/2024 10:35 AM CHIEF CONCIERGE Waldenstrom macroglobulinemia ELECTROPHORESIS W/ TOTAL PROTEIN SERUM Routine 06/16/2024 10:35 AM CHIEF CONCIERGE Waldenstrom macroglobulinemia IMMUNOFIXATION, SERUM OH Routine 06/16/2024 10:35 AM CHIEF CONCIERGE Waldenstrom macroglobulinemia IMMUNOGLOBULIN IGA, IGG & IGM QUANT Routine 06/16/2024 10:35 AM CHIEF CONCIERGE Waldenstrom macroglobulinemia SERUM FREE LIGHT CHAINS, OH Routine 06/09/2024 4:29 PM CHIEF CONCIERGE LACTATE DEHYDROGENASE (LD) Routine 06/09/2024 4:29 PM CHIEF CONCIERGE Waldenstrom macroglobulinemia CMP (COMPREHENSIVE METABOLIC PANEL) Routine 06/09/2024 4:29 PM CHIEF CONCIERGE Waldenstrom macroglobulinemia COMPLETE BLOOD COUNT (CBC) WITH DIFF Routine 06/09/2024 4:29 PM CHIEF CONCIERGE Waldenstrom macroglobulinemia MAGNESIUM (MG) Routine 06/09/2024 4:29 PM CHIEF CONCIERGE Waldenstrom macroglobulinemia ELECTROPHORESIS W/ TOTAL PROTEIN SERUM Routine 06/09/2024 4:29 PM CHIEF CONCIERGE Waldenstrom macroglobulinemia IMMUNOFIXATION, SERUM OH Routine 06/09/2024 4:29 PM CHIEF CONCIERGE Waldenstrom macroglobulinemia IMMUNOGLOBULIN IGA, IGG & IGM QUANT Routine 06/09/2024 4:29 PM CHIEF CONCIERGE Waldenstrom macroglobulinemia SERUM FREE LIGHT CHAINS, OH Routine 05/26/2024 10:55 AM CHIEF CONCIERGE ANTINUCLEAR ANTIBODY (TOÑO) TITER Routine 05/26/2024 10:55 AM CHIEF CONCIERGE COMPLETE BLOOD COUNT (CBC) WITH DIFF Routine 05/26/2024 10:55 AM CHIEF CONCIERGE Waldenstrom macroglobulinemia CMP (COMPREHENSIVE METABOLIC PANEL) Routine 05/26/2024 10:55 AM CHIEF CONCIERGE Waldenstrom macroglobulinemia LACTATE DEHYDROGENASE (LD) Routine 05/26/2024 10:55 AM CHIEF CONCIERGE Waldenstrom macroglobulinemia IMMUNOGLOBULIN IGA, IGG & IGM QUANT Routine 05/26/2024 10:55 AM CHIEF CONCIERGE Waldenstrom macroglobulinemia ELECTROPHORESIS W/ TOTAL PROTEIN SERUM Routine 05/26/2024 10:55 AM CHIEF CONCIERGE Waldenstrom macroglobulinemia SERUM FREE LIGHT CHAINS, OH Routine 05/20/2024 9:57 AM CHIEF CONCIERGE COMPLETE BLOOD COUNT (CBC) WITH DIFF Routine 05/20/2024 9:57 AM CHIEF CONCIERGE Waldenstrom macroglobulinemia CMP (COMPREHENSIVE METABOLIC PANEL) Routine 05/20/2024 9:57 AM CHIEF CONCIERGE Waldenstrom macroglobulinemia ELECTROPHORESIS W/ TOTAL PROTEIN SERUM Routine 05/20/2024 9:57 AM CHIEF CONCIERGE Waldenstrom macroglobulinemia IMMUNOFIXATION, SERUM OH Routine 05/20/2024 9:57 AM CHIEF CONCIERGE Waldenstrom macroglobulinemia IMMUNOGLOBULIN IGA, IGG & IGM QUANT Routine 05/20/2024 9:57 AM CHIEF CONCIERGE Waldenstrom macroglobulinemia VITAMIN B12 Routine 05/20/2024 9:57 AM CHIEF CONCIERGE Waldenstrom macroglobulinemia FOLIC ACID (FOLATE) Routine 05/20/2024 9 :57 AM CHIEF CONCIERGE Waldenstrom macroglobulinemia FERRITIN Routine 05/20/2024 9:57 AM CHIEF CONCIERGE Waldenstrom macroglobulinemia IRON W/ IRON BINDING CAPACITY OH Routine 05/20/2024 9:57 AM CHIEF CONCIERGE Waldenstrom macroglobulinemia RETICULOCYTE COUNT (RETIC) Routine 05/20/2024 9:57 AM CHIEF CONCIERGE Waldenstrom macroglobulinemia LACTATE DEHYDROGENASE (LD) Routine 05/20/2024 9:57 AM CHIEF CONCIERGE Waldenstrom macroglobulinemia ERYTHROCYTE SEDIMENTATION RATE (ESR) Routine 05/20/2024 9:57 AM CHIEF CONCIERGE Waldenstrom macroglobulinemia CHROMOSOME ANALYSIS OH 5250-6 Routine 05/20/2024 9:20 AM CHIEF CONCIERGE CHROMOSOME ANALYSIS OH 5250-6 Routine 05/20/2024 9:20 AM CHIEF CONCIERGE MDS FISH PANEL OH 5281-1 Routine 05/20/2024 9:20 AM CHIEF CONCIERGE CCS-ACUTE LEUKEMIA & CYTOPLASMIC FLOW PANEL (NON-NY) OH B997-8 Routine 05/20/2024 9:20 AM CHIEF CONCIERGE INTEGRATED HEMATOPATHOLOGY SUMMARY REPORT HL7 OH A023-4 Routine 05/20/2024 9:20 AM CHIEF CONCIERGE ONKOSIGHT ADVANCED NGS MYELOID PANEL Routine 05/20/2024 9:20 AM CHIEF CONCIERGE ONKOSIGHT ADVANCED CHRONIC LYMPHOID NEOPLASM NGS PANEL, TH55-7, OH Routine 05/20/2024 9:20 AM CHIEF CONCIERGE FOUR (4) ANTIBODY OH 5139-1 Routine 05/20/2024 9:20 AM CHIEF CONCIERGE BONE MARROW MORPHOLOGY OH 5199-5 Routine 05/20/2024 9:20 AM CHIEF CONCIERGE Waldenstrom macroglobulinemia SERUM FREE LIGHT CHAINS, OH Routine 05/05/2024 10:15 AM CDT CMP (COMPREHENSIVE METABOLIC PANEL) Routine 05/05/2024 10:15 AM CDT Waldenstrom macroglobulinemia LACTATE DEHYDROGENASE (LD) Routine 05/05/2024 10:15 AM CDT Waldenstrom macroglobulinemia ELECTROPHORESIS W/ TOTAL PROTEIN SERUM Routine 05/05/2024 10:15 AM CDT Waldenstrom macroglobulinemia IMMUNOFIXATION, SERUM OH Routine 05/05/2024 10:15 AM CDT Waldenstrom macroglobulinemia IMMUNOGLOBULIN IGA, IGG & IGM QUANT Routine 05/05/2024 10:15 AM CDT Waldenstrom macroglobulinemia HEPATITIS C ANTIBODY Routine 03/21/2024 10:38 AM CDT Thrombocytopenia, unspecified (HCC) Waldenstrom macroglobulinemia (HCC) from Last 3 Months or Most Recently Relevant to Health Maintenance Results * (ABNORMAL) SERUM FREE LIGHT CHAINS, [place] (07/07/2024 9:00 AM CHIEF CONCIERGE) Only the most recent of7 resultswithin the time period is included. FREE KAPPA LT CHAINS 62.0(H) 2.9 - 20.7 mg/L [facility] FREE LAMBDA LT CHAINS 5.0 4.2 - 27.6 mg/L [facility] KAPPA/LAMBDA RATIO 12.40(H) 0.22 - 1.74 [facility] 07/07/2024 9:00 AM CHIEF CONCIERGE us Isreal Simms MD LAB SEND OUTS Final Resul t Performing Organization Address City/[facility]/ZIP Co de Phone Number [facility] [place] [address], * (ABNORMAL) IMMUNOFIXATION, SERUM [place] (07/07/2024 9:00 AM CHIEF CONCIERGE) Only the most recent of6 resultswithin the time period is included. IMMUNOFIXATION RESULT, SERUM COMMENT(A ) [facility] Comment: IMMUNOFIXATION SHOWS IGG MONOCLONAL PROTEIN WITH KAPPA LIGHT CHAIN SPECIFICITY. PLEASE NOTE: SAMPLES FROM PATIENTS RECEIVING DARZALEX(R) (DARATUMUMAB) OR ??SARCLISA(R)(ISATUXIMAB-[facility]) TREATMENT CAN APPEAR AN ?? IGG KAPPA AND MASK A COMPLETE RESPONSE (CR). IF THIS PATIENT ??IS RECEIVING THESE THERAPIES, THIS VINCE ASSAY INTERFERENCE ??CAN BE REMOVED BY ORDERING TEST NUMBER [id number]- IMMUNOFIXATION, ??DARATUMUMAB-SPECIFIC, SER[place] [id number]- IMMUNOFIXATION, ??ISATUXIMAB-SPECIFIC, SERUM AND SUBMITTING A NEW SAMPLE FOR ??TESTING OR BY CALLING THE LAB TO ADD THIS TEST TO THE CURRENT ??SAMPLE. IMMUNOFIXATION SHOWS IGM MONOCLONAL PROTEIN WITH KAPPA LIGHT CHAIN SPECIFICITY. 07/07/2024 9:00 AM CHIEF CONCIERGE Narrative [facility] - 07/12/2024 1:07 PM CHIEF CONCIERGE TESTING PERFORMED AT: [] [facility], [address] [place] [address], [address], PHONE: [phone], MANAGER OF ENTERPRISE: MAC HIDALGO, PHD Release to patient->Immediate us Isreal Simms MD LAB SEND OUTS Final Resul t [facility] [address] [address], [place] [phone] * LACTATE DEHYDROGENASE (LD) (07/07/2024 9:00 AM CHIEF CONCIERGE) Only the most recent of7 resultswithin the time period is included. LDH 161 140 - 271 U/L [facility] Blood 07/07/2024 9:00 AM CHIEF CONCIERGE [facility] - 07/07/2024 3:05 PM CHIEF CONCIERGE Release to patient->Immediate us Isreal Simms MD CHEMISTRY ORDERABLES Final Result Performing Organization Address [facility] de Phone Number [facility] [place] [address], [place] [phone] * (ABNORMAL) IMMUNOGLOBULIN IGA, IGG & IGM QUANT (07/07/2024 9:00 AM CHIEF CONCIERGE) Only the most recent of7 resultswithin the time period is included. IGG 315(L) 635 - 1,741 mg/dL [facility] IGA 25(L) 66 - 433 mg/dL [facility] IGM 809(H) 45 - 281 mg/dL [facility] Blood 07/07/2024 9:00 AM CHIEF CONCIERGE [facility] - 07/08/2024 3:11 PM CHIEF CONCIERGE Release to patient->Immediate us Isreal Simms MD CHEMISTRY ORDERABLES Final Result Performing Organization Address [facility] Co de Phone Number [facility] [place] [address], [place] [phone] * ELECTROPHORESIS W/ TOTAL PROTEIN SERUM (07/07/2024 9:00 AM CHIEF CONCIERGE) Only the most recent of7 resultswithin the time period is included. [facility] PROTEIN, TOTAL, SERUM 6.2 6.0 - 8.5 G/DL [facility] ALBUMIN 3.2 2.9 - 4.4 G/DL [facility] [id number] 0.4 0.0 - 0.4 G/DL [facility] [id number] 0.8 0.4 - 1.0 G/DL [facility] BETA GLOBULIN 0.9 0.7 - 1.3 G/DL [facility] GAMMA GLOBULIN 0.9 0.4 - 1.8 G/DL [facility] M-SPIKE COMMENT: NOT OBSERVED G/DL [facility] Comment: M-SPIKE #1 = 0.4 G/DL M-SPIKE #2 = < 0.1 G/DL GLOBULIN, TOTAL 3.0 2.2 - 3.9 G/DL [facility] A/G RATIO 1.1 0.7 - 1.7 [facility] PLEASE NOTE: COMMENT [facility] Comment: PROTEIN ELECTROPHORESIS SCAN WILL FOLLOW VIA COMPUTER, MAIL, OR DOCK WORKER DELIVERY. PDF . [facility] Blood 07/07/2024 9:00 AM CHIEF CONCIERGE Narrative [facility] - 07/08/2024 3:07 PM CHIEF CONCIERGE TESTING PERFORMED AT: [CB] [employer], [place], [address], PHONE: [phone], MANAGER OF ENTERPRISE: MAC HIDALGO, PHD Release to patient->Immediate us Isreal Simms MD CHEMISTRY ORDERABLES Final Result [facility] [place] [address], * (ABNORMAL) CMP (COMPREHENSIVE METABOLIC PANEL) (07/07/2024 9:00 AM CHIEF CONCIERGE) Only the most recent of8 resultswithin the time period is included. Glucose 201(H) 70 - 105 mg/dL [facility] Blood Urea Nitrogen 20 7 - 25 mg/dL [facility] Creatinine 1.1 0.7 - 1.3 mg/dL [facility] Sodium 134(L) 136 - 145 mEq/L [facility] Potassium 4.2 3.5 - 5.1 mEq/L [facility] Chloride 100 98 - 107 mEq/L [facility] Bicarbonate 25 21 - 31 mEq/L [facility] Total Bilirubin 0.6 0.3 - 1.0 mg/dL [facility] Alk. Phosphatase 106(H) 34 - 104 U/L [facility] Aspartate Aminotransferase 11(L) 13 - 39 U/L [facility] Alanine Aminotransferase 11 7 - 52 U/L [facility] Total Protein 6.0(L) 6.4 - 8.9 g/dL [facility] Albumin 4.0 3.5 - 5.7 g/dL [facility] Calcium 8.9 8.6 - 10.3 mg/dL [facility] Anion Gap 13.2 7.0 - 15.0 mEq/L [facility] Globulin 2.0 2.0 - 3.5 g/dL [facility] EGFR 68 >60 ml/min/1. 73m2 [facility] Comment: This eGFR is calculated using 2020 CKD-EPI Creatinine equation without race modifier based on the NKF-ASN task force recommendations Blood 07/07/2024 9:00 AM [facility] Narrative [facility] - 07/07/2024 3:05 PM [facility] Release to patient->Immediate IS THE PATIENT REQUIRED TO BE FASTING FOR 8 HOURS?->No us Isreal Simms MD CHEMISTRY ORDERABLES Final Result [facility] Vivien StrongSonia Mendez [place] [address], * (ABNORMAL) COMPLETE BLOOD COUNT (CBC) WITH DIFF (07/07/2024 9:00 AM CHIEF CONCIERGE) Only the most recent of6 resultswithin the time period is included. WBC 1.4(L) 4.0 - 10.0 10*3/uL [facility] HGB 8.2(L) 13.7 - 17.5 g/dL [facility]MI[facility] HCT 25.6(L) 40.1 - 51.0 % [facility] PLT 31(L) 163 - 369 10*3/uL [facility] MPV 13.0(H) 9.4 - 12.4 fL [facility] RBC 2.32(L) 4.63 - 6.08 10*6/uL [facility] MCV 110(H) 79 - 95 fL [facility]SIOLOG[facility] CHEMIST [facility] MCH 35.3(H) 25.6 - 32.2 pg [facility] MCHC 32.0(L) 32.2 - 36.5 g/dL [facility] RDW 18.6(H) 11.6 - 14.4 % [facility] Absolute Neutrophil Count 773 cells/uL [facility] Absolute Seg Count 773(L) 1,440 - 6,600 cells/uL [facility] Absolute Lymph Count 207(L) 760 - 4,000 cells/uL [facility] Absolute Cecil Count 386 160 - 1,200 cells/uL [facility] Absolute Baso Count 14 0 - 100 cells/uL [facility] Segmented Neutrophils 56 36 - 66 % [facility] Lymphocytes 14(L) 19 - 40 % [facility] C [facility] Monocytes 28(H) 4 - 12 % [facility] Basophils 1 0 - 1 % [facility] Atypical Lymphs 1 0 - 2 % CANC ER PHYSIOLOGICAL CHEMIST [facility] WBC Estimate Low [facility] PHYSIOLOGICAL CHEMIST [facility] Platelet Estimate Low CA NCER PHYSIOLOGICAL CHEMIST [facility] RBC Morphology Abnormal CANCE R PHYSIOLOGICAL CHEMIST [facility] Macrocytosis 2+ [facility] PHYSIOLOGICAL CHEMIST [facility] Anisocytosis 1+ [facility] PHYSIOLOGICAL CHEMIST [facility] Poikilocytosis 1+ CANCE R PHYSIOLOGICAL CHEMIST [facility] Ovalocytes 1+ [facility] CE N[facility] Blood 07/07/2024 9:00 AM CHIEF CONCIERGE Narrative [facility] - 07/07/2024 3:33 PM CHIEF CONCIERGE Release to patient->Immediate us Isreal Simms MD HEMATOLOGY ORDERABLES Final Result [facility] [place] [address], * PET CT TUMOR IMAGING WHOLE BODY (07/05/2024 12:11 PM CHIEF CONCIERGE) Anatomical Region Laterality Modality BODY N/A Computed Tomogra phy Narrative 07/05/2024 3:08 PM CHIEF CONCIERGE EXAMINATION: PET CT TUMOR IMAGING WHOLE BODY 07/05/2024 INDICATIONS: Waldenstrom macroglobulinemia not having achieved remission. ??Low-grade lymphoma favored. ??Positive Cologuard. ??Bilateral hip and pelvic pain. ??Currently undergoing treatment. ??Restaging and subsequent treatment planning. COMPARISON: Outside MR lumbar spine MR right hip 06/28/2024 as well as exams dating back to 04/06/2023. TECHNIQUE: Following the intravenous administration of 13.65 mCi F 18 FDG and 100 CC Omnipaque PET-CT was performed from the skull vertex through the feet. ??Multiplanar and MIP reconstructions were created. ??Serum glucose 175 mg/dL. A dose lowering technique was used for this procedure, which may include, but is not limited to, dose reduction technique(s), automated exposure control techniques, use of iterative reconstruction techniques, ??and ALARA (as low as reasonably achievable) or ALARA/IMAGE Gently techniques. FINDINGS: Head and neck: Intracranial: No mass, mass effect, or worrisome activity is appreciated. Extracranial: No mass or worrisome activity is appreciated. ??Bilateral carotid atherosclerotic calcifications. Chest: Cardiovascular: Cardiomegaly is redemonstrated. ??Endoluminal stent graft repair of the descending thoracic aorta again noted. ??Aneurysmal dilatation of the ascending thoracic aorta measuring up to 6.1 cm in diameter, similar to prior. Pulmonary: There are small bilateral indeterminate nodular pulmonary opacities which do demonstrate some activity at the left base (axial images 155, 157 for example), indeterminate. ??Mild left fissural fluid again noted. Lymphatics: No hypermetabolic lymphadenopathy is appreciated in the chest. Abdomen and pelvis: Hepatobiliary: Probable left lobe liver hemangioma again noted without worrisome activity. ??Cystic pancreatic tail lesion without worrisome activity again noted. ??Pancreatic parenchymal calcifications again noted, evidence of chronic pancreatitis. ??No worrisome hepatic or pancreatic activity is appreciated. ??Cholelithiasis without evidence of acute cholecystitis. ??No significant biliary ductal dilatation is noted. : The adrenal glands are unremarkable. ??Bilateral renal cysts again noted. ??Bilateral nonobstructive nephrolithiasis. ??Multifocal renal cortical scarring, left worse than right. ??No hydronephrosis. ??The urinary bladder is unremarkable. GI: Colonic diverticulosis without evidence of acute diverticulitis. ??Presumed physiologic activity is noted throughout the colon as well as within loops of small bowel. ??The stomach appears unremarkable. ??No free intraperitoneal fluid or air is appreciated. Lymphatics: The spleen is unremarkable. ??No hypermetabolic lymphadenopathy is appreciated in the abdomen or pelvis. Vascular: Atherosclerotic calcifications with the suprarenal abdominal aortic aneurysm measuring up to 5.9 cm in diameter again noted. ??Celiac axis stent again seen. Musculoskeletal: A focus of moderate activity of the proximal left femoral diaphysis is more hypermetabolic compared to prior, does not demonstrate clear CT correlate abnormality (fused axial image 315). ??There are also foci of increased activity of the left anterior acetabulum, the left paramidline sacrum, the thoracolumbar spine, and the left scapula. IMPRESSION 1. Foci of increasing hypermetabolic activity of the axial and appendicular skeleton suspicious for osseous metastatic disease. 2. Small bilateral indeterminate nodular pulmonary opacities with some activity noted on the left, potentially infectious/inflammatory though with metastatic disease not excluded. 3. Large thoracic and abdominal aortic aneurysms are redemonstrated. ??Recommend follow-up with interventional radiology or vascular surgery if not performed recently. 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 Bilateral hip and pelvic pain.Currently undergoing treatment. Restaging and subsequent treatmentplanning. COMPARISON: Outside MR lumbar spine MR right hip 06/28/2024 as well as exams datingback to 04/06/2023. TECHNIQUE: Following the intravenous administration of 13.65 mCi F 18 FDG and 100 CCOmnipaque PET-CT was performed from the skull vertex through the feet.Multiplanar and MIP reconstructions were created. Serum glucose 175mg/dL. A dose lowering technique was used for this procedure, which may include,but is not limited to, dose reduction technique(s), automated exposurecontrol techniques, use of iterative reconstruction techniques, and ALARA(as low as reasonably achievable) or ALARA/IMAGE Gently techniques. FINDINGS: Head and neck: Intracranial: No mass, mass effect, or worrisome activity isappreciated. Extracranial: No mass or worrisome activity is appreciated. Bilateralcarotid atherosclerotic calcifications. Chest: Cardiovascular: Cardiomegaly is redemonstrated. Endoluminal stent graftrepair of the descending thoracic aorta again noted. Aneurysmaldilatation of the ascending thoracic aorta measuring up to 6.1 cm indiameter, similar to prior. Pulmonary: There are small bilateral indeterminate nodular pulmonaryopacities which do demonstrate some activity at the left base (axialimages 155, 157 for example), indeterminate. Mild left fissural fluidagain noted. Lymphatics: No hypermetabolic lymphadenopathy is appreciated in thechest. Abdomen and pelvis: Hepatobiliary: Probable left lobe liver hemangioma again noted withoutworrisome activity. Cystic pancreatic tail lesion without worrisomeactivity again noted. Pancreatic parenchymal calcifications again noted,evidence of chronic pancreatitis. No worrisome hepatic or pancreaticactivity is appreciated. Cholelithiasis without evidence of acutecholecystitis. No significant biliary ductal dilatation is noted. : The adrenal glands are unremarkable. Bilateral renal cysts againnoted. Bilateral nonobstructive nephrolithiasis. Multifocal renalcortical scarring, left worse than right. No hydronephrosis. The urinarybladder is unremarkable. GI: Colonic diverticulosis without evidence of acute diverticulitis.Presumed physiologic activity is noted throughout the colon as well aswithin loops of small bowel. The stomach appears unremarkable. No freeintraperitoneal fluid or air is appreciated. Lymphatics: The spleen is unremarkable. No hypermetabolic lymphadenopathyis appreciated in the abdomen or pelvis. Vascular: Atherosclerotic calcifications with the suprarenal abdominalaortic aneurysm measuring up to 5.9 cm in diameter again noted. Celiacaxis stent again seen. Musculoskeletal: A focus of moderate activity of the proximal left femoraldiaphysis is more hypermetabolic compared to prior, does not demonstrateclear CT correlate abnormality (fused axial image 315). There are alsofoci of increased activity of the left anterior acetabulum, the leftparamidline sacrum, the thoracolumbar spine, and the left scapula. IMPRESSION 1. Foci of increasing hypermetabolic activity of the axial andappendicular skeleton suspicious for osseous metastatic disease. 2. Small bilateral indeterminate nodular pulmonary opacities with someactivity noted on the left, potentially infectious/inflammatory thoughwith metastatic disease not excluded. 3. Large thoracic and abdominal aortic aneurysms are redemonstrated.Recommend follow-up with interventional radiology or vascular surgery ifnot performed recently. Electronically signed by: ALEKSEY MCGEE MD Date of Signature: 07/05/2024 15:08:50 us Wolf Veras DO IMG PET Final Result * (ABNORMAL) CBC WITH AUTO DIFF [place] (06/30/2024 8:13 AM CHIEF CONCIERGE) WBC 0.5(L) 4.0 - 10.0 10*3/uL [facility] HGB 8.3(L) 13.7 - 17.5 g/dL [facility] HCT 25.9(L) 40.1 - 51.0 % [facility] PLT 16(LL) 163 - 369 10*3/uL [facility] Comment: Critical Result reported to Gayle Cha on 06/30/2024 08:48 by ? Kimmy Cao. Results were read back to caller. MPV 10.7 9.4 - 12.4 fL [facility] RBC 2.34(L) 4.63 - 6.08 10*6/uL [facility] MCV 111(H) 79 - 95 fL [facility] PHYSIOLOGICAL CHEMIST [facility] MCH 35.5(H) 25.6 - 32.2 pg [facility] PHYSIOLOGICAL CHEMIST [facility] MCHC 32.0(L) 32.2 - 36.5 g/dL [facility]SIOLOG[facility]MI[facility] RDW 20.4(H) 11.6 - 14.4 % [facility]SIOLOG[facility] Neutrophils % 42.0 36.0 - 66.0 % [facility]SIOLOG[facility] Lymphocytes % 22.0 19.0 - 40.0 % [facility]OLOG[facility] Monocytes % 34.0(H) 4.1 - 12.1 % [facility]SIOLOG[facility]MI[facility] Eosinophils % 2.0 0.0 - 3.5 % [facility]OLOG[facility] Basophils % 0.0 0.0 - 1.0 % [facility]SIOLOG[facility] Absolute Neutrophils 0.2(L) 1.4 - 6.6 10*3/uL [facility]OLOG[facility] Absolute Lymphocytes 0.1(L) 0.8 - 4.0 10*3/uL [facility] PHYSIOLOG[facility]MI[facility] Absolute Monocytes 0.2 0.2 - 1.2 10*3/uL [facility] PHYSIOLOGICAL [facility]MI[facility] Absolute Eosinophils 0.0 0.0 - 0.4 10*3/uL [facility]SIOLOG[facility]MI[facility] Absolute Basophils 0.0 0.0 - 0.1 10*3/uL [facility]YSIOLOG[facility]MI[facility] 06/30/2024 8:13 AM CHIEF CONCIERGE us Isreal Simms MD LAB SEND OUTS Final Resul t [facility] [place] [address], * MAGNESIUM (MG) (06/09/2024 4:29 PM CHIEF CONCIERGE) Magnesium 2.1 1.9 - 2.7 mg/dL [facility]SIOLOG[facility]MI[facility] Blood 06/09/2024 4:29 PM CHIEF CONCIERGE Narrative [facility] PHYSIOLOGICAL CHEMIST [facility] - 06/10/2024 9:19 AM CHIEF CONCIERGE Release to patient->Immediate us Isreal Simms MD CHEMISTRY ORDERABLES Final Result Performing Organization Address [facility] Co de Phone Number [facility] [address] [place] [address], * ANTINUCLEAR ANTIBODY (TOÑO) TITER (05/26/2024 10:55 AM CHIEF CONCIERGE) Antinuclear Antibodies, IFA NEGATIVE [facility] Comment: ?NEGATIVE ?? <1:80 ?BORDERLINE ??1:80 ?POSITIVE ?? >1:80 ICAP NOMENCLATURE: AC-0 FOR MORE INFORMATION ABOUT HEP-2 CELL PATTERNS USE ANAPATTERNS.ORG, THE OFFICIAL WEBSITE FOR THE INTERNATIONAL CONSENSUS ON ANTINUCLEAR ANTIBODY (TOÑO) PATTERNS (ICAP). 05/26/2024 10:5 5 AM CHIEF CONCIERGE Narrative [facility] - 05/30/2024 8:17 PM CHIEF CONCIERGE TESTING PERFORMED AT: [] [facility], [address] [place] [address], [place], [address], PHONE: [phone], MANAGER OF ENTERPRISE: MAC HIDALGO, PHD Isreal Simms MD IMMUNOLOGY ORDERABLES Final Result Performing Organization Address [facility]/ZIP Co de Phone Number [facility] [address] [place] [address], * IRON W/ IRON BINDING CAPACITY [place] (05/20/2024 9:57 AM CHIEF CONCIERGE) IRON 118 50 - 212 ug/dL [facility] UIBC 217 155 - 355 ug/dL [facility]OLOG[facility] TIBC 335 261 - 478 ug/dl [facility] % Saturation 35 20 - 50 % [facility]OLOG[facility] 05/20/2024 9:57 AM CHIEF CONCIERGE Narrative [facility]SIOLOG[facility] - 05/20/2024 10:54 AM CHIEF CONCIERGE Release to patient->Immediate us Isreal Simms MD LAB SEND OUTS Final Resul t [facility]OLOG[facility] [address] [place] [address], [place] [phone] * VITAMIN B12 (05/20/2024 9:57 AM CHIEF CONCIERGE) Vitamin B12 670 180 - 914 pg/mL [facility] Blood 05/20/2024 9:57 AM CHIEF CONCIERGE Narrative [facility] - 05/20/2024 3:05 PM CHIEF CONCIERGE Release to patient->Immediate us Isreal Simms MD CHEMISTRY ORDERABLES Final Result Performing Organization Address City/[facility]/ZIP Co de Phone Number [facility]SIOLOG[facility] [address] [place] [id number], [place] [phone] * (ABNORMAL) ERYTHROCYTE SEDIMENTATION RATE (ESR) (05/20/2024 9:57 AM CHIEF CONCIERGE) Erythrocyte Sedimentation Rate 96(H) 0 - 20 mm/hr [facility]OLOG[facility] Blood 05/20/2024 9:57 AM CHIEF CONCIERGE Narrative [facility] - 05/20/2024 11:29 AM CHIEF CONCIERGE Release to patient->Immediate us Isreal Simms MD HEMATOLOGY ORDERABLES Final Result [facility]OLOG[facility] [address] [place] [address], * (ABNORMAL) RETICULOCYTE COUNT (RETIC) (05/20/2024 9:57 AM CHIEF CONCIERGE) Reticulocyte count 2.58(H) 0.51 - 1.81 % [facility] RET-He 38.10(H) 28.20 - 36.60 pg [facility] Comment: RET-He is a direct assessment of incorporation of iron into erythrocyte hemoglobin. It provides an indirect measure of the iron available for new erythropoiesis over past 2-4 days. Blood 05/20/2024 9:57 AM CHIEF CONCIERGE [facility] - 05/20/2024 10:14 AM CHIEF CONCIERGE Release to patient->Immediate us Isreal Simms MD HEMATOLOGY ORDERABLES Final Result Performing Organization Address [facility] Co de Phone Number [facility] [place] [address], * FOLIC ACID (FOLATE) (05/20/2024 9:57 AM CHIEF CONCIERGE) Folate >20.00 >=5.90 ng/mL [facility] Blood 05/20/2024 9:57 AM CHIEF CONCIERGE Narrative [facility] - 05/20/2024 3:05 PM CHIEF CONCIERGE Release to patient->Immediate IS THE PATIENT REQUIRED TO BE FASTING FOR 12 HOURS?->No us Isreal Simms MD CHEMISTRY ORDERABLES Final Result Performing Organization Address [facility] Co de Phone Number [facility] [address] [place] [address], * FERRITIN (05/20/2024 9:57 AM CHIEF CONCIERGE) Ferritin 96 24 - 336 ng/mL [facility] Blood 05/20/2024 9:57 AM CHIEF CONCIERGE Narrative [facility] - 05/20/2024 3:04 PM CHIEF CONCIERGE Release to patient->Immediate us Isreal Simms MD CHEMISTRY ORDERABLES Final Result [facility] [place] [address], * (ABNORMAL) [employer] ADVANCED NGS MYELOID PANEL (05/20/2024 9:20 AM CHIEF CONCIERGE) Pathologist [facility] [employer] ADVANCED NGS MYELOID PANEL, [place] [id number] ABNORMAL (A) [facility] Comment: [employer] Advanced NGS Myeloid Panel Final Report - RESULT SUMMARY: ABNORMAL - DETECTED GENOMIC ALTERATIONS: - ??Tier I: Variants of Strong Clinical Significance ??TP53 [id number] - TUMOR TYPE: ??Waldenstrm Macroglobulinemia - CLINICAL INFORMATION: ??Reported a clinical history of M-spike, kappa-lambda ration 13, ??MYD88 positive, thrombocytopenia, and Waldenstrom macroglobulinemia. 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 The residual marrow showed trilineage ??maturation, decreased megakaryocytes with mild atypia (#[id number]). - PERTINENT NEGATIVE RESULTS: ??The following genes are NEGATIVE for clinically relevant mutations. ??Mutational hotspots and surrounding exonic regions were interrogated ??for DNA level point mutations and indels (fusions not assayed). ??ABL1, ANKRD26, ASXL1, ATRX, BCOR, BCORL1, BRAF, CALR, CBL, CCND2, ??CDKN2A, CEBPA, CSF3R, CUX1, DDX41, DNMT3A, ETNK1, ETV6, EZH2, FBXW7, ??FLT3, GATA2, HRAS, IDH1, IDH2, JAK2, KDM6A, KIT, KMT2A, KRAS, ??MAP2K1, MPL, MYD88, NF1, NPM1, NRAS, PDGFRA, PHF6, PTEN, PTPN11, ??RUNX1, SETBP1, SF3B1, SRSF2, STAG2, TET2, U2AF1, WT1, ZRSR2 - MUTATIONAL HOTSPOTS: ??The following recurrently mutated codons demonstrated adequate ??sequencing coverage depths and show wild type sequences only. ??Gene: ABL1 Codons: 235, 244, 250, 252, 253, 255, 299, 311, 315, 317, ??351, 359, 396 ??Gene: ASXL1 Codons: 635, 646 ??Gene: BCOR Codons: 1459 ??Gene: BRAF Codons: 581, 594, 597, 600, 601 ??Gene: CALR Codons: 367, 385 ??Gene: CBL Codons: 420 ??Gene: CSF3R Codons: 618 ??Gene: DNMT3A Codons: 882 ??Gene: EZH2 Codons: 646 ??Gene: FLT3 Codons: 835 ??Gene: HRAS Codons: 12, 13, 61 ??Gene: IDH1 Codons: 132 ??Gene: IDH2 Codons: 140, 172 ??Gene: JAK2 Codons: 533, 534, 535, 536, 537, 538, 539, 540, 541, 542, ??543, 544, 545, 546, 547, 617 ??Gene: KIT Codons: 557, 559, 560, 576, 642, 816, 820, 822 ??Gene: KRAS Codons: 12, 13, 59, 60, 61 ??Gene: MPL Codons: 515 ??Gene: MYD88 Codons: 265 ??Gene: NPM1 Codons: 288 ??Gene: NRAS Codons: 12, 13, 61 ??Gene: PTEN Codons: 92, 93, 130, 132, 136, 212, 233 ??Gene: PTPN11 Codons: 61, 69, 72, 76, 503, 510 ??Gene: SETBP1 Codons: 868, 870 ??Gene: SF3B1 Codons: 623, 666, 700, 741 ??Gene: SRSF2 Codons: 95 ??Gene: TP53 Codons: 175, 213, 245, 248, 273 ??Gene: U2AF1 Codons: 34, 157 ??The following recurrently mutated codons demonstrated inadequate ??sequencing coverage depths (<100x), and the possibility of ??undersensitive detection cannot be excluded. ??Not Applicable - TRANSCRIPT ACCESSIONS FOR INTERROGATED GENES: ??Gene: ABL1 Transcript ID: [id number] ??Gene: ANKRD26 Transcript ID: [id number] ??Gene: ASXL1 Transcript ID: [id number] ??Gene: ATRX Transcript ID: [id number] ??Gene: BCOR Transcript ID: [id number] ??Gene: BCORL1 Transcript ID: [id number] ??Gene: BRAF Transcript ID: [id number] ??Gene: CALR Transcript ID: [id number] ??Gene: CBL Transcript ID: [id number] ??Gene: CCND2 Transcript ID: [id number] ??Gene: CDKN2A Transcript ID: [id number] ??Gene: CEBPA Transcript ID: [id number] ??Gene: CSF3R Transcript ID: [id number] ??Gene: CUX1 Transcript ID: [id number] ??Gene: DDX41 Transcript ID: [id number] ??Gene: DNMT3A Transcript ID: [id number] ??Gene: ETNK1 Transcript ID: [id number] ??Gene: ETV6 Transcript ID: [id number] ??Gene: EZH2 Transcript ID: [id number] ??Gene: FBXW7 Transcript ID: [id number] ??Gene: FLT3 Transcript ID: [id number] ??Gene: GATA2 Transcript ID: [id number] ??Gene: HRAS Transcript ID: [id number] ??Gene: IDH1 Transcript ID: [id number] ??Gene: IDH2 Transcript ID: [id number] ??Gene: JAK2 Transcript ID: [id number] ??Gene: KDM6A Transcript ID: [id number] ??Gene: KIT Transcript ID: [id number] ??Gene: KMT2A Transcript ID: [id number] ??Gene: KRAS Transcript ID: [id number] ??Gene: MAP2K1 Transcript ID: [id number] ??Gene: MPL Transcript ID: [id number] ??Gene: MYD88 Transcript ID: [id number] ??Gene: NF1 Transcript ID: [id number] ??Gene: NPM1 Transcript ID: [id number] ??Gene: NRAS Transcript ID: [id number] ??Gene: PDGFRA Transcript ID: [id number] ??Gene: PHF6 Transcript ID: [id number] ??Gene: PTEN Transcript ID: [id number] ??Gene: PTPN11 Transcript ID: [id number] ??Gene: RUNX1 Transcript ID: [id number] ??Gene: SETBP1 Transcript ID: [id number] ??Gene: SF3B1 Transcript ID: [id number] ??Gene: SRSF2 Transcript ID: [id number] ??Gene: STAG2 Transcript ID: [id number] ??Gene: TET2 Transcript ID: [id number] ??Gene: TP53 Transcript ID: [id number] ??Gene: U2AF1 Transcript ID: [id number] ??Gene: WT1 Transcript ID: [id number] ??Gene: ZRSR2 Transcript ID: [id number] - COVERAGE DEPTHS: ??Among the following targeted exons, >50% of coding sequences failed ??to achieve >100x coverage depths. Analytic sensitivity for ??potentially relevant genomic alterations may therefore be limited ??among the following interrogated loci: ??Not Applicable [employer], O [facility] BELOW [facility] Comment: PROGNOSTIC ASSOCIATIONS: ??Gene: TP53 ??Alteration: p.Jkw069Cgl - ??Associated with Reduced Survival and Resistance to Chemotherapy ??Disease Association: Lymphoid and Myeloid Neoplasms INTERPRETATION [place], [place] [id number] SEE BELOW[facility] Comment: INTERPRETATION SUMMARY: - ??It should be noted that this patient has had one or more additional ??NGS studies. The concurrent study showed the following mutation(s): ??MYD88 p.(Mgg748Ttj) (1%); TP53 p.(Dyz312Clz) (5%). Please see the ??concurrent OnkoSightAdvanced Chronic Lymphoid Neoplasm NGS Report, ??Collection Date: May 20, 2024, Specimen ID: [id number]. ??Of note, NGS read data is SUSPICIOUS, BUT NOT DEFINITIVE, for the ??presence of a low level MYD88 L265P variant(s), previously observed ??in this patients sample. The abnormality was noted among ??~0.9% of NGS reads, which is below the assays clinically validated ??lower limit of detection. ??Please note, manual inspection of archived, raw NGS data in the ??prior sample, [id number], obtained from this patient showed evidence ??of the TP53 (p.Ngw256Rwn) variants reported here among 1.7% of NGS ??reads (which is below the validated reporting threshold in the ??assay) in [id number]. ??A hotspot mutation in MYD88 (p.Kff992Sdk) was detected in this ??patients sample. ??MYD88 p.Hqv953Mhe hotspot mutations are recurrent in >90% of ??[place] macroglobulinemias / lymphoplasmacytic lymphomas, and ??approximately 30% of the activated B-cell-like (ABC) subtype of ??diffuse large B-cell lymphomas (DLBCL). This mutation is otherwise ??uncommon but has been extremely rarely identified among other small ??B-cell neoplasms ([id number]; 64992965; 71420402; 33526383; 37179389; ??44233773; 53045168). MYD88, p.L265P mutations are also recurrent in ??approximately half of IgM type monoclonal gammopathy of undetermined ??significance, in which setting MYD88 mutation is an independent risk ??factor for disease progression (WHO Haematopoietic and Lymphoid ??Tissues, 2023). The presence of MYD88 mutations may be ??therapeutically predictive of responses to David tyrosine kinase ??(BTK) inhibitors such as Ibrutinib, and Interleukin-1 ??receptor-associated kinase (IRAK) inhibitors (29226315; 59204459; ??85082299; NCCN Guidelines, [place] ??Macroglobulinemia/Lymphoplasmacytic Lymphoma, Version 1.2024). ??Correlation with clinical features and other laboratory parameters ??will be required for further diagnostic evaluation. ALLELE FREQUENCIES SEE BELOW [facility] Comment: ALLELE FREQUENCIES: ??,02/25/2024,03/11/2024,05/20/2024 ??FLT3 p.G863C,0.0,3.08,0.0 ??MYD88 p.L265P,0.0,4.23,0.0 ??TP53 p.R282W,2.4,0.0,6.92 DETAILED GENETIC INTERPRETATION, [place] [id number] SEE BELOW [facility] Comment: DETAILED GENETIC INTERPRETATION: ??Genomic Alteration: TP53 p.Mgp041Gtx c.844C>T ??Allele frequency: 7% allele frequency ??Exon: 8 ??Transcript : [id number] ??Interpretation: ??p.Pdn067Pak represents a hotspot missense mutation in exon 8 of TP53 ??converting the wild type residue, Arginine, into a Tryptophan at ??amino acid 282. ??This variant has been reported in a variety of malignancies (COSMIC) ??and has not been observed as a population variant in public genomic ??databases (EVS; ExAC). This substitution targets a residue located ??in the DNA-binding domain (DBD) that is critical for stabilizing the ??structural interactions within the DBD, and has been shown to be ??destabilizing to the protein in vitro (08168700; 19624791; ??52503054). This TP53 mutation has also been reported as a pathogenic ??germline mutation in Li-Fraumeni Syndrome (LFS) (ClinVar). ??The tumor protein p53 (TP53) is located on chromosome 17p13.1, and ??encodes a tumor suppressor protein. The TP53 protein mediates ??cellular response to DNA damage and is involved in a wide range of ??cellular processes, including transcriptional regulation, cell cycle ??control, apoptosis, and DNA repair. ??The TP53 gene is the most frequently mutated gene in human cancers, ??with somatic mutations associated with unfavorable prognosis in many ??tumor types (70116354; 64617992). Majority of the inactivating ??mutations are missense mutations that target the core DNA-binding ??domain (DBD), disrupting the DNA-binding capacity of p53 protein and ??leading to loss of function of the wild-type protein (61985683). ??Nonsense mutations, frameshift mutations, and deletions have also ??been reported in various tumor types. Some TP53 mutations are ??thought to result in dominant negative inhibition of wild-type p53 ??protein activity including inhibition of apoptosis, or in gain of ??function leading to increased proliferation, migration, and genomic ??instability (24154849; 53544131). ??Somatic mutations in TP53 are associated with leukemic ??transformation, complex karyotype, and adverse outcome in a number ??of hematological malignancies, including chronic myeloproliferative ??neoplasms (MPN) (05050527; 27976427), myelodysplastic syndrome (MDS) ??(24966432), and acute myeloid leukemia (AML) (46827685). Somatic ??TP53 mutations are independently associated with inferior prognosis ??in acute lymphoblastic leukemia (ALL) (15527476; 68832389; ??36516404). TP53 mutations also have prognostic value in common solid ??tumors (96487438). Pathogenic germline mutations in TP53 are ??associated with Li Fraumeni syndrome. [place], [place] [id number] SEE BELOW [facility] Comment: CLINICAL TRIALS: ??Genomic Alteration: General Consideration ?NCTID: [id number] ?Title: Ibrutinib, Fludarabine, and Pembrolizumab in High-Risk or ?Relapsed/Refractory Chronic Lymphocytic Leukemia/Small ?Lymphocytic Lymphoma ?Conditions: Multiple Disease Types ?Location: [facility] ?[address] [place] [address] ?Sponsor: [facility] [place] ([facility]) TECHNICAL [place], [place] [id number] SEE BELOW [facility] Comment: TECHNICAL SUMMARY: ??Specimen Source: Bone Marrow - ??Gene: TP53 ??Alteration: p.Vra007Ntd ??Variant Category: Disease Associated ??Chr: 17 ??Pos: [id number] ??Ref: G ??Alt: A ??Coverage: 448 ??Allele Freq: 6.92 ??cDNA change: c.844C>T ??Exon: 8 ??ClinVar ID: [place], [place] [id number] SEE BELOW [facility] Comment: METHODS: ??Tissue macrodissection and DNA isolation from tumor enriched areas ??are based on histologic review by an appropriately board certified ??pathologist; specimens with minimal tumor cellularity may be ??rejected. Nucleic acid is isolated from the submitted specimen. ??Anchored Multiplex PCR (AMP) is performed to generate ??target-enriched next generation sequencing (NGS) libraries. AMP ??utilizes unidirectional gene-specific primer (GSP) oligonucleotides ??that enrich for both known and unknown mutations. Each genomic DNA ??fragment is also tagged with a unique molecular identifier sequence ??(NEVIN), used after sequencing on an Illumina V-Key instrument ([place], [place]) with paired end, 151 base pair reads to collapse PCR ??duplicates and enable accurate counting of variant allelic ??frequencies. A minimum number of 100 unique reads (after removal of ??PCR duplicates) to detect a mutation is required. An automated ??process that takes into account statistical confidence of base ??calling and alignment and mapping quality identifies variants ??([employer] Analysis Software version 6.2.7, Released 30 Nov 2019). ??Following mapping of the read data to the human genome (reference ??build GRCh37/hg19), single nucleotide variants (SNVs), and insertion ??deletion events (Indels) with an allele frequency (AF) greater than ??2% are detected utilizing [employer] bioinformatic analytical ??pipeline with the exception of FLT3 (0.8% AF), JAK2 p.V617F (0.8% ??AF) and MYD88 p.L265P (1% AF). Detection of Insertions larger than ??63 bases have not been validated. Detection of Deletions larger than ??52 bases have not been validated. Reported variants include known ??disease associated mutations and unclear variants with little or no ??literature support. Benign population polymorphisms are not included ??in the report. For low level FLT3 internal tandem duplication (ITD) ??and/or FLT3 tyrosine kinase domain (TKD) variant(s) orthogonal ??polymerase chain reaction (PCR) testing confirmations, a multiplex ??PCR is performed followed by digestion with a restriction ??endonuclease. Products are by capillary electrophoresis ??using an [employer] Genetic Analyzer ([place], [place], [place]) and ??data was analyzed with dentaZOOM 6. The FLT3-ITD mutation ??status is determined by calculating the allele ratio (AR) as the ??ratio of the area under the curve of mutant to wild type alleles. ??The FLT3-TKD mutation status is determined by calculating the ??variant allele frequency (VAF) as a percentage of mutant alleles to ??mutant and wild type alleles. The limit of detection is 0.07 AR and ??5% VAF for FLT3-ITD and FLT3-TKD (D835, I836) variants, ??respectively. The mutation hotspots of the following genes were ??interrogated by this test: ABL1, ANKRD26, ASXL1, ATRX, BCOR, BCORL1, ??BRAF, CALR, CBL, CCND2, CDKN2A, CEBPA, CSF3R, CUX1, DDX41, ??DNMT3A,ETNK1, ETV6, EZH2, FBXW7, FLT3, GATA2, HRAS, IDH1, IDH2, JAK2 ??(inclusive of V617F & exon 12), KDM6A, KIT, KMT2A, KRAS, MAP2K1, ??MPL, MYD88, NF1, NPM1, NRAS, PDGFRA, PHF6, PTEN, PTPN11, RUNX1, ??SETBP1, SF3B1, SRSF2, STAG2, TET2, TP53, U2AF1, WT1, ZRSR2.Variant ??Tier categorization is rendered in accordance with the AMP/ASCO/CAP ??consensus recommendations (see Li et al. Standards and Guidelines ??for the Interpretation and Reporting of Sequence Variants in Cancer: ??A Joint Consensus Recommendation of the Association for Molecular ??Pathology, [place] Society of Clinical Oncology, and College of ??E[place] Pathologists. The Journal of molecular diagnostics: JMD. ??2017 Jul;19(1):4-23. doi: 10.1016/j.jmoldx.2016.10.002. PubMed ??Central PMCID: MVP8739469. PubMed PMID: (44090057)). ??OnkoSightAdvanced was developed and its performance characteristics ??were determined by [employer], a division of [employer]. ??This test has not been cleared or approved by the US Food and Drug ??Administration (FDA). The FDA has determined that such a clearance ??or approval is not necessary. Pursuant to the requirements of ??CLIA'88, this laboratory has established and verified the tests ??accuracy and precision. However, a false positive or false negative ??result incurred during any phase of the testing cannot be completely ??excluded. Large insertion/deletion (eg. FLT3-ITD aberrations) may ??not be detected by this assay due to the limit of sequencing read ??length and bioinformatics processing. This assay does not detect ??translocation/gene fusion. This assay does not determine variant ??causality, or whether a variant is inherited or somatically ??acquired. These results may be used for clinical or research ??purposes and therefore should be carefully considered within the ??context of other clinical and laboratory data. In the absence of an ??appropriate clinical context, the clinical utility of ??OnkoSighttesting is not clearly defined. The information contained ??in this report reflects the current interpretation of the findings ??as of the date of the report, based on the available scientific ??information. This information, which comes from numerous sources, is ??subject to exchange mechanic time in response to future scientific and ??medical findings and correlations. [employer]. makes ??no representation or warranty of any kind regarding the accuracy of ??information provided or contained in these manuscripts, references ??or other sources of information. If any of the information provided ??by or contained in the referenced material is later deemed to be ??inaccurate, this may impact the accuracy of this report and ??interpretation of the findings. [employer]. is not ??obligated to notify you of any impact that additional or modified ??information, or future scientific or medical research may have on ??this report. The laboratory is not responsible for reanalysis of the ??data or updated classification of this report or past ??reportsfindings as the knowledge evolves. A medical provider can ??request a reassessment of clinical significance of variants and/or ??re-review of the clinical interpretation of the findings. Additional ??charges may apply for the updated report. Please contact the ??laboratory for more information if update is requested. This assay ??has been approved by the [facility] based on initial validation; ??orthogonal testing for full validation is currently ongoing. Please ??contact the laboratory for more information if update is requested. [place], [place] [id number] SEE BELOW [facility] Comment: REFERENCES: ??1. Li MM, Ely M, Duncdannielle EJ, Claire S, Wil NI, Deshawn S, ?Bri AM, Mervin CL, Flor DJ, Renetta A, Nikifdeseana ?MN. Standards and Guidelines for the Interpretation and Reporting ?of Sequence Variants in Cancer: A Joint Consensus Recommendation ?of the Association for Molecular Pathology, [place] Society of ?Clinical Oncology, and College of [place] Pathologists. The ?Journal of molecular diagnostics : JMD. 2017 Jul;19(1):4-23. doi: ?10.1016/j.jmoldx.2016.10.002. PubMed PMID: 63430841. PubMed ?Central PMCID: YEA2596224. ??2. Genome Aggregation Database (gnomAD), [place], [place] (URL: ?https://gnomad.broadUPR-Onlinetitute.org) [May,] ??3. Catalogue of Somatic Mutations in Cancer (COSMIC), (URL: ?http://cancer.scar.ac.uk/cosmic) [May,] ??4. Markell R, Keshav K, Marcus-Manhab O, Mehdi N, Annette B, ?Martell-Cecy G, Zachary H, Albert A, Bailey RL, Phillip D, New ?BL. Clinical effect of point mutations in myelodysplastic ?syndromes. The [place] journal of medicine. 2010 ?30;364(26):2496-506. doi: 10.1056/QMGQhx6327506. PubMed PMID: ?50619403. PubMed Central PMCID: SHE5444533. ??5. Rich FG, Rose RF, Loretta L, Emanuel S, Nadira V, Judit H, ?Bogdan M, Rachael CM, Dunia K, Shelly , Constantine P, Suzanne G, ?queta Lord, Kiko M, Matt S, Marc T, Linda J, ?Lenin Vaca, Malcolm Swanson, Brenda P, Lester Bee, Lester H. 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 Blood. 2011Sep 03;119(9):2114-21. ?Epub 2010Jun 24. doi: 10.1182/dioki-1837-52-976399. PubMed PMID: ?21238755. ??6. Helder Rosas, Inocente M, Mamta D, Carley VILLEGAS, Quang OA, Tierra M, Song ?G, Moris J, Marin RC, Bhupendra DA, Helder J, Brittanydarudy H, Vadodaria ?B, Harley G, Giuliana P, Tony HERRON, Radha IM, Sravani JM, ?Marialuisa MV, Orlando MA, Gokul M, Laureano ZENG, Cali JR, Neptali ?ML, Lyndsey CL, Bernabe DS, Kay CG, Jacky SP, Sravan Farmer. Rise ?and fall of subclones from diagnosis to relapse in pediatric ?B-acute lymphoblastic leukaemia. Nature communications. 2014 ?19;50546. Epub 2014Sep 21. doi: 10.1038/jkdjue8521. PubMed PMID: ?18502550. PubMed Central PMCID: NXB0905283. ??7. Tang A, Juan Pablo S, Herminia S, Otoniel S, Brad Strong, Melony ?A, Aarti T, Aarti Santana. TP53 mutations occur in 15.7% of ALL ?and are associated with MYC-rearrangement, low hypodiploidy, and a ?poor prognosis. Blood. 2013Jan 12;124(2):251-8. Epub 2013November 16. ?doi: 10.1182/jkgdl-8247-99-192670. PubMed PMID: 83761161. ??8. Grayson P, Maurisio A, Nijames R, Farhatr R, Tani-Degroot H, Paty I, ?Julia S, Analia T, Anabella Farmer, Sharee Lord, Natalie Santana, Madyson ?R, Sumaya CARRILLO. Clonal evolution and clinical correlates of somatic ?mutations in myeloproliferative neoplasms. Blood. 2014 Oct ?03;123(14):2220-8. Epub 2013Aug 03. doi: ?10.1182/ozstl-4554-19-895984. PubMed PMID: 82184465. ??9. Samantha Santana, Vicki SILVA, Damion F, Antolin K, Rachelle B, Natalia C, Chris Lord, Hinson ?Q, Janneth JF, Valencia MA, Saskia MDM, Byron CA, Burkett ?JS, Antelmo MJ, Cheri MC, Allison TJ, Gen RK, Jaiden HALL, Jonnie L. ?Mutational landscape and significance across 12 major cancer ?types. Nature. 2013 Apr 17;502(4465):173-895. doi: ?10.1038/jxfrwo54426. PubMed PMID: 39648685. PubMed Central PMCID: ?TNU8815545. ??10. Katerin LR, Renetta H, Roland T, Karsten TE, Juan Carlos J, Radha SW, Scarlet SY, ?Saeed WINCHESTER. Inactive full-length p53 mutants lacking dominant ?wild-type p53 inhibition highlight loss of heterozygosity as an ?important aspect of p53 status in human cancers. Carcinogenesis. ?2007 Aug;28(2):289-98. Epub 2006 Jan 23. doi: ?10.1093/carcin/foi036. PubMed PMID: 86513466. ??11. Zelalem ALEGRE, Radha ESCALONA. Mutant p53 in cancer: new functions and ?therapeutic opportunities. Cancer cell. 2014 Sep 17;25(3):304-17. ?doi: 10.1016/j.ccr.2014.01.021. PubMed PMID: 36440124. PubMed ?Central PMCID: QMB9873563. ??12. Rose R, Elmira Farmer. TP53 mutations and lung cancer: not all ?mutations are created equal. Clinical cancer research : an ?official journal of the [place] Association for Cancer Research. ?2013Mar 06;20(17):4419-21. Epub 2013Dec 13. doi: ?10.1158/4681-2660.[facility]-14-0899. PubMed PMID: 49143134. ??13. Edgar TEJADA. Does TP53 guard ALL genomes? Blood. 2013 ?10;124(2):160-1. doi: 10.1182/swkha-8721-06-295217. PubMed PMID: ?35328939. PubMed Central PMCID: ULQ9074961. ??14. Ora Potts. Structural biology of the tumor ?suppressor p53. Annual review of biochemistry. 2008;69932-49. doi: ?10.1146/annurev.biochem.77.928556.776990. PubMed PMID: 33889468. ??15. Ruy M, Mey P. Somatic mutations in cancer prognosis and ?prediction: lessons from TP53 and EGFR genes. Current opinion in ?oncology. 2010;23(1):88-92. doi: 10.1097/PATIENT ESCORT.8v159h9454542oqw. ?PubMed PMID: 80624989. ??16. Luc DUGGAN, Kenneth Farmer, Ora AYALA. Quantitative analysis of ?residual folding and DNA binding in mutant p53 core domain: ?definition of mutant states for rescue in cancer therapy. ?Oncogene. 2000 Sep 04;19(10):1245-56. doi: 10.1038/sj.onc.6879147. ?PubMed PMID: 89824393. ??17. Jasbir A, Navya T, Coleen M, Madyson R. p53 lesions in ?leukemic transformation. The [place] journal of medicine. 2011 ?Feb 03;364(5):488-90. doi: 10.1056/QMNIn5417168. PubMed PMID: ?98679169. ??18. [place] C, Chata L, Rennitesh A, Terry M, Eclache V, Preudlia C, ?Yokasta MJ, Hinton H, Tanya J, Jaylen P. Prognostic ?value of TP53 gene mutations in myelodysplastic syndromes and ?acute myeloid leukemia treated with azacitidine. Leukemia ?research. 2014 Jan;38(7):751-5. Epub 2013Sep 25. doi: ?10.1016/j.leukres.2014.03.012. PubMed PMID: 34110321. ??19. Mylene AG, Orlando AE, Hayden SA, Magdalene AM, ?Donato P, Lesli NC, Whitney J, Destiny C, Yanet R, ?Stephanie B, Chepe S, Marito SONIA, GJ. TP53 mutations in ?myelodysplastic syndrome are strongly correlated with aberrations ?of chromosome 5, and correlate with adverse prognosis. [place]i ?journal of haematology. 2013 Sep;160(5):660-72. Epub 2012Jul 14. ?doi: 10.1111/bjh.33298. PubMed PMID: 85141214. ??20. Susy IJ, Willdonald K, Reuben R, Lyndon J, Gisselle H, Joel M, ?Susan H, Fran K, Josesito P. TP53 mutations and MDM2(MVR591) ?identify subgroups of AML patients with impaired outcome. ?journal of haematology. 2015 Oct;94(4):355-62. Epub 2013Apr 05. ?doi: 10.1111/ejh.36546. PubMed PMID: 11492109. ??21. Gorge RS, Helder L, Leanna SOMMERS, Shea JR, Marck I, Richardson BARBER, ?Isauro OTERO. Next-generation sequencing of acute myeloid leukemia ?identifies the significance of TP53, U2AF1, ASXL1, and TET2 ?mutations. Modern pathology : an official journal of the [place] ?[place] and [place] Academy of Pathology, Inc. 2015 ?May;28(5):706-14. Epub 2013May 26. doi: ?10.1038/modpathol.2014.160. PubMed PMID: 99836951. ??22. Antelmo LOOMIS, Jonnie L, Zane D, Flynn J, Hodan M, Vicki M, Brody ?R, Shaniqua H, Sheryl J, O'Antonio M, Samantha C, Kelsie Farmer, ?Jeanne P, Cari JF, Jessica ER, Gen RK, Allison HOLCOMB, Colton ?TA. Recurrent DNMT3A mutations in patients with myelodysplastic ?syndromes. Leukemia. 2011 Jan;25(7):1153-8. Epub 2010Sep 20. doi: ?10.1038/baldemar.2010.44. PubMed PMID: 05635133. PubMed Central PMCID: ?PBW1248210. ??23. Markell R, Keshav KE, Ori B, Blake RC, Amy BG, Stocamachoov ?P, Hector G, Saniya DP, Margarita J, Yovani R, Dania JH, Alyea E, ?Michael P, Ho V, Bandar J, Neuberg D, Demetrius CS, New BL. Somatic ?mutations predict poor outcome in patients with myelodysplastic ?syndrome after hematopoietic stem-cell transplantation. Journal of ?clinical oncology : official journal of the [place] Society of ?Clinical Oncology. 2014 Mar 06;32(25):2691-8. Epub 2013Feb 06. ?doi: 10.1200/JCO.2013.52.3381. PubMed PMID: 38123242. PubMed ?Central PMCID: MLM6789978. ??24. Bianca AP, Azra AR, Tony MP, Orlando BD, Ning Swanson, Raul DE, ?Saritha Lord. DNMT3A and IDH mutations in acute myeloid leukemia ?and other myeloid malignancies: associations with prognosis and ?potential treatment strategies. Leukemia. 2014 Sep;28(9):1774-83. ?Epub 2013Oct 07. doi: 10.1038/baldemar.2014.124. PubMed PMID: ?04487276. PubMed Central PMCID: AWQ5977942. ??25. Tad SA, Lanre K, Soils RG, Sebastian AV, ?Foroni L. Deletion of chromosome 13 (band q14) but not trisomy 12 ?is a clonal event in B-chronic lymphocytic leukaemia (CLL). ?Somali journal of haematology. 1995 Luther;90(2):476-8. PubMed PMID: ?6767407. ??26. NCCN Guidelines, [place] Macroglobulinemia/Lymphoplasmacytic ?Lymphoma, Version 1.2024 ??27. Adina F, Jeffery SP, Bryan NS, Montez SH, Dima JR. 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 Modern pathology : an official journal of the [place] ?[place] and [place] Academy of Pathology, Inc. 2015 ?Apr;28(4):564-74. Epub 2013Mar 17. doi: ?10.1038/modpathol.2014.120. PubMed PMID: 58156232. ??28. Shaniqua J, Marly B, Cele N, Brian J, Denisse I, ?Miguel F, Loida-Leodan L. 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 Somali journal of haematology. 2015 Luther;169(6):795-803. ?Epub 2014Oct 01. doi: 10.1111/bjh.60828. PubMed PMID: 86159309. ??29. Ming SP, Neville L, Miguelangel G, Queen Y, Glez X, Xu Steele, Pete Carrizales, Kodak ?RJ, Tanvi PANDYA, Michael C, Dangelo L, Jay Jay GS, Nel SJ, ?Marylin AR, Aldo NL, Noreen ZENG, Barb DA, Sathish SCHMIDT, Ricky ?ZR. MYD88 L265P somatic mutation in [place]'s ?macroglobulinemia. The [place] journal of medicine. 2011 ?30;367(9):826-33. doi: 10.1056/HTUGhd0386002. PubMed PMID: ?34655979. ??30. Miguelangel G, Bret Y, Newton Rosas, Neville Cleaning, Xu Steele, Kodak VICENTE, Tanvi PANDYA, ?Sanjay SJ, Prince N, King YT, Wang MARY, Ricky ZR, Ming PRATT. A ?mutation in MYD88 (L265P) supports the survival of ?lymphoplasmacytic cells by activation of David tyrosine kinase in ?[place] macroglobulinemia. Blood. 2012Feb 17;122(7):1222-32. ?Epub 2012Jan 10. doi: 10.1182/damsi-2490-85-764001. PubMed PMID: ?42544622. ??31. Ming PRATT, Neville Cleaning, Ricky Xavier. MYD88 Mutations and Response to ?Ibrutinib in [place]'s Macroglobulinemia. The [place] ?journal of medicine. 2014Feb 08;373(6):584-6. doi: ?10.1056/JGCYx8061718. PubMed PMID: 92245540. ??32. Ally A, Lizet S, Sergio M, Darline L, Leodan ?N, Chrystal S, Don C, Yoana DAVIDSON, Yogi CORNELIUS. 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 The Egyptian ?journal of surgical pathology. 2015 November;39(5):644-51. doi: ?10.1097/PAS.2590717371182911. PubMed PMID: 30312570. ??33. Ming SP, Michael CK, Tatum K, Khanh D, Maykel G, Mynor R, ?Jaelyn KV, Miguelangel G, Mcnair Y, Lozada L, Tanvi CJ, Rodanna S, ?Richardson JL, Christen SONIA, Carlson NL, Tommy S, Wyatt I, Jennings JJ, ?Brenden ALICIA, Ricky ZR, Jocy Z, Jayne J, Garcia M, Tatiana F, Graef T, ?Palomba ML, Timoteo RH. Ibrutinib in previously treated ?[place]'s macroglobulinemia. The [place] journal of ?medicine. 2015 Oct 09;37215):1430-40. doi: 10.1056/[id number]. ?PubMed PMID: [id number]. ??34. Ronda VN, Leonidas RM, Sarah R, Grant S, Elaina W, Glenroy KH, ?Kenisha H, Lozada W, Means Y, Mathew H, Los AL, Ranulfo P, Linares ?G, Ab J, Erich A, Masterson-Nicholask HK, Sharon G, Kathi RD, ?Yamila JM, Carmen LM, Rosibel E, Love ES, Estelle J, Anton EB, ?Doni RI, Wolf RM, Alycia RR, Dima JR, Soumya DD, Avitia ?NANCY, Alejandra MCKOY. Oncogenically active MYD88 mutations in human ?lymphoma. Nature. 2010Aug 08;470(1244):115-9. Epub 2009Jun 26. ?doi: 10.1038/sslenn11877. PubMed PMID: 93092379. PubMed Central ?PMCID: [id number]. ??35. Kaylee Worthy, Dixie ZENG, Gen CS, Tania Parra ?. Significance of MYD88 L265P Mutation Status in the ?Subclassification of Low-Grade B-Cell Lymphoma/Leukemia. Archives ?of pathology & laboratory medicine. 2015 Feb;139(8):1035-41. ?doi: 10.5858/arpa.9919-5005-PD. PubMed PMID: [id number]. ??36. Rosaura N, Saida M, Lakisha I, Petnicanor B, Frederic A, Noe D, ?Michelle M, Moe M, Ny V, Raghu MP, de Bashir A, ?Mary ALICIA, Rashmi K, Marybeth N, Lakisha P, Bolanos A, ?Carmen D, Sergio, Breezy Farmer. IGHV gene features and MYD88 ?L265P mutation separate the three marginal zone lymphoma entities ?and Waldenstrm macroglobulinemia/lymphoplasmacytic lymphomas. ?Leukemia. 2013 Jul;27(1):183-9. Epub 2011Mar 09. doi: ?10.1038/baldemar.2012.257. PubMed PMID: [id number]. REPORT [place], [place] [address]408-6 SEE BELOW CANCER PHYSIOLOGICAL CHEMIST [facility] Comment: Jose Eduardo Kinney M.D., Airconditioning Engineer Electronically signed by Kiet Garcia, PhD, [facility] [employer] is a division of [employer] [facility] [address] [place], [place] [id number] Created Sat May 28 08:21:16 2023 05/20/2024 9:20 AM CHIEF CONCIERGE Narrative [facility] - 05/28/2024 8:45 AM CHIEF CONCIERGE Testing performed at: [employer]. [facility] [place] [address], Airconditioning Engineer: ??Dr. Jose Eduardo Kinney M.D.; [facility] Accn#:[id number] Isreal Simms MD LAB SEND OUTS Final Resul t CANCER PHYSIOLOGICAL CHEMIST [facility] [place] [address], * (ABNORMAL) FOUR (4) ANTIBODY WY 5139-1 (05/20/2024 9:20 AM CHIEF CONCIERGE) Four (4) Antibody Neoplastic(A) CANCER PHYSIOLOGICAL CHEMIST [facility] Comment: INTERPRETATION - Plasma cell infiltrate, IgM positive, estimate 45-50% of cellularity. - No B cell infiltrate is seen. - Decreased megakaryocytes, with atypia. COMMENT A positive control for each antibody has been reviewed and accepted. ?? Please refer to [facility] bone marrow morphology report. Clinical Information See Note [facility] Comment: Waldenstrom macroglobulinemia, IgM kappa M-spike, positive MYD88 mutation - follow-up Specimen Comment See Note CAN CER PHYSIOLOGICAL CHEMIST [facility] Comment: 1 GREEN, 1 PURPLE, SLIDES, ASPIRATE AND CORE LEFT ILIAC DX: M-SPIKE, KAPPA-LAMBDA RATIO 13 MYD88 POSITIVE, THROMBOCYTOPENIA,WALDENSTROMS MACROGLOBULINEMIADIAGNOSIS UNDER CONSIDERATION ??OTHER R/O ;CYTOPENIAS FROM UNCLEAR ETIOLOGY CD20 Negative CANCER [facility] Comment: Clone: ??L26 ?? Lucas B-cell antigen CD138 Plasma cells positive [facility]CER PHYSIOLOGICAL CHEMIST [facility] Comment: Clone: ??B-A38 ?? Plasma cells and epithelial cell subset CD34 Rare blasts positive [facility]ER PHYSIOLOGICAL CHEMIST [facility] Comment: Clone: ??QBEnd 10 ?? Endothelial and stem cells, GIST, Blasts CD117 Rare blasts positive [facility]ER PHYSIOLOGICAL CHEMIST [facility] Comment: Clone: ??YR145 ?? c-kit ligand, myeloid and mast cell marker, GIST CD19 See Note CANCER [facility] Comment: Rare B cells positive; plasma cells positive Clone: ??EP169 ?? Mature and immature B-cells PAX-5 Rare B cells positive [facility] Comment: Clone: ??SP-34 ?? B-cell stock speculator factor IgM Plasma cells positive [facility]ER PHYSIOLOGICAL CHEMIST [facility] Comment: Clone: ??Polyclonal ?? Immunoglobulin M heavy chain CD61 Megakaryocytes positive [facility]ER PHYSIOLOGICAL CHEMIST [facility] Comment: Clone: ??2F2 ?? Megakaryocytes, Platelets Disclaimer See Note [facility]CER [facility] Comment: These tests were developed and their performance characteristics determined by [employer]. ??They may not be cleared or approved by the U.S. Food and Drug Administration. ??The FDA has determined that such clearance or approval is not necessary. ??These tests are used for clinical purposes. ??They should not be regarded as investigational or for research. This laboratory has been approved by [facility], designated as a high-complexity laboratory and is qualified to perform these tests. Associated Tests See Note [facility] Comment: Flow Cytometry Analysis for Myeloid/Lymphoid Disorders and Acute Leukemia released on: 05/24/2024 Bone Marrow Morphology released on: 05/24/2024 OnRamon(TM) Advanced Chronic Lymphoid Neoplasm NGS Report Electronic Signature See Note [facility] Comment: Cristina Campbell M.D. Pathologist, ex. [phone] This report was electronically signed. 05/20/2024 9:20 AM CHIEF CONCIERGE Narrative [facility] - 05/24/2024 2:15 PM CHIEF CONCIERGE Testing performed at: [employer]. [address] [place] [address], Airconditioning Engineer: ??Dr. Jose Eduardo Kinney M.D.; [facility] Accn#:[id number] Isreal Simms MD LAB SEND OUTS Final Resul t CANCER PHYSIOLOGICAL CHEMIST [facility] [place] [address], * (ABNORMAL) INTEGRATED HEMATOPATHOLOGY SUMMARY REPORT HL7 [place] A023-4 (05/20/2024 9:20 AM CHIEF CONCIERGE) COMP. BONE MARROW REPORT Positive (A) [facility]CER PHYSIOLOGICAL CHEMIST [facility] Clinical Information See Note [facility] Comment: Waldenstrom macroglobulinemia, IgM kappa M-spike, positive MYD88 mutation - follow-up Specimen Comment See Note [facility] Comment: 1 GREEN, 1 PURPLE, SLIDES, ASPIRATE AND CORE LEFT ILIAC DX: M-SPIKE, KAPPA-LAMBDA RATIO 13 MYD88 POSITIVE, THROMBOCYTOPENIA,WALDENSTROMS MACROGLOBULINEMIADIAGNOSIS UNDER CONSIDERATION ??OTHER R/O ;CYTOPENIAS FROM UNCLEAR ETIOLOGY Diagnosis See Note [facility] Comment: BONE MARROW; ILIAC CREST; CORE BIOPSY, CLOT AND ASPIRATE SMEARS. 1. 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 ?- Pattern of involvement: interstitial and paratrabecular; ?- Extent of involvement: 45-50%; ?- NGS: low level mutation in MYD88 and TP53 2. The residual marrow shows trilineage maturation, decreased megakaryocytes with mild atypia. ?- Overall marrow cellularity: 30%; ?- Number of blasts: <1%; ?- Marrow fibrosis: mild patchy (MF-1), associated with plasma cell infiltrate; ?- Iron storage: not detected (insufficient spicules for reliable evaluation); ?- Cytogenetic studies: abnormal male karyotype, loss of the chromosome Y, possibly age-related change. See comments. Diagnostic Comments See Note [facility] Comment: - The decreased megakaryocytes with mild atypia noted is not specific, possibly reactive, such as due to therapy effect, etc. ??Correlation with other clinical and laboratory information, and follow-up, is recommended. Prognostic Comments See Note [facility] Comment: TP53 mutations are indicators of higher risk disease stratification in lymphoma. Morphology See Note(A) [facility] Comment: BONE MARROW; ILIAC CREST; CORE BIOPSY, CLOT AND ASPIRATE SMEARS. 1. 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 ?- Pattern of involvement: interstitial and paratrabecular; ?- Extent of involvement: 45-50%; 2. The residual marrow shows trilineage maturation, decreased megakaryocytes with mild atypia. ?- Overall marrow cellularity: 30%; ?- Number of blasts: <1%; ?- Marrow fibrosis: mild patchy (MF-1), associated with plasma cell infiltrate; ?- Iron storage: not detected (insufficient spicules for reliable evaluation); See comments. FLOW CYTOMETRY:FLOW CYTOMETRY ANALYSIS FOR MYELOID/LYMPHOID [place] See Note(A) [facility] PHYSIOLOGICAL CHEMIST [facility] Comment: BONE MARROW ASPIRATE: - A clonal IgM kappa plasma cell population is detected. - Granulocytes and monocytes with aberrant phenotype. - B cell are essentially absent. - ??In the sample analyzed, there is no evidence of a T-cell lymphoproliferative disorder. ImmunophenotypicAnalysis: Percentage of abnormal cells: 0.4% Cell Size: Medium A monoclonal IgM kappa plasma cell (CD38 bright) population is present. There is a mixed population of maturing myeloid cells, B cells and T cells. ??There is no increase in CD34 positive blasts, and they comprise 0.3% of the total cells. ?? CD56 is aberrantly coexpressed in a subset of the maturing myelomonocytic population. The B-cells are essentially absent. The T-cells (5-6% of total) show no lucas T-cell antigen deletion. ??The CD4:CD8 ratio is within normal limits. IHC:Immunistochemistr y See Note(A) [facility] Comment: - Plasma cell infiltrate, IgM positive, estimate 45-50% of cellularity. - No B cell infiltrate is seen. - Decreased megakaryocytes, with atypia. Fluorescence Initu Hybridization (FISH) See Note [facility] Comment: - No evidence of deletion of 5q or monosomy 5. - No evidence of monosomy 7 or deletion of 7q. - No evidence of trisomy 8 (+8). - No evidence of deletion of 20q12. Cytogenetics 45,X,-Y[ 14]/46,X Y[6](A) [facility] PHYSIOLOGICAL CHEMIST [facility] Disclaimer See Note [facility] Comment: These tests were developed and their performance characteristics were determined by [employer]. ??They may not be cleared or approved by the U.S. Food and Drug Administration. ??The FDA has determined that such clearance or approval is not necessary. ??These results may be used for clinical, investigational or for research purposes, and should be interpreted with other relevant clinicopathologic data. Electronic Signature See Note CANCER PHYSIOLOGICAL CHEMIST [facility] Comment: Cristina Campbell M.D. Hematopathologist, ex. [phone] This report was electronically signed. 05/20/2024 9:20 AM CHIEF CONCIERGE Narrative CANCER PHYSIOLOGICAL CHEMIST [facility] - 06/06/2024 5:15 PM CHIEF CONCIERGE Testing performed at: [employer]. [address] [place], [place] [address] [address], Airconditioning Engineer: ??Dr. Jose Eduardo Kinney M.D.; [facility] Accn#:[id number] us Isreal Simms MD LAB SEND OUTS Final Resul t CANCER PHYSIOLOGICAL CHEMIST [facility] [place] [address], * MDS FISH PANEL [place] 5281-1 (05/20/2024 9:20 AM CHIEF CONCIERGE) GP/+8,-5/5Q-,-7/7Q- ,20Q, FISH Negative [facility] [id number]/XCE 7 for -7/7q- - Normal Nuclei 100.00 % CANCER PHYSIOLOGICAL CHEMIST [facility] Comment: INTERPRETATION : No evidence of monosomy 7 or deletion of 7q. PROBE TYPE : Dual Color CATALOG ID: Infinite[employer]ly [id number] ISCN NOMENCLATURE: nuc aretha(D7Z1,J0U153)x2[300] NORMAL BACKGROUND CUTOFF VALUE(S): (PB and BM): 2.4%, 1% for FFPE Note: Positive signals detected below the determined cutoff value are considered a negative result. For any given probe, a cutoff value is determined by serial analysis of normal cases, and is an artifact inherent to the methodology. Automated imaging analysis performed using the [employer] [place] Imaging System on a [employer] slide scanning platform, AQUA PURE, [facility] GP/+8,-5/5Q-,-7/7Q- ,20Q, FISH Negative CANCER PHYSIOLOGICAL CHEMIST [facility] XL 5q31 - Normal Nuclei 100.00 % [facility] Comment: INTERPRETATION : No evidence of deletion of 5q or monosomy 5. PROBE TYPE : Dual Color CATALOG ID: [id number] [employer]s [id number] ISCN NOMENCLATURE: nuc aretha([id number],[id number],EGR1)x2[300] NORMAL BACKGROUND CUTOFF VALUE(S): (PB and BM): 1.0%, 0.7% for FFPE Note: Positive signals detected below the determined cutoff value are considered a negative result. For any given probe, a cutoff value is determined by serial analysis of normal cases, and is an artifact inherent to the methodology. Automated imaging analysis performed using the Sk[employer] [place] Imaging System on a [employer] slide scanning platform, Infinite.ly [facility], [facility] GP/+8,-5/5Q-,-7/7Q- ,20Q, FISH Negative [facility] [id number] for del(20q) - Normal Nuclei 98.67 % CANCER [facility] [id number] for del(20q) - Positive Nuclei with del(20q) 1.33 % [facility] Comment: INTERPRETATION : No evidence of deletion of 20q12. PROBE TYPE : Single Color CATALOG ID: [id number] [employer] [id number] [facility] NOMENCLATURE: nuc aretha([id number],I77Z869)x2[300] NORMAL BACKGROUND CUTOFF VALUE(S): (PB and BM): 4.0%, 1.6% for FFPE Note: Positive signals detected below the determined cutoff value are considered a negative result. For any given probe, a cutoff value is determined by serial analysis of normal cases, and is an artifact inherent to the methodology. Automated imaging analysis performed using the [employer] [place] Imaging System on a [employer] slide scanning platform, [facility] GP/+8,-5/5Q-,-7/7Q- ,20Q, FISH Negative CANCER PHYSIOLOGICAL CHEMIST [facility] XCE 8 - Normal Nuclei 100.00 % [facility] Comment: INTERPRETATION : No evidence of trisomy 8 (+8). PROBE TYPE : Single Color Centromeric, 8p11.1-q11.1 CATALOG ID: [employer] [id number] ISCN NOMENCLATURE: nuc aretha(D8Z2x2)[300] NORMAL BACKGROUND CUTOFF VALUE(S): (PB and BM): 2.0%, 1.2% for FFPE Note: Positive signals detected below the determined cutoff value are considered a negative result. For any given probe, a cutoff value is determined by serial analysis of normal cases, and is an artifact inherent to the methodology. Automated imaging analysis performed using the Sk[employer] [place] Imaging System on a [employer] slide scanning platform, Inf[employer]ly [facility], [employer], Yunior Clinical Information See Note CANCER PHYSIOLOGICAL CHEMIST [facility] Comment: Waldenstrom macroglobulinemia, IgM kappa M-spike, positive MYD88 mutation - follow-up REFERENCES: 1. Gifty J, Armaan S, Eayl JS. ??The 5q- syndrome. ??Blood 84:7546-8374, 1993. 2. Goncalves P, Orozco C, et. al. ??International scoring system for evaluating prognosis in myelodysplastic syndromes. ??Blood 89:0908-5427, 1996. 3. Vika S and Neymar F. Cancer Cytogenetics, 3nd edition, Tejeda-Kingsley, A ??[employer]akir Tejeda and [employer], INC 2008. 4. Marjorie Salomon, Bassam Farmer, Neymar Salomon. ??Cancer Erika Cytogenet. ?? 83:176-177;1994. 5. Vysis Product Catalog, 2003 6. World Health Organization Classification of Tumors. ??Tumors of Haematopoietic and Lymphoid Tissues, IARC Press, Simon, Mariam, 2008. ASSOCIATED TESTS: Flow Cytometry Analysis for Myeloid/Lymphoid Disorders and Acute Leukemia released on: 05/24/2024 Bone Marrow Morphology released on: 05/24/2024 [facility] Advanced Chronic Lymphoid Neoplasm NGS Report released on: 05/26/2024 Immunohistochemistry released on: 05/24/2024 Cytogenetics OnkoSit(TM) Advanced NGS Myeloid Report DISCLAIMER: The following probes contain 2 or more separate fluorochromes and are considered multiplex probes: 1q21/CKS1B, 4q12 for PDGFRalpha, AML1/ETO, BCR/ABL1, BCL6, CBFB for inv(16), O4M468/XCE7 for -7/7q-, IGH/BCL2, IGH/CCND1, IGH/FGFR3, IGH/MAF, IGH/MYC, IGH (14q32),MDM2, MET, MLL for t(11q23), MYC BA, PML/ALFONSO, PTEN 10q23, ROS1, XL5q31, XL t(14;20) IGH/MAFB, XL ALFONSO (17q21), XL FOXO1, 1p36/19q, XL SS18, XL EWSR1(22q12), PDGFRB, XL FGFR1 BA. CEP X/Y, ALK (2p23), UroVysion and HER2/rosalia by FISH probes are FDA cleared. - For discussion of prognosis implications, the physician and/or patient may consult with a genetic counselor and/or a genetic specialist. - These tests were developed and their performance characteristics were determined by [employer]. These tests have not been cleared or approved by the U.S. Food and Drug Administration. The FDA does not require these test to go through premarket FDA review. These tests are used for clinical purposes. It should not be regarded as investigational or for research. [employer] is certified under the Clinical Laboratory Improvement Amendments of 1988 CLIA as qualified to perform high complexity clinical testing. ELECTRONIC SIGNATURE: Cristina Campbell M.D. Hematopathologist, ex. [phone] This report was electronically signed. 05/20/2024 9:20 AM CHIEF CONCIERGE [facility] CANCER PHYSIOLOGICAL CHEMIST [facility] - 05/26/2024 7:15 PM CHIEF CONCIERGE Testing performed at: [employer]. [address] [place], [place] [address] [address], Airconditioning Engineer: ??Dr. Jose Eduardo Kinney M.D.; [facility] Accn#:[id number] Isreal Simms MD PATHOLOGY/CYTOLOGY ORDERABL ES Final Result CANCER PHYSIOLOGICAL CHEMIST [facility] [address] [place] [address], * (ABNORMAL) CCS-ACUTE LEUKEMIA & CYTOPLASMIC FLOW PANEL (NON-[place]) W[place] B997-8 (05/20/2024 9:20 AM CHIEF CONCIERGE) PC-ACUTE + CYTOPLASMIC Positiv e(A) [facility]ER PHYSIOLOGICAL CHEMIST [facility] Comment: INTERPRETATION BONE MARROW ASPIRATE: - A clonal IgM kappa plasma cell population is detected. - Granulocytes and monocytes with aberrant phenotype. - B cell are essentially absent. - ??In the sample analyzed, there is no evidence of a T-cell lymphoproliferative disorder. COMMENT Please refer to [facility]Path bone marrow morphology report and cytogenetic studies for final interpretation. CLINICAL INFORMATION: Waldenstrom macroglobulinemia, IgM kappa M-spike, positive MYD88 mutation - follow-up DIAGNOSIS CODE(S): C88.0, D61.818 SPECIMEN COMMENT: 1 GREEN, 1 PURPLE, SLIDES, ASPIRATE AND CORE LEFT ILIAC DX: M-SPIKE, KAPPA-LAMBDA RATIO 13 MYD88 POSITIVE, THROMBOCYTOPENIA,WALDENSTROMS MACROGLOBULINEMIADIAGNOSIS UNDER CONSIDERATION ??OTHER R/O ;CYTOPENIAS FROM UNCLEAR ETIOLOGY IMMUNOPHENTYPIC ANALYSIS: Percentage Of Abnormal Cells: 0.4% ??Cell Size: Medium A monoclonal IgM kappa plasma cell (CD38 bright) population is present. There is a mixed population of maturing myeloid cells, B cells and T cells. ?? There is no increase in CD34 positive blasts, and they comprise 0.3% of the total cells. ?? CD56 is aberrantly coexpressed in a subset of the maturing myelomonocytic population. The B-cells are essentially absent. The T-cells (5-6% of total) show no lucas T-cell antigen deletion. The CD4:CD8 ratio is within normal limits. DISCLAIMER: Antibodies Analyzed: CD19,CD20,CD22,CD10,CD11c,CD23,FMC7,Keota,Lambda,CD2,CD3,CD4,CD5, CD7,CD8,CD56,CD57,CD11b,CD13,CD14,CD16,CD33,CD64,CD34,CD38,CD117, HLA-DR,CD45 ?? - The technical component of Flow Cytometry was performed at [facility] [place], [address] ??[address]. ??These tests were developed and their performance characteristics were determined by [facility] ??They may not be cleared or approved by the U.S. Food and Drug Administration. ??The FDA has determined that such clearance or approval is not necessary. ?? These results may be used for clinical, investigational or for research purposes, and should be interpreted with other relevant clinicopathologic data. ASSOCIATED TESTS: Bone Marrow Morphology released on: 05/24/2024 OnRamon(TM) Advanced Chronic Lymphoid Neoplasm NGS Report Immunohistochemistry released on: 05/24/2024 ELECTRONIC SIGNATURE: Cristina Campbell M.D. Hematopathologist, ex. [phone] This report was electronically signed. 05/20/2024 9:20 AM CHIEF CONCIERGE Narrative CANCER PHYSIOLOGICAL CHEMIST [facility] - 05/24/2024 2:15 PM CHIEF CONCIERGE Testing performed at: [employer]. [address] [place] [address], Airconditioning Engineer: ??Dr. Jose Eduardo Kinney M.D.; [employer] Accn#:[id number] us Isreal Simms MD PATHOLOGY/CYTOLOGY ORDERABL ES Final Result CANCER PHYSIOLOGICAL CHEMIST [facility] [place] [address], * (ABNORMAL) CHROMOSOME ANALYSIS WY 5250-6 (05/20/2024 9:20 AM CHIEF CONCIERGE) Only the most recent of2 resultswithin the time period is included. 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 No other aberrations were identified, and six normal cells were found. - Loss of the Y chromosome is a frequent finding in bone marrow cells of older men most often attributed to a normal aging phenomenon. Loss of the Y chromosome has also been reported in hematologic disorders such as MDS, MPD, AML, and lymphoproliferative disease but is usually associated with other cytogenetic anomalies. - Correlation with hematopathology is suggested. 45,X,-Y[14]/46,XY[6] Clinical Information See Note CANCER PHYSIOLOGICAL CHEMIST [facility] Comment: Waldenstrom macroglobulinemia, IgM kappa M-spike, positive MYD88 mutation - follow-up Specimen Comment See Note [facility] Comment: 1 GREEN, 1 PURPLE, SLIDES, ASPIRATE AND CORE LEFT ILIAC DX: M-SPIKE, KAPPA-LAMBDA RATIO 13 MYD88 POSITIVE, THROMBOCYTOPENIA,WALDENSTROMS MACROGLOBULINEMIADIAGNOSIS UNDER CONSIDERATION ??OTHER R/O ;CYTOPENIAS FROM UNCLEAR ETIOLOGY Karyotype 45,X,-Y [14]/46 ,XY[6]( A) [facility] PHYSIOLOGICAL CHEMIST [facility] Metaphases Counted 20 C ANCER PHYSIOLOGICAL CHEMIST [facility] Metaphases Analyzed [address] [facility] Metaphases Karyotyped 5 [facility] PHYSIOLOGICAL CHEMIST [facility] GTG Band Level 400 [facility] R [facility] Culture Type(s) 72hrU CANC ER PHYSIOLOGICAL CHEMIST [facility] Comment: DISCLAIMER: Due to the limits of this technology, the presence of low level mosaicism and/or subtle chromosome abnormalities cannot be completely excluded. This test was developed and its performance characteristics were determined by [employer] It has not been cleared or approved by the FDA. The FDA has determined that such clearance or approval is not necessary. This laboratory is regulated under CLIA as qualified to perform high-complexity testing. This test is used for clinical purposes. The test results should be interpreted with other relevant clinicopathologic data. ASSOCIATED TESTS: Flow Cytometry Analysis for Myeloid/Lymphoid Disorders and Acute Leukemia released on: 05/24/2024 Bone Marrow Morphology released on: 05/24/2024 Onsimfyt() Advanced Chronic Lymphoid Neoplasm NGS Report released on: 05/26/2024 Immunohistochemistry released on: 05/24/2024 Onsimfyt(TM) Advanced NGS Myeloid Report released on: 05/28/2024 Fluorescence In-Situ Hybridization (FISH) released on: 05/26/2024 ELECTRONIC SIGNATURE: Dionne Velasco M.D., [facility] Director, Cytogenetics, ex. [phone] This report was electronically signed. 05/20/2024 9:20 AM CHIEF CONCIERGE Narrative [facility] - 05/29/2024 11:45 PM CHIEF CONCIERGE Testing performed at: [employer], [place]. [address] [place] [id number], Airconditioning Engineer: ??Dr. Jose Eduardo Kinney M.D.; [facility] Accn#:[id number] us Isreal Simms MD PATHOLOGY/CYTOLOGY ORDERABL ES Final Result [facility] [place] [address], * (ABNORMAL) BONE MARROW MORPHOLOGY [place] 5199-5 (05/20/2024 9:20 AM CHIEF CONCIERGE) BONE MARROW ANALYSIS Positive (A) [facility] Comment: COMMENT - Correlation with NGS for MYD88 status to follow. - The decreased megakaryocytes with mild atypia noted is not specific, possibly reactive, such as due to therapy effect, etc. However, correlation with pending cytogenetic, FISH and NGS studies is recommended for further characterization, to exclude an early low grade MDS. Clinical Information See Note [facility] PHYSIOLOGICAL CHEMIST [facility] Comment: Waldenstrom macroglobulinemia, IgM kappa M-spike, positive MYD88 mutation - follow-up Diagnosis Code(s) C88.0, D61.818 [facility] Diagnosis See Note [facility] Comment: BONE MARROW; ILIAC CREST; CORE BIOPSY, CLOT AND ASPIRATE SMEARS. 1. 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 ?- Pattern of involvement: interstitial and paratrabecular; ?- Extent of involvement: 45-50%; 2. The residual marrow shows trilineage maturation, decreased megakaryocytes with mild atypia. ?- Overall marrow cellularity: 30%; ?- Number of blasts: <1%; ?- Marrow fibrosis: mild patchy (MF-1), associated with plasma cell infiltrate; ?- Iron storage: not detected (insufficient spicules for reliable evaluation); See comments. Specimen Comment See Note [facility]YSIOLOG[facility] CHEMIST [facility] Comment: 1 GREEN, 1 PURPLE, SLIDES, ASPIRATE AND CORE LEFT ILIAC DX: M-SPIKE, KAPPA-LAMBDA RATIO 13 MYD88 POSITIVE, THROMBOCYTOPENIA,WALDENSTROMS MACROGLOBULINEMIADIAGNOSIS UNDER CONSIDERATION ??OTHER R/O ;CYTOPENIAS FROM UNCLEAR ETIOLOGY Plasma Cells 10 0-1% % [facility]ER PHYSIOLOGICAL CHEMIST [facility] Myeloblasts <1 0-3% % [facility] Promyelocytes 4 2-8% % [facility] PHYSIOLOGICAL CHEMI[facility] Myelocytes 12 10-13% % [facility] Metamyelocytes 11 10-15% % [facility] R PHYSIOLOGICAL CHEMIST [facility] Neutrophils / Bands 20 25-40% % [facility] PHYSIOLOGICAL CHEMIST [facility] Monocytes 1 0-1% % [facility] Eosinophils 1 1-3% % [facility] Basophils <1 0-1% % [facility] Lymphocytes 4 10-15% % [facility] Pronormoblasts 5 0-2% % [facility] PHYSIOLOGICAL CHEMI[facility] Normoblasts 32 15-25% % [facility] WBC 1.4 k/uL [facility] ANC 0.9 k/uL [facility] Hgb 7.7 gm/dL [facility] HCT 24.5 % [facility] MCV 104 fL [facility] RDW 22.9 fL [facility] PLT 23 k/uL [facility] Aspirate Cellularity See Note [facility] PHYSIOLOGICAL CHEMIST [facility] Comment: Satisfactory quality. The submitted bone marrow aspirate smear is cellular with adequate spicules and maturing trilineage hematopoiesis. Myeloid Precursors See Note [facility] PHYSIOLOGICAL CHEMIST [facility] Comment: The myeloid series shows complete granulocytic maturation to segmented neutrophils without definite dysgranulopoietic features. There is no increase in number of blasts. Erythroid Precursors See Note [facility]SIOLOG[facility]MI[facility] Comment: Erythroid precursors show normoblastic maturation without prominent nuclear-cytoplasmic dyssynchrony or other overt dyserythropoietic features. Megakaryocytes See Note [facility] Comment:Megakaryocytes are a dequate in number without significant cytologic atypia. Lymphoid Cells See Note [facility] Comment: Lymphocytosis with heterogeneous population of lymphocytes ranging from small lymphocytes to plasmacytoid cells to cells that have mature plasma cell appearance. Plasma Cells See Note [facility] Comment: Mild plasmacytosis. ??Plasma cells appear mature with basophilic cytoplasm, round nuclei with clumped chromatin. Plasma cells with Willam bodies and Umnag bodies are noted. Iron Stain See Note [facility] Comment: Minute spicule with absent iron storage. No ring sideroblasts are noted.Overall, inadequate spicules for assessment of storage iron. Biopsy/Clot See Note [facility] Comment: Core: Satisfactory quality. Variably cellular, overall normocellular for age bone marrow (up to 30% cellularity) with maturing trilineage hematopoiesis and plasma cell infiltrate with interstitial and paratrabecular pattern, as highlighted by CD138/IgM immunostains, estimated 45-50% of cellularity present in the sample. B cells are not increased. CD20 immunostain is negative an CD19/PAX-5 immunostainig reveals a rare small B cell/hematogone. The M:E ratio is within normal limits. There is no increase in mononuclear blast-like cells. Megakaryocytes are decreased in number and exhibit mild cytologic atypia, pleomorphism, including small with hypo/monolobated and hyperchromatic nuclei. Mast cells are not increased. Clot: Non-contributory - Several minute marrow particles only. Reticulin: MF-1. Loose network of reticulin with many intersections (cross-overs), especially in perivascular areas. Iron: No iron particles are present in decalcified core biopsy or clot section. Gross Description See Note [facility] Comment: 1) Core: Received in formalin are multiple portions (2) of firm brown bony material measuring 1.1 x 0.2 x 0.2 cm and 1.0 x 0.2 x 0.2 cm entirely submitted in 1 cassette following decalcification. ?? 2) Clot: Received in formalin, clotted material measuring 2.2 x 2.0 x 0.5 cm in aggregate, entirely submitted in 2 cassettes. 3) Number of slides received: Ten. Associated Tests See Note [facility] Comment: Flow Cytometry Analysis for Myeloid/Lymphoid Disorders and Acute Leukemia released on: 05/24/2024 On[facility]Sight(TM) Advanced Chronic Lymphoid Neoplasm NGS Report Immunohistochemistry released on: 05/24/2024 Electronic Signature See Note [facility]ER PHYSIOLOGICAL CHEMIST [facility] Comment: Cristina Campbell M.D. Hematopathologist, ex. [phone] This report was electronically signed. 05/20/2024 9:20 AM CHIEF CONCIERGE Narrative [facility] - 05/24/2024 2:15 PM CHIEF CONCIERGE Testing performed at: [employer]. [address] [place], [place] [address] [address], Airconditioning Engineer: ??Dr. Jose Eduardo Kinney M.D.; [facility] Accn#:[id number] Release to patient->Immediate Isreal Simms MD LAB SEND OUTS Final Resul t [facility]CER PHYSIOLOGICAL CHEMIST [facility] [place] [address], * (ABNORMAL) [facility] ADVANCED CHRONIC LYMPHOID NEOPLASM NGS PANEL, [address] (05/20/2024 9:20 AM CHIEF CONCIERGE) [facility] NE[facility] NGS PANEL ABNORMAL (A) [facility] PHYSIOLOGICAL CHEMIST [facility] Comment: OnkoSight Advanced Chronic Lymphoid Neoplasm NGS Panel - PB/BM Final Report - RESULT SUMMARY: ABNORMAL - DETECTED GENOMIC ALTERATIONS: - ??Tier I: Variants of Strong Clinical Significance ??MYD88 p.(Zzh313Hox) ??TP53 p.(Mrj810Byk) - TUMOR TYPE: ??Waldenstrm Macroglobulinemia, Follow Up - IMMUNOTHERAPY BIOMARKERS: ??TUMOR MUTATION BURDEN: LOW (1.6 MUTATIONS / MB) - ??MICROSATELLITE INSTABILITY: MSI NEGATIVE (4.13%) - CLINICAL INFORMATION: ??Reported a clinical history of M-spike, kappa-lambda ration 13, ??MYD88 positive, thrombocytopenia, and Waldenstrom macroglobulinemia. - PERTINENT NEGATIVE RESULTS: ??The following genes are NEGATIVE for clinically relevant mutations. ??Mutational hotspots and surrounding exonic regions were interrogated ??for DNA level point mutations and indels (fusions not assayed). ??ELBA, BCL2, BCL6, BIRC3, BRAF, BTK, CARD11, CD79B, CDKN2A, CREBBP, ??CXCR4, DNMT3A, EP300, EZH2, IDH1, IDH2, IKZF1, IRF4, JAK1, JAK3, ??KMT2D, KRAS, MAP2K1, MEF2B, MYC, NOTCH1, NOTCH2, NRAS, PIK3CA, ??PIK3CG, PLCG2, PTPRD, RHOA, SETD2, SF3B1, STAT3, STAT5B, TET2, ??TNGIID63 - MUTATIONAL HOTSPOTS: ??The following recurrently mutated codons demonstrated adequate ??sequencing coverage depths and show wild type sequences only. ??Gene: BRAF Codons: 581, 594, 597, 600, 601 ??Gene: DNMT3A Codons: 882 ??Gene: EZH2 Codons: 646 ??Gene: IDH1 Codons: 132 ??Gene: IDH2 Codons: 140, 172 ??Gene: KRAS Codons: 12, 13, 59, 60, 61 ??Gene: NRAS Codons: 12, 13, 61 ??Gene: PIK3CA Codons: 81, 88, 93, 104, 106, 108, 111, 118, 542, 545, ??546, 1043, 1044, 1047, 1049 ??Gene: SF3B1 Codons: 623, 666, 700, 741 ??Gene: TP53 Codons: 175, 213, 245, 248, 273 ??The following recurrently mutated codons demonstrated inadequate ??sequencing coverage depths (<100x), and the possibility of ??undersensitive detection cannot be excluded. ??Not Applicable - TRANSCRIPT ACCESSIONS FOR INTERROGATED GENES: ??Gene: ELBA Transcript ID: [id number] ??Gene: BCL2 Transcript ID: [id number] ??Gene: BCL6 Transcript ID: [id number] ??Gene: BIRC3 Transcript ID: [id number] ??Gene: BRAF Transcript ID: [id number] ??Gene: BTK Transcript ID: NM_000061.2 ??Gene: CARD11 Transcript ID: [id number] ??Gene: CD79B Transcript ID: [id number] ??Gene: CDKN2A Transcript ID: NM_000077.4 ??Gene: CREBBP Transcript ID: [id number] ??Gene: CXCR4 Transcript ID: NM_003467.2 ??Gene: DNMT3A Transcript ID: [id number] ??Gene: EP300 Transcript ID: [id number] ??Gene: EZH2 Transcript ID: [id number] ??Gene: IDH1 Transcript ID: [id number] ??Gene: IDH2 Transcript ID: [id number] ??Gene: IKZF1 Transcript ID: [id number] ??Gene: IRF4 Transcript ID: [id number] ??Gene: JAK1 Transcript ID: [id number] ??Gene: JAK3 Transcript ID: [id number] ??Gene: KMT2D Transcript ID: [id number] ??Gene: KRAS Transcript ID: [id number] ??Gene: MAP2K1 Transcript ID: NM_002755.3 ??Gene: MEF2B Transcript ID: [id number] ??Gene: MYC Transcript ID: [id number] ??Gene: MYD88 Transcript ID: [id number] ??Gene: NOTCH1 Transcript ID: [id number] ??Gene: NOTCH2 Transcript ID: [id number] ??Gene: NRAS Transcript ID: [id number] ??Gene: PIK3CA Transcript ID: [id number] ??Gene: PIK3CG Transcript ID: [id number] ??Gene: PLCG2 Transcript ID: [id number] ??Gene: PTPRD Transcript ID: NM_002839.4 ??Gene: RHOA Transcript ID: NM_001664.3 ??Gene: SETD2 Transcript ID: [id number] ??Gene: SF3B1 Transcript ID: [id number] ??Gene: STAT3 Transcript ID: [id number] ??Gene: STAT5B Transcript ID: [id number] ??Gene: TET2 Transcript ID: [id number] ??Gene: VDVRFG61 Transcript ID: NM_[id number] ??Gene: TP53 Transcript ID: [id number] - COVERAGE DEPTHS: ??Among the following targeted exons, >50% of coding sequences failed ??to achieve >100x coverage depths. Analytic sensitivity for ??potentially relevant genomic alterations may therefore be limited ??among the following interrogated loci: ??Gene: NOTCH1 Exons: 1 ??Gene: STAT5B Exons: 7 THERAPEUTIC ASSOCIATIONS AND PROGNOSTIC ASSOCIATIONS SEE BELOW [facility] Comment: PROGNOSTIC ASSOCIATIONS: ??Gene: TP53 ??Alteration: p.(Jdl222Reh) - ??Associated with Reduced Survival and Resistance to Chemotherapy ??Disease Association: Lymphoid and Myeloid Neoplasms INTERPRETATION SUMMARY SEE BELOW(A) [facility] Comment: INTERPRETATION SUMMARY: - ??It should be noted that this patient has had one or more additional ??NGS studies. The most recent study showed the following mutation(s): ??MYD88 p.Blx007Nmw (4%) and the following unclear variant(s): FLT3 ??p.Lwj004Gbl (3%). Please see the previous [facility] NGS ??Myeloid Report, Collection Date: Mar 11, 2024, Specimen ID: ??[id number]. ??Please note, manual inspection of archived, raw NGS data in the ??prior sample, [id number], obtained from this patient showed evidence ??of the TP53 (p.(Gmx252Wvl)) variants reported here among 1.7% of NGS ??reads (which is below the validated reporting threshold in the ??assay) in [id number]. 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 ??MYD88 p.Yzj029Kfb hotspot mutations are recurrent in >90% of ??Waldenstrm macroglobulinemias / lymphoplasmacytic lymphomas, and ??approximately 30% of the activated B-cell-like (ABC) subtype of ??diffuse large B-cell lymphomas (DLBCL). This mutation is otherwise ??uncommon but has been extremely rarely identified among other small ??B-cell neoplasms (52345756; 72535204; 23100903; 02641722; 99266844; ??95948929; 77345797). MYD88, p.L265P mutations are also recurrent in ??approximately half of IgM type monoclonal gammopathy of undetermined ??significance, in which setting MYD88 mutation is an independent risk ??factor for disease progression (WHO Haematopoietic and Lymphoid ??Tissues, 2023). The presence of MYD88 mutations may be ??therapeutically predictive of responses to David tyrosine kinase ??(BTK) inhibitors such as Ibrutinib, and Interleukin-1 ??receptor-associated kinase (IRAK) inhibitors (87495952; 86418246; ??44786514; NCCN Guidelines, Waldenstrm ??Macroglobulinemia/Lymphoplasmacytic Lymphoma, Version ). ??A hotspot mutation in TP53 (p.(Ols115Fvd)) was detected in this ??patients sample. ??TP53 mutations are also indicators of higher risk disease ??stratification in lymphoma. TP53 mutation is associated with ??especially poor prognosis when identified in conjunction with ??deletions in chromosome 17p [del(17p)] which are are associated with ??markedly decreased survival and predict impaired response to ??chemoimmunotherapy. Targeted agents including ibrutinib, idelalisib, ??venetoclax, or obinutuzumab may be of interest, if clinically ??indicated (42364796; NCCN Guidelines, B-Cell Lymphomas, Version ??; 78756165). ??TP53 mutations are otherwise known to be nonspecifically recurrent ??across the spectrum of hematopoietic malignancies, including ??lymphoplasmacytic lymphomas (WHO Haematopoietic and Lymphoid ??Tissues, 2023). According to WHO-HEAM-5, TP53 mutations are ??considered to be multihit if either 2 different TP53 mutations, a ??single TP53 mutations with VAF >60%, or a single TP53 mutation ??with 17p loss on karyotype are present. ??In multiple myeloma (MM), TP53 vfbp-pi-prescdzv mutations are ??considered a high-risk feature, with a poor prognosis and low ??overall survival rate (67987944; 97189180; NCCN Guidelines, Multiple ??Myeloma, Version .2024). TP53 mutations have been associated with ??disease progression, and are rare (3%) in newly diagnosed patients ??(94101748; 79559069). Additionally, TP53 mutations are more likely ??to be identified in patients with MM harboring a deletion of ??chromosome 17p (37%) (37547765). ??The present sample analysis is NEGATIVE for evidence of high level ??Tumor Mutation Adelanto or high level microsatellite instability. ??The present sample analysis is negative for high level Tumor ??Mutation Adelanto. Presence of >10 mutations / megabase has been ??reported to be therapeutically predictive of favorable clinical ??outcomes and responsiveness to immune checkpoint inhibitors, ??according to some studies (29605757; 70315421). TMB is an evolving ??biomarker, and consensus standardization for this biomarker remains ??an ongoing imperative (48641629). To date, the median TMB for all ??tumor types tested by [facility] in general, is ??approximately 3.9 mutations / megabase, and 1.6 mutations / megabase ??for lymphoid neoplasm, in particular. According to some large scale ??cohorts published in the primary literature, a median TMB value of ??1.7 mutations / megabase has been reported for chronic lymphocytic ??leukemia (97260328). ??The present sample analysis is also negative for high level ??microsatellite instability. ??Clinical and pathologic correlation is required to interpret these ??findings. ALLELE FREQUENCIES SEE BELOW [facility] Comment: ALLELE FREQUENCIES: ??,02/25/2024,03/11/2024,05/20/2024 ??FLT3 p.G863C,0.0,3.08, ??MYD88 p.L265P,0.0,4.23,1.0 ??TP53 p.R282W,2.4,0.0,5.42 DETAILED GENETIC INTERPRETATION 1 SEE BELOW [facility] Comment: DETAILED GENETIC INTERPRETATION: ??Genomic Alteration: MYD88 p.(Aea766Fyx) c.794T>C ??Allele frequency: 1% allele frequency ??Exon: 5 ??Transcript : [id number] ??Interpretation: ??p.Gyu779Llt represents a hotspot missense mutation in exon 5 of ??MYD88 converting the wild type amino acid, Leucine, into amino acid ??Proline at residue 265. ??This variant targets a conserved residue in the Toll/IL-1 receptor ??(TIR) domain in the hydrophobic core of the protein, promotes a ??stable signaling complex and leads to increased NF-kB and PEDRO/STAT3 ??signaling (91859552). ??The MYD88 gene (myeloid differentiation primary response 88) is ??located on chromosome 3p22.2. The gene encodes an adapter protein in ??the Toll-like receptor and IL-1 receptor signaling pathways involved ??in immune response. ??Somatic mutations in MYD88 are mostly missense mutations located in ??the Toll/IL-1 receptor (TIR) domain. The most common mutation, the ??L265P substitution in the TIR domain, results in increased NF-kB and ??PEDRO/STAT3 signaling and gain of function (74327205). ??The MYD88 L265P mutation has been reported in about 30% of the ??activated B-cell-like (ABC) subtype of diffuse large B-cell lymphoma ??(DLBCL) and 90% of Waldenstrom macroglobulinemia and ??dly-CiY-uynacefqg lymphoplasmacytic lymphoma (LPL) cases, and less ??frequently in other B-cell disorders (15236943; 19850698; 98483888; ??03280718) - ??Genomic Alteration: TP53 p.(Mdd838Ovd) c.844C>T ??Allele frequency: 5% allele frequency ??Exon: 8 ??Transcript : [id number] ??Interpretation: ??p.Sme603Glv represents a hotspot missense mutation in exon 8 of TP53 ??converting the wild type residue, Arginine, into a Tryptophan at ??amino acid 282. ??This variant has been reported in a variety of malignancies (COSMIC) ??and has not been observed as a population variant in public genomic ??databases (EVS; ExAC). This substitution targets a residue located ??in the DNA-binding domain (DBD) that is critical for stabilizing the ??structural interactions within the DBD, and has been shown to be ??destabilizing to the protein in vitro (19871477; 48866075; ??64375423). This TP53 mutation has also been reported as a pathogenic ??germline mutation in Li-Fraumeni Syndrome (LFS) (ClinVar). ??The tumor protein p53 (TP53) is located on chromosome 17p13.1, and ??encodes a tumor suppressor protein. The TP53 protein mediates ??cellular response to DNA damage and is involved in a wide range of ??cellular processes, including transcriptional regulation, cell cycle ??control, apoptosis, and DNA repair. ??The TP53 gene is the most frequently mutated gene in human cancers, ??with somatic mutations associated with unfavorable prognosis in many ??tumor types (38889816; 78706869). Majority of the inactivating ??mutations are missense mutations that target the core DNA-binding ??domain (DBD), disrupting the DNA-binding capacity of p53 protein and ??leading to loss of function of the wild-type protein (02669465). ??Nonsense mutations, frameshift mutations, and deletions have also ??been reported in various tumor types. Some TP53 mutations are ??thought to result in dominant negative inhibition of wild-type p53 ??protein activity including inhibition of apoptosis, or in gain of ??function leading to increased proliferation, migration, and genomic ??instability (36130697; 27231782). ??Somatic mutations in TP53 are associated with leukemic ??transformation, complex karyotype, and adverse outcome in a number ??of hematological malignancies, including chronic myeloproliferative ??neoplasms (MPN) (53088507; 48465007), myelodysplastic syndrome (MDS) ??(06803570), and acute myeloid leukemia (AML) (27386763). Somatic ??TP53 mutations are independently associated with inferior prognosis ??in acute lymphoblastic leukemia (ALL) (28341541; 26123696; ??62223682). TP53 mutations also have prognostic value in common solid ??tumors (11552092). Pathogenic germline mutations in TP53 are ??associated with Li Fraumeni syndrome. 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 ?Conditions: Multiple Disease Types ?Location: [facility] ?[place] [address] [place] ?Sponsor: [facility] - ?NCTID: [id number] ?Title: 1922GCCC: Pembro and Bavituximab for Squamous Cell ?Carcinoma of Head and Neck ?Conditions: Squamous Cell Carcinoma ?Location: [place] [address] ?[place] ?Sponsor: [facility] - ?NCTID: [id number] ?Title: [id number], Ipilimumab, and Nivolumab With or Without ?Stereotactic Body Radiation Therapy in Treating Patients With ?Advanced or Metastatic Lung/Chest or Liver Cancers ?Conditions: Multiple Disease Types ?Location: [place] [address] [place] ?Sponsor: [facility] - ?NCTID: [id number] ?Title: Study of Safety and Tolerability of Nivolumab Treatment ?Alone or in Combination With Relatlimab or Ipilimumab in Head ?and Neck Cancer ?Conditions: Head and Neck Squamous Cell Carcinoma (HNSCC) ?Location: [address] ?[place] ?Sponsor: Aleksey Tran - ?NCTID: [id number] ?Title: Nivolumab/Ipilimumab Plus Cabozantinib in Patients With ?Unresectable Advanced Melanoma ?Conditions: Melanoma ?Location: Multiple locations in [facility] ?Sponsor: [facility] - ?NCTID: [id number] ?Title: Testing the Combination of New Anti-cancer Drug ?Peposertib With Avelumab and Radiation Therapy for ?Advanced/Metastatic Solid Tumors and Hepatobiliary Malignancies ?Conditions: Multiple Disease Types ?Location: Multiple locations in [facility] ?Sponsor: [facility] [place] ([employer]) - ?NCTID: [id number] ?Title: Testing the Addition of a New Immunotherapy Drug, ?Atezolizumab ([id number]), to the Usual Chemoradiation (LOCATION AND MEASUREMENT TECHNICIAN) ?Therapy Treatment for Limited Stage Small Cell Lung Cancer ?(LS-SCLC) ?Conditions: Multiple Disease Types ?Location: Multiple locations in [facility], [place] ?Sponsor: [facility] [place] ([facility]) TECHNICAL SUMMARY [facility] Comment: TECHNICAL SUMMARY: ??Specimen Source: Bone Marrow - ??Gene: MYD88 ??Alteration: p.([id number]) ??Variant Category: Disease Associated ??Chr: 3 ??Pos: [id number] ??Ref: T ??Alt: C ??Coverage: 1789 ??Allele Freq: 1.0 ??cDNA change: c.794T>C ??Exon: 5 ??ClinVar ID: - ??Gene: [id number] ??Alteration: p.([id number]) ??Variant Category: Disease Associated ??Chr: 17 ??Pos: [id number] ??Ref: G ??Alt: A ??Coverage: 1089 ??Allele Freq: 5.42 ??cDNA change: c.844C>T ??Exon: 8 ??ClinVar ID: [id number] METHODS SEE [facility] Comment: METHODS: ??Tissue macrodissection and DNA isolation from tumor enriched areas ??are based on histologic review by an appropriately board certified ??pathologist; specimens with minimal tumor cellularity may be ??rejected. DNA is extracted and fragmented by Covaris shearing. DNA ??molecules from each sample are uniquely identified by ligation of a ??short oligonucleotide, sample specific barcodes. Each genomic DNA ??fragment is also tagged with a unique molecular identifier sequence ??(NEVIN) to collapse PCR duplicates and facilitate error corrected ??sequencing. Exons of 523 genes are enriched by hybridization to ??oligonucleotide synthetic probes, and PCR is performed to further ??amplify captured sequences. Amplified DNA is sequenced using ??Illumina htidqeayas-xu-qtwsgwtkl methodology. The assay interrogates ??whole exons and selected intronic regions across 523 genes to detect ??single base substitutions, insertion/deletions, and gene ??amplifications, targeting 1.94 million bases, encompassing 1.28 Mb ??of exonic sequence. The software requires a minimum number of 100 ??unique reads (after removal of PCR duplicates) to detect a mutation. ??An automated process that takes into account statistical confidence ??of base calling, alignment, and mapping quality, identifies variants ??(ConnectSolutions Software Release Notes V2.5.3; February 10, 2024). ??Following mapping of the read data to the human genome (reference ??build GRCh37/hg19), single nucleotide variants (SNVs), and insertion ??deletion events (Indels) with an allele frequency greater than 4% ??are detected. Detection of Insertions and Deletions larger than 29 ??bases have not been validated. 1.5x, 3x, and 5x fold changes have ??been validated with this assay to snap attacher to high level FISH ??amplification for ERBB2, MET, and EGFR, respectively; fold changes ??for other genes are reported if in excess of 2.5x. Reported variants ??include known disease associated mutations and unclear variants with ??little or no literature support. Benign population polymorphisms or ??likely benign variants are not included in the report. Variant Tier ??categorizations are clinically reported in accordance with the ??AMP/ASCO/CAP consensus recommendations indicated in Li et. al. ??(33058859). Tumor Mutation [place] (TMB) is calculated as the number ??of mutations / megabase, and 1.94 megabases of genomic coding ??sequence are targeted for analysis. A cutoff of 10 mutations / MB is ??employed to report TMB as either high or low. Standardization for ??this biomarker remains an ongoing imperative, and further generation ??of assay specific, laboratory specific percentile cutoffs for ??individual tumor types has not yet been established. Median tumor ??mutation burden specific for tumor type is referenced from large ??scale patient cohorts in published studies ([id number]). The assay ??interrogates 130 microsatellite regions to determine microsatellite ??instability class (MSI-Positive or MSI-Negative). Data from a ??minimum of 40 regions is needed to calculate an MSI score. A sample ??is classified as MSI-POSITIVE if 30% or more of the microsatellite ??regions are unstable ([id number]; [id number]). Reportable Range: For ??full listings of interrogated genes please refer to: https:// ??www.[employer] [facility].com/oncology/ngspersonalized-medicine/. Copy ??number alteration ([employer] [facility] [employer] [employer]NER) events including deletions, duplications in ??excess of 25kb and copy neutral - loss of heterozygosity (CN - NEPTALI) ??in excess of 10Mb are interrogated and reported if warranted and ??clinically relevant. ??OnkoSight Advanced was developed and its performance characteristics ??were determined by [employer], a division of [employer]. ??This test has not been cleared or approved by the US Food and Drug ??Administration (FDA). The FDA has determined that such a clearance ??or approval is not necessary. Pursuant to the requirements of ??CLIA88, this laboratory has established and verified the tests ??accuracy and precision. However, a false positive or false negative ??result incurred during any phase of the testing cannot be completely ??excluded. Large insertion/deletion events may not be detected by ??this assay due to the limit of sequencing read length and ??bioinformatics processing. This assay does not detect ??translocation/gene fusion. This assay does not determine variant ??causality, or whether a variant is inherited or somatically ??acquired. These results may be used for clinical or research ??purposes and therefore should be carefully considered within the ??context of other clinical and laboratory data. In the absence of an ??appropriate clinical context, the clinical utility of OnkoSight ??testing is not clearly defined. The information contained in this ??report reflects the current interpretation of the findings as of the ??date of the report, based on the available scientific information. ??This information, which comes from numerous sources, is subject to ??exchange mechanic time in response to future scientific and medical ??findings and correlations. [employer] makes no ??representation or warranty of any kind regarding the accuracy of ??information provided or contained in these manuscripts, references ??or other sources of information. If any of the information provided ??by or contained in the referenced material is later deemed to be ??inaccurate, this may impact the accuracy of this report and ??interpretation of the findings. [employer] is not ??obligated to notify you of any impact that additional or modified ??information, or future scientific or medical research may have on ??this report. The laboratory is not responsible for reanalysis of the ??data or updated classification of this report or past ??reportsfindings as the knowledge evolves. A medical provider can ??request a reassessment of clinical significance of variants and/or ??re-review of the clinical interpretation of the findings. Additional ??charges may apply for the updated report.Please contact the ??laboratory for more information if update is requested.This assay ??has been approved by the [facility] based on initial validation; ??orthogonal testing for full validation is currently ongoing. Please ??contact the laboratory for more information if update is requested. REFERENCES 1 SEE BELOW [facility] Comment: REFERENCES: ??1. Jayne MM, Raphael M, Henry EJ, Claire S, Wil NI, Deshawn S, ?Bri AM, Mervin CL, Flor DJ, Renetta A, Shelby ?[place]. Standards and Guidelines for the Interpretation and Reporting ?of Sequence Variants in Cancer: A Joint Consensus Recommendation ?of the Association for Molecular Pathology, [place] Society of ?Clinical Oncology, and College of [place] Pathologists. The ?Journal of molecular diagnostics : JMD. 2017 Jul;19(1):4-23. doi: ?10.1016/j.jmoldx.2016.10.002. PubMed PMID: 86472253. PubMed ?Central PMCID: [id number]. ??2. Genome Aggregation Database (gnomAD), [place], [place] (URL: ?https://gnomad.broadinstitute.org) [May,] ??3. Catalogue of Somatic Mutations in Cancer (COSMIC), (URL: ?http://cancer.scar.ac.uk/cosmic) [May,] ??4. OVU737 Local [employer] Software Release Notes V2.1.0; October 21, 2019. h ?ttps://support.[employer]/content/dam/ItsPlatonic-support/documents ?/documentation/software_documentation/trusight/zalwxlcw-vpxvjxqg-6 ?00/zvxudnac-cuqwpbtp-785-fkgxi-ufj-t6.8-hewyiei-yvzqx-[id number] ?5-00.pdf. ??5. Rebecca M, Andres M, Abimael R, Saritha W, Otf Swanson, Working Group of ?the [place] College of Medical Genetics and Genomics (ACMG) ?Laboratory Chemical Processing Supervisor Committee. ACMG technical standards ?and guidelines for genetic testing for inherited colorectal cancer ?(Perkins syndrome, familial adenomatous polyposis, and ?MYH-associated polyposis). Genetics in medicine : official journal ?of the [place] College of Medical Genetics. 2014 ?Camacho;16(1):101-16. Epub 2012Jun 09. doi: 10.1038/gim.2013.166. ?PubMed PMID: 28524817. ??6. Rajiv ZR, Lucas CF, Manjinder D, Mejia L, Ali SM, Ra R, ?Mily A, Lester B, Sis A, Sebastián J, Gomez F, He Y, Sun ?J, Ileana U, Tono M, Herman DS, Alan S, Kieran J, El SARKAR, Wang ?JS, Riaz L, Byron VA, Patricia PJ, [facility]. Analysis of ?100,000 human cancer genomes reveals the landscape of tumor ?mutational burden. Genome medicine. 2016Oct 22;9(1):34. Ep2016 ?Oct 22. doi: 10.1186/l95882-556-5394-3. PubMed PMID: 86475098. ?PubMed Central PMCID: JAZ7334037. ??7. Sinai JA, Mati CM, Josee EQ, Blaine MENESES, Deacon ?ES, Nicolasa TL, Michael B, Doyle PS, Mike N, Hernán SJ, ?Lola CHEATHAM. Microsatellite instability in prostate cancer by PCR ?or next-generation sequencing. Journal for immunotherapy of ?cancer. 2018 Oct 20;6(1):29. Epub 2017Oct 20. doi: ?10.1186/e97739-108-9945-t. PubMed PMID: 07264070. PubMed Central ?PMCID: WMQ6264692. ??8. Elmira Reynolds. TP53 mutations and lung cancer: not all ?mutations are created equal. Clinical cancer research : an ?official journal of the [place] Association for Cancer Research. ?2013Mar 06;20(17):4419-21. Epub 2013Dec 13. doi: ?10.1158/2733-7836.CCR-14-0899. PubMed PMID: 29496882. ??9. Jasbir Swanson, Navya T, Coleen Lord, Madyson R. p53 lesions in ?leukemic transformation. The [place] journal of medicine. 2010 ?Aug 08;364(4):488-90. doi: 10.1056/RDOAr7212201. PubMed PMID: ?33591828. ??10. Nelli LEYVA, Ora AYALA. Structural biology of the tumor ?suppressor p53. Annual review of biochemistry. 2008;03061-91. doi: ?10.1146/annurev.biochem.77.998274.283741. PubMed PMID: 70968894. ??11. Ronda VN, Leonidas RM, Sarah R, Grant S, Elaina W, Tim KH, ?Kohlynes H, Lozada W, Means Y, Mathew H, Madison AL, Ranulfo P, Linares ?G, Ab J, Erich A, Masterson-Nicholask HK, Sharon G, Kathi RD, ?Yamila JM, Carmen LM, Englewood E, Love ES, Estelle J, Anton EB, ?Doni RI, Wolf RM, Alycia RR, Dima JR, Soumya DD, Avitia ?NANCY, Alejandra MCKOY. Oncogenically active MYD88 mutations in human ?lymphoma. Nature. 2010Aug 08;470(9984):115-9. Epub 2009Jun 26. ?doi: 10.1038/wjywkf28963. PubMed PMID: 36110350. PubMed Central ?PMCID: RYA7532750. ??12. Markell R, Keshav K, Marcus-Helen O, Mehdi N, Annette B, ?Dylan G, Zachary H, Albert A, Bailey CRYSTAL, Phillip Gallardo, New ?BL. Clinical effect of point mutations in myelodysplastic ?syndromes. The [place] journal of medicine. 2010 ?30;364(26):2496-506. doi: 10.1056/THKYyc8199749. PubMed PMID: ?17972467. PubMed Central PMCID: AZK1338200. ??13. Grayson P, Maurisio A, Luz R, Martell R, Tani-Zane H, Paty I, ?Girsberger S, Analia T, Anabella J, Sharee M, Natalie C, Madyson ?R, Sumaya RC. Clonal evolution and clinical correlates of somatic ?mutations in myeloproliferative neoplasms. Blood. 2013 ?03;123(14):2220-8. Epub 2013Aug 03. doi: ?10.1182/hbnbz-1859-33-051633. PubMed PMID: 20567700. ??14. Katerin LR, Renetta H, Roland T, Karsten TE, Juan Carlos J, Radha SW, Scarlet SY, ?Saeed RK. Inactive full-length p53 mutants lacking dominant ?wild-type p53 inhibition highlight loss of heterozygosity as an ?important aspect of p53 status in human cancers. Carcinogenesis. ?2006;28(2):289-98. Epub 2005Jan 23. doi: ?10.1093/carcin/uxi068. PubMed PMID: 30962017. ??15. Edgar AV. Does TP53 guard ALL genomes? Blood. 2014 Jan ?10;124(2):160-1. doi: 10.1182/xwjwv-4451-36-244108. PubMed PMID: ?42570032. PubMed Central PMCID: KUH0549761. ??16. Zelalem ALEGRE, Radha ESCALONA. Mutant p53 in cancer: new functions and ?therapeutic opportunities. Cancer cell. 2014 Sep 19;25(3):304-17. ?doi: 10.1016/j.ccr.2014.01.021. PubMed PMID: 02517530. PubMed ?Central PMCID: ENK5677091. ??17. Nanda SL, Heydi JJ, DW, Brandon L, Dima JR, Hsi ED. MYD88 ?L265P somatic mutation: its usefulness in the differential ?diagnosis of bone marrow involvement by B-cell lymphoproliferative ?disorders. Egyptian journal of clinical pathology. 2013 ?Sep;140(3):387-94. doi: 10.1309/OXAR95AOYIYPPDYE. PubMed PMID: ?70101785. ??18. Tang A, Juan Pablo S, Herminia S, Otoniel S, Brad W, Melony ?A, Aarti T, Aarti Santana. TP53 mutations occur in 15.7% of ALL ?and are associated with MYC-rearrangement, low hypodiploidy, and a ?poor prognosis. Blood. 2014 Jan 10;124(2):251-8. Epub 2013November 16. ?doi: 10.1182/llnma-1185-99-756168. PubMed PMID: 44785381. ??19. Samantha Santana, Vicki SILVA, Damion F, Antolin K, Rachelle B, Natalia C, Chris M, ?Sravan Q, Janneth JF, Valencia MA, Saskia MDM, Byron CA, ?Burkett JS, Antelmo MJ, Cheri MC, Allison TJ, Gen RK, Jaiden BJ, Ding ?L. Mutational landscape and significance across 12 major cancer ?types. Nature. 2013 Apr 17;502(3545):333-339. doi: ?10.1038/uzcdty36384. PubMed PMID: 00624949. PubMed Central PMCID: ?EVY4466248. ??20. Rich FG, Rose RF, Loretta L, Emanuel S, Nadira V, Kett H, ?Bogdan M, Rachael CM, Dunia K, G[place] , Constantine P, Suzanne G, ?von Qamar-Bonifacio M, Kiko M, Belindaing S, Marc T, Linda J, ?Lenin B, Malcolm A, Brenda P, Lester K, Lester H. 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 Blood. 2011Sep 03;119(9):2114-21. ?Epub 2010Jun 24. doi: 10.1182/aljlz-8286-97-296139. PubMed PMID: ?65573661. ??21. Poulain S, Roumier C, Decambron A, Renneville A, Herbaux C, ?[place] E, Tricot S, Daudignon A, Galigue-Zouitina S, Soenen V, ?Sabrina O, Van N, Shabbir O, Lauro-Emma C, Jayme B, ?Jose P, Mallorie C, Gabriela X. MYD88 L265P mutation in ?Waldenstrom macroglobulinemia. Blood. 2012December 02;121(22):4504-11. ?Epub 2012Sep 28. doi: 10.1182/btkat-4613-88-198654. PubMed PMID: ?06654480. ??22. Luc DUGGAN, Kenneth Farmer, Ora AYALA. Quantitative analysis of ?residual folding and DNA binding in mutant p53 core domain: ?definition of mutant states for rescue in cancer therapy. ?Oncogene. 2000 Sep 04;19(10):1245-56. doi: 10.1038/sj.onc.0329926. ?PubMed PMID: 07092981. ??23. Helder Rosas, Inocente Lord, Mamta D, Carley DM, Quang OA, Tierra M, Song ?G, Moris J, Marin RC, Bhupendra DA, Helder J, Doddapaneni H, Vadodaria ?B, Harley G, Giuliana P, Tony WL, Radha IM, Sravani ZENG, ?Marialuisa MV, [place] MA, Gokul M, Laureano ZENG, Cali JR, Neptali ?ML, Lyndsey CL, Bernabe DS, Kay CG, Jacky SP, Sravan Farmer. Rise ?and fall of subclones from diagnosis to relapse in pediatric ?B-acute lymphoblastic leukaemia. Nature communications. 2014 ?19;56061. Epub 2014Sep 21. doi: 10.1038/yedghp2696. PubMed PMID: ?27030856. PubMed Central PMCID: CLB3339688. ??24. Ruy Lord, Mey Carrizales. Somatic mutations in cancer prognosis and ?prediction: lessons from TP53 and EGFR genes. Current opinion in ?oncology. 2010;23(1):88-92. doi: 10.1097/PATIENT ESCORT.3h734i1371083sgi. ?PubMed PMID: 54462320. ??25. Ming SP, Neville L, Miguelangel G, Queen Y, Glez X, Mcnair Y, Pete P, Kodak ?RJ, Tanvi CJ, Michael C, Dangelo L, Jay Jay GS, Rodanna SJ, ?Marylin AR, Aldo NL, Noreen ZENG, Barb OTERO, Sathish SCHMIDT, Ricky ?ZR. MYD88 L265P somatic mutation in Waldenstrm's ?macroglobulinemia. The [place] journal of medicine. 2011 ?30;367(9):826-33. doi: 10.1056/ZXQQkq8041491. PubMed PMID: ?03160557. ??26. Adina F, Jeffery SP, Bryan NS, Montez SH, Cook JR. 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 Modern pathology : an official journal of the [place] ?[facility] and [employer], Inc. 2015 ?Apr;28(4):564-74. Epub 2013Mar 17. doi: ?10.1038/modpathol.2014.120. PubMed PMID: 26452336. ??27. Rosaura N, Saida M, Lakisha I, Georgi B, Frederic A, Noe D, ?Michelle M, Moe M, Ny V, Raghu MP, de Bashir A, ?Mary ALICIA, Rashmi K, Marybeth N, Lakisha P, Bolanos A, ?Carmen D, Sergio, Breezy Farmer. IGHV gene features and MYD88 ?L265P mutation separate the three marginal zone lymphoma entities ?and Waldenstrm macroglobulinemia/lymphoplasmacytic lymphomas. ?Leukemia. 2013 Camacho;27(1):183-9. Epub 2011Mar 09. doi: ?10.1038/baldemar.2012.257. PubMed PMID: 65055869. ??28. Shaniqua J, Marly B, Cele N, Brian Farmer, Denisse I, ?Miguel Salomon, [employer]. 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 Somali journal of haematology. 2015 Luther;169(6):795-803. ?Epub 2014Oct 01. doi: 10.1111/bjh.77813. PubMed PMID: 70957985. ??29. Ally Swanson, Lizet S, Sergio M, Darline Cleaning, Leodan ?N, Chrystal S, Don C, Yoana DAVIDSON, Yogi CORNELIUS. 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 The Egyptian ?journal of surgical pathology. 2015 November;39(5):644-51. doi: ?10.1097/PAS.9775566097468112. PubMed PMID: 65821542. ??30. Miguelangel Worthy, Bret Y, Newton X, Neville Cleaning, Xu Steele, Kodak VICENTE, Tanvi PANDYA, ?Sanjay SJ, Prince N, King YT, Wang HERNANDEZ, Ricky ABDI, Ming PRATT. A ?mutation in MYD88 (L265P) supports the survival of ?lymphoplasmacytic cells by activation of David tyrosine kinase in ?Waldenstrm macroglobulinemia. Blood. 2012Feb 17;122(7):1222-32. ?Epub 2012Jan 10. doi: 10.1182/xqrpt-0357-91-492655. PubMed PMID: ?96512816. ??31. Ming PRATT, Michael CK, Tatum K, Khanh D, Maykel G, Mynor R, ?Argranjan KV, Miguelangel Worthy, Xu Steele, Neville Cleaning, Tanvi PANDYA, Nel S, ?Richardson JL, Christen SONIA, Carlson NL, Tommy S, Wyatt I, Dick JJ, ?Brenden ALICIA, Ricky ZR, Jocy Z, Jayne J, Jose M, Tatiana F, Grajesus T, ?Palomba ML, Timoteo RH. Ibrutinib in previously treated ?Waldenstrm's macroglobulinemia. The [place] journal of ?medicine. 2015 Oct 12;372(15):1430-40. doi: 10.1056/XPHDks3792269. ?PubMed PMID: 27650932. ??32. Neville Gutierres, Ricky Xavier. MYD88 Mutations and Response to ?Ibrutinib in Waldenstrm's Macroglobulinemia. The [place] ?journal of medicine. 2015 Feb 08;373(6):584-6. doi: ?10.1056/YTIIs4483799. PubMed PMID: 71521665. ??33. NCCN Guidelines, Waldenstrm Macroglobulinemia/Lymphoplasmacytic ?Lymphoma, Version 1.2024 ??34. Kaylee G, Dixie JM, Gen CS, Manish Bee, Tania ?DR. Significance of MYD88 L265P Mutation Status in the ?Subclassification of Low-Grade B-Cell Lymphoma/Leukemia. Archives ?of pathology & laboratory medicine. 2015 Feb;139(8):1035-41. ?doi: 10.5858/arpa.0861-8273-MR. PubMed PMID: 99506984. ??35. Montez SH, Rosibel E, Aldo NL, Love ES, Anabella SA, Alphonso H, ?Cheli Farmer (Eds): WHO Haematopoietic and Lymphoid Tissues (Revised ?4th edition). IARC: Simon 2023 ??36. Jada PJ, Jorje CHAVIRA. p53 abnormalities and potential therapeutic ?targeting in multiple myeloma. BioMed research international. ?2014;2497827644. Epub 2013Dec 20. doi: 10.1155/2013/815722. ?PubMed PMID: 02841300. PubMed Central PMCID: EDV7793870. ??37. Annmarie W, Souza X, Julianne S, Raul SK, Silverio J, Roland S, Garcia ?L, Emmanuelle B, Kory SOMMERS, Sterling F. An analysis of the clinical ?and biologic significance of TP53 loss and the identification of ?potential novel transcriptional targets of TP53 in multiple ?myeloma. Blood. 2007May 20;112(10):4235-46. Epub 2007Sep 14. ?doi: 10.1182/bkyuh-9250-57-698978. PubMed PMID: 75490281. PubMed ?Central PMCID: MDP8798232. ??38. Jorje CHAVIRA, Tonya T, Nola N, Jarvis Gupta S, Vadim S, ?Blood E, Zuluaga K, Oken M, Yaz B, Greipp P, Josr SV, ?Alton R. Clinical significance of TP53 mutation in myeloma. ?Leukemia. 2007 Sep;21(3):582-4. Epub 2006Jul 16. doi: ?10.1038/sj.baldemar.2603620. PubMed PMID: 48193153. ??39. EmelinaL, Rian M, Sreeet V, Soujonathani T, Julee S, Og S, ?Magrangemilli F, Gayathri N, Christiano L, PabloC, Meredith F, Hien D, ?Caron G, Jalil C, Dirk T, Argenis M, Augie BARBER, Soraya P, ?Treasure S, Mireille H. Mutations in TP53 are exclusively ?associated with del(17p) in multiple myeloma. Haematologica. 2009 ?Nov;95(11):1973-6. Epub 2009Jan 17. doi: ?10.3324/haematol.2010.194343. PubMed PMID: 30790945. PubMed ?Central PMCID: PAA1268378. ??40. Jose Martin LL, Didier CF, Roland LY, Garcia CJ, Hosea YS. p53 gene mutations ?in brain tumors in [facility]. Cancer letters. 1993 ?;78(1-3):25-32. PubMed PMID: 6657326. ??41. Sulema MA, Sapphire SL, Rios SF, Kathy CT, Rios BL, Patrica CH, Means SL, ?Eloy BH, Souza CW, Degroot CY. Novel patterns of p53 abnormality in ?breast cancer from [place]: experience from a low-incidence area. ?Somali journal of cancer. 1997;75(5):746-51. PubMed PMID: ?2992015. PubMed Central PMCID: EEV6287911. ??42. NCCN Guidelines, Multiple Myeloma, Version ??43. NCCN Guidelines, B-Cell Lymphomas, Version ??44. QPN387 Local [employer] Software Release Notes V2.1.0; October 21, 2019. ?https://support.[employer]/content/dam/ItsPlatonic-support/document ?s/documentation/software_documentation/trusight/trusight-oncology- ?500/[email or web address]_00_TSO500_v2_1_Customer_Release_Notes.pdf. ??45. Coleen M, Yolanda Pickering MG, Keerthi L. The genetic basis of REFERENCES 2 SEE BELOW [facility] Comment: ?myelodysplasia and its clinical relevance. Blood. 2012 ?12;122(25):4021-34. Epub 2012Apr 21. doi: ?10.1182/dciyz-4322-05-522622. PubMed PMID: 54538680. PubMed ?Central PMCID: HMH8891471. ??46. Wisam KELLEY, Linda J, Magdiel FO, Mildred T, Katya F, Kika F, Eden ?K, Nito G, Scharmandogelberger B, Henoelle M, Malcolm A, Skyler CORNELIUS. Lack ?of noncanonical YUMIKO mutations in cytogenetically normal acute ?myeloid leukemia. Annals of hematology. 2014 Luther;93(6):977-82. ?Epub 2013Oct 19. doi: 10.1007/c98001-656-3038-5. PubMed PMID: ?69296698. ??47. Hill JW, Sina H, Frantz MW, Jose Miguel SG, Hellen NELSON, Bailey ?RL, Sean MC, Klaus N, Meagan DG, Luis HALL, Amaury ?MM. High-throughput sequencing screen reveals novel, transforming ?YUMIKO mutations in myeloid leukemia patients. Blood. 2008 ?19;113(8):1749-55. Epub 2007Jun 19. doi: ?10.1182/ouypn-0596-35-280772. PubMed PMID: 05059233. PubMed ?Central PMCID: [id number]. ??48. Itstacia R, Temier O, Rennitesh A, Teri V, ?Meggendorfer M, Mandi M, Berthon C, Chata L, Fenaux P, ?Jonathanne-Elvira O, Zoraida N, Orosco T, Hafermarielena T, Wilton F, Yoni NC, ?Mallorie Santana, Danny OA, Nael Lord, Lindsey W, Juan Pablo S, ?Lindsey D, Donato N, Tasha E. Prognostic score including gene ?mutations in chronic myelomonocytic leukemia. Journal of clinical ?oncology : official journal of the [place] Society of Clinical ?Oncology. 2013 Jan 03;31(19):2428-36. Epub 2012November 22. doi: ?10.1200/JCO.2012.47.3314. PubMed PMID: 76097295. ??49. Kala A, Izabela K, Radha K, Lima C, Luz G, Constantine P, ?Hatch RJ, Blair RA, Newton ET, [place] CD. Patients with acute ?myeloid leukemia and YUMIKO mutations benefit most from postremission ?high-dose cytarabine: a Cancer and Leukemia Group B study. Journal ?of clinical oncology : official journal of the [place] Society of ?Clinical Oncology. 2007Apr 05;26(28):0085-9. Epub 2007Dec 19. ?doi: 10.1200/JCO.2007.14.0418. PubMed PMID: 06220464. PubMed ?Central PMCID: [id number]. ??50. Pal Batista, Yanelis Strong, Kit Cleaning, Kelly Swanson, ?Rosa White. The Yumiko-RasGAP complex: structural ?basis for GTPase activation and its loss in oncogenic Yumiko mutants. ?Science ([place] 1996Jan 20;277(7457):333-8. PubMed ?PMID: 3538633. ??51. Gema GJ, Chepe J, Rosita W. KRAS mutations in non-small cell lung ?cancer. Proceedings of the [place] Thoracic Society. 2008 ?15;6(2):201-5. doi: 10.1513/pats.218718-543NO. PubMed PMID: ?36265597. ??52. Dasia KM, José Manuel KR, Roland Y, Ruy A, Dasia MC, Salima JN, ?Niwa-Lilli M, Nidia A, Cat Farmer, Conchita KM, ?Jose Guadalupe J, Luh M, Christian T. Differential effects of ?oncogenic K-Yumiko and N-Yumiko on proliferation, differentiation and ?tumor progression in the colon. Nature genetics. 2008 ?May;40(5):600-8. Epub 2007Oct 02. doi: 10.1038/ng.115. PubMed ?PMID: 62550697. PubMed Central PMCID: [id number]. ??53. di Zaheer MP, Susan CD. Roles for KRAS in pancreatic tumor ?development and progression. Gastroenterology. 2013 ?Luther;144(6):1220-9. doi: 10.1053/j.gastro.2013.01.071. PubMed PMID: ?91957300. PubMed Central PMCID: EPL8422018. ??54. Kenji BARBER. yumiko oncogenes in human cancer: a review. Cancer ?research. 1988Mar 06;49(17):7921-9. PubMed PMID: 7052675. ??55. Shell A, Nirmal E. Yumiko in cancer and developmental ?diseases. Genes & cancer. 2011 Sep;2(3):344-58. doi: ?10.1177/9435762801022376. PubMed PMID: 84428986. PubMed Central ?PMCID: NKZ9513136. ??56. Eliel Yeboah, Mireille Fisher. Risk Stratification and ?Targets in Multiple Myeloma: From Genomics to the Bedside. ?[place] Society of Clinical Oncology educational book. [place] ?Society of Clinical Oncology. Annual Meeting. 2018 May ?23;55833-806. doi: 10.1200/EDBK_200879. PubMed PMID: 99530716. ??57. Elsie Lord. Chronic lymphocytic leukemia: 2020 update on ?diagnosis, risk stratification and treatment. Egyptian journal of ?hematology. 2019 May;94(11):0609-7872. Epub 2018Apr 08. doi: ?10.1002/ajh.96304. PubMed PMID: 94496482. ??58. Joseph Galarza, Ana Swanson, Santos C, Chrystal S, ?Yajaira Lord, Yogi CORNELIUS. B-cell lymphoma mutations: improving ?diagnostics and enabling targeted therapies. Haematologica. 2014 ?Feb;99(2):222-31. doi: 10.3324/haematol.2013.519945. PubMed PMID: ?50569439. PubMed Central PMCID: FXU5043297. ??59. Kirk Emmanuel Bai-Liang He, Marj Black, ?Precious Pimentel, Doyle Otto, [facility], Serafin Soto, ?Ashly Redmond, Josette Rojas, Niraj Cordero, Reyes Fuentes, [place] ?Xiang Cordero, Tara Jc, Lita Tate, Dmitriy Moreland ?Cristal. Lamberto Cornelius Yok-Lam Kwong, Anskar Y. H. Leung. ?Homoharringtonine (omacetaxine mepesuccinate) as an adjunct for ?FLT3-ITD acute myeloid leukemia. Sci. Transl. Med. 2016 Apr ?5;8(121): 614rw067. ??60. Kayden MONTE, Lisy Gray, Aureliano R, Demond Worthy, Dulce CA, ?Azul Worthy, Simón Farmer, Zachary SANDOVAL, Alexandra BAEZ, Keely ?Kiki, Joslyn Santana, temi Swanson, Benyn Salomon. Phase IB study of the FLT3 ?kinase inhibitor midostaurin with chemotherapy in younger newly ?diagnosed adult patients with acute myeloid leukemia. Leukemia. ?2011;26(9):206-. Epub 2011Oct 30. doi: ?10.1038/baldemar.2011.115. PubMed PMID: 13683800. PubMed Central PMCID: ?[id number]. ??61. Lisy Gray, Kayden MONTE, Alexandra BAEZ, Angeles Jackson, Jennifer Vasquez, Fly Santana, ?Timur E, Azul Worthy, Ariana EJ, Demond ROBERTSON, Luis [place], Jose SOLIS, ?Meagan REILLY, Joslyn Santana, Keely Swanson, Brisa Farmer, Benny CHERRY. 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 ?Journal of clinical oncology : official journal of the [place] ?Society of Clinical Oncology. 2009Apr 05;28(28):433-45. Epub ?2009Feb 25. doi: 10.1200/JCO.2009.28.9678. PubMed PMID: 87086906. ?PubMed Central PMCID: [id number]. ??62. Gorge RS, Helder L, Leanna SOMMERS, Shea JR, Marck Jackson, Richardson BARBER, ?Isauro OTERO. Next-generation sequencing of acute myeloid leukemia ?identifies the significance of TP53, U2AF1, ASXL1, and TET2 ?mutations. Modern pathology : an official journal of the [place] ?[place] and [place] Academy of Pathology, Inc. 2015 ?November;28(5):706-14. Epub 2013May 26. doi: ?10.1038/modpathol.2014.160. PubMed PMID: 50599478. PubMed Central ?PMCID: [id number]. ??63. Baldev Swanson, Terry SOMMERS, Danuta Farmer, Nadir SILVA, Yayo VILLEGAS, Wes MM, ?Sharyn Lord. Tumor mutational burden standardization initiatives: ?Recommendations for consistent tumor mutational burden assessment ?in clinical samples to guide immunotherapy treatment decisions. ?Genes, chromosomes & cancer. 2019 Feb;58(8):578-588. Epub 2018 ?Sep 09. doi: 10.1002/gcc.27798. PubMed PMID: 16610767. PubMed ?Central PMCID: [id number]. ??64. Hira SILVA, Antonio HOUGH, Rhiannon Swanson, Dave CURRY, Yahir GA, ?Karol C, Lindy E, Raj H, Belinda S, Salman P, ?Bortaryn H, Shaekel SS, Leela J, Milady M, O'Ceron KJ, Gee ?FAN, Mynor G, Gabriel H, Johan J, Jayjay P, Meron ?D, Jairo Y, Palmer F, Diya L. Nivolumab plus Ipilimumab in Lung ?Cancer with a High Tumor Mutational [place]anto. The [place] ?journal of medicine. 2018 December 03;378(22):4348-1262. Epub 2018 Oct ?16. doi: 10.1056/XOIQcp3668936. PubMed PMID: 50328957. PubMed ?Central PMCID: GHU9597381. ??65. Sadi PARK, Madiha Lord, Joan Vasquez, Shannon Santana, Eben KATHLEEN, Baldev ?Tay Swanson. Development of tumor mutation burden as an ?immunotherapy biomarker: utility for the oncology clinic. Annals ?of oncology : official journal of the Society for Medical ?Oncology. 2019 Jul 06;30(1):44-56. doi: 10.1093/annonc/ogd367. ?PubMed PMID: 81699177. PubMed Central PMCID: [id number]. REPORT FOOTER SEE BELOW CANCER PHYSIOLOGICAL CHEMIST [facility] Comment: Jose Eduardo Kinney M.D., Airconditioning Engineer Electronically signed by Kiet Garcia, PhD, [facility] [employer] is a division of [employer] [facility] [place] [phone] Created ThuMay 26 12:51:20 EST 2023 05/20/2024 9:20 AM CHIEF CONCIERGE Narrative [facility] 05/26/2024 1:16 PM CHIEF CONCIERGE Testing performed at: [employer]. [facility] [place] [address], Airconditioning Engineer: ??Dr. Jose Eduardo Kinney M.D.; [facility] Accn#:[id number] Isreal Simms MD LAB SEND OUTS Final Resul t CANCER PHYSIOLOGICAL CHEMIST [facility] [place] [address], * HEPATITIS C ANTIBODY (03/21/2024 10:38 AM CDT) HEPATITIS C VIRUS AB SIGNAL CUTOFF NON REACTIVE NON REACTIVE CANCER PHYSIOLOGICAL CHEMIST [facility] HEPATITIS C VIRUS AB COMMENT [facility]OLOG[facility] Comment: NOT INFECTED WITH HCV UNLESS EARLY OR ACUTE INFECTION IS SUSPECTED (WHICH MAY BE DELAYED IN AN IMMUNOCOMPROMISED INDIVIDUAL), OR OTHER EVIDENCE EXISTS TO INDICATE HCV INFECTION. Blood 03/21/2024 10:3 8 AM CDT Narrative CANCER PHYSIOLOGICAL CHEMIST OF [facility] - 03/22/2024 8:08 AM CDT TESTING PERFORMED AT: [] [facility], [address] [place] [address], [address], PHONE: [phone], MANAGER OF ENTERPRISE: MAC HIDALGO, PHD Release to patient->Immediate us Isreal Simms MD CHEMISTRY ORDERABLES Final Result [facility] PHYSIOLOGICAL [facility]MI[facility] [address] [place] [address], from Last 3 Months or Most Recently Relevant to Health Maintenance Insurance MEDICARE [facility] KATE ARREDONDO [id number] Care Teams Nematology Teacher Relationship Specialty Start Date End Date Jane Underwood PAC [address] [place] [address] PCP - General Physician Spinner Tender 01/12/24 Isreal Simms MD [address] [place] [phone] Consulting Physician Oncology 01/12/24
--- OUTSIDE RECORDS SUMMARY | 2024-08-04 16:07 | XMS_ITS | Clinical Summary ---
Author Organization [facility] Address [address] [place]: [place] [address] Care Team Providers Care Excavating Contractor Name Role Phone Unavailable Primary Care Provider Unavailabl e Social History Tobacco Use Types Packs/Day Years Used Date Smoking Tobacco: Never Assessed Sex and Gender Information Value Date Recorded Sex Assigned at Not on file Legal Sex Male 10:48 PM CDT Gender Identity Not on file Sexual Orientation Not on file Plan of Treatment Health Maintenance Due Date Last Done Comments DTAP/TDAP/TD VACCINES (1 - Tdap) 01/16/1964 PNEUMOCOCCAL VACCINE 65+ YEARS (1 of 1 - PCV) 01/15/19 95 ZOSTER VACCINE (1 of 2) 1995 RSV VACCINE (60+ or ) (1 - 1-dose 75+ series) 01/16/2020 INFLUENZA VACCINE (#1) 2024 Insurance MEDICARE PART A AND B [place] HALIE [place] [facility] [place] [address]
--- OUTSIDE RECORDS SUMMARY | 2024-08-04 16:07 | XMS_ITS | Clinical Summary ---
Author Organization [facility] Address [address] [place] [address] Care Team Providers Care Bicycle Rental Clerk Name Role Phone Cristal Carreon MD Unavailable Dave JASSO MD, Carl Wesley Unavailable Remi Mccollum MD Unavailable [phone] Jane Underwood Primary Care Provider [phone] Santiago Garcia Unavailable Isreal Kelly MD Unavailable [phone] Allergies No known active allergies Medications pantoprazole DR (PROTONIX) 40 mg EC tablet Take 1 tablet (40 mg total) by mouth daily 06/21/2017 Active multivitamin capsule Take 1 capsule by mouth daily Active rivaroxaban (XARELTO) 20 mg tablet Take 1 tablet (20 mg total) by mouth daily 30 tablet 03/02/2021 Active atorvastatin (LIPITOR) 80 mg tablet Take 1 tablet (80 mg total) by mouth daily 30 tablet 03/01/2021 Active lisinopriL (PRINIVIL,ZESTR IL) 5 mg tablet Take 1 tablet (5 mg total) by mouth daily 30 tablet 02/28/2021 Active metFORMIN (GLUCOPHAGE) 500 mg tablet Take 1 tablet (500 mg total) by mouth 2 (two) times a day with meals 60 tablet 11 02/28/2021 Active mupirocin (BACTROBAN) 2 % ointment APPLY TWICE DAILY TO TOE FOR 7 DAYS. 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 03/01/2024 Acute ischemic left MCA stroke 02/28/2021 History of repair of dissecting thoracic aneurys m 02/26/2021 Perforation of right tympanic membrane Mixed conductive and sensori neural hearing loss of right ear with restricted hearing of left ear 12/11/2020 Encounter for surgical after care following surgery of circulatory system 10/01/2020 Typical atrial flutter (CMS/HCC) 08/27/2017 History of repair of thoracic aortic aneurysm Aortic regurgitation 08/27/2017 Persistent atrial fibrillation 08/27/2017 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 16 Hypertension 01/05/2013 Chronic pain 01/05/2013 Aneurysm of thoracic aorta 07/05/2012 Abdominal aortic aneurysm (AAA) 06/04/2012 Encounters Date Type Department Care Team Description 07/29/2024 Orders Only [facility] Oncology [address] [place] [address] Isreal Kelly MD Multiple myeloma, remission status unspecified (HCC) (Primary Dx) 05/26/2024 Telephone [facility] Cardiology [address] [place] [address] Medicine 8th [place] [address] [place] [address] Kenneth Ruiz MD see enc 05/16/24 05/16/2024 Telephone [facility] Cardiology [facility] Medicine 8th [place] [address] [place] [address] Kenneth Ruiz MD LAAO scheduling 05/16/2024 Telephone [facility] Cardiology [address] [facility] 8th [place] [address] [place] [address] Kenneth Ruiz MD follow up on LAAO 05/12/2024 Telephone [facility] Cardiology [address] [place] [address] Remi Mccollum MD from Last 3 Months Immunizations Name Administration Dates Next Due Influenza, Quadrivalent, Rec ombinant, Egg Free, Preservative Free, Intramuscular 05/10/2018 Surgical History Surgery Date Site/Laterality Comments STAPEDECTOMY LASIK AORTIC ANEURYSM REPAIR Medical History Medical History Date Comments Hypertension Hypertension Cataract Heart disease Diabetes (HCC) Aortic aneurysm (HCC) Family History Medical History Relation Name Comments Hypertension Father Hypertension; Stroke Mother Cancer Other Relation Name Status Comments Father Alive Mother Other Social History Tobacco Use Types Packs/Day Years Used Date Smoking Tobacco: Former Cigarettes Q uit: 09/23/1999 Smokeless Tobacco: Never Tobacco Cessation:Counseling Given: Not Answered Alcohol Use Standard Drinks/Week Comments Yes 0 (1 standard drink = 0.6 oz pur e alcohol) PHQ-2 Answer Date Recorded PHQ-2 Total Score (If total score is 3 or more points, staff should administer the PHQ-9) 0 02/27/2021 Sex and Gender Information Value Date Recorded Sex Assigned at Not on file Legal 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 Gender Identity Male 01/24/2021 7:48 AM CDT Sexual Orientation Straight 01/24/2021 7: 48 AM CDT Obstetrics History Last Filed Vital Signs Vital Sign Reading Time Taken Comments Blood Pressure 110/69 02/04/2024 3:32 PM CDT Pulse 74 02/04/2024 3:32 PM CDT Temperature 37.1 ??C (98.8 ??F) 02/28/2021 11:55 AM C DT Respiratory Rate 20 03/01/2024 11:26 AM CDT Oxygen Saturation 100% 02/04/2024 3:32 PM CDT Inhaled Oxygen Concentration - - Weight 79.4 kg (175 lb) 03/01/2024 11:26 AM CDT Height 172.7 cm (5' 8 ) 03/01/2024 11:26 AM CDT Body Mass Index 26.61 03/01/2024 11:26 AM CDT Plan of Treatment Upcoming Encounters Date Type Department Care Team (Latest Contact Info) Description 09/21/2024 11:05 AM CDT Hospital Encounter [facility] Heart [facility] [place] [address] [place] [address] Kenneth Ruiz MD [address] [place] [address] Persistent atrial fibrillation (HCC) 09/21/2024 11:05 AM CDT - 09/21/2024 1:25 PM CDT Surgery [facility] [place] [address] [place] [id number] Kenneth Ruiz MD [address] [id number] [employer] [place] CLOSE W/IMPLANT [address] Health Maintenance Due Date Last Done Comments Hepatitis C Screening 1945 DTaP/Tdap/Td Vaccine (1 - Tdap) 01/16/1956 Hepatitis B Screening 1963 Zoster Vaccine (1 of 2) 01/16/1964 Well Visit 65+ 2010 Pneumococcal vaccine 65+ (2 of 2 - PPSV23 or PCV20) 10/11/2012 08/16/2012 Depression Screening 02/26/2022 02/26/2021 Fall Risk Assessment 02/28/2022 02/28/2021 Influenza Vaccine (#1) 2024 05/10/2018, 2012 Abdominal Aortic Aneurysm (A AA) Screen Completed 07/21/2024, 02/02/2024, 04/07/2023, Additional history exists Medical Devices Implanted Type Area Assistant Film Editor Device Identifier Shelf Expiration Date Model / Serial / Lot Daig Jennifer[employer] [id number] Angio-Seal Vip Bondek-Plus 8fr .038in 70cm Hemostatic Latex Free - [id number] Implanted:Qty: 1 on 02/26/2021 at [facility] [id number] / / Procedures Procedure Name Priority Date/Time Associated Diagnosis Comments CTA CHEST ABDOMEN PELVIS Schedule Routine, Read Routine (OP Routine) 04/06/2023 11:00 AM CDT Thoracoabdominal aortic aneurysm (TAAA), unspecified part, unspecified whether ruptured (HCC) from Last 3 Months or Most Recently Relevant to Health Maintenance Insurance [facility] MEDICARE MEDICARE [facility] MEDICARE [place] HALIE [place] Advance Directives For more information, please contact: [phone] * LIMITED - No CPR (Latest Code Status on File) Date Activated Date Inactivated Comments 02/26/2021 6:43 AM 02/28/2021 10:27 PM Care Teams Bicycle Rental Clerk Relationship Specialty Start Date End Date Jane Underwood PA [address] [place] [address] PCP - General Physician Middleware Solutions Architect 02/26/24 Cristal Carreon MD [address] [place] [address] Family Medicine 02/26/21 Pola Acosta II, MD [address] [place] [address] Referring Physician Otolaryngology 01/24/21 Remi Mccollum MD [address] [facility] [address] [place], [place] [id number] Consulting Physician Cardiology 02/10/24 Santiago Garcia [address] [place] [address] Hematology 07/28/24 Isreal Kelly MD [address] [facility] 8 DIV IM BONE MARROW TRANSPLANT, 5TH, [address] [place] [address] Medical Oncologist/Instructor [facility] 07/29/24
--- OUTSIDE RECORDS SUMMARY | 2024-08-04 16:07 | XMS_ITS | Referral Summary ---
Author Organization [facility] Address [address] [address] Care Team Providers Care Osteopathy Doctor Name Role Phone Unavailable Primary Care Provider Unavailabl e Source Comments [facility],non-owned Affiliates and Associated Physician Practices is amultiple site organization consisting of ambulatory clinics and hospital sitesin [place], [place], [place] and [place]. This disclosure is being madepursuant to the Care Everywhere program and may not contain all information available regarding this patient. Last updated 18.[facility] Social History Tobacco Use Types Packs/Day Years Used Date Smoking Tobacco: Never Assessed Sex and Gender Information Value Date Recorded Sex Assigned at Not on file Gender Identity Not on file Sexual Orientation Not on file Plan of Treatment Not on file
--- OUTSIDE RECORDS SUMMARY | 2024-08-04 16:07 | XMS_ITS | Encounter Summary ---
Author Organization [facility] Address [address] [place] [address] Phone Care Team Providers Care Master Brewer Name Role Phone Jane Underwood I PAC Primary Care Provider + [phone] Isreal Simms MD Unavailable [phone] Encounter Details Date Type Department Care Team (Late st Contact Info) Description 07/01/2024 Telephone [facility] [address] [address] Isreal Simms MD [address] [place] [phone] Social History Tobacco Use Types Packs/Day [...] on file documented as of this encounter Plan of Treatment Not on file documented as of this encounter Visit Diagnoses Not on filedocumented in this encounter Care Teams Master Brewer Relationship Specialty Start Date End Date Jane Underwood I PAC [address] [place] [address] PCP - General Physician Clothing Room Supervisor 01/12/24 Isreal Simms MD [address] [place] [phone] Consulting Physician Oncology 01/12/24 documented as of this encounter
--- OUTSIDE RECORDS SUMMARY | 2024-08-04 16:07 | XMS_ITS | Referral Summary ---
Author Organization [facility] Address [address] [place] [address] Care Team Providers Care Security Coordinator Name Role Phone Cristal Carreon MD Unavailable Daev JASSO MD, Pola Lugo Unavailable Remi Mccollum MD Unavailable [phone] Jane Underwood Primary Care Provider [phone] Santiago Garcia Unavailable Isreal Kelly MD Unavailable [phone] Encounters Date Type Department Care Team Description 07/29/2024 Orders Only [facility] Oncology [address] [facility] Floor 6 [place] [id number] Isreal Kelly MD Multiple myeloma, remission status unspecified (HCC) (Primary Dx) 05/26/2024 Telephone [facility] Cardiology [facility] [facility] Advanced Medicine 8th [place] [address] [place] [phone] Kenneth Ruiz MD see enc 05/16/24 05/16/2024 Telephone [facility] Cardiology [address] [facility] Advanced Medicine 8th [place] [address] [place] [phone] Kenneth Ruiz MD LAAO scheduling 05/16/2024 Telephone [facility] Cardiology [address] [facility] 8th [place] [address] [place] [address] Kenneth Ruiz MD follow up on LAAO 05/12/[address] 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 Gender Identity Male 01/24/2021 7:48 AM CDT Sexual Orientation Straight 01/24/2021 7: 48 AM CDT Last Filed Vital Signs Vital Sign Reading [...] Description 09/21/2024 11:05 AM CDT Hospital Encounter [facility] [address] [place] [address] Kenneth Ruiz MD [address] [facility] [address] [place], [place] [id number] Persistent atrial fibrillation (HCC) 09/21/2024 11:05 AM CDT - 09/21/2024 1:25 PM CDT Surgery [facility] 1 [place] [phone] Kenneth Ruiz MD [address] [facility] [address] [place], [place] [id number] PERC DENNY CLOSE W/IMPLANT [id number] Medical Devices Implanted Type Area Stem Cutter Device Identifier Shelf Expiration Date Model / Serial / Lot [employer] [id number] Angio-Seal Vip Bondek-Plus 8fr .038in 70cm Hemostatic Latex Free - [id number] Implanted:Qty: 1 on 02/26/2021 at [facility] [employer] Jennifer [id number] / / Procedures Procedure Name Priority Date/Time Associated Diagnosis Comments CTA CHEST ABDOMEN PELVIS Schedule Routine, Read Routine (OP Routine) 04/06/2023 11:00 AM CDT Thoracoabdominal aortic aneurysm (TAAA), unspecified part, unspecified whether ruptured (HCC) from Last 3 Months or Most Recently Relevant to Health Maintenance Insurance [facility] MEDICARE MEDICARE Member Subscriber Plan / Payer (Ef fective 2010-Present) Name:Remi Leonardo Member ID:[id number] Relation to Subscriber:Self Name:Remi Leonardo Subscriber ID:[id number] Payer ID:[id number] Group ID:Not on file Type:MEDICARE TRADITIONAL Address: [place] [id number] [facility] MEDICARE MARCELLUS HALIE SHARMA Advance Directives For more information, please contact: [phone] * LIMITED - No CPR (Latest Code Status on File) Date Activated Date Inactivated Comments 02/26/2021 6:43 AM 02/28/2021 10:27 PM Care Teams Security Coordinator Relationship Specialty Start Date End Date Jane Underwood PA [address] [place] [id number] PCP - General Physician Roll Machine Operator 02/26/24 Cristal Carreon MD [address] [place] [address] Family Medicine 02/26/21 Pola Acosta II, MD [address] [place] [address] Referring Physician Otolaryngology 01/24/21 Remi Mccollum MD [address] [address] Consulting Physician Cardiology 02/10/24 Santiago Garcia [address] [place] [address] Hematology 07/28/24 Isreal Kelly MD [address] [facility] 8 DIV IM BONE MARROW [employer]PLANT, , [address] [place] [address] Medical Oncologist/Inside Sales Trainer Medical Oncology 07/29/24
[2024-08-04 16:08] LABS: Add Urine Microscopic? YES; Appearance Urine Cloudy (Clear); Bacteria Urine 4+ /hpf; Bilirubin Urine Negative (Negative); Blood Urine Trace (Negative); Color Urine Yellow (Yellow); Glucose Urine UA Negative (Negative); Ketones Urine Negative (Negative); Leukocyte Esterase Ur 3+ LEU/UL (Negative); Nitrate Urine Negative (Negative); Non Pathogenic Casts 0-2; Protein Urine 1+ mg/dL (Negative); RBC Urine 0-2 /hpf (0-2); Specific Grav Ur 1.015 (1.001-1.035); Squamous Epithelial Cell Urine None Seen /hpf (Few); WBC Urine >100 /hpf (0-3); pH Urine 6.5 (5.0-9.0)
--- NOTE | 2024-08-04 17:14 | ECG_ITS ---
Test Date: 2024-08-04 17:45:49 Measurements Intervals [place] Rate: 72 P: 0 AR: 0 QRS: -29 QRSD: 142 T: 162 QT: 413 QTc: 453 Interpretive Statements ATRIAL FIBRILLATION BORDERLINE LEFT AXIS DEVIATION [QRS AXIS < -20] INTRAVENTRICULAR CONDUCTION DELAY [130+ ms QRS DURATION] ST DEPRESSION, CONSIDER ISCHEMIA, LAT LEADS Compared to ECG 08/04/2024 14:41:45 NO SIGNIFICANT CHANGES Electronically Signed On 08-05-2024 14:18:03 SEO CONSULTANT by Annette Guajardo M.D.
[2024-08-04 17:41] LABS: Alveolar/Arterial O2 Gradient 24.4 mmHg; Base Excess ABG 1.6 mEq/l (+/-2.0); Fractional Inspired Oxygen 21 %; HCO3 ABG 24.9 mEq/l (22.0-26.0); Oxygen Content ABG 11.5 %vol (16.0-22.0); Oxygen Saturation ABG 97.1 % (95.0-100.0); Oxyhemoglobin 95.2 % THb (90.0-100.0); PCO2 ABG 33.7 mmHg (35.0-45.0); PO2 FiO2 Ratio Arterial Blood 4.05 %; Total Hemoglobin 8.5 g/dL (12.0-18.0); pH ABG 7.487 (7.350-7.450)
[2024-08-04 17:42] LABS: Prothrombin Time 14.1 Seconds (11.1-14.7)
[2024-08-04 17:43] LABS: Device ROOM AIR; Modified Allen's Test Pass; Site Drawn LEFT RADIAL
[2024-08-04 17:47] LABS: Creatine Kinase 30 U/L (55-170); Lipase 41 U/L (23-300); Magnesium 1.8 mg/dL (1.6-2.3); Phosphorus 3.9 mg/dL (2.5-4.5)
[2024-08-04 18:00] LABS: Lactic Acid Reflex 0.9 mmol/L (0.7-2.0)
[2024-08-04 18:07] LABS: Troponin I 0.081 ng/mL (0.000-0.034)
[2024-08-04] MEDS: SODIUM CHLORIDE 0.9% IV 1,000 ML 999 ML IV CONT ×2 (18:14→18:15)
[2024-08-04] MEDS: SODIUM CHLORIDE 0.9% IV 500 ML 999 ML (18:15)
[2024-08-04] MEDS: HYDROmorphone HCL INJ (*CRX) 1 MG/ML SYR 0.5 MG IV PUSH (18:17)
[2024-08-04] MEDS: CEFEPIME 2 GM/NS 50 ML 2 GM/50 ML BAG IVPB (18:36)
[2024-08-04 19:04] LABS: Influenza A QL RT-PCR Negative (Negative); Influenza B QL RT-PCR Negative (Negative); RSV RNA, RT-PCR Negative (Negative); SARS-CoV-2 RNA PCR Negative (Negative)
--- NOTE | 2024-08-04 19:08 | ECG_ITS ---
Test Date: 2024-08-04 19:18:17 Measurements Intervals [place] Rate: 84 P: 0 IA: 0 QRS: -49 QRSD: 136 T: 115 QT: 406 QTc: 483 Interpretive Statements ATRIAL FIBRILLATION INTRAVENTRICULAR CONDUCTION DELAY [130+ ms QRS DURATION] ST DEPRESSION, CONSIDER ISCHEMIA, LAT LEADS Compared to ECG 08/04/2024 17:45:49 NO SIGNIFICANT CHAGNES Electronically Signed On 08-05-2024 14:18:56 FINANCIAL SERVICES CONSULTANT by Annette Guajardo M.D.
--- NOTE | 2024-08-04 19:26 | ED.GENADULT ---
HPI - General Adult General Chief complaint: Weakness Stated complaint: lethargy Time Seen by Provider: 08/04/24 15:28 History of Present Illness HPI narrative: This is a 79-year-old male sent from the rehabilitation center [facility] for lethargy. 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 He also has a history of multiple myeloma with chronically low blood counts. Over the last 2 days he has become more lethargic. He is arousable but does not have any complaints this time. Related Data Home Medications ?Medication ?Instructions ?Recorded ?Confirmed ?Last Taken ?Type mecobalamin (vitamin B12) 1,000 1,000 mcg sublingual DAILY 01/12/23 07/30/24 07/22/23 08:00 History mcg disintegrating tablet,sublingual acetaminophen 650 mg 650 mg PO Q8H PRN pain or sleep 07/22/23 07/30/24 Unknown History tablet,extended release multivitamin 1 tablet PO DAILY 08/06/23 07/30/24 Unknown History Lactobacillus 1 cap PO DAILY@0800 07/30/24 07/30/24 Unknown History acidophilus-Bifidobac.animalis 32 billion cell capsule acetaminophen 500 mg tablet 1,000 mg PO QID pain 1-3 07/30/24 07/30/24 07/30/24 08:00 History acyclovir 400 mg tablet 400 mg PO BID 07/30/24 07/30/24 07/30/24 08:00 History amitriptyline 2%-ketamine 1 dose topical BID 07/30/24 07/30/24 Unknown History 5%-lidocaine 5% cyanocobalamin (vitamin B-12) 1,000 mcg PO DAILY 07/30/24 07/30/24 Unknown History 1,000 mcg capsule diclofenac sodium 1 % topical gel 4 g topical QID 07/30/24 07/30/24 07/30/24 08:00 History (Arthritis Pain (diclofenac)) ferrous sulfate, dried 160 mg (50 160 mg PO DAILY 07/30/24 07/30/24 Unknown History mg iron) tablet,extended release (Slow Release Iron) gabapentin 300 mg capsule 300 mg PO TID 07/30/24 07/30/24 07/30/24 08:00 History lidocaine 4 % topical patch 1 patch topical DAILY 07/30/24 07/30/24 Unknown History (Aspercreme (lidocaine)) polyethylene glycol 3350 17 gram 17 g PO BID 07/30/24 07/30/24 07/27/24 20:25 History oral powder packet senna-docusate sodium tablet 3 tablet PO BID 07/30/24 07/30/24 07/28/24 21:54 History sodium chloride-aloe vera nasal gel 1 applic topical BID-TID PRN 07/30/24 07/30/24 07/29/24 17:30 History irritation tramadol 50 mg tablet 75 mg PO Q6H PRN pain (scale score 07/30/24 07/30/24 07/30/24 03:50 History 7-10) Allergies Allergy/AdvReac Type Severity Reaction Status Date / Time clindamycin AdvReac GI upset Verified 08/04/24 14:53 [facility] Past Medical History Medical History Thrombocytopenia Pancreatic mass (~2011) Patient does not desire additional workup. 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 with surgical repair of the aortic root 2003 and thoracic aneurysm graft/repair around 2009 S/P ear surgery - at [facility] History of repair of thoracic aortic aneurysm Family History Family History Mother Diabetes mellitus Depression Cerebrovascular accident Father Hypertension Family history of elevated blood lipids Family history of lung cancer Social History Social History Smoking status: Never smoker Second hand tobacco smoke exposure: No Alcohol intake: former Drinks per week: 0 Substance use: never Substance use type: does not use Do You Feel Safe in your Home?: Yes Lack of Transportation: No Lack of Food: Never True Current Housing: I Have Housing Concerned About Future Housing: No Difficulty Paying Gas/Electric Bills: No Difficulty Paying for Meds: No Currently Unemployed: No Education: High School Diploma/GED Difficulty w/ Childcare or Family Care: No Living arrangements: with family Occupation/Education: retired Gender identity (if verbalized by the patient): Male Sexual Orientation (if Verbalized by the Patient): Straight or Heterosexual Spiritual care concerns: No Exam Narrative: APPEARANCE: No apparent distress. Lethargic but arousable Head: atraumatic. EYES: EOMI, NOSE: Atraumatic NECK: Trachea midline RESPIRATORY: No increased rate of breathing CTAB CARDIOVASCULAR: RRR, no peripheral edema ABDOMINAL: Non-distended soft nontender MUSCULOSKELETAl: No obvious deformities NEURO: Alert. Regular extremity paralysis SKIN:: Warm, dry. Normal color PSYCHIATRIC: Normal affect Course Vital Signs Vital signs: Vital Signs Temperature 97.7 F 08/04/24 14:28 Pulse Rate 82 08/04/24 14:28 Respiratory Rate 12 08/04/24 14:28 Blood Pressure 103/49 L 08/04/24 14:28 Pulse Oximetry 97 08/04/24 14:28 Oxygen Delivery Room Air 08/04/24 14:28 Temperature 97.7 F 08/04/24 14:28 Pulse Rate 77 08/04/24 19:05 Respiratory Rate 21 H 08/04/24 17:00 Blood Pressure 117/59 L 08/04/24 17:00 Pulse Oximetry 98 08/04/24 17:00 Oxygen Delivery Room Air 08/04/24 14:28 Medical Decision Making [facility] Narrative Medical decision making narrative: -Course: 79-year-old male history of VZV and multiple myeloma/pancytopenia presenting for lethargy. Full sepsis workup obtained. Significant for urinary tract infection. Blood cultures pending. Patient started on broad-spectrum antibiotics due to white blood cell count of 1.5. Patient given 30 cc/kilogram bolus. Patient be admitted IMU for further management. Platelets 14. No source of bleeding this time. -DDX includes but is not limited to: UTI sepsis pneumonia dehydration Vital Signs Vital Signs: Vital Signs Temperature 97.7 F 08/04/24 14:28 Pulse Rate 82 08/04/24 14:28 Respiratory Rate 12 08/04/24 14:28 Blood Pressure 103/49 L 08/04/24 14:28 Pulse Oximetry 97 08/04/24 14:28 Oxygen Delivery Room Air 08/04/24 14:28 Temperature 97.7 F 08/04/24 14:28 Pulse Rate 77 08/04/24 19:05 Respiratory Rate 21 H 08/04/24 17:00 Blood Pressure 117/59 L 08/04/24 17:00 Pulse Oximetry 98 08/04/24 17:00 Oxygen Delivery Room Air 08/04/24 14:28 Lab Data 08/04/24 14:56 08/04/24 14:56 Labs: Lab Results 08/04/24 08/04/24 08/04/24 Range/Units 14:55 14:56 15:58 WBC 1.5 L* (4.5-10.0) K/mm3 RBC 2.04 L (4.6-6.20) M/mm3 Hgb 7.7 L (14.0-18.0) g/dL Hct 23.3 L (42.0-52.0) % MCV 114.2 H (80-100) fl MCH 37.7 H (26-34) pg MCHC 33.0 (32-36) g/dl RDW 17.2 H (11.5-14.5) % Plt Count 14 L* (150-375) k/mm3 MPV Not Reportable Immature Gran % (Auto) 0.7 H (0-0.5) % Neut % (Auto) 69.7 (45.5-73.1) % Lymph % (Auto) 8.6 L (18.3-44.2) % [place] % (Auto) 19.7 H (2.6-8.5) % Eos % (Auto) 1.3 (0-4.4) % Baso % (Auto) 0.0 L (0.2-1.2) % Lymph # (Auto) 0.13 L (0.9-3.2) K/mm3 [place] # (Auto) 0.3 (0.1-0.6) K/mm3 Eos # (Auto) 0.0 (0-0.3) K/mm3 Baso # (Auto) 0.0 (0.0-0.1) K/mm3 Abs Immat Gran (auto) 0.01 (0.00-0.031) K/mm3 Absolute Neuts (auto) 1.1 L (1.3-6.7) K/mm3 Absolute Nucleated RBC 0.020 H (0.0-0.012) K/mm3 Nucleated RBC % 1.3 H (0.0-0.2) % Platelet Estimate Decreased (Adequate) % Immature Plt Fraction 3.7 (0.9-11.2) % Anisocytosis 2+ Macrocytosis 1+ (NORMAL) Tear Drop Cells 1+ Ovalocytes 1+ Schistocytes None seen PT 14.1 (11.1-14.7) Seconds INR 1.0 APTT 32.0 (22.3-36.8) Seconds Sodium 131 L (137-145) mmol/L Potassium 4.4 (3.4-5.0) mmol/L Chloride 97 L (98-107) mmol/L Carbon Dioxide 27 (22-30) mmol/L Anion Gap 7 (4-12) mmol/L BUN 18 (9-20) mg/dL Creatinine 1.02 (0.7-1.3) mg/dL Estim Creat Clear Calc 50 ml/min Estimated GFR > 60 (59 - ) Glucose 118 H (65-110) mg/dL Lactic Acid (0.7-2.0) mmol/L Calcium 9.1 (8.4-10.2) mg/dL Phosphorus 3.9 (2.5-4.5) mg/dL Magnesium 1.8 (1.6-2.3) mg/dL Total Bilirubin 0.6 (0.2-1.3) mg/dL AST 19 (17-59) U/L ALT 16 (6-50) U/L Alkaline Phosphatase 112 (38-126) U/L Total Creatine Kinase 30 L (55-170) U/L Troponin I 0.081 H* (0.000-0.034) ng/mL Total Protein 6.0 L (6.3-8.2) g/dL Albumin 3.2 L (3.5-5.1) g/dL Lipase 41 (23-300) U/L TSH (Reflex) 2.230 (0.465-4.68) uIU/mL Urine Color Yellow (Yellow) Urine Appearance Cloudy H (Clear) Urine pH 6.5 (5.0-9.0) Ur Specific Harmony 1.015 (1.001-1.035) Urine Protein 1+ H (Negative) mg/dL Urine Glucose (UA) Negative (Negative) mg/dL Urine Ketones Negative (Negative) mg/dL Ur Blood (Man) Trace (Negative) Urine Nitrate Negative (Negative) Urine Bilirubin Negative (Negative) Urine Urobilinogen 1.0 (<2.0) mg/dL Leukocyte Esterase Rfl 3+ H (Negative) AVRIL/UL Urine RBC 0-2 (0-2) /hpf Urine WBC >100 H (0-3) /hpf Ur Squamous Epith Cells None seen (Few) /hpf Urine Bacteria 4+ H /hpf Urine Casts 0-2 Influenza A (RT-PCR) (Negative) Influenza B (RT-PCR) (Negative) RSV (RT-PCR) (Negative) SARS-CoV-2 RNA (RT-PCR) (Negative) Blood Type Antibody Screen 08/04/24 08/04/24 08/04/24 Range/Units 17:38 18:22 19:20 WBC (4.5-10.0) K/mm3 RBC (4.6-6.20) M/mm3 Hgb (14.0-18.0) g/dL Hct (42.0-52.0) % MCV (80-100) fl MCH (26-34) pg MCHC (32-36) g/dl RDW (11.5-14.5) % Plt Count (150-375) k/mm3 MPV Immature Gran % (Auto) (0-0.5) % Neut % (Auto) (45.5-73.1) % Lymph % (Auto) (18.3-44.2) % [place] % (Auto) (2.6-8.5) % Eos % (Auto) (0-4.4) % Baso % (Auto) (0.2-1.2) % Lymph # (Auto) (0.9-3.2) K/mm3 [place] # (Auto) (0.1-0.6) K/mm3 Eos # (Auto) (0-0.3) K/mm3 Baso # (Auto) (0.0-0.1) K/mm3 Abs Immat Gran (auto) (0.00-0.031) K/mm3 Absolute Neuts (auto) (1.3-6.7) K/mm3 Absolute Nucleated RBC (0.0-0.012) K/mm3 Nucleated RBC % (0.0-0.2) % Platelet Estimate (Adequate) % Immature Plt Fraction (0.9-11.2) % Anisocytosis Macrocytosis (NORMAL) Tear Drop Cells Ovalocytes Schistocytes PT (11.1-14.7) Seconds INR APTT (22.3-36.8) Seconds Sodium (137-145) mmol/L Potassium (3.4-5.0) mmol/L Chloride (98-107) mmol/L Carbon Dioxide (22-30) mmol/L Anion Gap (4-12) mmol/L BUN (9-20) mg/dL Creatinine (0.7-1.3) mg/dL Estim Creat Clear Calc ml/min Estimated GFR (59 - ) Glucose (65-110) mg/dL Lactic Acid 0.9 (0.7-2.0) mmol/L Calcium (8.4-10.2) mg/dL Phosphorus (2.5-4.5) mg/dL Magnesium (1.6-2.3) mg/dL Total Bilirubin (0.2-1.3) mg/dL AST (17-59) U/L ALT (6-50) U/L Alkaline Phosphatase (38-126) U/L Total Creatine Kinase (55-170) U/L Troponin I Pending (0.000-0.034) ng/mL Total Protein (6.3-8.2) g/dL Albumin (3.5-5.1) g/dL Lipase (23-300) U/L TSH (Reflex) (0.465-4.68) uIU/mL Urine Color (Yellow) Urine Appearance (Clear) Urine pH (5.0-9.0) Ur Specific Harmony (1.001-1.035) Urine Protein (Negative) mg/dL Urine Glucose (UA) (Negative) mg/dL Urine Ketones (Negative) mg/dL Ur Blood (Man) (Negative) Urine Nitrate (Negative) Urine Bilirubin (Negative) Urine Urobilinogen (<2.0) mg/dL Leukocyte Esterase Rfl (Negative) AVRIL/UL Urine RBC (0-2) /hpf Urine WBC (0-3) /hpf Ur Squamous Epith Cells (Few) /hpf Urine Bacteria /hpf Urine Casts Influenza A (RT-PCR) Negative (Negative) Influenza B (RT-PCR) Negative (Negative) RSV (RT-PCR) Negative (Negative) SARS-CoV-2 RNA (RT-PCR) Negative (Negative) Blood Type O Positive Antibody Screen Negative ABG Data ABG results: 08/04/24 17:34 Puncture Site Left radial ABG pH 7.487 H ABG pCO2 33.7 L ABG pO2 85.0 ABG PO2/FiO2 Ratio 4.05 ABG HCO3 24.9 ABG O2 Saturation 97.1 ABG O2 Content 11.5 L ABG Base Excess 1.6 A-a Gradient 24.4 Oxyhemoglobin 95.2 Total Hemoglobin 8.5 L O2 Delivery Device Room air O2 Liters/Min Not Reportable FiO2 21 Critical Care Time Critical Care Time Critical Care Time: Yes Total Critical Care Time: 35 Discharge Plan Discharge Clinical Impression: AMS (altered mental status), Acute UTI, Multiple myeloma, Pancytopenia Patient Disposition: Still a Patient Condition: Stable Patient Language: Hebrew Prescriptions: No Action mecobalamin (vitamin B12) 1,000 mcg tablet,disintegrating 1,000 mcg sublingual DAILY Rx Instructions: place tablet under tongue and allow to dissolve for at least30 secs before swallowing multivitamin Tablet 1 tablet PO DAILY Florajen Acidophilus 20 billion cell capsule 20,000 mmu cells PO DAILY Qty: 1 0RF Rx Instructions: OTC acetaminophen 650 mg Tablet Extended Release 650 mg PO Q8H PRN (Reason: pain or sleep) ([facility] blood-glucose meter Kit See Rx Instructions .Route Qty: 1 0RF Rx Instructions: As directed ([facility] OneTouch Ultra Test Strip See Rx Instructions .Route Qty: 100 1RF Rx Instructions: test 1x/day pantoprazole 40 mg tablet,delayed release (DR/EC) 40 mg PO QAM Qty: 90 0RF lisinopril 5 mg tablet 5 mg PO DAILY Qty: 90 0RF tramadol 50 mg tablet 50 mg PO Q6H PRN (Reason: pain (scale score 4-6)) Qty: 30 0RF Patient Comments: Take for pain 4-7/10 acetaminophen 500 mg tablet 1,000 mg PO QID acyclovir 400 mg tablet 400 mg PO BID amitriptyline 2%-ketamine 5%-lidocaine 5% 1 dose topical BID cyanocobalamin (vitamin B-12) 1,000 mcg capsule 1,000 mcg PO DAILY diclofenac sodium [Arthritis Pain (diclofenac)] 1 % gel 4 g topical QID Rx Instructions: apply to single knee, ankle, foot; for foot includes sole/toes/top of foot gabapentin 300 mg capsule 300 mg PO TID L. acidophilus/Bifid. animalis 32 billion cell capsule 1 cap PO DAILY@0800 lidocaine [Aspercreme (lidocaine)] 4 % adhesive patch,medicated 1 patch topical DAILY polyethylene glycol 3350 17 gram powder in packet 17 g PO BID Slow Release Iron 160 mg (50 mg iron) tablet extended release 160 mg PO DAILY sodium chloride-aloe vera Gel 1 applic topical BID-TID PRN (Reason: irritation) tramadol 50 mg tablet 75 mg PO Q6H PRN (Reason: pain (scale score 7-10)) senna-docusate sodium Tablet 3 tablet PO BID Follow-up/Referrals: Jane Underwood PA-C [Primary Care Provider] -
[2024-08-04 19:51] LABS: Troponin I 0.068 ng/mL (0.000-0.034)
[2024-08-04] MEDS: VANCOMYCIN 2,000 MG/NS 500 ML 2,000 MG/500 ML BAG 250 MG IVPB (20:17)
--- NOTE | 2024-08-04 21:08 | PM.IMHP ---
H&P: HPI History of Present Illness Date/Time: 08/04/24 21:08 Chief Complaint: Weakness Narrative: This is a 79-year-old male with past medical history significant for recently diagnosed multiple myeloma, herpes zoster so neuropathy, right foot drop, insulin-dependent diabetes mellitus. Patient recently discharged from [facility] to [facility]. Was brought to the emergency room due to generalized weakness, obtundation, lethargy. Most of the history has been obtained from who is at bedside. Preliminary workup was significant for urinalysis with numerous WBCs present, platelet count 39011, WBC 1.9, MCV 114, hemoglobin 7.7 hematocrit 28 troponins x2 0.06 a 0.081 a chest x-ray showed no acute cardiopulmonary process, CT of the head no acute intracranial process. Patient has been admitted for further evaluation management and treatment. EXAMINATION: XR chest 1V portable Exam Date/Time: 08/04/2024 14:58 FLIGHT COMMUNICATIONS OFFICER HISTORY: weakness Comparison: 07/29/2023. RESULT: Lines, tubes, and devices: Aortic stent graft. Median sternotomy wires, the 2 superior wires are fractured but remain in stable position. Right upper quadrant suture wire, in stable position.. Lungs and pleura: Stable senescent change. Streaky bibasilar scar/atelectasis No focal consolidation, pleural effusion, or pneumothorax.. Cardiomediastinal silhouette: Stable. Other: No acute osseous or upper abdominal finding. IMPRESSION: No acute cardiopulmonary process. EXAMINATION: CT brain wo con DATE: 08/04/2024 18:10 INDICATION: AMS . TECHNIQUE: Computed tomography (CT) of the head was performed without intravenous contrast. The mA was adjusted according to patient size. Iterative reconstruction technique was employed. The dose-length product was 605.33 mGy-cm. COMPARISON: 07/25/2023. FINDINGS: No acute intracranial hemorrhage or extra-axial fluid collection. No hydrocephalus, mass, or herniation. No acute ischemic infarct. Unremarkable dural venous sinus attenuation. No acute osseous abnormality. Trace right mastoid fluid, the remaining aerated spaces are clear. Moderate atrophy and chronic white matter change. Atherosclerotic intracranial calcification. Bilateral lens replacements. Left temporal encephalomalacia. 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 IMPRESSION: No acute intracranial process. Review of Systems Review of Systems: ROS unobtainable: Yes unobtainable due to mental status (Obtundation/lethargy) PMFSH Past Medical History Medical History Thrombocytopenia Pancreatic mass (~2011) Patient does not desire additional workup. 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 [phone] with surgical repair of the aortic root 2003 and thoracic aneurysm graft/repair around 2009 S/P ear surgery - at [facility] History of repair of thoracic aortic aneurysm Family History Family History (Updated 08/04/24 @ 22:54 by Martinez Donovan RN) Mother Diabetes mellitus Depression Cerebrovascular accident Father Family history of elevated blood lipids Family history of lung cancer Hypertension Aortic aneurysm Social History Social History Smoking status: Never smoker Second hand tobacco smoke exposure: No Alcohol intake: former Drinks per week: 0 Substance use: never Substance use type: does not use Do You Feel Safe in your Home?: Yes Lack of Transportation: No Lack of Food: Never True Current Housing: I Have Housing Concerned About Future Housing: No Difficulty Paying Gas/Electric Bills: No Difficulty Paying for Meds: No Currently Unemployed: No Education: High School Diploma/GED Difficulty w/ Childcare or Family Care: No Living arrangements: with family Occupation/Education: retired Gender identity (if verbalized by the patient): Male Sexual Orientation (if Verbalized by the Patient): Straight or Heterosexual Spiritual care concerns: No Meds Home Medications and Allergies Home Medications ?Medication ?Instructions ?Recorded ?Confirmed ?Type blood-glucose meter #1 ea 05/13/21 08/04/24 Rx mecobalamin (vitamin B12) 1,000 1,000 mcg sublingual DAILY 01/12/23 08/04/24 History mcg disintegrating tablet,sublingual multivitamin 1 tablet PO DAILY 08/06/23 08/04/24 History blood sugar diagnostic (OneTouch #100 ea 11/05/23 08/04/24 Rx Ultra Test strips) Lactobacillus acidophilus 20 20,000 mmu cells PO DAILY #1 cap 01/11/24 08/04/24 Rx billion cell capsule (Florajen Acidophilus) lisinopril 5 mg tablet 5 mg PO DAILY #90 tabs 05/25/24 08/04/24 Rx pantoprazole 40 mg tablet,delayed 40 mg PO QAM #90 tabs 05/25/24 08/04/24 Rx release acetaminophen 500 mg tablet 1,000 mg PO QID pain 1-3 07/30/24 08/04/24 History acyclovir 400 mg tablet 400 mg PO BID 07/30/24 08/04/24 History cyanocobalamin (vitamin B-12) 1,000 mcg PO DAILY 07/30/24 08/04/24 History 1,000 mcg capsule diclofenac sodium 1 % topical gel 4 g topical QID 07/30/24 08/04/24 History (Arthritis Pain (diclofenac)) gabapentin 300 mg capsule 300 mg PO TID 07/30/24 08/04/24 History lidocaine 4 % topical patch 1 patch topical DAILY 07/30/24 08/04/24 History (Aspercreme (lidocaine)) polyethylene glycol 3350 17 gram 17 g PO BID PRN constipation 07/30/24 08/04/24 History oral powder packet senna-docusate sodium tablet 3 tablet PO BID PRN constipation 07/30/24 08/04/24 History tramadol 50 mg tablet 50 mg PO Q6H PRN pain (scale score 07/30/24 08/04/24 History 7-10) dextrose 40 % oral gel (Glucose 15 g PO ONCE PRN hypoglycemia 08/04/24 08/04/24 History Gel) dextrose 50 % in water (D50W) 50 g IV PRN PRN hyperglycemia 08/04/24 08/04/24 History duloxetine 20 mg capsule,delayed 20 mg PO DAILY 08/04/24 08/04/24 History release (Cymbalta) glucagon HCl 1 mg solution for 1 mg IM ONCE PRN hypoglycemia 08/04/24 08/04/24 History injection (Glucagon (HCl) Emergency Kit) insulin lispro 100 unit/mL 1 sliding scale dose subcut 08/04/24 08/04/24 History subcutaneous solution (Humalog USEASDIRECTD U-100 Insulin) tramadol 50 mg tablet 50 mg PO TID 08/04/24 08/04/24 History Allergies Allergy/AdvReac Type Severity Reaction Status Date / Time clindamycin AdvReac GI upset Verified 08/04/24 14:53 hydromorphone AdvReac Agitated Verified 08/05/24 00:49 Vital Signs Vital Signs - 24 hr 08/04/24 14:28 08/04/24 14:37 08/04/24 15:01 Temperature 97.7 F Pulse Rate 82 94 Respiratory Rate 12 6 L 20 Blood Pressure 103/49 L 103/49 L 100/68 Pulse Oximetry 97 Oxygen Delivery Room Air 08/04/24 16:19 08/04/24 17:00 08/04/24 18:46 Temperature Pulse Rate 75 74 76 Respiratory Rate 15 21 H 18 Blood Pressure 103/64 117/59 L 121/49 L Pulse Oximetry 95 98 98 Oxygen Delivery 08/04/24 19:01 08/04/24 19:05 08/04/24 20:18 Temperature Pulse Rate 85 77 86 Respiratory Rate 16 37 H Blood Pressure 141/67 H 139/72 Pulse Oximetry 95 99 Oxygen Delivery Exam Narrative: Laying in a stretcher Const: General: comfortable, no acute distress, well developed, ill appearing acutely, lethargic, patient obtunded and average body habitus Nutritional Appearance: average body habitus Orientation/consciousness: oriented to person, oriented to place, patient obtunded and lethargic HENMT: Head: normal to inspection, normocephalic and atraumatic Ears: hearing grossly normal bilaterally Face/Nose/Sinus: normal facial exam Face and sinus: normal facial exam Eyes: General: appearance normal, both eyes and all related structures Pupils: Equal, round and reactive pupils present EOM: EOMs intact bilaterally Neck: Neck: full ROM, no lymphadenopathy and no JVD Thyroid: thyroid normal Lymphatic: no lymphadenopathy noted Resp: Effort & Inspection: normal respiratory effort and able to speak in complete sentences Auscultation: clear to auscultation bilaterally Cardio: Jugular venous distension: no JVD Rate: regular rate Rhythm: regular rhythm Heart sounds: S1 normal heart sound present and S2 normal heart sound present GI: GI Palp: Yes Soft to palpation and Yes No hepatosplenomegaly present : General: Yes deferred Skin: Rashes: rashes noted (Petechial rash, herpetic rash) Wounds: no wounds Neuro: General: oriented to person, oriented to place, CN's II-XI intact bilaterally, patient obtunded and Unable to assess gait Cranial nerves: Yes CN's II-XII intact bilaterally and Yes Equal, round and reactive pupils present Cognition (Neuro): abnormal cognition (Obtundation/lethargy) Speech: normal speech Gait exam (Neuro): Unable to assess gait Motor exam (neuro): Motor abnormalities not present and Abnormal motor strength present (Right foot) Other: Right foot drop Extrem: General: normal to inspection, full ROM, no joint enlargement and no pedal edema Other: Petechial rash H&P: Results Labs Labs: Short CBC 08/04/24 Range/Units 14:56 WBC 1.5 L* (4.5-10.0) K/mm3 Hgb 7.7 L (14.0-18.0) g/dL Hct 23.3 L (42.0-52.0) % Plt Count 14 L* (150-375) k/mm3 BMP 08/04/24 14:56 Sodium 131 L Potassium 4.4 Chloride 97 L Carbon Dioxide 27 BUN 18 Creatinine 1.02 Glucose 118 H Calcium 9.1 Cardiac Enzymes 08/04/24 08/04/24 Range/Units 14:55 19:20 Total Creatine Kinase 30 L (55-170) U/L Troponin I 0.081 H* 0.068 H* (0.000-0.034) ng/mL Liver Function 08/04/24 Range/Units 14:56 Total Bilirubin 0.6 (0.2-1.3) mg/dL AST 19 (17-59) U/L ALT 16 (6-50) U/L Alkaline Phosphatase 112 (38-126) U/L Albumin 3.2 L (3.5-5.1) g/dL Urine 08/04/24 Range/Units 15:58 Urine Color Yellow (Yellow) Urine Appearance Cloudy H (Clear) Urine pH 6.5 (5.0-9.0) Ur Specific Ferney 1.015 (1.001-1.035) Urine Protein 1+ H (Negative) mg/dL Urine Glucose (UA) Negative (Negative) mg/dL Assessment and Plan Assessment and plan (1) UTI (urinary tract infection): Code(s): N39.0 - Urinary tract infection, site not specified Status: Acute Assessment and Plan: Patient started on cefepime Await cultures (2) Multiple myeloma: Code(s): C90.00 - Multiple myeloma not having achieved remission Status: Acute Assessment and Plan: Follow-up in outpatient setting (3) Elevated troponin: Code(s): R79.89 - Other specified abnormal findings of blood chemistry Status: Acute Assessment and Plan: Continue to trend Chest pain-free (4) Thrombocytopenia: Code(s): D69.6 - Thrombocytopenia, unspecified Status: Acute Assessment and Plan: Transfuse for platelets below 10,000 as per Heme-Onc recommendations (5) Controlled type 2 diabetes mellitus with hyperglycemia: Code(s): E11.65 - Type 2 diabetes mellitus with hyperglycemia Status: Acute Assessment and Plan: Continue insulin (6) Acute pain associated with herpes zoster: Code(s): B02.9 - Zoster without complications Status: Acute Assessment and Plan: Tramadol and Tylenol as needed (7) Lumbosacral radiculopathy due to herpes zoster: Code(s): M54.17 - Radiculopathy, lumbosacral region; B02.8 - Zoster with other complications Status: Acute Assessment and Plan: Continue to monitor (8) Encephalopathy: Code(s): G93.40 - Encephalopathy, unspecified Status: Acute Assessment and Plan: Likely secondary to acute illness urinary tract infection CT head reviewed (9) Foot drop, right foot: Code(s): M21.371 - Foot drop, right foot Status: Acute Assessment and Plan: PT OT (10) AMS (altered mental status): Code(s): R41.82 - Altered mental status, unspecified Status: Acute Assessment and Plan: Likely secondary to encephalopathy toxic metabolic (11) Post herpetic neuralgia: Code(s): B02.29 - Other postherpetic nervous system involvement Status: Acute Assessment and Plan: Continue gabapentin (12) COPD (chronic obstructive pulmonary disease): Code(s): J44.9 - Chronic obstructive pulmonary disease, unspecified Status: Acute Assessment and Plan: Not actively wheezing (13) Gait abnormality: Code(s): R26.9 - Unspecified abnormalities of gait and mobility Status: Acute Assessment and Plan: Fall precautions Hospitalist MIPS Advance Care Plan I have confirmed that the patient's Advanced Care Plan is present, code status is documented, or surrogate decision maker is listed in patient medical record.: Yes Medication Reconciliation I have utilized all available resources to obtain, update and review the patients current medications (includes all prescriptions, OTC, herbals, cannabis, and nutritional supplements).: Yes
[2024-08-04] MEDS: MORPHINE SULFATE (*CRX) 4 MG/ML INJ IV PUSH (21:10)
[2024-08-04] MEDS: GABAPENTIN 300 MG CAPSULE PO (21:42)
--- NOTE | 2024-08-04 22:30 | ADMGEN ---
This patient, Ambrose Leonardo, was admitted to IMU Room 209-01. Patient/family oriented to hospital policies and general routines including ID bracelet, bed and alarms, visiting hours, pain management, procedures, bathroom and other care routines, personal items, smoking policy, room service/diet, and visiting hours. Information on how to activate the Rapid Response Team has been discussed. Patient/Family are encouraged to report perceived risks to care and to ask questions if they do not understand what they are told or what they should do.
[2024-08-05] VITALS (19 sets, daily range): BP systolic 104–136; BP diastolic 41–70; PULSE 72–89; RESP 16–20; TEMP 36.4–37; O2SAT 94–99
[2024-08-05] MEDS: traMADol HCL (*CRX) 50 MG TABLET PO ×3 (04:15→18:24)
--- NOTE | 2024-08-05 07:32 | PM.IMPN ---
Progress Note: A&P Assessment and Plan (1) UTI (urinary tract infection): Code(s): N39.0 - Urinary tract infection, site not specified Status: Acute Assessment and Plan: Patient started on cefepime Await cultures (2) Multiple myeloma: Code(s): C90.00 - Multiple myeloma not having achieved remission Status: Acute Assessment and Plan: Follow-up in outpatient setting (3) Elevated troponin: Code(s): R79.89 - Other specified abnormal findings of blood chemistry Status: Acute Assessment and Plan: Continue to trend Chest pain-free (4) Thrombocytopenia: Code(s): D69.6 - Thrombocytopenia, unspecified Status: Acute Assessment and Plan: Transfuse for platelets below 10,000 as per Heme-Onc recommendations (5) Controlled type 2 diabetes mellitus with hyperglycemia: Code(s): E11.65 - Type 2 diabetes mellitus with hyperglycemia Status: Acute Assessment and Plan: Continue insulin (6) Acute pain associated with herpes zoster: Code(s): B02.9 - Zoster without complications Status: Acute Assessment and Plan: Tramadol and Tylenol as needed (7) Lumbosacral radiculopathy due to herpes zoster: Code(s): M54.17 - Radiculopathy, lumbosacral region; B02.8 - Zoster with other complications Status: Acute Assessment and Plan: Continue to monitor (8) Encephalopathy: Code(s): G93.40 - Encephalopathy, unspecified Status: Acute Assessment and Plan: Likely secondary to acute illness urinary tract infection CT head reviewed (9) Foot drop, right foot: Code(s): M21.371 - Foot drop, right foot Status: Acute Assessment and Plan: PT OT (10) AMS (altered mental status): Code(s): R41.82 - Altered mental status, unspecified Status: Acute Assessment and Plan: Likely secondary to encephalopathy toxic metabolic (11) Post herpetic neuralgia: Code(s): B02.29 - Other postherpetic nervous system involvement Status: Acute Assessment and Plan: Continue gabapentin (12) COPD (chronic obstructive pulmonary disease): Code(s): J44.9 - Chronic obstructive pulmonary disease, unspecified Status: Acute Assessment and Plan: Not actively wheezing (13) Gait abnormality: Code(s): R26.9 - Unspecified abnormalities of gait and mobility Status: Acute Assessment and Plan: Fall precautions Plan 79-year-old male with past medical history significant for recently diagnosed multiple myeloma, herpes zoster neuropathy, right foot drop, insulin-dependent diabetes mellitus. Patient recently discharged from [facility] to [facility]. Was brought to the emergency room due to generalized weakness, obtundation, lethargy. Most of the history has been obtained from who is at bedside. Preliminary workup was significant for urinalysis with numerous WBCs present, platelet count 34782, WBC 1.9, MCV 114, hemoglobin 7.7 hematocrit 28 troponins x2 0.06 a 0.081 a chest x-ray showed no acute cardiopulmonary process, CT of the head no acute intracranial process. Patient has been admitted for further evaluation management and treatment. Pertinent ED labs: WBC 1.5, hemoglobin 7.7, platelet 14, absolute neutrophil count 1.1, sodium 131, potassium 4.4, creatinine 1.02, troponin downtrending 0.068 UA: Leukocyte esterase 3+, WBC more than 100, bacteria 4+, nitrates negative Influenza, RSV, COVID negative Ordered nasal mrsa Head CT no acute intracranial process Chest x-ray no acute cardiopulmonary process Blood culture and urine culture pending. Discussed with his daughter and his . Patient has a complex medical history. 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 June 2024 patient had right leg weakness and was taken to [facility] and he was admitted there for 2 weeks. Patient family was not satisfied with the treatment given in [place] so he was transferred to [facility] at [place], [place] on July 20. In [place] clinically he was diagnosed with multiple myeloma. Patient has multiple comorbid conditions including shingles in [employer].Previous MRI pelvis: Normal, unremarkable MR imaging appearance of the imaged lumbosacral plexus. MRI brain with no acute findings. MRI lumbar spine with findings of: Abnormal linear enhancement along the course of the intrathecal and extraforaminal right L4 nerve root. The differential diagnosis includes, but is not limited to, perineural metastasis versus an infectious or inflammatory neuritis. 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 Order immunoglobulin panel to look for IGM viscosity,MRI brain and spine, changed Acyclovir to treatment,will transfuse Plt if less 10k or bleeding, PRBC if HgB less than 7, currently he is on Filgastrim. Called [facility] and spoke with , and patient accepted at [facility]. Accepting physician MD Kary. Pancytopenia Consulted hematology/oncology(managed per Dr Simms as OP) His new Oncologist is and has appointment on Aug Neutropenic precautions On cefepime and vancomycin prophylactically Therapeutic dose Acyclovir Watch for any spontaneous bleeding, NO OBVIOUS BLEEDING NOW Neupogen 300 mcg subQ daily until WBC count is more than 5000. White cell of 2K today. Afebrile, possible infectious source from UTI. WBC,1.5 ,hemoglobin 7.7, PLT 14 Order immunoglobulin panel to look for IGM viscosity. MRI brain and spine. Will transfuse Plt if less 10k or bleeding, PRBC if HgB less than 7. Will do LP if needed UTI UA reviewed Urine culture pending Cefepime and vancomycin Atrial Fibrillation In need of Watchman. Subjective Date/time seen: 08/05/24 07:32 Interval history: 79-year-old male with past medical history significant for recently diagnosed multiple myeloma, herpes zoster neuropathy, right foot drop, insulin-dependent diabetes mellitus. Patient recently discharged from [facility] to [facility]. Was brought to the emergency room due to generalized weakness, obtundation, lethargy. Most of the history has been obtained from who is at bedside. Preliminary workup was significant for urinalysis with numerous WBCs present, platelet count 80456, WBC 1.9, MCV 114, hemoglobin 7.7 hematocrit 28 troponins x2 0.06 a 0.081 a chest x-ray showed no acute cardiopulmonary process, CT of the head no acute intracranial process. Patient has been admitted for further evaluation management and treatment. Pertinent ED labs: WBC 1.5, hemoglobin 7.7, platelet 14, absolute neutrophil count 1.1, sodium 131, potassium 4.4, creatinine 1.02, troponin downtrending 0.068 UA: Leukocyte esterase 3+, WBC more than 100, bacteria 4+, nitrates negative Influenza, RSV, COVID negative Ordered nasal mrsa Head CT no acute intracranial process Chest x-ray no acute cardiopulmonary process Blood culture and urine culture pending. Discussed with his daughter and his . Patient has a complex medical history. 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 June 2024 patient had right leg weakness and was taken to [facility] and he was admitted there for 2 weeks. Patient family was not satisfied with the treatment given in [place] so he was transferred to [facility] at [place], [place] on July 20. In [place] clinically he was diagnosed with multiple myeloma. Patient has multiple comorbid conditions including shingles in [employer].Previous MRI pelvis: Normal, unremarkable MR imaging appearance of the imaged lumbosacral plexus. MRI brain with no acute findings. MRI lumbar spine with findings of: Abnormal linear enhancement along the course of the intrathecal and extraforaminal right L4 nerve root. The differential diagnosis includes, but is not limited to, perineural metastasis versus an infectious or inflammatory neuritis. Order immunoglobulin panel to look for IGM viscosity,MRI brain and spine, changed Acyclovir to treatment,will transfuse Plt if less 10k or bleeding, PRBC if HgB less than 7, currently he is on Filgastrim. Called [facility] and spoke with , and patient accepted at [facility]. Accepting physician MD Kary. Review of Systems Review of Systems: ROS unobtainable: Yes unobtainable due to mental status (Obtundation/lethargy) Exam Narrative: Laying in a stretcher Const: General: comfortable, no acute distress, well developed, ill appearing acutely, lethargic, patient obtunded and average body habitus Nutritional Appearance: average body habitus Orientation/consciousness: oriented to person, oriented to place, patient obtunded and lethargic HENMT: Head: normal to inspection, normocephalic and atraumatic Ears: hearing grossly normal bilaterally Face/Nose/Sinus: normal facial exam Face and sinus: normal facial exam Eyes: General: appearance normal, both eyes and all related structures Pupils: Equal, round and reactive pupils present EOM: EOMs intact bilaterally Neck: Neck: full ROM, no lymphadenopathy and no JVD Thyroid: thyroid normal Lymphatic: no lymphadenopathy noted Resp: Effort & Inspection: normal respiratory effort and able to speak in complete sentences Auscultation: clear to auscultation bilaterally Cardio: Jugular venous distension: no JVD Rate: regular rate Rhythm: regular rhythm Heart sounds: S1 normal heart sound present and S2 normal heart sound present : General: Yes deferred Skin: General skin exam: rashes (Petechial rash, herpetic rash) Rashes: rashes noted (Petechial rash, herpetic rash) Wounds: no wounds Neuro: General: oriented to person, oriented to place, CN's II-XI intact bilaterally, patient obtunded and Unable to assess gait Cranial nerves: Yes CN's II-XII intact bilaterally and Yes Equal, round and reactive pupils present Cognition (Neuro): abnormal cognition (Obtundation/lethargy) Speech: normal speech Gait exam (Neuro): Unable to assess gait Motor exam (neuro): Motor abnormalities not present and Abnormal motor strength present (Right foot) Other: Right foot drop Extrem: General: normal to inspection, full ROM, no joint enlargement and no pedal edema Other: Petechial rash Objective Data Vital Signs Vital Signs: Vital Signs - 24 hr 08/04/24 14:28 08/04/24 14:37 08/04/24 15:01 Temperature 97.7 F Pulse Rate 82 94 Respiratory Rate 12 6 L 20 Blood Pressure 103/49 L 103/49 L 100/68 Pulse Oximetry 97 Oxygen Delivery Room Air 08/04/24 16:19 08/04/24 17:00 08/04/24 18:46 Temperature Pulse Rate 75 74 76 Respiratory Rate 15 21 H 18 Blood Pressure 103/64 117/59 L 121/49 L Pulse Oximetry 95 98 98 Oxygen Delivery 08/04/24 19:01 08/04/24 19:05 08/04/24 20:18 Temperature Pulse Rate 85 77 86 Respiratory Rate 16 37 H Blood Pressure 141/67 H 139/72 Pulse Oximetry 95 99 Oxygen Delivery 08/04/24 22:27 08/05/24 00:00 08/05/24 00:00 Temperature 97.6 F Pulse Rate 89 84 89 Respiratory Rate 18 18 Blood Pressure 128/52 L Pulse Oximetry 94 94 Oxygen Delivery Room Air 08/05/24 00:00 08/05/24 03:02 08/05/24 03:04 Temperature 97.8 F Pulse Rate 80 88 88 Respiratory Rate 18 18 Blood Pressure 133/56 L Pulse Oximetry 95 95 Oxygen Delivery Room Air 08/05/24 03:55 08/05/24 05:27 Temperature 97.6 F Pulse Rate 85 86 Respiratory Rate 18 Blood Pressure 127/56 L Pulse Oximetry 97 Oxygen Delivery Intake/Output Intake/Output: Intake & Output 08/02/24 08/03/24 08/04/24 08/05/24 23:59 23:59 23:59 23:59 Intake Total 3050 200 Output Total 400 Balance 3050 -200 Meds/Results Medications: Active Medications Generic Name Dose Route Start Last Admin Trade Name Freq PRN Reason Stop Dose Admin Acetaminophen 1,000 mg 08/05/24 09:00 Acetaminophen 500 Mg Tablet PO QID MARIA ELENA Acyclovir 400 mg 08/05/24 09:00 Acyclovir 400 Mg Tablet PO Q12HR MARIA ELENA Cyanocobalamin 1,000 mcg 08/05/24 09:00 Cyanocobalamin 1,000 Mcg Tablet PO DAILY MARIA ELENA Duloxetine HCl 20 mg 08/05/24 09:00 Duloxetine Hcl 20 Mg Capsule.Dr PO DAILY MARIA ELENA Gabapentin 300 mg 08/05/24 09:00 Gabapentin 300 Mg Capsule PO TID MARIA ELENA Vancomycin HCl 1,500 mg in 500 mls @ 250 mls/hr 08/05/24 20:00 Vancomycin 1,500 Mg/Ns 500 Ml IVPB Q24H MARIA ELENA Cefepime HCl 2 gm in 50 mls @ 100 mls/hr 08/05/24 09:00 Maxipime 2 Gm/Ns 50 Ml IVPB Q12HR MARIA ELENA Lactobacillus Acidophilus 1 tablet 08/05/24 09:00 Acidophilus/Bulgaricus Chewable Tablet BY MOUTH DAILY MARIA ELENA Lidocaine 1 patch 08/05/24 09:00 Lidocaine 5% Patch TRANSDERM DAILY [facility] Pantoprazole Sodium 40 mg 08/05/24 09:00 Pantoprazole 40 Mg Tablet PO QAM MARIA ELENA Polyethylene Glycol 17 gm 08/05/24 01:49 Polyethylene Glycol 3350 17 Gm Powd.Pack PO BID PRN constipation Tramadol HCl 50 mg 08/05/24 01:49 08/05/24 04:15 Tramadol Hcl (*Crx) 50 Mg Tablet PO 50 mg Q6H PRN Administration pain (scale score 7-10) Radiology Results: ITS Impressions Chest X-Ray 08/04/24 15:09 IMPRESSION: No acute cardiopulmonary process. Head CT 08/04/24 18:11 IMPRESSION: No acute intracranial process. Labs Labs: Laboratory Results - last 24 hr 08/04/24 08/04/24 08/04/24 14:55 14:56 15:58 WBC 1.5 L* RBC 2.04 L Hgb 7.7 L Hct 23.3 L MCV 114.2 H MCH 37.7 H MCHC 33.0 RDW 17.2 H Plt Count 14 L* MPV Not Reportable Immature Gran % (Auto) 0.7 H Neut % (Auto) 69.7 Lymph % (Auto) 8.6 L [place] % (Auto) 19.7 H Eos % (Auto) 1.3 Baso % (Auto) 0.0 L Lymph # (Auto) 0.13 L [place] # (Auto) 0.3 Eos # (Auto) 0.0 Baso # (Auto) 0.0 Abs Immat Gran (auto) 0.01 Absolute Neuts (auto) 1.1 L Absolute Nucleated RBC 0.020 H Nucleated RBC % 1.3 H Platelet Estimate Decreased % Immature Plt Fraction 3.7 Anisocytosis 2+ Macrocytosis 1+ Tear Drop Cells 1+ Ovalocytes 1+ Schistocytes None seen PT 14.1 INR 1.0 APTT 32.0 Puncture Site ABG pH ABG pCO2 ABG pO2 ABG PO2/FiO2 Ratio ABG HCO3 ABG O2 Saturation ABG O2 Content ABG Base Excess A-a Gradient Oxyhemoglobin Total Hemoglobin O2 Delivery Device O2 Liters/Min FiO2 Sodium 131 L Potassium 4.4 Chloride 97 L Carbon Dioxide 27 Anion Gap 7 BUN 18 Creatinine 1.02 Estim Creat Clear Calc 50 Estimated GFR > 60 Glucose 118 H Lactic Acid Calcium 9.1 Phosphorus 3.9 Magnesium 1.8 Total Bilirubin 0.6 AST 19 ALT 16 Alkaline Phosphatase 112 Total Creatine Kinase 30 L Troponin I 0.081 H* Total Protein 6.0 L Albumin 3.2 L Lipase 41 TSH (Reflex) 2.230 Urine Color Yellow Urine Appearance Cloudy H Urine pH 6.5 Ur Specific [place] 1.015 Urine Protein 1+ H Urine Glucose (UA) Negative Urine Ketones Negative Ur Blood (Man) Trace Urine Nitrate Negative Urine Bilirubin Negative Urine Urobilinogen 1.0 Leukocyte Esterase Rfl 3+ H Urine RBC 0-2 Urine WBC >100 H Ur Squamous Epith Cells None seen Urine Bacteria 4+ H Urine Casts 0-2 Influenza A (RT-PCR) Influenza B (RT-PCR) RSV (RT-PCR) SARS-CoV-2 RNA (RT-PCR) Blood Type Antibody Screen 08/04/24 08/04/2408/04/25 17:34 17:38 18:22 WBC RBC Hgb Hct MCV MCH MCHC RDW Plt Count MPV Immature Gran % (Auto) Neut % (Auto) Lymph % (Auto) [place] % (Auto) Eos % (Auto) Baso % (Auto) Lymph # (Auto) [place] # (Auto) Eos # (Auto) Baso # (Auto) Abs Immat Gran (auto) Absolute Neuts (auto) Absolute Nucleated RBC Nucleated RBC % Platelet Estimate % Immature Plt Fraction Anisocytosis Macrocytosis Tear Drop Cells Ovalocytes Schistocytes PT INR APTT Puncture Site Left radial ABG pH 7.487 H ABG pCO2 33.7 L ABG pO2 85.0 ABG PO2/FiO2 Ratio 4.05 ABG HCO3 24.9 ABG O2 Saturation 97.1 ABG O2 Content 11.5 L ABG Base Excess 1.6 A-a Gradient 24.4 Oxyhemoglobin 95.2 Total Hemoglobin 8.5 L O2 Delivery Device Room air O2 Liters/Min Not Reportable FiO2 21 Sodium Potassium Chloride Carbon Dioxide Anion Gap BUN Creatinine Estim Creat Clear Calc Estimated GFR Glucose Lactic Acid 0.9 Calcium Phosphorus Magnesium Total Bilirubin AST ALT Alkaline Phosphatase Total Creatine Kinase Troponin I Total Protein Albumin Lipase TSH (Reflex) Urine Color Urine Appearance Urine pH Ur Specific [place] Urine Protein Urine Glucose (UA) Urine Ketones Ur Blood (Man) Urine Nitrate Urine Bilirubin Urine Urobilinogen Leukocyte Esterase Rfl Urine RBC Urine WBC Ur Squamous Epith Cells Urine Bacteria Urine Casts Influenza A (RT-PCR) Negative Influenza B (RT-PCR) Negative RSV (RT-PCR) Negative SARS-CoV-2 RNA (RT-PCR) Negative Blood Type O Positive Antibody Screen Negative 08/04/24 19:20 WBC RBC Hgb Hct MCV MCH MCHC RDW Plt Count MPV Immature Gran % (Auto) Neut % (Auto) Lymph % (Auto) [place] % (Auto) Eos % (Auto) Baso % (Auto) Lymph # (Auto) [place] # (Auto) Eos # (Auto) Baso # (Auto) Abs Immat Gran (auto) Absolute Neuts (auto) Absolute Nucleated RBC Nucleated RBC % Platelet Estimate % Immature Plt Fraction Anisocytosis Macrocytosis Tear Drop Cells Ovalocytes Schistocytes PT INR APTT Puncture Site ABG pH ABG pCO2 ABG pO2 ABG PO2/FiO2 Ratio ABG HCO3 ABG O2 Saturation ABG O2 Content ABG Base Excess A-a Gradient Oxyhemoglobin Total Hemoglobin O2 Delivery Device O2 Liters/Min FiO2 Sodium Potassium Chloride Carbon Dioxide Anion Gap BUN Creatinine Estim Creat Clear Calc Estimated GFR Glucose Lactic Acid Calcium Phosphorus Magnesium Total Bilirubin AST ALT Alkaline Phosphatase Total Creatine Kinase Troponin I 0.068 H* Total Protein Albumin Lipase TSH (Reflex) Urine Color Urine Appearance Urine pH Ur Specific [place] Urine Protein Urine Glucose (UA) Urine Ketones Ur Blood (Man) Urine Nitrate Urine Bilirubin Urine Urobilinogen Leukocyte Esterase Rfl Urine RBC Urine WBC Ur Squamous Epith Cells Urine Bacteria Urine Casts Influenza A (RT-PCR) Influenza B (RT-PCR) RSV (RT-PCR) SARS-CoV-2 RNA (RT-PCR) Blood Type Antibody Screen Hospitalist MIPS Advance Care Plan I have confirmed that the patient's Advanced Care Plan is present, code status is documented, or surrogate decision maker is listed in patient medical record.: Yes Medication Reconciliation I have utilized all available resources to obtain, update and review the patients current medications (includes all prescriptions, OTC, herbals, cannabis, and nutritional supplements).: Yes
[2024-08-05] MEDS: DULoxetine HCL 20 MG CAPSULE.DR PO (08:44)
[2024-08-05] MEDS: GABAPENTIN 300 MG CAPSULE PO ×3 (08:44→18:24)
[2024-08-05] MEDS: ACIDOPHILUS/BULGARICUS CHEWABLE TABLET 1 TABLET BY MOUTH (08:44)
[2024-08-05] MEDS: LIDOCAINE 5% PATCH 1 PATCH TRANSDERM (08:44)
[2024-08-05] MEDS: PANTOPRAZOLE 40 MG TABLET PO (08:44)
[2024-08-05] MEDS: CYANOCOBALAMIN 1,000 MCG TABLET 1000 MCG PO (08:45)
[2024-08-05] MEDS: ACYCLOVIR 400 MG TABLET PO (08:45)
[2024-08-05] MEDS: ACETAMINOPHEN 500 MG TABLET 1000 MG PO ×4 (08:45→19:48)
[2024-08-05] MEDS: CEFEPIME 2 GM/NS 50 ML 2 GM/50 ML BAG IVPB ×2 (09:12→21:45)
[2024-08-05] MEDS: FILGRASTIM-SNDZ 300 MCG/0.5 ML SYRINGE SUB-Q (09:13)
[2024-08-05] MEDS: guaiFENesin 12 HR 600 MG TABCR PO ×2 (11:39→19:48)
[2024-08-05 15:26] LABS: Hematocrit 22.7 % (42.0-52.0); Hemoglobin 7.4 g/dL (14.0-18.0); Immature Platelet Fraction Pct 3.3 % (0.9-11.2); Mean Corpuscular HGB Conc 32.6 g/dl (32-36); Mean Corpuscular Hemoglobin 37.2 pg (26-34); Mean Corpuscular Volume 114.1 fl (80-100); Red Blood Count 1.99 M/mm3 (4.6-6.20); Red Cell Distribution Width 17.4 % (11.5-14.5)
[2024-08-05 15:40] LABS: Alanine Aminotransferase 15 U/L (6-50); Albumin Level 3.1 g/dL (3.5-5.1); Alkaline Phosphatase 106 U/L (38-126); Anion Gap 7 mmol/L (4-12); Aspartate Amino Transferase 20 U/L (17-59); Bilirubin,Total 1.1 mg/dL (0.2-1.3); Blood Urea Nitrogen 12 mg/dL (9-20); Calcium 9.1 mg/dL (8.4-10.2); Carbon Dioxide 23 mmol/L (22-30); Chloride 102 mmol/L (98-107); Estimated CRCL calculation 68 ml/min; Estimated Glomerular Filt Rate > 60; Glucose 96 mg/dL (65-110); Potassium 4.1 mmol/L (3.4-5.0); Sodium 132 mmol/L (137-145)
--- NOTE | 2024-08-05 15:59 | P.CONONC_ITS ---
Assessment and Plan Assessment and plan (1) Multiple myeloma: Code(s): C90.00 - Multiple myeloma not having achieved remission Status: Acute Assessment and Plan: Multiple myeloma. According to the patient was diagnosed with multiple myeloma about 1 and half weeks ago when he had bone marrow biopsy done at [facility]. 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 He came into the hospital with mental status changes. CT scan of the head showed no acute intracranial process. He was diagnosed with UTI. Labs [place] [address] and hemoglobin of 7.7 and WBC count of 1.5. His pancytopenia secondary to multiple myeloma. I was told that he got accepted at [facility]. I would recommend transferring him over there so he can start the treatment inpatient. Patient told me that he has appointment with the oncologist at [facility] on August 15 as well. In the meantime we will support him with platelet transfusion and blood transfusion as needed. I will check iron studies and vitamin B12 level as well as blood tests for multiple myeloma. I will also order abdominal ultrasound to check for any underlying hepatosplenomegaly. I have provided him my office information for follow-up. I have answered all the questions to family satisfaction. HPI Data of Consult Date/Time: 08/05/24 15:59 Requesting Physician: Giorgio Dowling MD Primary Care Provider: Jane Underwood PA-C Consult Narrative Narrative: Ambrose Leonardo is a 79 year old male with history of diabetes, herpes zoster and recently diagnosed multiple myeloma. According to the patient was initially diagnosed with Waldenstrum macroglobulinemia in March of 2024 and then was subsequently taken to the [facility] and had bone marrow biopsy done 1 and half week ago. He was told to have multiple myeloma. He has not started any treatment yet. He came into the hospital with mental status changes and was found to have UTI. He was also found to be pancytopenic. CT scan of the head showed no acute intracranial process. He seems to be alert today. 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 Review of Systems 2 Review of Systems: Review of system as per HPI otherwise negative PMFSH Past Medical History Medical History Thrombocytopenia Pancreatic mass (~2011) Patient does not desire additional workup. 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 [phone] with surgical repair of the aortic root 2003 and thoracic aneurysm graft/repair around 2009 S/P ear surgery - at [facility] History of repair of thoracic aortic aneurysm Family History Family History (Updated 08/04/24 @ 22:54 by Martinez Donovan RN) Mother Diabetes mellitus Depression Cerebrovascular accident Father Family history of elevated blood lipids Family history of lung cancer Hypertension Aortic aneurysm Social History Social History Smoking status: Never smoker Second hand tobacco smoke exposure: No Alcohol intake: former Drinks per week: 0 Substance use: never Substance use type: does not use Do You Feel Safe in your Home?: Yes Lack of Transportation: No Lack of Food: Never True Current Housing: I Have Housing Concerned About Future Housing: No Difficulty Paying Gas/Electric Bills: No Difficulty Paying for Meds: No Currently Unemployed: No Education: High School Diploma/GED Difficulty w/ Childcare or Family Care: No Living arrangements: with family Occupation/Education: retired Gender identity (if verbalized by the patient): Male Sexual Orientation (if Verbalized by the Patient): Straight or Heterosexual Spiritual care concerns: No Meds Home Medications and Allergies Home Medications ?Medication ?Instructions ?Recorded ?Confirmed ?Type blood-glucose meter #1 ea 05/13/21 08/04/24 Rx mecobalamin (vitamin B12) 1,000 1,000 mcg sublingual DAILY 01/12/23 08/04/24 History mcg disintegrating tablet,sublingual multivitamin 1 tablet PO DAILY 08/06/23 08/04/24 History blood sugar diagnostic (OneTouch #100 ea 11/05/23 08/04/24 Rx Ultra Test strips) Lactobacillus acidophilus 20 20,000 mmu cells PO DAILY #1 cap 01/11/24 08/04/24 Rx billion cell capsule (Florajen Acidophilus) lisinopril 5 mg tablet 5 mg PO DAILY #90 tabs 05/25/24 08/04/24 Rx pantoprazole 40 mg tablet,delayed 40 mg PO QAM #90 tabs 05/25/24 08/04/24 Rx release acetaminophen 500 mg tablet 1,000 mg PO QID pain 1-3 07/30/24 08/04/24 History acyclovir 400 mg tablet 400 mg PO BID 07/30/24 08/04/24 History cyanocobalamin (vitamin B-12) 1,000 mcg PO DAILY 07/30/24 08/04/24 History 1,000 mcg capsule diclofenac sodium 1 % topical gel 4 g topical QID 07/30/24 08/04/24 History (Arthritis Pain (diclofenac)) gabapentin 300 mg capsule 300 mg PO TID 07/30/24 08/04/24 History lidocaine 4 % topical patch 1 patch topical DAILY 07/30/24 08/04/24 History (Aspercreme (lidocaine)) polyethylene glycol 3350 17 gram 17 g PO BID PRN constipation 07/30/24 08/04/24 History oral powder packet senna-docusate sodium tablet 3 tablet PO BID PRN constipation 07/30/24 08/04/24 History tramadol 50 mg tablet 50 mg PO Q6H PRN pain (scale score 07/30/24 08/04/24 History 7-10) dextrose 40 % oral gel (Glucose 15 g PO ONCE PRN hypoglycemia 08/04/24 08/04/24 History Gel) dextrose 50 % in water (D50W) 50 g IV PRN PRN hyperglycemia 08/04/24 08/04/24 History duloxetine 20 mg capsule,delayed 20 mg PO DAILY 08/04/24 08/04/24 History release (Cymbalta) glucagon HCl 1 mg solution for 1 mg IM ONCE PRN hypoglycemia 08/04/24 08/04/24 History injection (Glucagon (HCl) Emergency Kit) insulin lispro 100 unit/mL 1 sliding scale dose subcut 08/04/24 08/04/24 History subcutaneous solution (Humalog USEASDIRECTD U-100 Insulin) tramadol 50 mg tablet 50 mg PO TID 08/04/24 08/04/24 History Allergies Allergy/AdvReac Type Severity Reaction Status Date / Time clindamycin AdvReac GI upset Verified 08/04/24 14:53 hydromorphone AdvReac Agitated Verified 08/05/24 00:49 Vital Signs Vital Signs - 24 hr 08/04/24 16:19 08/04/24 17:00 08/04/24 18:46 Temperature Pulse Rate 75 74 76 Respiratory Rate 15 21 H 18 Blood Pressure 103/64 117/59 L 121/49 L Pulse Oximetry 95 98 98 Oxygen Delivery 08/04/24 19:01 08/04/24 19:05 08/04/24 20:18 Temperature Pulse Rate 85 77 86 Respiratory Rate 16 37 H Blood Pressure 141/67 H 139/72 Pulse Oximetry 95 99 Oxygen Delivery 08/04/24 22:27 08/05/24 00:00 08/05/24 00:00 Temperature 36.4 C Pulse Rate 89 84 89 Respiratory Rate 18 18 Blood Pressure 128/52 L Pulse Oximetry 94 94 Oxygen Delivery Room Air 08/05/24 00:00 08/05/24 03:02 08/05/24 03:04 Temperature 36.6 C Pulse Rate 80 88 88 Respiratory Rate 18 18 Blood Pressure 133/56 L Pulse Oximetry 95 95 Oxygen Delivery Room Air 08/05/24 03:55 08/05/24 05:27 08/05/24 07:35 Temperature 36.4 C 36.9 C Pulse Rate 85 86 81 Respiratory Rate 18 18 Blood Pressure 127/56 L 127/58 L Pulse Oximetry 97 95 Oxygen Delivery 08/05/24 09:59 08/05/24 11:46 Temperature 36.6 C Pulse Rate 76 Respiratory Rate 20 Blood Pressure 131/70 Pulse Oximetry 97 99 Oxygen Delivery Room Air Exam 2 Narrative: Lungs are clear to auscultation bilaterally Cardiovascular regular rate rhythm no murmurs Abdomen soft nontender nondistended bowel sounds are positive Extremities no edema Results Labs 08/04/24 14:56 08/05/24 15:17 Labs: BMP 08/05/24 15:17 Sodium 132 L Potassium 4.1 Chloride 102 Carbon Dioxide 23 BUN 12 D Creatinine 0.74 Glucose 96 Calcium 9.1 Cardiac Enzymes 08/04/24 08/04/24 Range/Units 14:55 19:20 Total Creatine Kinase 30 L (55-170) U/L Troponin I 0.081 H* 0.068 H* (0.000-0.034) ng/mL Liver Function 08/05/24 Range/Units 15:17 Total Bilirubin 1.1 (0.2-1.3) mg/dL AST 20 (17-59) U/L ALT 15 (6-50) U/L Alkaline Phosphatase 106 (38-126) U/L Albumin 3.1 L (3.5-5.1) g/dL Urine 08/04/24 Range/Units 15:58 Urine Color Yellow (Yellow) Urine Appearance Cloudy H (Clear) Urine pH 6.5 (5.0-9.0) Ur Specific Reading 1.015 (1.001-1.035) Urine Protein 1+ H (Negative) mg/dL Urine Glucose (UA) Negative (Negative) mg/dL
[2024-08-05 16:03] LABS: Immunoglobulin A < 40 mg/dL (70-400); Immunoglobulin G < 270 mg/dL (700-1600); Immunoglobulin M 722 mg/dL (40-230)
[2024-08-05 16:35] LABS: White Blood Count 1.9 K/mm3 (4.5-10.0)
[2024-08-05 16:36] LABS: Platelet Count Result 12 k/mm3 (150-375)
[2024-08-05 16:40] LABS: Iron 128 ug/dL (49-181)
[2024-08-05 16:48] LABS: Percent Iron Saturation 51 % (20-50)
--- NOTE | 2024-08-05 17:04 | PCSTNOTE ---
Please refer to the Bedside Swallow Evaluation in the EMR. Please note, silent aspiration cannot be ruled out at bedside.
[2024-08-05 17:33] LABS: Folic Acid > 20.0 ng/mL (2.76->20); Vitamin B12 > 1000.0 pg/mL (239-931)
[2024-08-05] MEDS: DEXTROSE 5% IVPB (18:24)
[2024-08-05] MEDS: ACYCLOVIR SODIUM IVPB (18:24)
--- NOTE | 2024-08-05 18:27 | PM.TDS ---
Transfer Discharge Sum: Prov Provider Date of admission: 08/04/24 19:34 Primary care physician: Jane Underwood PA-C Admitting clinician: Giorgio Dowling MD Consults: 08/05/24 Consult to Physician Routine Comment: spoke with Dr. Lee @[id number] Consulting Provider: Fredis Lee will call order clerk/MD group to consult: Hem/Onc Reason for consultation: Pancytopenia Has provider been notified: Yes DS: Admitting Diagnosis Discharge Date 08/05/2024 Admitting Diagnosis Pancytopenia DS: Discharge Diagnosis Discharge Diagnosis (1) UTI (urinary tract infection): Code(s): N39.0 - Urinary tract infection, site not specified Status: Acute Assessment and Plan: Patient started on cefepime Await cultures (2) Multiple myeloma: Code(s): C90.00 - Multiple myeloma not having achieved remission Status: Acute Assessment and Plan: Follow-up in outpatient setting (3) Elevated troponin: Code(s): R79.89 - Other specified abnormal findings of blood chemistry Status: Acute Assessment and Plan: Continue to trend Chest pain-free (4) Thrombocytopenia: Code(s): D69.6 - Thrombocytopenia, unspecified Status: Acute Assessment and Plan: Transfuse for platelets below 10,000 as per Heme-Onc recommendations (5) Controlled type 2 diabetes mellitus with hyperglycemia: Code(s): E11.65 - Type 2 diabetes mellitus with hyperglycemia Status: Acute Assessment and Plan: Continue insulin (6) Acute pain associated with herpes zoster: Code(s): B02.9 - Zoster without complications Status: Acute Assessment and Plan: Tramadol and Tylenol as needed (7) Lumbosacral radiculopathy due to herpes zoster: Code(s): M54.17 - Radiculopathy, lumbosacral region; B02.8 - Zoster with other complications Status: Acute Assessment and Plan: Continue to monitor (8) Encephalopathy: Code(s): G93.40 - Encephalopathy, unspecified Status: Acute Assessment and Plan: Likely secondary to acute illness urinary tract infection CT head reviewed (9) Foot drop, right foot: Code(s): M21.371 - Foot drop, right foot Status: Acute Assessment and Plan: PT OT (10) AMS (altered mental status): Code(s): R41.82 - Altered mental status, unspecified Status: Acute Assessment and Plan: Likely secondary to encephalopathy toxic metabolic (11) Post herpetic neuralgia: Code(s): B02.29 - Other postherpetic nervous system involvement Status: Acute Assessment and Plan: Continue gabapentin (12) COPD (chronic obstructive pulmonary disease): Code(s): J44.9 - Chronic obstructive pulmonary disease, unspecified Status: Acute Assessment and Plan: Not actively wheezing (13) Gait abnormality: Code(s): R26.9 - Unspecified abnormalities of gait and mobility Status: Acute Assessment and Plan: Fall precautions Transfer Discharge Sum: Med Medications Active and Home Medications: Home Medications blood-glucose meter #1 ea 05/13/21 [Rx Confirmed 08/04/24] mecobalamin (vitamin B12) 1,000 mcg disintegrating tablet,sublingual 1,000 mcg sublingual DAILY 01/12/23 [History Confirmed 08/04/24] multivitamin 1 tablet PO DAILY 08/06/23 [History Confirmed 08/04/24] blood sugar diagnostic ([employer] Ultra Test strips) #100 ea 11/05/23 [Rx Confirmed 08/04/24] Lactobacillus acidophilus 20 billion cell capsule (Florajen Acidophilus) 20,000 mmu cells PO DAILY #1 cap 01/11/24 [Rx Confirmed 08/04/24] lisinopril 5 mg tablet 5 mg PO DAILY #90 tabs 05/25/24 [Rx Confirmed 08/04/24] pantoprazole 40 mg tablet,delayed release 40 mg PO QAM #90 tabs 05/25/24 [Rx Confirmed 08/04/24] acetaminophen 500 mg tablet 1,000 mg PO QID pain 1-3 07/30/24 [History Confirmed 08/04/24] acyclovir 400 mg tablet 400 mg PO BID 07/30/24 [History Confirmed 08/04/24] cyanocobalamin (vitamin B-12) 1,000 mcg capsule 1,000 mcg PO DAILY 07/30/24 [History Confirmed 08/04/24] diclofenac sodium 1 % topical gel (Arthritis Pain (diclofenac)) 4 g topical QID 07/30/24 [History Confirmed 08/04/24] gabapentin 300 mg capsule 300 mg PO TID 07/30/24 [History Confirmed 08/04/24] lidocaine 4 % topical patch (Aspercreme (lidocaine)) 1 patch topical DAILY 07/30/24 [History Confirmed 08/04/24] polyethylene glycol 3350 17 gram oral powder packet 17 g PO BID PRN constipation 07/30/24 [History Confirmed 08/04/24] senna-docusate sodium tablet 3 tablet PO BID PRN constipation 07/30/24 [History Confirmed 08/04/24] tramadol 50 mg tablet 50 mg PO Q6H PRN pain (scale score 7-10) 07/30/24 [History Confirmed 08/04/24] dextrose 40 % oral gel (Glucose Gel) 15 g PO ONCE PRN hypoglycemia 08/04/24 [History Confirmed 08/04/24] dextrose 50 % in water (D50W) 50 g IV PRN PRN hyperglycemia 08/04/24 [History Confirmed 08/04/24] duloxetine 20 mg capsule,delayed release (Cymbalta) 20 mg PO DAILY 08/04/24 [History Confirmed 08/04/24] glucagon HCl 1 mg solution for injection (Glucagon (HCl) Emergency Kit) 1 mg IM ONCE PRN hypoglycemia 08/04/24 [History Confirmed 08/04/24] insulin lispro 100 unit/mL subcutaneous solution (Humalog U-100 Insulin) 1 sliding scale dose subcut USEASDIRECTD 08/04/24 [History Confirmed 08/04/24] tramadol 50 mg tablet 50 mg PO TID 08/04/24 [History Confirmed 08/04/24] Active Medications Acetaminophen (Acetaminophen 500 Mg Tablet) 1,000 mg PO QID [facility] Last Admin: 08/05/24 18:24 Dose: 1,000 mg Cyanocobalamin (Cyanocobalamin 1,000 Mcg Tablet) 1,000 mcg PO DAILY [facility] Last Admin: 08/05/24 08:45 Dose: 1,000 mcg Duloxetine HCl (Duloxetine Hcl 20 Mg Capsule.Dr) 20 mg PO DAILY [facility] Last Admin: 08/05/24 08:44 Dose: 20 mg Filgrastim-Sndz (Filgrastim-Sndz 300 Mcg/0.5 Ml Syringe) 300 mcg SUB-Q DAILY [facility] Last Admin: 08/05/24 09:13 Dose: 300 mcg Gabapentin (Gabapentin 300 Mg Capsule) 300 mg PO TID [facility] Last Admin: 08/05/24 18:24 Dose: 300 mg Guaifenesin (Guaifenesin 12 Hr 600 Mg Tabcr) 600 mg PO Q12HR [facility] Last Admin: 08/05/24 11:39 Dose: 600 mg Vancomycin HCl (Vancomycin 1,500 Mg/Ns 500 Ml) 1,500 mg in 500 mls @ 250 mls/hr IVPB Q24H MARIA ELENA Cefepime HCl (Maxipime 2 Gm/Ns 50 Ml) 2 gm in 50 mls @ 100 mls/hr IVPB Q12HR [facility] Last Admin: 08/05/24 09:12 Dose: 100 mls/hr Acyclovir Sodium 700 mg/ (Dextrose) 114 mls @ 110 mls/hr IVPB Q8HR [facility] Last Admin: 08/05/24 18:24 Dose: 110 mls/hr Sodium Chloride (Normal Saline Iv) 250 mls @ 30 mls/hr IV CONT .Q8H20M STA Stop: 08/06/24 01:38 Lactobacillus Acidophilus (Acidophilus/Bulgaricus Chewable Tablet) 1 tablet BY MOUTH DAILY [facility] Last Admin: 08/05/24 08:44 Dose: 1 tablet Lidocaine (Lidocaine 5% Patch) 1 patch TRANSDERM DAILY [facility] Last Admin: 08/05/24 08:44 Dose: 1 patch Pantoprazole Sodium (Pantoprazole 40 Mg Tablet) 40 mg PO QAM [facility] Last Admin: 08/05/24 08:44 Dose: 40 mg Polyethylene Glycol (Polyethylene Glycol 3350 17 Gm Powd.Pack) 17 gm PO BID PRN PRN Reason: constipation Tramadol HCl (Tramadol Hcl (*Crx) 50 Mg Tablet) 50 mg PO Q6H PRN PRN Reason: pain (scale score 7-10) Last Admin: 08/05/24 04:15 Dose: 50 mg Tramadol HCl (Tramadol Hcl (*Crx) 50 Mg Tablet) 50 mg PO TID [facility] Last Admin: 08/05/24 18:24 Dose: 50 mg Transfer Discharge Sum: Hosp Hospital Course Hospital course: 79-year-old male with past medical history significant for recently diagnosed multiple myeloma, herpes zoster neuropathy, right foot drop, insulin-dependent diabetes mellitus. Patient recently discharged from [facility] to [facility]. Was brought to the emergency room due to generalized weakness, obtundation, lethargy. Most of the history has been obtained from who is at bedside. Preliminary workup was significant for urinalysis with numerous WBCs present, platelet count 84986, WBC 1.9, MCV 114, hemoglobin 7.7 hematocrit 28 troponins x2 0.06 a 0.081 a chest x-ray showed no acute cardiopulmonary process, CT of the head no acute intracranial process. Patient has been admitted for further evaluation management and treatment. Pertinent ED labs: WBC 1.5, hemoglobin 7.7, platelet 14, absolute neutrophil count 1.1, sodium 131, potassium 4.4, creatinine 1.02, troponin downtrending 0.068 UA: Leukocyte esterase 3+, WBC more than 100, bacteria 4+, nitrates negative Influenza, RSV, COVID negative Ordered nasal mrsa Head CT no acute intracranial process Chest x-ray no acute cardiopulmonary process Blood culture and urine culture pending. Discussed with his daughter and his . Patient has a complex medical history. 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 June 2024 patient had right leg weakness and was taken to [facility] [place] and he was admitted there for 2 weeks. Patient family was not satisfied with the treatment given in [place] so he was transferred to [facility] [place], [place] on July 20. In [place] clinically he was diagnosed with multiple myeloma. Patient has multiple comorbid conditions including shingles in [employer].Previous MRI pelvis: Normal, unremarkable MR imaging appearance of the imaged lumbosacral plexus. MRI brain with no acute findings. MRI lumbar spine with findings of: Abnormal linear enhancement along the course of the intrathecal and extraforaminal right L4 nerve root. The differential diagnosis includes, but is not limited to, perineural metastasis versus an infectious or inflammatory neuritis. 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 Order immunoglobulin panel to look for IGM viscosity,MRI brain and spine, changed Acyclovir to treatment,will transfuse Plt if less 10k or bleeding, PRBC if HgB less than 7, currently he is on Filgastrim. Called [facility] and spoke with , and patient accepted at [facility]. Accepting physician MD Kary. Time Spent with Patient Time attestation: Total time spent providing and/or coordinating transfer services:45 minutes Exam Narrative: Laying in a stretcher Const: General: comfortable, no acute distress, well developed, ill appearing acutely, lethargic, patient obtunded and average body habitus Nutritional Appearance: average body habitus Orientation/consciousness: oriented to person, oriented to place, patient obtunded and lethargic HENMT: Head: normal to inspection, normocephalic and atraumatic Ears: hearing grossly normal bilaterally Face/Nose/Sinus: normal facial exam Face and sinus: normal facial exam Eyes: General: appearance normal, both eyes and all related structures Pupils: Equal, round and reactive pupils present EOM: EOMs intact bilaterally Neck: Neck: full ROM, no lymphadenopathy and no JVD Thyroid: thyroid normal Lymphatic: no lymphadenopathy noted Resp: Effort & Inspection: normal respiratory effort and able to speak in complete sentences Auscultation: clear to auscultation bilaterally Cardio: Jugular venous distension: no JVD Rate: regular rate Rhythm: regular rhythm Heart sounds: S1 normal heart sound present and S2 normal heart sound present : General: Yes deferred Skin: General skin exam: rashes (Petechial rash, herpetic rash) Rashes: rashes noted (Petechial rash, herpetic rash) Wounds: no wounds Neuro: General: oriented to person, oriented to place, CN's II-XI intact bilaterally, patient obtunded and Unable to assess gait Cranial nerves: Yes CN's II-XII intact bilaterally and Yes Equal, round and reactive pupils present Cognition (Neuro): abnormal cognition (Obtundation/lethargy) Speech: normal speech Gait exam (Neuro): Unable to assess gait Motor exam (neuro): Motor abnormalities not present and Abnormal motor strength present (Right foot) Other: Right foot drop Extrem: General: normal to inspection, full ROM, no joint enlargement and no pedal edema Other: Petechial rash DS: Data Data Completed and Pending Labs on day of discharge: Labs from last 24 hours 08/05/24 08/05/24 08/04/24 15:18 15:17 19:20 WBC 1.9 L* RBC 1.99 L Hgb 7.4 L Hct 22.7 L MCV 114.1 H MCH 37.2 H MCHC 32.6 RDW 17.4 H Plt Count 12 L* MPV TNP % Immature Plt Fraction 3.3 Sodium 132 L Potassium 4.1 Chloride 102 Carbon Dioxide 23 Anion Gap 7 BUN 12 D Creatinine 0.74 Estim Creat Clear Calc 68 Estimated GFR > 60 Glucose 96 Calcium 9.1 Iron 128 TIBC 252 L % Saturation 51 H Ferritin 270.00 H Total Bilirubin 1.1 AST 20 ALT 15 Alkaline Phosphatase 106 Troponin I 0.068 H* Total Protein 6.0 L Albumin 3.1 L Vitamin B12 > 1000.0 H Folate > 20.0 H IgG < 270 L IgA < 40 L IgM 722 H Serum Immunofixation Pending Influenza A (RT-PCR) Influenza B (RT-PCR) RSV (RT-PCR) SARS-CoV-2 RNA (RT-PCR) Blood Type Antibody Screen 08/04/24 08/04/24 18:22 17:38 WBC RBC Hgb Hct MCV MCH MCHC RDW Plt Count MPV % Immature Plt Fraction Sodium Potassium Chloride Carbon Dioxide Anion Gap BUN Creatinine Estim Creat Clear Calc Estimated GFR Glucose Calcium Iron TIBC % Saturation Ferritin Total Bilirubin AST ALT Alkaline Phosphatase Troponin I Total Protein Albumin Vitamin B12 Folate IgG IgA IgM Serum Immunofixation Influenza A (RT-PCR) Negative Influenza B (RT-PCR) Negative RSV (RT-PCR) Negative SARS-CoV-2 RNA (RT-PCR) Negative Blood Type O Positive Antibody Screen Negative Preliminary micro results at discharge 08/04/24 17:38 Blood Culture - Preliminary Blood 08/04/24 18:22 Blood Culture - Preliminary Blood Imaging Radiologist's impression: ITS Impressions Chest X-Ray 08/04/24 15:09 IMPRESSION: No acute cardiopulmonary process. Head CT 08/04/24 18:11 IMPRESSION: No acute intracranial process.
[2024-08-05] MEDS: VANCOMYCIN 1,500 MG/NS 500 ML 1,500 MG/500 ML BAG 250 MG IVPB (19:48)
[2024-08-06] VITALS: PULSE 77; RESP 16; O2SAT 98
[2024-08-06 02:00] VITALS: PULSE 77
[2024-08-06] MEDS: DEXTROSE 5% IVPB (03:05)
[2024-08-06] MEDS: ACYCLOVIR SODIUM IVPB (03:05)
[2024-08-06 03:09] VITALS: BP 107/54; PULSE 74; RESP 16; TEMP 36.8; O2SAT 96
[2024-08-06 03:55] VITALS: PULSE 83; RESP 16; O2SAT 96
[2024-08-06 03:56] VITALS: PULSE 83
[2024-08-06 06:00] VITALS: PULSE 85
[2024-08-06] MEDS: traMADol HCL (*CRX) 50 MG TABLET PO (06:48)
== END 2024-08-06 06:50 | disposition short-term general hospital (02) | DRG 689 ==
LOC: ANHED 19:32 → ANHIMU 08-05 05:39
PROVIDERS: Emergency Medicine; Internal Medicine Hematology & Oncology; Admitting Provider Internal Medicine; Emergency Provider Emergency Medicine; PCP Physician Assistant Medical; Visit Provider General Practice
DX: N39.0 Urinary tract infection, site not specified (principal); G93.41 Metabolic encephalopathy; C90.00 Multiple myeloma not having achieved remission; B02.8 Zoster with other complications; B02.29 Other postherpetic nervous system involvement; I48.19 Other persistent atrial fibrillation; D61.818 Other pancytopenia; C88.00 Waldenstrom macroglobulinemia not having achieved remission; D69.6 Thrombocytopenia, unspecified; E11.65 Type 2 diabetes mellitus with hyperglycemia; J44.9 Chronic obstructive pulmonary disease, unspecified; M54.17 Radiculopathy, lumbosacral region; M21.371 Foot drop, right foot; I71.9 Aortic aneurysm of unspecified site, without rupture; K57.90 Diverticulosis of intestine, part unspecified, without perforation or abscess without bleeding; I71.20 Thoracic aortic aneurysm, without rupture, unspecified; Z86.73 Personal history of transient ischemic attack (TIA), and cerebral infarction without residual deficits; Z20.822 Contact with and (suspected) exposure to COVID-19
CPT/HCPCS: 36415; 36600; 70450; 71045; 80053; 81001; 82550; 82607; 82728; 82746; 82784; 82805; 83540; 83550; 83605; 83690; 83735; 84100; 84443; 84484; 85018; 85025; 85027; 85055; 85610; 85730; 86334; 86850; 86900; 86901; 87040; 87086; 87181; 87637; 92526; 92610; 93005; 96361; 96365; 96367; 96375; 99285; A9270; J0133; J0692; J1171; J2270; J3370; J7030; J7040; Q5101